=== PATIENT | male | born 1965 | race Caucasian/White ===

== ENCOUNTER 2017-11-15 13:04 | Inpatient (IN) | payer OTHER ==
[~2017-11-15] VITALS: Ht 172.7 cm; Wt 84.9 kg
--- NOTE | 2017-11-15 13:43 | ED GENERAL ADULT ---
History of Present Illness General Chief Complaint: General Adult Stated Complaint: BIBA ?SIEZURE, FALLING, HEAD STRIKE, ?AMS Source: patient Exam Limitations: no limitations Vital Signs & Intake/Output Vital Signs & Intake/Output Vital Signs Date Time Temp Pulse Resp B/P B/P Pulse O2 O2 Flow FiO2 Mean Ox Delivery Rate 11/15 1727 96.6 89 16 144/90 96 Room Air 11/15 1634 96.2 87 16 138/90 96 Room Air 11/15 1340 96.2 104 15 168/104 94 Room Air Room Air Allergies Coded Allergies: acetaminophen (From PERCOCET) (Severe, ITCH 02/05/16) hydrocodone (Severe, ITCH 02/05/16) oxycodone (Severe, ITCH 02/05/16) Reconcile Medications Atorvastatin Calcium 40 MG TABLET 1 TAB PO DAILY choolestrol (Reported) Escitalopram Oxalate 10 MG TABLET 1 TAB PO DAILY insomnia (Reported) Lisinopril/Hydrochlorothiazide (Lisinopril-Hctz 20-12.5 MG Tab) 20 MG-12.5 MG TABLET 1 TAB PO DAILY htn (Reported) Triage Note: PT BIBA FROM HOME WITH FOR MULTIPLE COMPLAINTS. PT HAS HAD FEVERS SINCE EARLY OCTOBER, AN EPISODE OF A COUPLE OF DAYS OF BLOOD BM'S (NOW RESOLVED), +DIARRHEA. ON THURSDAY, PT FELL AND HIT HIS HEAD ON BASEBOARD IN HOUSE, UNSURE OF MECHANISM OF FALL. SINCE THEN, PT HAS FALLEN 2 OTHER TIMES (PER , PT IS JUST STANDING AND THEN DROPS FORWARD). NOW, PT HAS BLURRY VISION, HEADACHE, TREMOR-LIKE ACTIVITY THAT OCCURS WHEN TRYING TO STAND UP, INCREASED CONFUSION, DECREASED URINATION (?NO URINE SINCE YESTERDAY), SLURRED SPEECH, NO FACIAL DROOP. SORE THROAT THAT STARTED YESTERDAY. Triage Nurses Notes Reviewed? yes Onset: Gradual Duration: worse persistent since (4 DAYS, HAS BEEN GOING ON 1 MO) Timing: no prior history Injury Environment: home Severity: severe Severity Numbers: 10 No Modifying Factors: none HPI: Patient is a 52-year-old male with history of hypertension, hyperlipidemia presenting to the emergency department with via EMS with chief complaint of intermittent altered mental status, multiple falls, tactile fevers and chills, sore throat that's been getting worse over the past 4 days. According to the he's had nonspecific flulike symptoms for the past one month, patient was really reluctant to see primary care physician regarding symptoms. She was symptoms were improving and then over the past 4 days she reports he has become intermittently confused, she feels like his legs are too weak to support himself. His legs have been giving out. Patient fell on which was unwitnessed. Unsure if he has had blacked out. She found him on the floor when she woke up. He fell 2 more times since then. He's had very unsteady gait according to the . Patient does admit to drinking 2 martinis daily for "a while". Patient also reports intermittent blurred vision. No chest pain or shortness of breath. Positive sore throat. The also reports that he said decreased urine output over the past several days. She does not believe he urinated yet today. No history of similar symptoms in the past. Denies Tylenol use. (Melissa Caban) Past History Travel History Traveled to [place] past 21 day No Medical History Any Pertinent Medical History? see below for history Neurological: NONE EENT: NONE Cardiovascular: hypertension, hyperlipidemia Respiratory: NONE Gastrointestinal: NONE Hepatic: NONE Renal: NONE Musculoskeletal: NONE Psychiatric: NONE Endocrine: NONE Blood Disorders: NONE Cancer(s): NONE INTERIOR HORTICULTURIST/Reproductive: NONE Surgical History Surgical History: non-contributory Psychosocial History Who do you live with Spouse What is your primary language Malian Tobacco Use: Cognitive Impairment Family History Hx Contributory? No (Melissa Caban) Review of Systems Review of Systems Constitutional: Reports: see HPI, chills, fever, malaise, weakness. Comments Review of systems: See HPI, All other systems negative. Constitutional, no weight loss HEENT: No visual changes no congestion Cardiovascular: No chest pain ,palpitation , orthopnea or ankle swelling Skin, no jaundice no rashes Respiratory: No dyspnea cough sputum or hemoptysis GI: No nausea no vomiting : No dysuria No hematuria Muscle skeletal: no back pain, no neck pain, Neurologic: No numbness Psych: No stress anxiety or depression,. Heme/endocrine: No bruising no bleeding no polyuria or polydipsia Immunology: No splenectomy or history of AIDS (Melissa Caban) Physical Exam Physical Exam General Appearance: no apparent distress, awake, comfortable Comments: Well-developed well-nourished person in no acute distress HEENT: extraocular motion intact, no nystagmus. Pupils equally round and reactive to light and accommodation. Sclera icterus present. Nose is atraumatic. External auditory canal and Tympanic membranes clear. Pharynx normal. No swelling or edema. Moist oromucosa. Neck: Supple, no lymphadenopathy, normal range of motion without pain or tenderness, no nuchal rigidity. Back: Nontender, no CVA tenderness. Cardiovascular: Regular rate and rhythms no murmurs rubs or gallopS Respiratory: Chest nontender. No respiratory distress.breath sounds clear to auscultation bilaterally Abdomen: Soft, diffusely tender to palpation with guarding throughout, nondistended, no appreciable organomegaly. Normal bowel sounds. No ascites Extremity: No edema, no calf tenderness to palpation, normal and equal pulses. Neuro: Alert oriented to person, confused about time and situation, motor sensory normal, cranial nerves II through XII grossly intact. NEGATIVE ASTERIXSIS. Skin: Skin appears slightly jaundiced throughout, otherwise No appreciable rash on exposed skin, skin is warm and dry. Psych: poor memory and judgment. Core Measures ACS in differential dx? No CVA/TIA Diagnosis: No Sepsis Present: No Sepsis Focused Exam Completed? No (Sterling GARCIA,Melissa) Progress Differential Diagnoses I considered the following diagnoses in my evaluation of the patient: Dehydration, electrolyte abnormality, rhabdomyolysis, acute kidney injury, hepatorenal syndrome, hepatitis, hepatic ENCEPHALITIS Plan of Care: Orders Procedure Date/time Status Nothing by Mouth 11/16 B Active CBC WITHOUT DIFFERENTIAL 11/16 0500 Active BASIC ELECTROLYTES PLUS BUN&CR 11/16 0500 Active Code Status 11/15 1743 Active RAPID VIRAL INFLUENZA A 11/15 1705 Active PT Evaluate & Treat 11/15 1703 Active Pathway - chart 11/15 1703 Active House Staff 11/15 1703 Active CULTURE,URINE 11/15 1703 Active LACTIC ACID 11/15 1642 Active Patient Data 11/15 1636 Active Admit to inpatient 11/15 1632 Active URINE LYTES, SPOT 11/15 1617 Active Add-on Test (ER Only) 11/15 1556 Active Add-on Test (ER Only) 11/15 1511 Active Add-on Test (ER Only) 11/15 1503 Active BLOOD CULTURE 11/15 1456 Active ACETOMINOPHEN 11/15 1350 Active SALICYLATE 11/15 1350 Active LIPASE 11/15 1350 Active HEPATITIS PANEL 11/15 1350 Active ETHANOL 11/15 1350 Active CREATINE PHOSPHOKINASE 11/15 1350 Active AMYLASE 11/15 1350 Active URINE DRUG SCREEN FOR ER ONLY 11/15 1343 Active URINALYSIS 11/15 1343 Active Telemetry/Dehydration Unit Operator 11/15 1342 Active TROPONIN LEVEL 11/15 1342 Active PARTIAL THROMBOPLASTIN TIME 11/15 1342 Complete PROTHROMBIN TIME 11/15 1342 Complete AMMONIA 11/15 1342 Active LACTIC ACID 11/15 1342 Active DIRECT BILIRUBIN 11/15 1342 Active COMPREHENSIVE METABOLIC PANEL 11/15 1342 Active CBC WITHOUT DIFFERENTIAL 11/15 1342 Complete EKG 11/15 1308 Active VTE Mechanical Prophylaxis 11/15 UNK Active Vital Signs 11/15 UNK Active Seizure Precautions 11/15 UNK Active Precautions 11/15 UNK Active Intake & Output 11/15 UNK Active Myers, Insertion/Removal/Asses 11/15 UNK Active Current Medications Sig/Wagner Start time Last Medication Dose Stop Time Status Admin Heparin Sodium 5,000 UNIT Q8 11/15 2200 UNVr (Porcine) Acetylcysteine 13,607.7 MG ONCE ONE 11/15 1645 AC 11/15 (Acetadote) 11/15 1805 1741 Dextrose/Water 200 ML (D5W) Laboratory Tests 11/15/17 1551: PT 14.0 H, INR 1.34 H, APTT 39 H 11/15/17 1350: Anion Gap 24 H, Estimated GFR 9 L, BUN/Creatinine Ratio 7.5, Glucose 92, Lactic Acid 2.3 H, Calcium 9.7, Total Bilirubin 12.1 H, Direct Bilirubin 11.4 H, AST 696 H, ALT 266 H, Alkaline Phosphatase 750 H, Ammonia 16, Creatine Kinase 707 H, Troponin I 0.04, Total Protein 6.1 L, Albumin 2.8 L, Globulin 3.3, Albumin/Globulin Ratio 0.8 L, Amylase 73, Lipase 67, CBC w Diff MAN DIFF ORDERED, RBC 4.28 L, MCV 91.4, MCH 31.8 H, MCHC 34.8, RDW 16.9 H, MPV 8.4, Segmented Neutrophils 71, Band Neutrophils 3, Lymphocytes 22, Monocytes 4, Platelet Estimate VERIFIED BY SMEAR, Anisocytosis 1+, Target Cells FEW, Hepatitis A IgM Ab Pending, Hep Bs Antigen Pending, Hep B Core IgM Ab Conf Pending, Hepatitis C Antibody Pending, Salicylates < 1.0, Acetaminophen < 10.0 L, Serum Alcohol < 10.0 11/15/17 1343: Salicylates Cancelled, Acetaminophen Cancelled, Serum Alcohol Cancelled Microbiology 11/15 1705 NASOPHARYN: Influenza Virus A & B Rapid Smear - ORD 11/15 1703 URINE ROUT: Urine Culture - ORD 11/15 1555 BLOOD: Blood Culture - RECD 11/15 1456 BLOOD: Blood Culture - ORD Spoke with Dr. Cerna, on-call gastroenterology, recommended we start patient on N-acetylcysteine for liver failure. 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 Also recommending we obtained urine sodium. IV hydration continuing. Patient will be admitted to the ICU for hepatic and renal failure. Ammonia is negative. CT of head and neck are negative. CT of the abdomen shows pancreatic cyst versus neoplasm.?hepatorenal syndrome. Diagnostic Imaging: Viewed by Me: Radiology Read, CT Scan. Discussed w/RAD: Radiology Read, CT Scan. Radiology Impression: PATIENT: JULIO CESAR ABDALLA PRESENT AGE: 52 PATIENT ACCOUNT NO: [id number] : 67 LOCATION: [facility] ORDERING PHYSICIAN: Melissa GARCIA SERVICE DATE: 11/15/17 EXAM TYPE: RAD - XRY-PORTABLE CHEST XRAY EXAMINATION: XR PORTABLE CHEST CLINICAL INFORMATION: 52- year-old man with confusion. COMPARISON: None TECHNIQUE: Portable frontal view of the chest was obtained. FINDINGS: Lung volumes are somewhat low. No focal consolidation or overt edema is appreciated. Heart size is within the range of normal. There are no pleural effusions. There is elevation of the right hemidiaphragm. IMPRESSION: No radiographic evidence of an acute cardiopulmonary process. DICTATED BY: Maria Elena Sunshine MD DATE/TIME DICTATED:11/15/171426 RUNNING INSTRUCTOR:ALAN DATE/TIME TRANSCRIBED:11/15/171426 CONFIDENTIAL, DO NOT COPY WITHOUT APPROPRIATE AUTHORIZATION. <Electronically signed in Other Vendor System> SIGNED BY: Maria Elena Sunshine MD 11/15/17 1432, PATIENT: JULIO CESAR ABDALLA PRESENT AGE: 52 PATIENT ACCOUNT NO: [id number] : 67 LOCATION: [facility] ORDERING PHYSICIAN: Melissa GARCIA SERVICE DATE: 11/15/17 EXAM TYPE: CAT - CT ABD & PELVIS W/O IV CONTRAS EXAMINATION: CT ABDOMEN AND PELVIS WITHOUT CONTRAST CLINICAL INFORMATION: Abdominal pain. Scleral icterus. COMPARISON: Previous CT June 2008. TECHNIQUE: Multidetector volumetric imaging was performed from the superior aspect of the liver through the pubic symphysis. Sagittal and coronal reformatted images were obtained on the technologist's workstation. DLP: 640 mGy-cm FINDINGS: LUNG BASES : There is subsegmental atelectasis at the lung bases. LIVER, GALLBLADDER, AND BILIARY TREE: The liver is low in attenuation suggestive of fatty infiltration. The liver appears slightly enlarged, right lobe measuring 20 cm in length. No focal liver lesion is seen. The gallbladder is high in attenuation related to the liver, possibly related to bile sludge. No gallstones are seen. No intra or extrahepatic biliary duct dilatation is seen. PANCREAS: There is a cystic lesion in the tail of the pancreas. This measures 4.8 x 3.8 cm axial image 32 series 2 and is new from 2008 exam. There may be an adjacent focal calcification in the pancreas. There is minimal adjacent fat stranding. Differential would include a benign pseudocyst related to previous pancreatitis and cystic pancreatic neoplasm. The pancreas is otherwise unremarkable. SPLEEN: Unremarkable. ADRENAL GLANDS: Unremarkable. KIDNEYS AND URETERS: The kidneys are normal in size, shape , and attenuation. No hydronephrosis, hydroureter, or calculi seen. No perinephric stranding. BLADDER: Not distended and not well evaluated. GASTROINTESTINAL TRACT: There is evidence of diverticulosis of the colon. There is minimal fat stranding seen adjacent to the sigmoid colon and it is difficult to exclude mild diverticulitis. No evidence of obstruction, perforation or abscess is seen. Small and large bowel is otherwise unremarkable. The appendix is unremarkable. ABDOMINAL WALL: There is a small umbilical hernia containing fat. LYMPH NODES: There are no enlarged lymph nodes. There is no ascites. VASCULAR: Unremarkable. PELVIC VISCERA: The prostate gland does not appear enlarged. OSSEOUS STRUCTURES: There is a small sclerotic lesion in the left iliac bone measuring 6 mm axial image 82 series 2. This is not seen on 2008 exam. Bony structures are otherwise unremarkable. IMPRESSION: Enlarged fatty liver. 3.8 x 4.8 cm cyst or cystic lesion in the tail of the pancreas is new from 2008 exam. There is an adjacent small focal calcification in the pancreas and some stranding of the surrounding peripancreatic fat. Differential would include pseudocyst related to previous pancreatitis and cystic pancreatic neoplasm. Diverticulosis. It is difficult to exclude mild diverticulitis of the sigmoid colon. DICTATED BY: Florinda Alvarez MD DATE/TIME DICTATED:11/15/171454 RUNNING INSTRUCTOR:ALAN DATE/TIME TRANSCRIBED:11/15/171454 CONFIDENTIAL, DO NOT COPY WITHOUT APPROPRIATE AUTHORIZATION. <Electronically signed in Other Vendor System> SIGNED BY: Florinda Alvarez MD 11/15/17 1550 , PATIENT: JULIO CESAR ABDALLA PRESENT AGE: 52 PATIENT ACCOUNT NO: [id number] : 69 LOCATION: [facility] ORDERING PHYSICIAN: Melissa GARCIA SERVICE DATE: 11/15/17 EXAM TYPE: CAT - CT CERV SPINE WO IV CONTRAST; CT HEAD WO IV CONTRAST EXAMINATION: CT HEAD WITHOUT CONTRAST CT CERVICAL SPINE WITHOUT CONTRAST CLINICAL INFORMATION: 52-year-old man with head injury and confusion. COMPARISON: None. TECHNIQUE: Imaging was performed from the skull base to vertex without intravenous administration of contrast. In addition, helical noncontrast CT imaging was acquired through the cervical spine and source images were reviewed along with axial reconstructions and sagittal and coronal MPRs. DLP: 968 mGy-cm FINDINGS: HEAD: No intracranial mass, hemorrhage, or midline shift is visualized. The ventricles and sulci are age- appropriate. No extra-axial collections are identified. The paranasal sinuses and mastoid air cells are well aerated. CERVICAL SPINE: There is no evidence of acute cervical spine fracture. Vertebral bodies remain normal in height. There is straightening of the normal cervical lordosis. Degenerative endplate remodeling with anterior marginal osteophyte formation and mild loss of normal disc space is noted at C5-C6 and C6-C7. No pre- or paravertebral soft tissue abnormality is identified. Limited assessment of the lung apices is unremarkable. IMPRESSION: 1. No acute intracranial pathology. 2. No CT evidence of acute cervical spine fracture or traumatic subluxation. DICTATED BY: Maria Elena Sunshine MD DATE/TIME DICTATED:11/15/171445 RUNNING INSTRUCTOR:ALAN DATE/TIME TRANSCRIBED:11/15/171445 CONFIDENTIAL, DO NOT COPY WITHOUT APPROPRIATE AUTHORIZATION. <Electronically signed in Other Vendor System> SIGNED BY: Jong OCONNOR,Maria Elena 11/15/17 1456 Initial ED EKG: SINUS TACHY 111, NON-SPECIFIC T ABNORMALITIES, INFERIOR LEADS (Melissa Caban) Departure Departure Time of Disposition: 163 Disposition: STILL A PATIENT Condition: Stable Clinical Impression Primary Impression: Renal failure Qualifiers: Renal failure chronicity: acute Acute renal failure type: unspecified Qualified Code: N17.9 - Acute kidney failure, unspecified Secondary Impressions: Hyponatremia Liver failure Qualifiers: Liver failure chronicity: acute Hepatic coma status: without hepatic coma Qualified Code: K72.00 - Acute and subacute hepatic failure without coma Referrals: Maureen Farr MD (PCP/Family) Departure Forms: Customer Survey General Discharge Information Admission Note Spoke With: Tomas Silva MD Documentation of Exam: Documentation of any treatments & extenuating circumstances including Concerns Regarding Discharge (functional status, medication knowledge or non-compliance, living conditions, etc.) that warrant an admission rather than observation: Patient requiring critical care admission for liver failure, intermittent altered mental status, GI consultation, N-acetylcysteine protocol, serial labs, IV hydration, nephrology consultation. Serial neuro checks. Discharge at this time is medically harmful. (Melissa Caban) PA/USPS LETTER CARRIER Co-Sign Statement Statement: ED Attending supervision documentation- x I saw and evaluated the patient. I have also reviewed all the pertinent lab results and diagnostic results. I agree with the findings and the plan of care as documented in the PA's/USPS LETTER CARRIER's documentation. Hx alcoholism with viral syndrome over the last month, GI bleeding, weakness, falls, tremors, scleral icterus and confusion. Hepatorenal syndrome. GI requests ICU and NAC protocol. [] I have reviewed the ED Record and agree with the PA's/USPS LETTER CARRIER's documentation. [] Additions or exceptions (if any) to the PAs/USPS LETTER CARRIER's note and plan are summarized below: [] (Sasha OCONNOR,Matti) Critical Care Note Critical Care Note Critical Care Time: 30-74 min (Melissa Caban)
[2017-11-15 14:21] LABS: HEMATOCRIT 39.1 % (42-52); MEAN CORPUSCULAR HGB 31.8 PG (27.0-31.0); MEAN CORPUSCULAR HGB CONC 34.8 G/DL (33.0-37.0); MEAN CORPUSCULAR VOLUME 91.4 FL (80.0-94.0); MEAN PLATELET VOLUME 8.4 FL (7.4-10.4); PLATELET COUNT 128 /CUMM (130-400); RBC DISTRIBUTION WIDTH 16.9 % (11.5-14.5); RED BLOOD CELL CT 4.28 /CUMM (4.70-6.10); WHITE BLOOD CELL COUNT 9.1 /CUMM (4.8-10.8)
--- NOTE | 2017-11-15 14:32 | RADIOLOGY REPORT ---
EXAMINATION: XR PORTABLE CHEST CLINICAL INFORMATION: 52-year-old man with confusion. COMPARISON: None TECHNIQUE: Portable frontal view of the chest was obtained. FINDINGS: Lung volumes are somewhat low. No focal consolidation or overt edema is appreciated. Heart size is within the range of normal. There are no pleural effusions. There is elevation of the right hemidiaphragm. IMPRESSION: No radiographic evidence of an acute cardiopulmonary process.
--- NOTE | 2017-11-15 14:54 | CT SCAN REPORT ---
EXAMINATION: CT HEAD WITHOUT CONTRAST CT CERVICAL SPINE WITHOUT CONTRAST CLINICAL INFORMATION: 52-year-old man with head injury and confusion. COMPARISON: None. TECHNIQUE: Imaging was performed from the skull base to vertex without intravenous administration of contrast. In addition, helical noncontrast CT imaging was acquired through the cervical spine and source images were reviewed along with axial reconstructions and sagittal and coronal MPRs. DLP: 968 mGy-cm FINDINGS: HEAD: No intracranial mass, hemorrhage, or midline shift is visualized. The ventricles and sulci are age-appropriate. No extra-axial collections are identified. The paranasal sinuses and mastoid air cells are well aerated. CERVICAL SPINE: There is no evidence of acute cervical spine fracture. Vertebral bodies remain normal in height. There is straightening of the normal cervical lordosis. Degenerative endplate remodeling with anterior marginal osteophyte formation and mild loss of normal disc space is noted at C5-C6 and C6-C7. No pre- or paravertebral soft tissue abnormality is identified. Limited assessment of the lung apices is unremarkable. IMPRESSION: 1. No acute intracranial pathology. 2. No CT evidence of acute cervical spine fracture or traumatic subluxation.
--- NOTE | 2017-11-15 15:50 | CT SCAN REPORT ---
EXAMINATION: CT ABDOMEN AND PELVIS WITHOUT CONTRAST CLINICAL INFORMATION: Abdominal pain. Scleral icterus. COMPARISON: Previous CT June 2008. TECHNIQUE: Multidetector volumetric imaging was performed from the superior aspect of the liver through the pubic symphysis. Sagittal and coronal reformatted images were obtained on the technologist's workstation. DLP: 640 mGy-cm FINDINGS: LUNG BASES: There is subsegmental atelectasis at the lung bases. LIVER, GALLBLADDER, AND BILIARY TREE: The liver is low in attenuation suggestive of fatty infiltration. The liver appears slightly enlarged, right lobe measuring 20 cm in length. No focal liver lesion is seen. The gallbladder is high in attenuation related to the liver, possibly related to bile sludge. No gallstones are seen. No intra or extrahepatic biliary duct dilatation is seen. PANCREAS: There is a cystic lesion in the tail of the pancreas. This measures 4.8 x 3.8 cm axial image 32 series 2 and is new from 2008 exam. There may be an adjacent focal calcification in the pancreas. There is minimal adjacent fat stranding. Differential would include a benign pseudocyst related to previous pancreatitis and cystic pancreatic neoplasm. The pancreas is otherwise unremarkable. SPLEEN: Unremarkable. ADRENAL GLANDS: Unremarkable. KIDNEYS AND URETERS: The kidneys are normal in size, shape, and attenuation. No hydronephrosis, hydroureter, or calculi seen. No perinephric stranding. BLADDER: Not distended and not well evaluated. GASTROINTESTINAL TRACT: There is evidence of diverticulosis of the colon. There is minimal fat stranding seen adjacent to the sigmoid colon and it is difficult to exclude mild diverticulitis. No evidence of obstruction, perforation or abscess is seen. Small and large bowel is otherwise unremarkable. The appendix is unremarkable. ABDOMINAL WALL: There is a small umbilical hernia containing fat. LYMPH NODES: There are no enlarged lymph nodes. There is no ascites. VASCULAR: Unremarkable. PELVIC VISCERA: The prostate gland does not appear enlarged. OSSEOUS STRUCTURES: There is a small sclerotic lesion in the left iliac bone measuring 6 mm axial image 82 series 2. This is not seen on 2008 exam. Bony structures are otherwise unremarkable. IMPRESSION: Enlarged fatty liver. 3.8 x 4.8 cm cyst or cystic lesion in the tail of the pancreas is new from 2008 exam. There is an adjacent small focal calcification in the pancreas and some stranding of the surrounding peripancreatic fat. Differential would include pseudocyst related to previous pancreatitis and cystic pancreatic neoplasm. Diverticulosis. It is difficult to exclude mild diverticulitis of the sigmoid colon.
[2017-11-15 16:10] LABS: PTT 39 SEC (25-37)
--- NOTE | 2017-11-15 16:58 | History & Physical ---
Rosa Isela Patrick 11/15/17 1648: General Information and HPI MD Statement: I have seen and personally examined JULIO CESAR ABDALLA and documented this H&P. The patient is a 52 year old M who presented with a patient stated chief complaint of [fevers, diarrhea, s/p fall, blurry vision, slurred speech]. Source of Information: patient, family Exam Limitations: no limitations History of Present Illness: The patient had been in his usual state of health up until October 09, 2017 when he first started 2 experience low-grade temperatures, flulike symptoms including malaise, generalized aches and low-grade temperatures with a T-max of 100.6. He said since then his symptoms progressively worsened. He states that for the last 7 days or so he has been having seizure-like symptoms where he is unsteady every time he stands up and is very tremulous. Of note he has had multiple falls the first 1 being unwitnessed however the patient 's states that he was found on the ground after he did hit his head against a radiator while ambulating to the bathroom. He also endorses nausea and vomiting. He states that he has been bringing up nonbloody emesis twice a day for the past 7 days or so. This past Thursday he could not urinate and states that even though he felt like he wanted to go be urine actually trickled down. He denies any recent travel history. Denies any tick bites. Apparently his p.o. intake has been very minimal. His last travel was to [place] back in May 2017 however the family was down there to seek property. He denies any history of sick contact. Of note he does drink martinis 2 on a daily basis and has been doing that for almost 30 years. He denies any history of blood transfusions or meniscal his behavior. As far as the seizure-like episodes, the describes them as spastic movements where every time the patient sits up or stands his legs straight and give away. Patient denies any episode of urine or fecal incontinence or tongue biting or losing consciousness or eye rolling during these events. He does endorse having blurry vision this morning and they may be questionable hallucinations for the past couple of days. The wanted to bring him to the primary care physician on Thursday but he said to wait until Thursday before seeing his primary care. When really prompted them to come to the ER today was the fact that while he was lying down in the couch today he went to sit up and had that jerky like movements again after which the decided to bring him to the ER. 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 He does endorse abdominal distention however denies any constipation. He does endorse loose stools about 5-6 on a daily basis. There may have been an episode where he had blood in stools, not sure if it was ,mixed or on toilet paper. Hasnt been consuming tylenol. Only Ibuprofen 2 tablets in the past 2 days for headache post fall Allergies/Medications Allergies: Coded Allergies: acetaminophen (From PERCOCET) (Severe, ITCH 02/05/16) hydrocodone (Severe, ITCH 02/05/16) oxycodone (Severe, ITCH 02/05/16) Home Med list Atorvastatin Calcium 40 MG TABLET 1 TAB PO DAILY choolestrol (Reported) Escitalopram Oxalate 10 MG TABLET 1 TAB PO DAILY insomnia (Reported) Lisinopril/Hydrochlorothiazide (Lisinopril-Hctz 20-12.5 MG Tab) 20 MG-12.5 MG TABLET 1 TAB PO DAILY htn (Reported) Compliance With Home Meds: GOOD Past History Travel History Traveled to [place] past 21 day No Medical History Neurological: NONE EENT: NONE Cardiovascular: hypertension, hyperlipidemia Respiratory: NONE Gastrointestinal: NONE Hepatic: NONE Renal: NONE Musculoskeletal: NONE Psychiatric: NONE Endocrine: NONE Blood Disorders: NONE Cancer(s): NONE DIRECTOR OF 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 Home Who Do You Live With? spouse Primary Language: Kenyan Smoking Status: Never Smoked ETOH Use: DRINKS ON A DAILY BASIS Illicit Drug Use: denies illicit drug use Functional Ability ADLs Independent: dressing, eating, toileting, bathing. 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 EENTM: Reports: blurred vision, icterus. Cardiovascular: Reports: palpitations, syncope. Denies: chest pain, orthopena, peripheral edema. Respiratory: Denies: cough, short of breath, sputum production, wheezing. GI: Reports: bloating, diarrhea, nausea, bloody stool, vomiting. Denies: abdominal pain. Musculoskeletal: Reports: no symptoms. Neurological/Psychological: Reports: ataxia, confusion, headache, tremors, weakness. Denies: depressed, numbness, tingling, tonic-clonic seizures. Exam & Diagnostic Data Last 24 Hrs of Vital Signs/I&O Vital Signs Date Time Temp Pulse Resp B/P B/P Pulse O2 O2 Flow FiO2 Mean Ox Delivery Rate 11/15 1634 96.2 87 16 138/90 96 Room Air 11/15 1340 96.2 104 15 168/104 94 Room Air Room Air Intake & Output 11/15 1600 11/15 0800 11/15 0000 Intake Total 0 Output Total Balance 0 Intake, Oral 0 Last 24 Hrs of Labs/Jean-Pierre: Laboratory Tests 11/15/17 1551: PT 14.0 H, INR 1.34 H, APTT 39 H 11/15/17 1350: Anion Gap 24 H, Estimated GFR 9 L, BUN/Creatinine Ratio 7.5, Glucose 92, Lactic Acid 2.3 H, Calcium 9.7, Total Bilirubin 12.1 H, Direct Bilirubin 11.4 H, AST 696 H, ALT 266 H, Alkaline Phosphatase 750 H, Ammonia 16, Creatine Kinase 707 H, Troponin I 0.04, Total Protein 6.1 L, Albumin 2.8 L, Globulin 3.3, Albumin/Globulin Ratio 0.8 L, Amylase 73, Lipase 67, CBC w Diff MAN DIFF ORDERED, RBC 4.28 L, MCV 91.4, MCH 31.8 H, MCHC 34.8, RDW 16.9 H, MPV 8.4, Segmented Neutrophils 71, Band Neutrophils 3, Lymphocytes 22, Monocytes 4, Platelet Estimate VERIFIED BY SMEAR, Anisocytosis 1+, Target Cells FEW, Hepatitis A IgM Ab Pending, Hep Bs Antigen Pending, Hep B Core IgM Ab Conf Pending, Hepatitis C Antibody Pending, Salicylates < 1.0, Acetaminophen < 10.0 L, Serum Alcohol < 10.0 11/15/17 1343: Salicylates Cancelled, Acetaminophen Cancelled, Serum Alcohol Cancelled Microbiology 11/15 1705 NASOPHARYN: Influenza Virus A & B Rapid Smear - ORD 01/28 1703 URINE ROUT: Urine Culture - ORD 11/15 1555 BLOOD: Blood Culture - RECD 11/15 1456 BLOOD: Blood Culture - ORD Assessment/Plan Assessment: 52-year-old male with a past medical history of hypertension, hyperlipidemia who presents to ER complains of fevers since early October, episodes of bloody bowel movements, diarrhea, status post fall associated with blurry vision, headache and tremor-like activity as well as increased confusion. Vitals at the time of admission blood pressure 130/90, respiratory rate of 16, pulse 87, afebrile saturating 96% on room air. Labs pertinent for normal white blood cell count of 9100, H&H of 13.6/39.1 and MCV of 9144 with platelet count of 1 20,000. Serum creatinine revealed a sodium of 122, potassium of 3.7, bicarbonate of 16, anion gap 24, BUN 50 with a creatinine of 6.7. Lactic acid was 2.3. LFTs pertinent for elevated total bili of 12.1, direct bilirubinemia of 11.4, transaminitis with an AST/ALT of 696/266, alkaline phosphatase of 750. Serum ammonia was 16. CK was 707 with the first set of troponin 0.04. Amylase was 73 with lipase of 67. INR was 1.34. UA was not received. Tox screen pertinent for serum alcohol was less than 10. And a Tylenol level of less than 10. CXR showed no focal consolidation or overt edema, or pleural effusion. There is elevation of right hemidiaphragm. CT head and cervical spine showed no acute intracranial pathology. No CT evidence of acute cervical spine fracture or traumatic subluxation. CT Abdomen/Pelvis w/o IV contrast showed enlarged fatty liver. 3.8 x 4.8 cm cyst or cystic lesion in the tail of the pancreas is new from 2007. There is an adjacent small focal calcification in the pancreas and some stranding of the surrounding peripancreatic fat. Diverticulosis. It is difficult to exclude mild diverticulitis of the sigmoid colon. In the ER he received NS 1000ml x2, and started on NAC for concern for tylenol toxicity in the setting of underlying alcoholic hepatitis . Assessment and Plan: Admit patient to ICU # Respiratory - Stable. - Currently on RA. # Myalgia, mailase with low grade fevers, sore throat - Would check rapid flu, strep throat (c/o sore throat), send for tick borne panel, and check babesiosis (of note it is mathis, and is unlikely that he has tick borne diseaes incluing lymes, anaplasmosis, babesiosis, but will check) - Will order a respiratory virus panel. - F/U strep throat - ? diverticulits on CT scan (though no leukocytosis, will fair off Abx) - The clincial syndrome could have been taht the patient had flu which resulted in cholestasis, decreased PO intake, and subsequently led to deydration and renal failure. #AMBAR - Most likely 2/2 dehydration and volume depletion form being on HCTZ/lisinopril , decreased PO intake vs obstructive uropathy and ATN form CK - Will order serum osmolarity, urine lytes. - Spoke with Dr. Alvarez, no need to alkaliize urine until CK is > 5000. - Nephro consult placed. F.U recs. - Hold HCTZ/ Lisinopril #Elevated anion gap acidosis with non-aniongap metabolic acidosis and compensatory respiratory alkalosis. - 2/2 lactic acidosis from hypoperfusion, vomiting and renal insuffiency contributing to the NAGMA. - F/U repeat BEP #Tranaminitis - 2/2 alcoholic hepatitis and rhabo vs ? pancreatic mass casuing obstructive jaundice - Will send for hepatitis serology and HIV panel - Will do an US Abdomen in AM - Ammonia level was WNL. - Hold statin and escitalopram - GI consult iw DR. Cerna was placed. No need for NACas patient was not taking tylenol. #Pancreatic cyst/ mass Will obatin an MRI pancreatic protocl with andw/o contrast for better visualzation #Anemia and thrombocytopenia - ? hepatic failure - F/U CBC and consider DC heparin if platelet count continue sto drop. - F/I iron studies #Hyponatremia - Most likely 2/2 dehydration and volume depletion. - f/u urine lytes. - Hydrate with NS @50mls/hr - F./U ICU bundle @ 7:00pm, and ensure soidium doesnt overcorrect - Start D5W if it corrects too fast. #Oliguria - No evidence of BPH or hydronephrosis on CT scan. - Will place a rust catheter,a nd hydraet with IVF and monitor strict I's and O 's #ALcohol dependence - Place on CIWAS protocol - High dose thiamine and the n supplements for folic acid, thiamin and MV - DVT prophylaxis - Heparion 5000IU TID - Diet - NPO for now, Abd US in AM - COde Status - Full code As Ranked By This Provider Problem List: 1. Renal failure Qualifiers Renal failure chronicity: acute Acute renal failure type: unspecified Qualified Code: N17.9 - Acute kidney failure, unspecified 2. Liver failure Qualifiers Liver failure chronicity: acute Hepatic coma status: without hepatic coma Qualified Code: K72.00 - Acute and subacute hepatic failure without coma 3. Hyponatremia Core Measures/Misc (07/05) Acute Coronary Syndrome ACS Diagnosis: No Congestive Heart Failure Congestive Heart Failure Diagnosis No Cerebrovascular Accident CVA/TIA Diagnosis: No VTE (View Protocol) VTE Risk Factors Age>40 No Mechanical VTE Prophylaxis d/t N/A MechProphylax Ordered No VTE Pharm Prophylaxis d/t NA PharmProphylax ordered Sepsis (View protocol) Sepsis Present: No Resident Review Statement Resident Statement: ADMITTED BY RESIDENT Barry OCONNOR, [facility] 11/15/171957: Attending MD Review Statement Attending Statement Attending MD Statement: examined this patient, discuss w/resident/PA/TUNNEL MUCKER, agreed w/resident/PA/TUNNEL MUCKER, discussed with family, reviewed images, amended to note Attending Assessment/Plan: 52 yo M with h/o HTN on lisinopril-HCTZ, HLD, alcohol dependence (drinks 2 martinis everyday for 30 yrs), is brought in for evaluation of tremulousness, fever (Tmax 100.6), increasing confusion, poor PO intake and reduced urine output. reports over the past 1 month, patient developed flu-like symptoms which have gradually progressed. Over past 1 week, he has had nausea, nonbloody emesis and nonbloody diarrhea (5-6 episodes) daily. He probably had one episode of blood in the stool or toilet paper ?unclear. No heartburn, hematemesis, or melena. C/o sore throat, difficulty swallowing and abdominal bloating. He has a h/o sigmoid diverticulitis with contained microperforation that was medically managed (2007). He has been intermittently tremulous and unsteady on his feet resulting in 3 falls, most recent was 3 days ago which was unwitnessed associated with head strike and LOC (unclear duration). Also we dont know how long he was on the floor for as found him on the floor Madhu morning. She reports he has some visual changes ?visual hallucinations. Over the past 4 days, patient has had difficulty urinating even though he had the urge to urinate, with only some mild dribbling. No recent weight loss. He has only taken 4 advits for his flu symptoms, but no excessive use of NSAIDs and not taken any tylenol. Patient has a PCP and last routine blood work was normal (3 weeks ago). Last bloodwork on [facility] (Nov 2016) CBC and BEP were normal. He has no h/o seizures, no DT's or previous alcohol detoxes. Nonsmoker, denies drug use. Vitals: afebrile, HR 80-100's, BP 144/90 --> 74/39 --> responding to IV fluids, sats 96% RA. Exam: awake, mild confusion, in mild distress, jaundice+, scleral icterus+, PERRL, mild pharyngeal erythema, Dry mucous membranes. Neck supple, Chest b/l clear, no rhonchi or wheeze, Heart S1S22 regular, no murmurs, Abdomen soft, distended, RUQ and RLQ tenderness, hepatomegaly+. Blanching erythematous area suggestive of ?spider nevi/ telangiectasia over chest/abdomen. LE: no pedal edema. Labs: WBC 9.1, H/H 13.6/39.1, K 2.8, Plt 128, INR 1.34, Na 122, bicarb 16, AG 24 , BUN 50, creat 6.7 (baseline normal), Lactic acid 2.3 --> 1.4, T. Bili 12.1, D. Bili 11.4, AST 696, ALT 266, Alk phos 750, ammonia 16, CK 707, trop neg, albumin 2.8. Amylase/lipase normal. Ferritin > 22870, TIBC 108, Iron 170. Mag 1.3, LDH 1358. Serum osmolality 282. AB.43/28/78/18. UA hazy, proteinuria, trace ketones, bilirubin+, WBC 5-10, large Hb. Urine tox negative. Tylenol <10, Salicylates <1.0. Alcohol <10. Imaging: CT head/cervical spine: no acute pathology. CXR: no acute process. CT abd/pelvis without contrast: enlarged fatty liver, 3.8 cm x 4.8 cm cystic lesion in tail of pancreas, adjacent small focal calcification in pancreas and some stranding of surrounding peripancreatic fat ?pseudocyst or neoplasm. Diverticulosis. EKG: sinus tachycardia, inferior TWI, poor R-wave progression, Qtc 489 (no old EKG to compare). Assessment and plan: 1. Hypotension 2/2 hypovolemia responding to IV fluids 2. Acute kidney injury- volume depleted from diarrhea, poor PO intake while being on ACEI-diuretic. Rule out obstruction. ?ATN 3. AG metabolic acidosis with respiratory alkalosis 4. Abnormal electrolytes hyponatremia (hypovolemic), hypomagnesemia, hypokalemia, 5. Abnormal liver enzymes - ?Acute liver failure vs acute alcoholic hepatitis 6. Coagulopathy 2/2 underlying liver disease 7. 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 Thrombocytopenia, hypoalbuminemia in the setting of alcoholic liver disease 9. Alcohol dependence 10. Mild rhabdomyolysis - Admit to ICU - Vitals Q 1 hour - Fall, aspiration precautions - NPO - NAC discontinued as this does not seem to be hepatorenal syndrome - Neurochecks Q1 - CIWA protocol, hold off on ativan for now - Rust placement, monitor I/O's - There was about 15 cc after rust placement - Patient received 2 L NS in the ER, will give 2 more L bolus followed by D5 1/ 2NS for maintenance - ICU bundle Q4 hourly to monitor electrolytes - Gradual increase in sodium levels to ~ 8-10 MeQ in 24 hours - Hold lisinopril and HCTZ - Panculture, concern for ?diverticulitis although CT is not suggestive vs. Gallbladder disease (sludge on CT with no evidence of biliary dilatation). - RUQ ultrasound in AM - Monitor off antibiotics for now. If febrile, would initiate IV ceftriaxone and flagyl - No nephrotoxic or hepatotoxic drugs - Check urine lytes and osmolality - Trend lactic acid, CK - Add albumin 25 gm TID - Check hepatitis panel, HIV. - Hold statin therapy - GI consult - Nephro consult - CRCU consult in AM - MRI to assess pancreatic mass - Elevated ferritin is acute phase reactant ?underlying malignancy or hepatitis - Also noted on CT is a small sclerotic lesion on left iliac bone ?unclear etiology ?mets - Repeat EKG and troponin in AM - GI ppx IV PPI. DVT ppx Hep SC. Full code TTS > 55 mins Update: 1.30AM: Repeat blood work shows gradual improvement in renal functions and liver enzymes. His BP has improved on IV fluids, and he has started making some amount of urine.
[2017-11-15] MEDS ORDERED: ATORVASTATIN CA40 M1 PO (17:19)
[2017-11-15] MEDS ORDERED: LISINOPRIL-HCT1 EACH PO (17:19)
[2017-11-15] MEDS ORDERED: ESCITALOPRAM OX10 MG PO (17:19)
[2017-11-15 17:27] VITALS: BP 144/90
--- NOTE | 2017-11-15 18:59 | Cons- Gastroenterology ---
General Information and HPI Consulting Request Date of Consult: 11/15/17 Requested By: Tomas Silva MD Reason for Consult: 1. Jaundice 2. Abnormal liver associated enzymes 3. Hepatic steatosis 4. Coagulopathy 5. Thrombocytopenia Source of Information: family Exam Limitations: unable to give history History of Present Illness: Patient is a 52-year-old male with past medical history of hyperlipidemia and hypertension who has a history of alcohol use. Per the patient's family he drinks 2 martinis daily which she is done for the past 30 years. The patient himself says he drinks a "four-finger martini." Patient was in his usual state of health until 1-2 weeks ago when he began to experience malaise, a low-grade temp of 100.6, and tremulousness. He had had 5-6 loose, non-bloody diarrheal stools daily as well as nausea and vomiting. Per patient's he began to deteriorate on when he was unable to urinate. He had a fell at home and hit his head on the radiator sometime night / early Thursday morning but his did not find him until sometime the next day because she was sleeping in another room, thinking that he had the flu. He did not take any Tylenol, but she did give him about 4 advil. He had not taken any Tylenol previously. She reports that he has never been told that he had underlying liver disease. He was seen by his PCP about 2-3 weeks ago and at that time had normal liver-associated enzymes. A CT scan of the head and neck were obtained in the ED which were negative. The results are as follows: FINDINGS: HEAD: No intracranial mass, hemorrhage, or midline shift is visualized. The ventricles and sulci are age-appropriate. No extra-axial collections are identified. The paranasal sinuses and mastoid air cells are well aerated. CERVICAL SPINE: There is no evidence of acute cervical spine fracture. Vertebral bodies remain normal in height. There is straightening of the normal cervical lordosis. Degenerative endplate remodeling with anterior marginal osteophyte formation and mild loss of normal disc space is noted at C5-C6 and C6-C7. No pre- or paravertebral soft tissue abnormality is identified. Limited assessment of the lung apices is unremarkable. IMPRESSION: 1. No acute intracranial pathology. 2. No CT evidence of acute cervical spine fracture or traumatic subluxation. On admission patient was found to have an H/H of 13.6/39.1 with 128,000 platelets and an MCV of 91.4. His denies any history of nausea, vomiting, melena, nor bright red blood per rectum. She does report that he has had increasing abdominal distension over the past several weeks. A CT Scan of the abdomen and pelvis was also obtained and the results are as follows: FINDINGS: LUNG BASES: There is subsegmental atelectasis at the lung bases. LIVER, GALLBLADDER, AND BILIARY TREE: The liver is low in attenuation suggestive of fatty infiltration. The liver appears slightly enlarged, right lobe measuring 20 cm in length. No focal liver lesion is seen. The gallbladder is high in attenuation related to the liver, possibly related to bile sludge. No gallstones are seen. No intra or extrahepatic biliary duct dilatation is seen. PANCREAS: There is a cystic lesion in the tail of the pancreas. This measures 4.8 x 3.8 cm axial image 32 series 2 and is new from 2008 exam. There may be an adjacent focal calcification in the pancreas. There is minimal adjacent fat stranding. Differential would include a benign pseudocyst related to previous pancreatitis and cystic pancreatic neoplasm. The pancreas is otherwise unremarkable. SPLEEN: Unremarkable. ADRENAL GLANDS: Unremarkable. KIDNEYS AND URETERS: The kidneys are normal in size, shape, and attenuation. No hydronephrosis, hydroureter, or calculi seen. No perinephric stranding. BLADDER: Not distended and not well evaluated. GASTROINTESTINAL TRACT: There is evidence of diverticulosis of the colon. There is minimal fat stranding seen adjacent to the sigmoid colon and it is difficult to exclude mild diverticulitis. No evidence of obstruction, perforation or abscess is seen. Small and large bowel is otherwise unremarkable. The appendix is unremarkable. ABDOMINAL WALL: There is a small umbilical hernia containing fat. LYMPH NODES: There are no enlarged lymph nodes. There is no ascites. VASCULAR: Unremarkable. PELVIC VISCERA: The prostate gland does not appear enlarged. OSSEOUS STRUCTURES: There is a small sclerotic lesion in the left iliac bone measuring 6 mm axial image 82 series 2. This is not seen on 2008 exam. Bony structures are otherwise unremarkable. IMPRESSION: Enlarged fatty liver. 3.8 x 4.8 cm cyst or cystic lesion in the tail of the pancreas is new from 2008 exam. There is an adjacent small focal calcification in the pancreas and some stranding of the surrounding peripancreatic fat. Differential would include pseudocyst related to previous pancreatitis and cystic pancreatic neoplasm. Diverticulosis. It is difficult to exclude mild diverticulitis of the sigmoid colon. His AST/ALT was 696/266 with an CK of 707, Akaline phosphatase was 750 and total bilirubin was 12.1 with direct bilirubin being 11.4. Serum sodium was 122 with a BUN/Creatinine of 50/6.7. Albumin was 2.8. Allergies/Medications Allergies: Coded Allergies: acetaminophen (From PERCOCET) (Severe, ITCH 02/05/16) hydrocodone (Severe, ITCH 02/05/16) oxycodone (Severe, ITCH 02/05/16) Home Med List: Atorvastatin Calcium 40 MG TABLET 1 TAB PO DAILY choolestrol (Reported) Escitalopram Oxalate 10 MG TABLET 1 TAB PO DAILY insomnia (Reported) Lisinopril/Hydrochlorothiazide (Lisinopril-Hctz 20-12.5 MG Tab) 20 MG-12.5 MG TABLET 1 TAB PO DAILY htn (Reported) Past History Travel History Traveled to [place] past 21 day No Medical History Neurological: NONE EENT: NONE Cardiovascular: hypertension, hyperlipidemia Respiratory: NONE Gastrointestinal: NONE Hepatic: NONE Renal: NONE Musculoskeletal: NONE Psychiatric: NONE Endocrine: NONE Blood Disorders: NONE Cancer(s): NONE 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 Home Who Do You Live With? spouse Primary Language: Malawian Smoking Status: Never Smoked ETOH Use: DRINKS ON A DAILY BASIS Illicit Drug Use: denies illicit drug use Functional Ability ADLs Independent: dressing, eating, toileting, bathing. 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 Review of Systems Constitutional: Reports: fever, weakness. EENTM: Denies: no symptoms. Cardiovascular: Denies: no symptoms. Respiratory: Denies: no symptoms. GI: Denies: no symptoms. Genitourinary: Reports: see HPI. Musculoskeletal: Reports: no symptoms. Skin: Reports: no symptoms. Neurological/Psychological: Reports: ataxia, tremors. Hematologic/Endocrine: Reports: no symptoms. Exam & Diagnostic Data Vital Signs and I&O Vital Signs Date Time Temp Pulse Resp B/P B/P Pulse O2 O2 Flow FiO2 Mean Ox Delivery Rate 11/15 1727 96.6 89 16 144/90 11/15 1727 96.6 89 16 144/90 96 Room Air 11/15 1634 96.2 87 16 138/90 96 Room Air 11/15 1340 96.2 104 15 168/104 94 Room Air Room Air Intake & Output 11/15 1600 11/15 0400 11/14 0400 11/13 0400 Intake Total 0 Output Total Balance 0 Intake, Oral 0 Physical Exam General Appearance: awake, mild distress Head: atraumatic, normal appearance Eyes: Bilateral: normal appearance. Ears, Nose, Throat: hearing grossly normal Neck: normal inspection, supple, full range of motion Respiratory: normal breath sounds, chest non-tender, lungs clear Cardiovascular: regular rate/rhythm, Normal S1 and S2 without rub murmur or gallop Gastrointestinal: normal bowel sounds, soft, non-tender, hepatomegaly, The liver is 4 FB below the costal margin. No spleen tip is appreciated. Back: normal inspection Neurologic/Psych: awake, Somewhat confused Cranial Nerves: Cranial Nerves II-XII grossly intact Skin: jaundice, telangiectasia on the face. ?palmar erythema Results Pertinent Lab Results: Laboratory Tests 11/15 11/15 11/15 1748 1551 1350 Chemistry Sodium (137 - 145 mmol/L) 122 L Potassium (3.5 - 5.1 mmol/L) 3.7 Chloride (98 - 107 mmol/L) 82 L Carbon Dioxide (22 - 30 mmol/L) 16 L Anion Gap (5 - 16) 24 H BUN (9 - 20 mg/dL) 50 H Creatinine (0.7 - 1.2 mg/dL) 6.7 *H Estimated GFR (>60 ml/min) 9 L BUN/Creatinine Ratio (7 - 25 %) 7.5 Glucose (65 - 99 mg/dL) 92 Lactic Acid (0.7 - 2.1 mmol/L) 2.3 H Calcium (8.4 - 10.2 mg/dL) 9.7 Total Bilirubin (0.2 - 1.3 mg/dL) Cancelled 12.1 H Direct Bilirubin (< 0.4 mg/dL) Cancelled 11.4 H AST (17 - 59 U/L) Cancelled 696 H ALT (21 - 72 U/L) Cancelled 266 H Alkaline Phosphatase (< 127 U/L) Cancelled 750 H Ammonia (9 - 30 umol/L) 16 Creatine Kinase (55 - 170 U/L) 707 H Troponin I (<0.11 ng/ml) 0.04 Total Protein (6.3 - 8.2 g/dL) Cancelled 6.1 L Albumin (3.5 - 5.0 g/dL) Cancelled 2.8 L Globulin (1.9 - 4.2 gm/dL) 3.3 Albumin/Globulin Ratio (1.1 - 2.2 %) 0.8 L Amylase (30 - 110 U/L) 73 Lipase (23 - 300 U/L) 67 Coagulation PT (9.4 - 12.5 SEC) 14.0 H INR (0.90 - 1.17) 1.34 H APTT (25 - 37 SEC) 39 H Hematology CBC w Diff MAN DIFF ORDERED WBC (4.8 - 10.8 /CUMM) 9.1 RBC (4.70 - 6.10 /CUMM) 4.28 L Hgb (14.0 - 18.0 G/DL) 13.6 L Hct (42 - 52 %) 39.1 L MCV (80.0 - 94.0 FL) 91.4 MCH (27.0 - 31.0 PG) 31.8 H MCHC (33.0 - 37.0 G/DL) 34.8 RDW (11.5 - 14.5 %) 16.9 H Plt Count (130 - 400 /CUMM) 128 L MPV (7.4 - 10.4 FL) 8.4 Segmented Neutrophils (42.2 - 75.2 %) 71 Band Neutrophils (0.0 - 5.0 %) 3 Lymphocytes (20.5 - 51.1 %) 22 Monocytes (1.7 - 9.3 %) 4 Platelet Estimate (ADEQUATE) VERIFIED BY SMEAR Anisocytosis 1+ Target Cells FEW Serology Hepatitis A IgM Ab (NONREACTIVE) Pending Hep Bs Antigen (NONREACTIVE) Pending Hep B Core IgM Ab Conf (NONREACTIVE) Pending Hepatitis C Antibody (NONREACTIVE) Pending Toxicology Salicylates (0 - 20.0 mg/dL) < 1.0 Acetaminophen (10.0 - 30.0 ug/mL) < 10.0 L Serum Alcohol (<10 MG/DL) < 10.0 11/15 1343 Toxicology Salicylates Cancelled Acetaminophen Cancelled Serum Alcohol Cancelled Assessment/Plan Assessment/Recommendations: ASSESSMENT: 1. Abnormal Liver-Associated Enzymes -- Patient may have acute alcoholic hepatitis, however, some of his enzyme elevation may be due to rhabdomyolysis. Nonetheless, there is some evidence to suggest underlying alcoholic liver disease with low palatelets, low albumin, and low serum sodium and increased PT/ INR as well as hepatic steatosis on CT Scan. Patient with normal CBC, CMP in November of 2016. 2. Acute Kidney Injury -- per nephrology unlikely rhabdomyolysis given CK of only 707. Consider dehydration. 3. Ongoing alcohol dependence 4. Cystic Lesion Tail of Pancreas -- ? malignant vs benign Discussed treatment plan with . Explained to that etiology of liver- associated enzyme abnormalities at this time unclear but that would become clearer as kidney issues were treated. RECOMMENDATIONS: 1. Stop NAC 2. DT Prophylaxis 3. Daily PT/INR, CBC, CMP 4. Nephrology Consult as you have done 5. CA 19-9 6. MRI Pancreatic Protocol when patient more stable (With and Without Contrast) 7. Thiamine and Folate 8. IV Albumin and Fluids, urinalysis, Stacia 9. Hepatitis Serologies Consult Acknowledgment - Thank you for your consult request.
[2017-11-15 20:00] VITALS: BP 74/39
--- NOTE | 2017-11-15 20:00 | Admission Certification ---
Admission Certification Certification Statement - As attending physician, I certify that at the time of - admission, based on clinical presentation, severity of - symptoms, need for further diagnostic testing and - therapeutic interventions, and risk of adverse outcomes - without in-hospital treatment, in my clinical assessment, - this patient requires an acute hospital stay for a minimum - of two nights or longer. I have also considered psychsocial - factors such as support system, advanced age, financial - issues, cognitive issues, and failed out-patient treatments, - past re-admission history, safety of patient, and lack of - compliance as applicable. Specific rationale supporting this admission is: Hypotension, AMBAR with elevated liver enzymes. Pancreatic mass concerning for malignancy needs further evaluation. Needs ICU level of care.
[2017-11-15 22:00] VITALS: BP 74/39
[2017-11-16] VITALS (11 sets, daily range): BP systolic 84–118; BP diastolic 39–60
[2017-11-16 06:25] LABS: MEAN CORPUSCULAR HGB 31.3 PG (27.0-31.0); MEAN CORPUSCULAR HGB CONC 34.6 G/DL (33.0-37.0); MEAN CORPUSCULAR VOLUME 90.4 FL (80.0-94.0); MEAN PLATELET VOLUME 8.3 FL (7.4-10.4); PLATELET COUNT 106 /CUMM (130-400); RBC DISTRIBUTION WIDTH 16.7 % (11.5-14.5); RED BLOOD CELL CT 3.66 /CUMM (4.70-6.10); WHITE BLOOD CELL COUNT 5.9 /CUMM (4.8-10.8)
[2017-11-16 06:34] LABS: PT 14.5 SEC (9.4-12.5)
[2017-11-16 06:44] LABS: HEMATOCRIT 33.1 % (42-52)
--- NOTE | 2017-11-16 07:01 | Cons- [facility] ---
General Information and HPI Consulting Request Date of Consult: 11/16/17 Requested By: Dr. Reddy Reason for Consult: [facility] management Source of Information: patient, old records Exam Limitations: no limitations History of Present Illness: The patient is a 52-year-old male with a history of hypertension and alcohol use who was brought in from home with tremulousness, increasing confusion, poor oral intake, reduced urine output, and fever. The patient also reported having ongoing flulike symptoms for over 1 month and associated with vomiting and diarrhea over the past 1 week. The patient also complained of a sore throat, noting his rapid strep was negative and his flu is negative. The patient had been taking hydrochlorothiazide and lisinopril despite decreased oral intake and urine output. The patient initially was hypotensive however his urine output and blood pressure improved with IV fluid resuscitation. Is currently awake and alert and reports feeling improved since admission. There were no overnight events reported otherwise. Allergies/Medications Allergies: Coded Allergies: acetaminophen (From PERCOCET) (Severe, ITCH 02/05/16) hydrocodone (Severe, ITCH 02/05/16) oxycodone (Severe, ITCH 02/05/16) Home Med List: Atorvastatin Calcium 40 MG TABLET 1 TAB PO DAILY choolestrol (Reported) Escitalopram Oxalate 10 MG TABLET 1 TAB PO DAILY insomnia (Reported) Lisinopril/Hydrochlorothiazide (Lisinopril-Hctz 20-12.5 MG Tab) 20 MG-12.5 MG TABLET 1 TAB PO DAILY htn (Reported) Current Medications: Current Medications Sig/Wagner Start time Last Medication Dose Route Stop Time Status Admin Acetylcysteine 9,071.8 MG ONCE ONE 11/15 2342 CAN Dextrose/Water 1,000 ML IV 11/16 1625 Acetylcysteine 4,535.9 MG ONCE ONE 11/15 1843 CAN Dextrose/Water 500 ML IV 11/15 2253 Acetylcysteine 13,607.7 MG ONCE ONE 11/15 1645 DC 11/15 Dextrose/Water 200 ML IV 11/15 1805 1741 Albumin Human 12.5 GM Q8H 11/15 2100 AC 11/16 IV 0403 Ceftriaxone Sodium 0 .STK-MED ONE 11/15 193 DC .ROUTE Ceftriaxone Sodium 1,000 MG DAILY@1930 11/15 1930 DC 11/15 IV 1941 Folic Acid 1 MG DAILY 11/15 1851 AC PO Heparin Sodium 5,000 UNIT Q8 11/15 2200 AC 11/16 (Porcine) SC 0638 Lorazepam 0 Q1P PRN 11/15 1745 DC IV Magnesium Oxide 400 MG ONE ONE 11/15 2000 CAN PO 11/15 2000 Magnesium Sulfate 1 GM Q2H 11/15 2014 DC 11/15 Dextrose/Water 100 ML IV 11/16 0014 2206 Metronidazole 500 MG IQ8 11/16 0000 CAN N/A 1 UNIT IV Multivitamins 1 TAB DAILY 11/15 1851 AC PO Ondansetron HCl 4 MG Q6P PRN 11/15 1800 AC IV Phenol 2 SPRAY Q2P PRN 11/15 2030 AC 11/15 EXT 2103 Potassium Chloride 40 MEQ ONCE ONE 11/16 0615 CAN PO 11/16 0616 Potassium Chloride 10 MEQ Q1H 11/16 0615 AC IV 11/16 0716 Potassium Chloride 10 MEQ Q1H 11/16 0145 DC 11/16 IV 11/16 0346 0405 Potassium Chloride 40 MEQ ONCE ONE 11/15 1999 DC 11/15 PO 11/15 2000 205 Sodium Chloride 500 ML BOLUS ONE 11/16 0315 DC 11/16 IV 11/16 0414 0314 Sodium Chloride 1,000 ML BOLUS ONE 11/15 2330 DC 11/15 IV 11/16 0129 2125 Sodium Chloride 1,000 ML BOLUS ONE 11/15 1999 DC 11/15 IV 11/15 2159 2014 Sodium Chloride 1,000 ML Q13H 11/15 1800 AC 11/16 IV 11/17 0559 0403 Sodium Chloride 1,000 ML BOLUS ONE 11/15 1515 DC 11/15 IV 11/15 1614 1519 Sodium Chloride 1,000 ML BOLUS ONE 11/15 1345 DC 11/15 IV 11/15 1444 1413 Thiamine HCl 100 MG ONCE ONE 11/15 2014 DC 11/15 Sodium Chloride 50 ML IV 11/15 2114 2126 Thiamine HCl 100 MG DAILY 11/15 1850 AC PO Review of Systems Review of Systems All Other Systems: Reviewed and Negative Past History Travel History Traveled to [place] past 21 day No Medical History Blood Transfusion Hx: No Neurological: NONE EENT: NONE Cardiovascular: hypertension, hyperlipidemia Respiratory: NONE Gastrointestinal: NONE Hepatic: NONE Renal: NONE Musculoskeletal: NONE Psychiatric: NONE Endocrine: NONE Blood Disorders: NONE Cancer(s): NONE 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 Home Who Do You Live With? spouse Primary Language: Setswana Smoking Status: Never Smoked ETOH Use: DRINKS ON A DAILY BASIS Illicit Drug Use: denies illicit drug use Functional Ability ADLs Independent: dressing, eating, toileting, bathing. 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[employer] Exam & Diagnostic Data Last 24 Hrs of Vital Signs/I&O Vital Signs Date Time Temp Pulse Resp B/P B/P Pulse O2 O2 Flow FiO2 Mean Ox Delivery Rate 11/16 0600 97.8 90 26 99/46 11/16 0400 97.8 90 26 104/52 11/16 0200 98.1 94 24 84/39 11/16 0000 98.1 94 27 106/58 11/16 0000 98.1 94 27 106/58 96 Room Air 11/15 2200 97.6 92 23 7411/15 2000 97.6 94 24 7411/15 1918 97.0 98 18 132/87 96 Room Air 11/15 1727 96.6 89 16 144/90 11/15 1727 96.6 89 16 144/90 96 Room Air 11/15 1634 96.2 87 16 138/90 96 Room Air 11/15 1340 96.2 104 15 168/104 94 Room Air Room Air Intake & Output 11/16 0800 11/16 0000 11/15 1600 Intake Total 2211 2540 0 Output Total 3200 150 Balance -989 2390 0 Intake, IV 2211 2300 Intake, Oral 240 0 Output, Urine 3200 150 Patient 203 lb 202 lb Weight Weight Bed scale Bed scale Measurement Method Last 48 Hrs of Labs/Jean-Pierre: Laboratory Tests 11/26/17 0600: Anion Gap 12, Estimated GFR > 60, BUN/Creatinine Ratio 10.0, Total Bilirubin 1.7 H, Direct Bilirubin 1.2 H, AST 51, ALT 58, Alkaline Phosphatase 249 H, Total Protein 6.2 L, Albumin 3.8, CBC w Diff NO MAN DIFF REQ, RBC 2.47 L, MCV 93.1, MCH 30.8, MCHC 33.1, RDW 18.7 H, MPV 8.5, Gran % 66.0, Lymphocytes % 23.9, Monocytes % 8.9, Eosinophils % 0.3, Basophils % 0.9, Absolute Granulocytes 5.8, Absolute Lymphocytes 2.1, Absolute Monocytes 0.8 H, Absolute Eosinophils 0, Absolute Basophils 0.1 11/25/17 0520: Anion Gap 12, Estimated GFR > 60, Glucose 91, Calcium 9.2, Phosphorus 4.0, Magnesium 1.7, Total Bilirubin 1.9 H, GGT 1000 H, AST 65 H, ALT 67, Albumin 3.6, PT 11.6, INR 1.11, CBC w Diff NO MAN DIFF REQ, RBC 2.68 L, MCV 92.9, MCH 31.2 H, MCHC 33.6, RDW 18.2 H, MPV 8.4, Gran % 67.1, Lymphocytes % 24.5, Monocytes % 7.5, Eosinophils % 0.6, Basophils % 0.3, Absolute Granulocytes 6.9 H, Absolute Lymphocytes 2.5, Absolute Monocytes 0.8 H, Absolute Eosinophils 0.1 , Absolute Basophils 0 11/24/17 1830: Anion Gap 14, Estimated GFR > 60, Glucose 108 H, Calcium 9.2, Phosphorus 4.1, Magnesium 1.9, Total Bilirubin 2.1 H, AST 81 H, ALT 72, Albumin 3.7 11/24/17 1400: Sodium Cancelled, Potassium Cancelled, Chloride Cancelled, Carbon Dioxide Cancelled, Anion Gap Cancelled, BUN Cancelled, Creatinine Cancelled, Glucose Cancelled, Calcium Cancelled, Phosphorus Cancelled, Magnesium Cancelled, Total Bilirubin Cancelled, AST Cancelled, ALT Cancelled, Albumin Cancelled Assessment/Plan Impression/Plan: 1. Myalgia, mailase with low grade fevers, sore throat. Rapid flu and strep are negative. 2. AMBAR - Most likely 2/2 dehydration and volume depletion in the setting of HCTZ/lisinopril, and decreased PO intake. Urine output and blood pressure improving with IV fluid hydration. #Elevated anion gap acidosis with non-aniongap metabolic acidosis and compensatory respiratory alkalosis. - 2/2 lactic acidosis from hypoperfusion, vomiting and renal insuffiency contributing to the NAGMA. - F/U repeat BEP #Tranaminitis - 2/2 alcoholic hepatitis and rhabo vs ? pancreatic mass casuing obstructive jaundice - Will send for hepatitis serology and HIV panel - Will do an US Abdomen in AM - Ammonia level was WNL. - Hold statin and escitalopram - GI consult iw DR. Cerna was placed. No need for NACas patient was not taking tylenol. #Pancreatic cyst/ mass Will obatin an MRI pancreatic protocl with andw/o contrast for better visualzation #Anemia and thrombocytopenia - ? hepatic failure - F/U CBC and consider DC heparin if platelet count continue sto drop. - F/I iron studies #Hyponatremia - Most likely 2/2 dehydration and volume depletion. - f/u urine lytes. - Hydrate with NS @50mls/hr - F./U ICU bundle @ 7:00pm, and ensure soidium doesnt overcorrect - Start D5W if it corrects too fast. #Oliguria - No evidence of BPH or hydronephrosis on CT scan. - Will place a rust catheter,a nd hydraet with IVF and monitor strict I's and O 's #ALcohol dependence - Place on CIWAS protocol - High dose thiamine and the n supplements for folic acid, thiamin and MV - DVT prophylaxis - Heparion 5000IU TID - Diet - NPO for now, Abd US in AM - COde Status - Full code Recommendations: * Follow-up abdominal ultrasound results. * Follow-up cultures. * Monitor off antibiotics. Consult Acknowledgment - Thank you for your consult request.
--- NOTE | 2017-11-16 07:30 | PN- Resident CRCU ---
Subjective HPI/CRCU Issues: AMBAR Hyponatremia Hyperbilirubinemia Transaminitis Hypotension Pancreatic cyst/ mass 24 Hour Events: Patient seen and exmained at bedside. He states he feels much better today adn denies N/V/ diarrhea. Last night his BP dropped to 64 systolic when he was moved to the CIU, and he received aggresive fluids after which his blood pressure improved. Vitals overnight, A/F, SR: 90-98, RR: 24-28, 64-104/00-52, saturating 98% on RA. I's: 2540, O's: 2150. Objective Vital Signs & I&O Last 8 Hrs of Vitals and I&O: Vital Signs Date Time Temp Pulse Resp B/P B/P Pulse O2 O2 Flow FiO2 Mean Ox Delivery Rate 11/16 0600 97.8 90 26 99/46 11/16 0400 97.8 90 26 104/52 11/16 0200 98.1 94 24 84/39 11/16 0000 98.1 94 27 106/58 11/16 0000 98.1 94 27 106/58 96 Room Air 11/15 2200 97.6 92 23 74/39 11/15 2000 97.6 94 24 74/39 11/15 1918 97.0 98 18 132/87 96 Room Air 11/15 1727 96.6 89 16 144/90 11/15 1727 96.6 89 16 144/90 96 Room Air 11/15 1634 96.2 87 16 138/90 96 Room Air 11/15 1340 96.2 104 15 168/104 94 Room Air Room Air Intake & Output 11/16 1600 11/16 0800 11/16 0000 Intake Total 2211 2540 Output Total 3200 150 Balance -989 2390 Intake, IV 2211 2300 Intake, Oral 240 Output, Urine 3200 150 Patient 203 lb 202 lb Weight Weight Bed scale Bed scale Measurement Method Exam General Appearance: well developed/nourished, no apparent distress, alert, awake , comfortable Head: atraumatic, normal appearance Neck: normal inspection, supple Respiratory: normal breath sounds, chest non-tender, no respiratory distress, quiet respiration, lungs clear Cardiovascular: regular rate/rhythm Gastrointestinal: normal bowel sounds, soft, mild tenderness in RUQ, decreased than yesterday Extremities: no edema Cranial Nerves: normal speech, PERRL Nutrition Nutrition: NPO Current Medications: Current Medications Sig/Wagner Start time Last Medication Dose Route Stop Time Status Admin Acetylcysteine 9,071.8 MG ONCE ONE 11/15 2342 CAN Dextrose/Water 1,000 ML IV 11/16 1625 Acetylcysteine 4,535.9 MG ONCE ONE 11/15 1843 CAN Dextrose/Water 500 ML IV 11/15 2253 Acetylcysteine 13,607.7 MG ONCE ONE 11/15 1645 DC 11/15 Dextrose/Water 200 ML IV 11/15 1805 1741 Albumin Human 12.5 GM Q8H 11/15 2100 AC 11/16 IV 0403 Ceftriaxone Sodium 0 .STK-MED ONE 11/15 1931 DC .ROUTE Ceftriaxone Sodium 1,000 MG DAILY@1930 11/15 1930 DC 11/15 IV 1941 Folic Acid 1 MG DAILY 11/15 1851 AC PO Heparin Sodium 5,000 UNIT Q8 11/15 2200 AC 11/16 (Porcine) SC 0638 Lorazepam 0 Q1P PRN 11/15 1745 DC IV Magnesium Oxide 400 MG ONE ONE 11/15 2000 CAN PO 11/15 2000 Magnesium Sulfate 1 GM Q2H 11/15 2014 DC 11/15 Dextrose/Water 100 ML IV 11/16 0014 2206 Metronidazole 500 MG IQ8 11/16 0000 CAN N/A 1 UNIT IV Multivitamins 1 TAB DAILY 11/15 1851 AC PO Ondansetron HCl 4 MG Q6P PRN 11/15 1800 AC IV Phenol 2 SPRAY Q2P PRN 11/15 2030 AC 11/16 EXT 0822 Phosphate 250 MG ONCE ONE 11/16 0730 DC PO 11/16 0731 Potassium Chloride 40 MEQ ONCE ONE 11/16 0615 CAN PO 11/16 0616 Potassium Chloride 10 MEQ Q1H 11/16 0615 DC 11/16 IV 11/16 0716 0816 Potassium Chloride 10 MEQ Q1H 11/16 0145 DC 11/16 IV 11/16 0346 0405 Potassium Chloride 40 MEQ ONCE ONE 11/15 1999 DC 11/15 PO 11/15 2000 205 Sodium Chloride 500 ML BOLUS ONE 11/16 0315 DC 11/16 IV 11/16 0414 0314 Sodium Chloride 1,000 ML BOLUS ONE 11/15 2330 DC 11/15 IV 11/16 0129 2125 Sodium Chloride 1,000 ML BOLUS ONE 11/15 1999 DC 11/15 IV 11/15 Sodium Chloride 1,000 ML Q13H 11/15 1800 AC 11/16 IV 11/17 0559 0403 Sodium Chloride 1,000 ML BOLUS ONE 11/15 1515 DC 11/15 IV 11/15 1614 1519 Sodium Chloride 1,000 ML BOLUS ONE 11/15 1345 DC 11/15 IV 11/15 1444 1413 Thiamine HCl 100 MG ONCE ONE 11/15 2014 DC 11/15 Sodium Chloride 50 ML IV 11/15 2114 2126 Thiamine HCl 100 MG DAILY 11/15 1850 AC PO Antibiotics Antibiotics? none Impression/Plan Impression/Problem List Impression: 52-year-old male with a past medical history of hypertension, hyperlipidemia who presents to ER complains of fevers since early October, episodes of bloody bowel movements, diarrhea, status post fall associated with blurry vision, headache and tremor-like activity as well as increased confusion. Vitals at the time of admission blood pressure 130/90, respiratory rate of 16, pulse 87, afebrile saturating 96% on room air. Labs pertinent for normal white blood cell count of 9100, H&H of 13.6/39.1 and MCV of 9144 with platelet count of 1 20,000. Serum creatinine revealed a sodium of 122, potassium of 3.7, bicarbonate of 16, anion gap 24, BUN 50 with a creatinine of 6.7. Lactic acid was 2.3. LFTs pertinent for elevated total bili of 12.1, direct bilirubinemia of 11.4, transaminitis with an AST/ALT of 696/266, alkaline phosphatase of 750. Serum ammonia was 16. CK was 707 with the first set of troponin 0.04. Amylase was 73 with lipase of 67. INR was 1.34. UA was not received. Tox screen pertinent for serum alcohol was less than 10. And a Tylenol level of less than 10. CXR showed no focal consolidation or overt edema, or pleural effusion. There is elevation of right hemidiaphragm. CT head and cervical spine showed no acute intracranial pathology. No CT evidence of acute cervical spine fracture or traumatic subluxation. CT Abdomen/Pelvis w/o IV contrast showed enlarged fatty liver. 3.8 x 4.8 cm cyst or cystic lesion in the tail of the pancreas is new from 2007. There is an adjacent small focal calcification in the pancreas and some stranding of the surrounding peripancreatic fat. Diverticulosis. It is difficult to exclude mild diverticulitis of the sigmoid colon. In the ER he received NS 1000ml x2, and started on NAC for concern for tylenol toxicity in the setting of underlying alcoholic hepatitis . Assessment and Plan: Admit patient to ICU # Respiratory - Stable. - Currently on RA. # Myalgia, mailase with low grade fevers, sore throat - Rapid flu, strep throat (c/o sore throat) - negtaive - F/U tick borne panel, and check babesiosis (of note it is mathis, and is unlikely that he has tick borne diseaes incluing lymes, anaplasmosis, babesiosis , but will check) - Will order a respiratory virus panel. - ? diverticulits on CT scan (though no leukocytosis, will fair off Abx) - The clincial syndrome could have been taht the patient had flu which resulted in cholestasis, decreased PO intake, and subsequently led to deydration and renal failure. #AMBAR - Most likely 2/2 dehydration and volume depletion form being on HCTZ/lisinopril , decreased PO intake vs obstructive uropathy and ATN form CK - Will order serum osmolarity, urine lytes. - Spoke with Dr. Alvarez, no need to alkaliize urine until CK is > 5000. - Nephro consult placed. F.U recs. - Hold HCTZ/ Lisinopril #Elevated anion gap acidosis with non-aniongap metabolic acidosis and compensatory respiratory alkalosis. - Resolving - 2/2 lactic acidosis from hypoperfusion, vomiting and renal insuffiency contributing to the NAGMA. - F/U repeat BEP #Transaminitis - 2/2 alcoholic hepatitis and rhabo vs ? pancreatic mass casuing obstructive jaundice - Hepatitis serology pending and HIV panel was neagtive - Will do an US Abdomen in AM - Ammonia level was WNL. - Continue to hold statin and escitalopram - Appreciate GI consult. No need for NACas patient was not taking tylenol. #Pancreatic cyst/ mass - Will obatin an MRI pancreatic protocl with andw/o contrast for better visualzation once more stable #Anemia and thrombocytopenia - ? hepatic failure - F/U CBC and consider DC heparin if platelet count continue sto drop. - F/U iron studies #Hyponatremia - Resolving - Most likely 2/2 dehydration and volume depletion. - f/u urine lytes. - Hydrate with NS @50mls/hr - F./U ICU bundle @ 10:00am, and ensure soidium doesn't overcorrect - Start D5W if it corrects too fast. #Oliguria - No evidence of BPH or hydronephrosis on CT scan. - Patient put out almost 2.0liters since placement of Myers catheter and fluid adminstration - Contnue to monitor strict I's and O's #ALcohol dependence - Continue CIWA protocol - CIWA - 0-1 - High dose thiamine and supplements for folic acid, thiamin and MV - DVT prophylaxis - Heparion 5000IU TID - Diet - NPO for now, for an Abd US - COde Status - Full code Problem List: 1. Liver failure 2. Renal failure 3. Hyponatremia Pain Ratin Tomorrow's Labs & Rationales: cbc- h&h icu - cr, lfts Plan DVT/Prophylaxis: mechanical, pharmacological
--- NOTE | 2017-11-16 09:06 | PN- Gastroenterology ---
Assessment/Plan Assessment/Recommendations: ASSESSMENT: 1. Abnormal Liver-Associated Enzymes -- Patient may have acute alcoholic hepatitis, however, some of his enzyme elevation may be due to rhabdomyolysis. Nonetheless, there is some evidence to suggest underlying alcoholic liver disease with low palatelets, low albumin, and low serum sodium and increased PT/ INR as well as hepatic steatosis on CT Scan. Patient with normal CBC, CMP in November of 2016. 2. Acute Kidney Injury -- patient now making urine in response to albumine and IV fluids 3. Ongoing alcohol dependence 4. Cystic Lesion Tail of Pancreas -- ? malignant vs benign Discussed treatment plan with . Explained to that etiology of liver- associated enzyme abnormalities at this time unclear but that would become clearer as kidney issues were treated. RECOMMENDATIONS: 1. Daily PT/INR, CBC, CMP, please order GGT as well given marked increase in alk phos 2. CA 19-9 3. MRI Pancreatic Protocol when patient more stable (With and Without Contrast) Subjective Subjective: Patient is eating lunch. Feels much better. Only a small amount of diarrhea now. No nausea or vomiting. Per ICU flow sheet, now over 2 liters urine output. Hepatitis Serologies are negative. Objective Vital Signs and I&Os Vital Signs Date Time Temp Pulse Resp B/P B/P Pulse O2 O2 Flow FiO2 Mean Ox Delivery Rate 11/16 0800 98.7 88 21 90/40 11/16 0600 97.8 90 26 99/46 11/16 0400 97.8 90 26 104/52 11/16 0200 98.1 94 24 84/39 11/16 0000 98.1 94 27 106/58 11/16 0000 98.1 94 27 106/58 96 Room Air 11/15 2200 97.6 92 23 74/39 11/15 2000 97.6 94 24 74/39 11/15 1918 97.0 98 18 132/87 96 Room Air 11/15 1727 96.6 89 16 144/90 11/15 1727 96.6 89 16 144/90 96 Room Air 11/15 1634 96.2 87 16 138/90 96 Room Air 11/15 1340 96.2 104 15 168/104 94 Room Air Room Air Intake & Output 11/16 1600 11/16 0400 11/15 1600 11/15 0400 11/14 1600 11/14 040 Intake Total 2211 2540 0 Output Total 3200 150 Balance -989 2390 0 Intake, IV 2211 2300 Intake, Oral 240 0 Output, Urine 3200 150 Patient 203 lb 202 lb Weight Weight Bed scale Bed scale Measurement Method Physical Exam General Appearance: well developed/nourished, no apparent distress, alert, awake , comfortable Head: atraumatic, normal appearance Respiratory: lungs clear Cardiovascular: regular rate/rhythm, Normal S1 and S2 Abdomen: normal bowel sounds, soft, non-tender Extremities: normal inspection Neurologic/Psychiatric: oriented x 3, normal mood/affect Skin: intact, jaundice Current Medications: Current Medications Sig/Wagner Start time Last Medication Dose Route Stop Time Status Admin Acetylcysteine 9,071.8 MG ONCE ONE 11/15 2342 CAN Dextrose/Water 1,000 ML IV 11/16 1625 Acetylcysteine 4,535.9 MG ONCE ONE 11/15 1843 CAN Dextrose/Water 500 ML IV 11/15 2253 Acetylcysteine 13,607.7 MG ONCE ONE 11/15 1645 DC 11/15 Dextrose/Water 200 ML IV 11/15 1805 1741 Albumin Human 12.5 GM Q8H 11/15 2100 AC 11/16 IV 0403 Ceftriaxone Sodium 0 .STK-MED ONE 11/15 1931 DC .ROUTE Ceftriaxone Sodium 1,000 MG DAILY@1930 11/15 1930 DC 11/15 IV 1941 Folic Acid 1 MG DAILY 11/15 1851 AC PO Heparin Sodium 5,000 UNIT Q8 11/15 2200 AC 11/16 (Porcine) SC 0638 Lorazepam 0 Q1P PRN 11/15 1745 DC IV Magnesium Oxide 400 MG ONE ONE 11/15 2000 CAN PO 11/15 2000 Magnesium Sulfate 1 GM Q2H 11/15 2015 DC 11/15 Dextrose/Water 100 ML IV 11/16 0014 2206 Metronidazole 500 MG IQ8 11/16 0000 CAN N/A 1 UNIT IV Multivitamins 1 TAB DAILY 11/15 1851 AC PO Ondansetron HCl 4 MG Q6P PRN 11/15 1800 AC IV Phenol 2 SPRAY Q2P PRN 11/15 2030 AC 11/16 EXT 0822 Phosphate 250 MG ONCE ONE 11/16 0730 DC PO 11/16 0731 Potassium Chloride 40 MEQ ONCE ONE 11/16 0615 CAN PO 11/16 0616 Potassium Chloride 10 MEQ Q1H 11/16 0615 DC 11/16 IV 11/16 0716 0816 Potassium Chloride 10 MEQ Q1H 11/16 0145 DC 11/16 IV 11/16 0346 0405 Potassium Chloride 40 MEQ ONCE ONE 11/15 1999 DC 11/15 PO 11/15 Sodium Chloride 500 ML BOLUS ONE 11/16 0315 DC 11/16 IV 11/16 0414 0314 Sodium Chloride 1,000 ML BOLUS ONE 11/15 2330 DC 11/15 IV 11/16 012 212 Sodium Chloride 1,000 ML BOLUS ONE 11/15 1999 DC 11/15 IV 11/15 Sodium Chloride 1,000 ML Q13H 11/15 1800 AC 11/16 IV 11/17 0059 0403 Sodium Chloride 1,000 ML BOLUS ONE 11/15 1515 DC 11/15 IV 11/15 1614 1519 Sodium Chloride 1,000 ML BOLUS ONE 11/15 1345 DC 11/15 IV 11/15 1444 1413 Thiamine HCl 100 MG ONCE ONE 11/15 2014 DC 11/15 Sodium Chloride 50 ML IV 11/15 211 212 Thiamine HCl 100 MG DAILY 11/15 1850 AC PO Results Pertinent Lab Results: Laboratory Tests 11/16 11/16 11/15 0515 0010 2030 Blood Gas pH (7.35 - 7.45 PH) 7.43 pCO2 (35 - 45 TORR) 28 L pO2 (80 - 100 TORR) 78 L HCO3 (21 - 28 MEQ/L) 18 L ABG O2 Sat (Measured) (>96.0 %) 94.0 L P-50 (Temp Corrected) N Carboxyhemoglobin (1.5 - 5.0 %) 0.2 L O2 Concentration % RA Temperature (97.0 - 100.0 FARH) 97.8 O2 Delivery Method RA Chemistry Sodium (137 - 145 mmol/L) 132 L 129 L Potassium (3.5 - 5.1 mmol/L) 3.1 L 2.6 *L Chloride (98 - 107 mmol/L) 97 L 94 L Carbon Dioxide (22 - 30 mmol/L) 14 L 15 L Anion Gap (5 - 16) 21 H 20 H BUN (9 - 20 mg/dL) 44 H 45 H Creatinine (0.7 - 1.2 mg/dL) 5.9 *H 6.0 *H Estimated GFR (>60 ml/min) 10 L 10 L Glucose (65 - 99 mg/dL) 85 98 Calcium (8.4 - 10.2 mg/dL) 8.0 L 7.6 L Phosphorus (2.5 - 4.5 mg/dL) 2.2 L 2.2 L Magnesium (1.6 - 2.3 mg/dL) 1.8 1.8 Total Bilirubin (0.2 - 1.3 mg/dL) 11.3 H 10.3 H Direct Bilirubin (< 0.4 mg/dL) 10.6 H AST (17 - 59 U/L) 450 H 440 H ALT (21 - 72 U/L) 199 H 194 H Alkaline Phosphatase (< 127 U/L) 870 H Creatine Kinase (55 - 170 U/L) 764 H 690 H Troponin I (<0.11 ng/ml) 0.04 Total Protein (6.3 - 8.2 g/dL) 5.0 L Albumin (3.5 - 5.0 g/dL) 2.5 L 2.2 L Coagulation PT (9.4 - 12.5 SEC) 14.5 H INR (0.90 - 1.17) 1.39 H Hematology CBC w Diff MAN DIFF ORDERED WBC (4.8 - 10.8 /CUMM) 5.9 RBC (4.70 - 6.10 /CUMM) 3.66 L Hgb (14.0 - 18.0 G/DL) 11.4 L Hct (42 - 52 %) 33.1 L MCV (80.0 - 94.0 FL) 90.4 MCH (27.0 - 31.0 PG) 31.3 H MCHC (33.0 - 37.0 G/DL) 34.6 RDW (11.5 - 14.5 %) 16.7 H Plt Count (130 - 400 /CUMM) 106 L MPV (7.4 - 10.4 FL) 8.3 Segmented Neutrophils (42.2 - 75.2 %) 74 Lymphocytes (20.5 - 51.1 %) 19 L Monocytes (1.7 - 9.3 %) 7 Platelet Estimate (ADEQUATE) ADEQUATE Polychromasia 1+ Poikilocytosis 1+ Ovalocytes 1+ Miscellaneous Phlebotomy Draw Site LEFT RADIAL Other Body Source Fld Total RBCs Counted (%) 100 Serology Hepatitis A IgM Ab (NONREACTIVE) Pending Hep Bs Antigen (NONREACTIVE) Pending Hep B Core IgM Ab Conf (NONREACTIVE) Pending Hepatitis C Antibody (NONREACTIVE) Pending 11/15 Urines Urinalysis MOD H Urine Color (YEL,AMB,STR) YEL Urine Clarity (CLEAR) HAZY H Urine pH (5.0 - 8.0) 5.5 Ur Specific [place] (1.001 - 1.035) 1.025 Urine Protein (NEG,<30 MG/DL) 100 H Urine Ketones (NEG) TRACE H Urine Nitrite (NEG) NEG Urine Bilirubin (NEG) POS@ICTO H Urine Urobilinogen (0.1 - 1.0 EU/dl) 0.2 Ur Leukocyte Esterase (NEG) NEG Ur Microscopic SEDIMENT EXAMINED Urine RBC (0 - 5 /HPF) 3-5 Urine WBC (0 - 2 /HPF) 5-10 H Ur Epithelial Cells (NONE,FEW) FEW Urine Bacteria (NEG/NONE) FEW H Urine Hemoglobin (NEG) LARGE H Urine Osmolality Cancelled Urine Glucose (N MG/DL) NEG 11/15 191 190 Chemistry Creatine Kinase Cancelled Toxicology Urine Opiates Screen (>2000 NG/ML) < 100.00 Methadone Screen (>300 NG/ML) 84 Barbiturate Screen (>200 NG/ML) < 60 Ur Phencyclidine Scrn (>25 NG/ML) 7.30 Amphetamines Screen (>1000 NG/ML) < 100 U Benzodiazepines Scrn (>200 NG/ML) < 85 Urine Cocaine Screen (>300 NG/ML) < 50 Urine Cannabis Screen (>50 NG/ML) < 5.00 Urines Urine Osmolality (300 - 1000 MOSM/KG) 280 L Ur Random Creatinine (mg/dL) Cancelled 223.2 Cancelled Ur Random Sodium (30 - 90 mmol/L) Cancelled 29 L Cancelled Ur Random Potassium (mmol/L) Cancelled 74.1 Cancelled Fraction Sodium Excret (<1% %) Cancelled 0.6 Cancelled 11/15 1902 1902 1748 Chemistry Sodium (137 - 145 mmol/L) 127 L Potassium (3.5 - 5.1 mmol/L) 2.9 *L Chloride (98 - 107 mmol/L) 86 L Carbon Dioxide (22 - 30 mmol/L) 17 L Anion Gap (5 - 16) 24 H BUN (9 - 20 mg/dL) 49 H Creatinine (0.7 - 1.2 mg/dL) 6.3 *H Estimated GFR (>60 ml/min) 9 L BUN/Creatinine Ratio (7 - 25 %) 7.8 Serum Osmolality (285 - 295 MOSM/KG) 282 L Lactic Acid (0.7 - 2.1 mmol/L) 1.4 Phosphorus (2.5 - 4.5 mg/dL) 3.2 Magnesium (1.6 - 2.3 mg/dL) 1.3 L Iron (49 - 181 ug/dL) 170 TIBC (261 - 462 ug/dL) 108 L Ferritin (17.9 - 464 ng/mL) > 27185.0 H Total Bilirubin (0.2 - 1.3 mg/dL) 12.9 H Cancelled Direct Bilirubin (< 0.4 mg/dL) 12.2 H Cancelled AST (17 - 59 U/L) 609 H Cancelled ALT (21 - 72 U/L) 257 H Cancelled Alkaline Phosphatase (< 127 U/L) 155 H Cancelled Lactate Dehydrogenase (313 - 618 U/L) 1358 H Creatine Kinase (55 - 170 U/L) 829 H Total Protein (6.3 - 8.2 g/dL) 5.7 L Cancelled Albumin (3.5 - 5.0 g/dL) 2.7 L Cancelled CA 19-9 Antigen Pending Hematology Haptoglobin Pending Serology HIV 1&2 Ab Western Blot (NONREACTIVE) NONREACTIVE 11/15 11/15 11/15 1551 1350 1343 Chemistry Sodium (137 - 145 mmol/L) 122 L Potassium (3.5 - 5.1 mmol/L) 3.7 Chloride (98 - 107 mmol/L) 82 L Carbon Dioxide (22 - 30 mmol/L) 16 L Anion Gap (5 - 16) 24 H BUN (9 - 20 mg/dL) 50 H Creatinine (0.7 - 1.2 mg/dL) 6.7 *H Estimated GFR (>60 ml/min) 9 L BUN/Creatinine Ratio (7 - 25 %) 7.5 Glucose (65 - 99 mg/dL) 92 Lactic Acid (0.7 - 2.1 mmol/L) 2.3 H Calcium (8.4 - 10.2 mg/dL) 9.7 Total Bilirubin (0.2 - 1.3 mg/dL) 12.1 H Direct Bilirubin (< 0.4 mg/dL) 11.4 H AST (17 - 59 U/L) 696 H ALT (21 - 72 U/L) 266 H Alkaline Phosphatase (< 127 U/L) 750 H Ammonia (9 - 30 umol/L) 16 Creatine Kinase (55 - 170 U/L) 707 H Troponin I (<0.11 ng/ml) 0.04 Total Protein (6.3 - 8.2 g/dL) 6.1 L Albumin (3.5 - 5.0 g/dL) 2.8 L Globulin (1.9 - 4.2 gm/dL) 3.3 Albumin/Globulin Ratio (1.1 - 2.2 %) 0.8 L Amylase (30 - 110 U/L) 73 Lipase (23 - 300 U/L) 67 Coagulation PT (9.4 - 12.5 SEC) 14.0 H INR (0.90 - 1.17) 1.34 H APTT (25 - 37 SEC) 39 H Hematology CBC w Diff MAN DIFF ORDERED WBC (4.8 - 10.8 /CUMM) 9.1 RBC (4.70 - 6.10 /CUMM) 4.28 L Hgb (14.0 - 18.0 G/DL) 13.6 L Hct (42 - 52 %) 39.1 L MCV (80.0 - 94.0 FL) 91.4 MCH (27.0 - 31.0 PG) 31.8 H MCHC (33.0 - 37.0 G/DL) 34.8 RDW (11.5 - 14.5 %) 16.9 H Plt Count (130 - 400 /CUMM) 128 L MPV (7.4 - 10.4 FL) 8.4 Segmented Neutrophils (42.2 - 75.2 %) 71 Band Neutrophils (0.0 - 5.0 %) 3 Lymphocytes (20.5 - 51.1 %) 22 Monocytes (1.7 - 9.3 %) 4 Platelet Estimate (ADEQUATE) VERIFIED BY SMEAR Anisocytosis 1+ Target Cells FEW Toxicology Salicylates (0 - 20.0 mg/dL) < 1.0 Cancelled Acetaminophen (10.0 - 30.0 ug/mL) < 10.0 L Cancelled Serum Alcohol (<10 MG/DL) < 10.0 Cancelled
--- NOTE | 2017-11-16 11:43 | Cons- Nephrology ---
General Information and HPI Consulting Request Date of Consult: 11/16/17 Requested By: Barry OCONNOR,Viki History of Present Illness: History obtained from excellent historian. Mr. Fuentes is a 52 yo gentleman with HTN, hyperlipidemia, anxiety disorder who was in his usual state of good health until this past holiday when he developed aches and flu-like symptoms. He drinks an average of 2 drinks (Martini's) / day and had continued to do so until close to the time of admission. His aches and fevers improved but he developed increasing diarrhea over the past week with very poor po intake. he developed increasing dizziness and fell on . His tried to have him go to the ER but he refused. Urine outpt was minimal after that and he has been nearly anuric since then. He continued to take his medications including lisinopril and took Aleve on , Thursday and Thursday. He was unable to walk so his finally called an ambulance and he was brought to the hospital yesterday. on arrival he was hypotensive (SBP 80's) in AMBAR (Cr 6.7 - was 0.9 1 year ago). Myers was placed with small amount of urine (information from medical housestaff ) but with IVF he has had excellent U.O. Allergies/Medications Allergies: Coded Allergies: acetaminophen (From PERCOCET) (Severe, ITCH 02/05/16) hydrocodone (Severe, ITCH 02/05/16) oxycodone (Severe, ITCH 02/05/16) Home Med List: Atorvastatin Calcium 40 MG TABLET 1 TAB PO DAILY choolestrol (Reported) Escitalopram Oxalate 10 MG TABLET 1 TAB PO DAILY insomnia (Reported) Lisinopril/Hydrochlorothiazide (Lisinopril-Hctz 20-12.5 MG Tab) 20 MG-12.5 MG TABLET 1 TAB PO DAILY htn (Reported) Review of Systems Review of Systems: As in HPI feels better now. 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 Home Who Do You Live With? spouse Primary Language: Egyptian Smoking Status: Never Smoked ETOH Use: DRINKS ON A DAILY BASIS Illicit Drug Use: denies illicit drug use Functional Ability ADLs Independent: dressing, eating, toileting, bathing. 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[employer] [facility] Exam & Diagnostic Data Vital Signs and I&O Pleasant M Iin ICU 90/50 88 98.7 Skin neg rash Eyes anicteric ENT membranes moist Neck neg JVD Lungs clear to A Cor RRR Abd soft n/T Ext neg edema Results Pertinent Lab Results: Laboratory Tests 11/16 11/16 11/16 0958 0515 0010 Chemistry Sodium (137 - 145 mmol/L) 133 L 132 L 129 L Potassium (3.5 - 5.1 mmol/L) 3.1 L 3.1 L 2.6 *L Chloride (98 - 107 mmol/L) 100 97 L 94 L Carbon Dioxide (22 - 30 mmol/L) 14 L 14 L 15 L Anion Gap (5 - 16) 19 H 21 H 20 H BUN (9 - 20 mg/dL) 42 H 44 H 45 H Creatinine (0.7 - 1.2 mg/dL) 5.3 *H 5.9 *H 6.0 *H Estimated GFR (>60 ml/min) 12 L 10 L 10 L Glucose (65 - 99 mg/dL) 92 85 98 Calcium (8.4 - 10.2 mg/dL) 8.0 L 8.0 L 7.6 L Phosphorus (2.5 - 4.5 mg/dL) 1.7 L 2.2 L 2.2 L Magnesium (1.6 - 2.3 mg/dL) 1.7 1.8 1.8 Total Bilirubin (0.2 - 1.3 mg/dL) 11.7 H 11.3 H 10.3 H Direct Bilirubin (< 0.4 mg/dL) 10.6 H AST (17 - 59 U/L) 439 H 450 H 440 H ALT (21 - 72 U/L) 191 H 199 H 194 H Alkaline Phosphatase (< 127 U/L) 870 H Creatine Kinase (55 - 170 U/L) 764 H 690 H Troponin I (<0.11 ng/ml) 0.04 Total Protein (6.3 - 8.2 g/dL) 5.0 L Albumin (3.5 - 5.0 g/dL) 2.5 L 2.5 L 2.2 L Coagulation PT (9.4 - 12.5 SEC) 14.5 H INR (0.90 - 1.17) 1.39 H Hematology CBC w Diff MAN DIFF ORDERED WBC (4.8 - 10.8 /CUMM) 5.9 RBC (4.70 - 6.10 /CUMM) 3.66 L Hgb (14.0 - 18.0 G/DL) 11.4 L Hct (42 - 52 %) 33.1 L MCV (80.0 - 94.0 FL) 90.4 MCH (27.0 - 31.0 PG) 31.3 H MCHC (33.0 - 37.0 G/DL) 34.6 RDW (11.5 - 14.5 %) 16.7 H Plt Count (130 - 400 /CUMM) 106 L MPV (7.4 - 10.4 FL) 8.3 Segmented Neutrophils (42.2 - 75.2 %) 74 Lymphocytes (20.5 - 51.1 %) 19 L Monocytes (1.7 - 9.3 %) 7 Platelet Estimate (ADEQUATE) ADEQUATE Polychromasia 1+ Poikilocytosis 1+ Ovalocytes 1+ Other Body Source Fld Total RBCs Counted (%) 100 Serology Hepatitis A IgM Ab (NONREACTIVE) NONREACTIVE Hep Bs Antigen (NONREACTIVE) NONREACTIVE Hep B Core IgM Ab Conf (NONREACTIVE) NONREACTIVE Hepatitis C Antibody (NONREACTIVE) NONREACTIVE 11/15 Blood Gas pH (7.35 - 7.45 PH) 7.43 pCO2 (35 - 45 TORR) 28 L pO2 (80 - 100 TORR) 78 L HCO3 (21 - 28 MEQ/L) 18 L ABG O2 Sat (Measured) (>96.0 %) 94.0 L P-50 (Temp Corrected) N Carboxyhemoglobin (1.5 - 5.0 %) 0.2 L O2 Concentration % RA Temperature (97.0 - 100.0 FARH) 97.8 O2 Delivery Method RA Miscellaneous Phlebotomy Draw Site LEFT RADIAL Urines Urine Osmolality Cancelled 11/15 Toxicology Urine Opiates Screen (>2000 NG/ML) < 100.00 Methadone Screen (>300 NG/ML) 84 Barbiturate Screen (>200 NG/ML) < 60 Ur Phencyclidine Scrn (>25 NG/ML) 7.30 Amphetamines Screen (>1000 NG/ML) < 100 U Benzodiazepines Scrn (>200 NG/ML) < 85 Urine Cocaine Screen (>300 NG/ML) < 50 Urine Cannabis Screen (>50 NG/ML) < 5.00 Urines Urinalysis MOD H Urine Color (YEL,AMB,STR) YEL Urine Clarity (CLEAR) HAZY H Urine pH (5.0 - 8.0) 5.5 Ur Specific [place] (1.001 - 1.035) 1.025 Urine Protein (NEG,<30 MG/DL) 100 H Urine Ketones (NEG) TRACE H Urine Nitrite (NEG) NEG Urine Bilirubin (NEG) POS@ICTO H Urine Urobilinogen (0.1 - 1.0 EU/dl) 0.2 Ur Leukocyte Esterase (NEG) NEG Ur Microscopic SEDIMENT EXAMINED Urine RBC (0 - 5 /HPF) 3-5 Urine WBC (0 - 2 /HPF) 5-10 H Ur Epithelial Cells (NONE,FEW) FEW Urine Bacteria (NEG/NONE) FEW H Urine Hemoglobin (NEG) LARGE H Urine Osmolality (300 - 1000 MOSM/KG) 280 L Ur Random Creatinine (mg/dL) Cancelled 223.2 Ur Random Sodium (30 - 90 mmol/L) Cancelled 29 L Ur Random Potassium (mmol/L) Cancelled 74.1 Fraction Sodium Excret (<1% %) Cancelled 0.6 Urine Glucose (N MG/DL) NEG 11/15 11/15 11/15 11/15 1911 1909 1902 1902 Chemistry Lactic Acid (0.7 - 2.1 mmol/L) 1.4 Creatine Kinase Cancelled CA 19-9 Antigen Pending Urines Ur Random Creatinine Cancelled Ur Random Sodium Cancelled Ur Random Potassium Cancelled Fraction Sodium Excret Cancelled 11/15 11/15 11/15 190 1748 1551 Chemistry Sodium (137 - 145 mmol/L) 127 L Potassium (3.5 - 5.1 mmol/L) 2.9 *L Chloride (98 - 107 mmol/L) 86 L Carbon Dioxide (22 - 30 mmol/L) 17 L Anion Gap (5 - 16) 24 H BUN (9 - 20 mg/dL) 49 H Creatinine (0.7 - 1.2 mg/dL) 6.3 *H Estimated GFR (>60 ml/min) 9 L BUN/Creatinine Ratio (7 - 25 %) 7.8 Serum Osmolality (285 - 295 MOSM/KG) 282 L Phosphorus (2.5 - 4.5 mg/dL) 3.2 Magnesium (1.6 - 2.3 mg/dL) 1.3 L Iron (49 - 181 ug/dL) 170 TIBC (261 - 462 ug/dL) 108 L Ferritin (17.9 - 464 ng/mL) > 62310.0 H Total Bilirubin (0.2 - 1.3 mg/dL) 12.9 H Cancelled Direct Bilirubin (< 0.4 mg/dL) 12.2 H Cancelled AST (17 - 59 U/L) 609 H Cancelled ALT (21 - 72 U/L) 257 H Cancelled Alkaline Phosphatase (< 127 U/L) 155 H Cancelled Lactate Dehydrogenase (313 - 618 U/L) 1358 H Creatine Kinase (55 - 170 U/L) 829 H Total Protein (6.3 - 8.2 g/dL) 5.7 L Cancelled Albumin (3.5 - 5.0 g/dL) 2.7 L Cancelled Coagulation PT (9.4 - 12.5 SEC) 14.0 H INR (0.90 - 1.17) 1.34 H APTT (25 - 37 SEC) 39 H Hematology Haptoglobin Pending Serology HIV 1&2 Ab Western Blot (NONREACTIVE) NONREACTIVE 11/15 11/15 1350 1343 Chemistry Sodium (137 - 145 mmol/L) 122 L Potassium (3.5 - 5.1 mmol/L) 3.7 Chloride (98 - 107 mmol/L) 82 L Carbon Dioxide (22 - 30 mmol/L) 16 L Anion Gap (5 - 16) 24 H BUN (9 - 20 mg/dL) 50 H Creatinine (0.7 - 1.2 mg/dL) 6.7 *H Estimated GFR (>60 ml/min) 9 L BUN/Creatinine Ratio (7 - 25 %) 7.5 Glucose (65 - 99 mg/dL) 92 Lactic Acid (0.7 - 2.1 mmol/L) 2.3 H Calcium (8.4 - 10.2 mg/dL) 9.7 Total Bilirubin (0.2 - 1.3 mg/dL) 12.1 H Direct Bilirubin (< 0.4 mg/dL) 11.4 H AST (17 - 59 U/L) 696 H ALT (21 - 72 U/L) 266 H Alkaline Phosphatase (< 127 U/L) 750 H Ammonia (9 - 30 umol/L) 16 Creatine Kinase (55 - 170 U/L) 707 H Troponin I (<0.11 ng/ml) 0.04 Total Protein (6.3 - 8.2 g/dL) 6.1 L Albumin (3.5 - 5.0 g/dL) 2.8 L Globulin (1.9 - 4.2 gm/dL) 3.3 Albumin/Globulin Ratio (1.1 - 2.2 %) 0.8 L Amylase (30 - 110 U/L) 73 Lipase (23 - 300 U/L) 67 Hematology CBC w Diff MAN DIFF ORDERED WBC (4.8 - 10.8 /CUMM) 9.1 RBC (4.70 - 6.10 /CUMM) 4.28 L Hgb (14.0 - 18.0 G/DL) 13.6 L Hct (42 - 52 %) 39.1 L MCV (80.0 - 94.0 FL) 91.4 MCH (27.0 - 31.0 PG) 31.8 H MCHC (33.0 - 37.0 G/DL) 34.8 RDW (11.5 - 14.5 %) 16.9 H Plt Count (130 - 400 /CUMM) 128 L MPV (7.4 - 10.4 FL) 8.4 Segmented Neutrophils (42.2 - 75.2 %) 71 Band Neutrophils (0.0 - 5.0 %) 3 Lymphocytes (20.5 - 51.1 %) 22 Monocytes (1.7 - 9.3 %) 4 Platelet Estimate (ADEQUATE) VERIFIED BY SMEAR Anisocytosis 1+ Target Cells FEW Toxicology Salicylates (0 - 20.0 mg/dL) < 1.0 Cancelled Acetaminophen (10.0 - 30.0 ug/mL) < 10.0 L Cancelled Serum Alcohol (<10 MG/DL) < 10.0 Cancelled Assessment/Plan Assessment/Recommendations Assessment: AMBAR most likely due to a combination of events. The main issue is profound volume depletion likely related to poor po intake and diarrhea. Superimposed on this he continued to take his antihypertensives (hence lower BP) and took Aleve. The combination of NSAIDs and ACEI block both normal autoregulatory mechanisms to maintain GFR (NSAIDs block the afferent and ACEI the efferent control) making acute renal failure and ATN more common. He has been appropriately resusitated by the ICU team and Cr is already down to 5.3. I would continue isotonic fluid at the current rate for now to maintain intravascular volume status Continue to hold ACEI and avoid NSAIDs and contrast Thanks will follow. Dejon Lanza MD Recommendations: .
--- NOTE | 2017-11-16 13:33 | ULTRASOUND REPORT ---
EXAMINATION: US ABDOMEN LIMITED CLINICAL INFORMATION: Tenderness in the right upper quadrant. COMPARISON: Abdominal CT 11/15/2017. TECHNIQUE: Real-time imaging of the right upper quadrant abdominal viscera. FINDINGS: PANCREAS: As described on yesterday's abdominal CT there is a 2.8 x 2.1 x 2.5 cm cyst within the pancreatic tail with differential considerations discussed previously. Differences in measurements between the 2 examinations are likely technical. LIVER: Hepatomegaly. Increased liver echogenicity compatible with hepatic steatosis seen on the prior CT. GALLBLADDER: Normal. The gallbladder is physiologically distended without evidence of stones, sludge, polyps, wall thickening or pericholecystic fluid. There are multiple gallbladder folds. COMMON BILE DUCT: Normal in caliber measuring 0.38 cm in diameter. RIGHT KIDNEY: Normal. No hydronephrosis. No renal calculi. The kidney measures 11.7 cm in maximum dimension. There is a 1.2 x 1.3 x 1.3 cm cyst within the midpole of the right kidney. There is a small amount of nonspecific perinephric fluid on the right side. FREE FLUID: None. IMPRESSION: - As described on yesterday's abdominal CT there is a 2.8 x 2.1 x 2.5 cm cyst within the pancreatic tail with differential considerations discussed previously. Differences in measurements between the 2 examinations are likely technical. - Hepatomegaly and hepatic steatosis. - No cholelithiasis nor sonographic evidence of acute cholecystitis. - Right renal cyst and a small amount of nonspecific right perinephric fluid.
[2017-11-17] VITALS (10 sets, daily range): BP systolic 87–142; BP diastolic 50–74
[2017-11-17 04:41] LABS: HEMATOCRIT 32.2 % (42-52); MEAN CORPUSCULAR HGB 31.4 PG (27.0-31.0); MEAN CORPUSCULAR HGB CONC 34.5 G/DL (33.0-37.0); MEAN CORPUSCULAR VOLUME 91.1 FL (80.0-94.0); MEAN PLATELET VOLUME 7.7 FL (7.4-10.4); PLATELET COUNT 126 /CUMM (130-400); RED BLOOD CELL CT 3.54 /CUMM (4.70-6.10); WHITE BLOOD CELL COUNT 7.5 /CUMM (4.8-10.8)
[2017-11-17 04:44] LABS: PT 14.2 SEC (9.4-12.5)
--- NOTE | 2017-11-17 07:48 | PN- Resident CRCU ---
Impression/Plan Plan DVT/Prophylaxis: mechanical, pharmacological
--- NOTE | 2017-11-17 08:05 | PN- CRCU ---
Subjective HPI/Critical Care Issues: The patient was seen and examined. Twenty four hour events reviewed. Objective Current Medications: Current Medications Sig/Wagner Start time Last Medication Dose Route Stop Time Status Admin Albumin Human 12.5 GM Q8H 11/15 2100 AC 11/17 IV 0630 Benzocaine/Menthol 1 SUKHI Q2P PRN 11/16 1200 AC 11/16 PO 1951 Folic Acid 1 MG DAILY 11/15 1851 AC 11/16 PO 0946 Heparin Sodium 5,000 UNIT Q8 11/15 2200 AC 11/17 (Porcine) SC 0628 Magnesium Oxide 400 MG ONE ONE 11/17 0700 DC 11/17 PO 11/17 0701 0711 Magnesium Sulfate 1 GM ONCE ONE 11/16 1730 DC 11/16 Dextrose/Water 100 ML IV 11/16 2128 2033 Multivitamins 1 TAB DAILY 11/15 185 AC 11/16 PO 0946 Ondansetron HCl 4 MG Q6P PRN 11/15 1800 AC IV Phenol 2 SPRAY Q2P PRN 11/15 2030 AC 11/16 EXT 0822 Phosphate 250 MG PC AND AT BEDTIME 11/17 0900 AC PO Phosphate 250 MG ONCE ONE 11/17 0745 DC PO 11/17 0746 Phosphate 250 MG ONCE ONE 11/16 1930 DC 11/16 PO 11/16 1931 2149 Phosphate 250 MG ONCE ONE 11/16 1200 DC 11/16 PO 11/16 1201 1200 Potassium Chloride 40 MEQ ONCE ONE 11/17 0715 DC PO 11/17 0716 Potassium Chloride 40 MEQ ONCE ONE 11/17 0700 DC PO 11/17 0701 Potassium Chloride 40 MEQ BID 11/16 1730 DC 11/16 PO 11/16 2201 2043 Sodium Chloride 1,000 ML Q10H 11/17 0145 AC 11/17 IV 0144 Sodium Chloride 1,000 ML Q6H 11/16 2300 DC 11/16 IV 11/17 0959 1951 Sodium Chloride 1,000 ML Q13H 11/15 1800 DC 11/16 IV 11/17 0059 0953 Thiamine HCl 100 MG DAILY 11/15 1850 AC 11/16 PO 0946 Vital Signs & I&O Last 24 Hrs of Vitals and I&O: Vital Signs Date Time Temp Pulse Resp B/P B/P Pulse O2 O2 Flow FiO2 Mean Ox Delivery Rate 11/17 0600 96 26 113/50 11/17 0400 98.0 102 24 118/60 11/17 0400 95 Room Air 11/17 0000 98.0 97 26 120/60 11/17 0000 97 Room Air 11/17 0000 98.0 97 26 120/60 97 Room Air Room Air 11/16 2200 99.2 104 36 106/52 11/16 2000 99.2 96 29 118/60 11/16 1600 97.9 100 32 89/54 11/16 1600 97.9 100 32 104/46 93 Room Air 11/16 1600 95 Room Air 11/16 1400 98.4 100 30 101/57 11/16 1200 98.4 90 24 91/50 11/16 1000 98.7 90 30 102/44 11/16 0800 98.7 88 21 90/40 11/16 0800 98.7 88 21 92 Room Air 11/16 0800 92 Room Air Intake & Output 11/17 0800 11/17 0000 11/16 1600 Intake Total 1300 2370 2230 Output Total 1700 2100 2650 Balance -400 270 -420 Intake, IV 900 1650 1900 Intake, Oral 400 720 330 Number 2 1 Bowel Movements Output, Urine 1700 2100 2650 Patient 201 lb Weight Exam General Appearance: well developed/nourished, no apparent distress, alert, awake , comfortable Head: atraumatic, normal appearance Neck: normal inspection, supple Respiratory: normal breath sounds, chest non-tender, no respiratory distress, quiet respiration, lungs clear Cardiovascular: regular rate/rhythm Gastrointestinal: normal bowel sounds, soft, mild tenderness in RUQ, decreased than yesterday Extremities: no edema Cranial Nerves: normal speech, PERRL Results Last 24 Hrs of Lab Results: Laboratory Tests 11/17/17 0410: Anion Gap 17 H, Estimated GFR 22 L, Glucose 113 H, Calcium 8.1 L, Phosphorus 1.5 L, Magnesium 1.6, Total Bilirubin 12.2 H, GGT 2579 H, AST 393 H, ALT 172 H, Albumin 3.0 L, PT 14.2 H, INR 1.36 H, CBC w Diff MAN DIFF ORDERED, RBC 3.54 L, MCV 91.1, MCH 31.4 H, MCHC 34.5, RDW 17.0 H, MPV 7.7, Segmented Neutrophils 62, Lymphocytes 26, Monocytes 12 H, Nucleated RBCs 2 H, Platelet Estimate ADEQUATE, Polychromasia 1+, Poikilocytosis 1+, Target Cells FEW, Ovalocytes 1+, Stomatocytes FEW, Fld Total RBCs Counted 100 11/16/17 1845: Anion Gap 19 H, Estimated GFR 14 L, Glucose 133 H, Calcium 8.2 L, Phosphorus 1.9 L, Magnesium 1.6, Total Bilirubin 12.5 H, AST 438 H, ALT 193 H, Albumin 3.0 L 11/16/17 1429: Anion Gap 19 H, Estimated GFR 13 L, Glucose 119 H, Calcium 8.2 L, Phosphorus 1.9 L, Magnesium 1.7, Total Bilirubin 12.2 H, AST 460 H, ALT 190 H, Albumin 2.9 L 11/16/17 0958: Anion Gap 19 H, Estimated GFR 12 L, Glucose 92, Calcium 8.0 L, Phosphorus 1.7 L, Magnesium 1.7, Total Bilirubin 11.7 H, GGT 2511 H, AST 439 H, ALT 191 H, Albumin 2.5 L Last 24 Hrs of Micro Results: Cultures negative so far. Diagnostic Data US Findings: - As described on yesterday's abdominal CT there is a 2.8 x 2.1 x 2.5 cm cyst within the pancreatic tail with differential considerations discussed previously. Differences in measurements between the 2 examinations are likely technical. - Hepatomegaly and hepatic steatosis. - No cholelithiasis nor sonographic evidence of acute cholecystitis. - Right renal cyst and a small amount of nonspecific right perinephric fluid. Impression/Plan Impression/Plan Impression/Plan: 1. Myalgia, mailase with low grade fevers, sore throat - Rapid flu negative strep throat (c/o sore throat). 2. AMBAR - Most likely 2/2 dehydration and volume depletion form being on HCTZ/ lisinopril, decreased PO intake. Nephrology consulted. Will continue to hold HCTZ/ Lisinopril. 3. Elevated anion gap acidosis with non-aniongap metabolic acidosis and compensatory respiratory alkalosis, secondary to lactic acidosis from hypoperfusion, vomiting and renal insuffiency. 4. Tranaminitis - secondary to alcoholic hepatitis and rhabo vs ? pancreatic mass. GI following. 5. Pancreatic cyst/ mass. 6. Anemia and thrombocytopenia 7. Hyponatremia - most likely 2/2 dehydration and volume depletion, improved. 8. ALcohol dependence - on CIWAS protocol, high dose thiamine, MV and folate. 9. DVT prophylaxis - on Heparion 5000IU TID - Full code Recommendations: * Follow-up abdominal ultrasound results. * Follow-up cultures. * Monitor off antibiotics.
--- NOTE | 2017-11-17 08:28 | PN- Resident CRCU ---
Subjective HPI/CRCU Issues: AMBAR Hyponatremia Hyperbilirubinemia Transaminitis Hypotension Pancreatic cyst/ mass 24 Hour Events: Patient seen and examained at bedside. He denies any chest pain, endorses mild abdominal pain,where he gets hepain shots, otehrwise hsi ROS is unremarkable. He remans afebrile, BP is much better now. Objective Vital Signs & I&O Last 8 Hrs of Vitals and I&O: Intake & Output 11/17 1600 Intake Total Output Total Balance Patient 200 lb Weight Exam General Appearance: well developed/nourished, no apparent distress, alert, awake , comfortable Head: atraumatic Ears, Nose, Throat: normal pharynx Neck: normal inspection, supple Respiratory: normal breath sounds, chest non-tender, no respiratory distress, quiet respiration, lungs clear Cardiovascular: regular rate/rhythm Gastrointestinal: normal bowel sounds, soft, tender in RUQ Nutrition Nutrition: P.O. diet Current Medications: Current Medications Sig/Wagner Start time Last Medication Dose Route Stop Time Status Admin Albumin Human 12.5 GM Q8H 11/15 2100 AC 11/17 IV 1220 Benzocaine/Menthol 1 SUKHI Q2P PRN 11/16 1200 AC 11/16 PO 1951 Bisacodyl 5 MG DAILY 11/17 1000 AC PO Folic Acid 1 MG DAILY 11/15 185 AC 11/17 PO 0955 Heparin Sodium 5,000 UNIT Q8 11/150 AC 11/17 (Porcine) SC 1409 Magnesium Oxide 400 MG ONE ONE 11/17 0700 DC 11/17 PO 11/17 0701 0711 Magnesium Sulfate 1 GM ONCE ONE 11/16 1730 DC 11/16 Dextrose/Water 100 ML IV 11/16 2128 2033 Multivitamins 1 TAB DAILY 11/15 1851 AC 11/17 PO 0955 Ondansetron HCl 4 MG Q6P PRN 11/15 1800 AC IV Phenol 2 SPRAY Q2P PRN 11/15 2030 AC 11/16 EXT 0822 Phosphate 250 MG PC AND AT BEDTIME 11/17 0900 AC 11/17 PO 1408 Phosphate 250 MG ONCE ONE 11/17 0745 DC 11/17 PO 11/17 0746 0955 Phosphate 250 MG ONCE ONE 11/16 1930 DC 11/16 PO 11/16 1931 2149 Potassium Chloride 40 MEQ TID 11/17 1600 AC 11/17 PO 01/30 2201 1543 Potassium Chloride 40 MEQ ONCE ONE 11/17 0715 DC 11/17 PO 11/17 0716 0955 Potassium Chloride 40 MEQ ONCE ONE 11/17 0700 DC PO 11/17 0701 Potassium Chloride 40 MEQ BID 11/16 1730 DC 11/16 PO 11/16 2200 2043 Senna 187 MG AT BEDTIME 11/17 2199 AC PO Senna 187 MG AT BEDTIME 11/17 2200 CAN PO Sodium Chloride 1,000 ML Q10H 11/17 0145 AC 11/17 IV 1042 Sodium Chloride 1,000 ML Q6H 11/16 2300 DC 11/16 IV 11/17 0959 1951 Sodium Chloride 1,000 ML Q13H 11/15 1800 DC 11/16 IV 11/17 0059 0953 Thiamine HCl 100 MG DAILY 11/15 1850 AC 11/17 PO 0954 Impression/Plan Impression/Problem List Impression: 52-year-old male with a past medical history of hypertension, hyperlipidemia who presents to ER complains of fevers since early October, episodes of bloody bowel movements, diarrhea, status post fall associated with blurry vision, headache and tremor-like activity as well as increased confusion. Vitals at the time of admission blood pressure 130/90, respiratory rate of 16, pulse 87, afebrile saturating 96% on room air. Labs pertinent for normal white blood cell count of 9100, H&H of 13.6/39.1 and MCV of 9144 with platelet count of 1 20,000. Serum creatinine revealed a sodium of 122, potassium of 3.7, bicarbonate of 16, anion gap 24, BUN 50 with a creatinine of 6.7. Lactic acid was 2.3. LFTs pertinent for elevated total bili of 12.1, direct bilirubinemia of 11.4, transaminitis with an AST/ALT of 696/266, alkaline phosphatase of 750. Serum ammonia was 16. CK was 707 with the first set of troponin 0.04. Amylase was 73 with lipase of 67. INR was 1.34. UA was not received. Tox screen pertinent for serum alcohol was less than 10. And a Tylenol level of less than 10. CXR showed no focal consolidation or overt edema, or pleural effusion. There is elevation of right hemidiaphragm. CT head and cervical spine showed no acute intracranial pathology. No CT evidence of acute cervical spine fracture or traumatic subluxation. CT Abdomen/Pelvis w/o IV contrast showed enlarged fatty liver. 3.8 x 4.8 cm cyst or cystic lesion in the tail of the pancreas is new from 2008. There is an adjacent small focal calcification in the pancreas and some stranding of the surrounding peripancreatic fat. Diverticulosis. It is difficult to exclude mild diverticulitis of the sigmoid colon. In the ER he received NS 1000ml x2, and started on NAC for concern for tylenol toxicity in the setting of underlying alcoholic hepatitis . Assessment and Plan: Admit patient to ICU # Respiratory - Stable. - Currently on RA. # Myalgia, mailase with low grade fevers, sore throat - Rapid flu, strep throat (c/o sore throat) - negtaive - F/U tick borne panel, and babesiosis is negative - ? diverticulits on CT scan (though no leukocytosis, will fair off Abx) - The clincial syndrome could have been that the patient had flu which resulted in cholestasis, decreased PO intake, and subsequently led to deydration and renal failure. #AMBAR - resolving with hydration - Most likely 2/2 dehydration and volume depletion form being on HCTZ/lisinopril , decreased PO intake vs obstructive uropathy and ATN form CK - Will order serum osmolarity, urine lytes. - Appreciate Nephro consult placed. - Hold HCTZ/ Lisinopril #Elevated anion gap acidosis with non-aniongap metabolic acidosis and compensatory respiratory alkalosis. - Resolving - 2/2 lactic acidosis from hypoperfusion, vomiting and renal insuffiency contributing to the NAGMA. - F/U repeat BEP #Transaminitis - 2/2 alcoholic hepatitis and rhabo vs ? pancreatic mass casuing obstructive jaundice - Hepatitis serology negative and HIV panel was neagtive - US Abdomen showed heaptomegaly, hepatic steatosis, a 2.8 x 2.1 x 2.5 cm cyst within the pancreatic tail, no cholilithiasis, or cholecystitis - Ammonia level was WNL. - Continue to hold statin and escitalopram - Appreciate GI consult. #Pancreatic cyst/ mass - Will obatin an MRI pancreatic protocl with andw/o contrast for better visualzation . - NPO after MN for MRCP in AM - F/U CA-19 #Anemia and thrombocytopenia - ? hepatic failure - F/U CBC and consider DC heparin if platelet count continue sto drop. - F/U iron studies #Hyponatremia - resolved - Most likely 2/2 dehydration and volume depletion. - Hydrate with NS @100mls/hr #Oliguria - No evidence of BPH or hydronephrosis on CT scan. - 2/2 dehydartion - Resolved - Contnue to monitor strict I's and O's # Alcohol dependence - Continue CIWA protocol - CIWA - 0-1 - High dose thiamine and supplements for folic acid, thiamin and MV - DVT prophylaxis - Heparion 5000IU TID - Diet - NPO after MN for MRCP in AM - COde Status - Full code Problem List: 1. Liver failure 2. Renal failure Pain Ratin Tomorrow's Labs & Rationales: cbc- thrombocytopenia ICU - K, Cr Plan DVT/Prophylaxis: mechanical, pharmacological
--- NOTE | 2017-11-17 11:00 | PN- Nephrology ---
Assessment/Plan Assessment: AMBAR likely due to profound dehydration/ ATN due to prolonged hypotension. Getting better with excellent urine output. K low. Replace. Might add K to IVF e.g. 20mEq/L or so. Dejon Lanza MD Suggestion: . Subjective Subjective: Pt getting better. Cr down to 3.0. Eating. feels much better. Started walking with OT. Objective Vital Signs and I&Os M NAD 113/50 96 98 Lungs clear Cor RRR Abd soft Ext neg edema Results Pertinent Lab Results: 139 / 104 / 29 / 3.0 / 19 /3.0\
--- NOTE | 2017-11-17 15:25 | PN- Gastroenterology ---
Assessment/Plan Assessment/Recommendations: ASSESSMENT: 1. Abnormal Liver-Associated Enzymes -- acute alcoholic hepatitis 2. Acute Kidney Injury -- patient now making urine in response to albumine and IV fluids BUN/Creatinine now decreased 3. Ongoing alcohol dependence 4. Cystic Lesion Tail of Pancreas -- ? malignant vs benign. CA 19-9 pending 5. Anemia without overt signs of GI blood loss, macrocytosis RECOMMENDATIONS: 1. Daily PT/INR, CBC, CMP, please order GGT as well given marked increase in alk phos 2. CA 19-9 3. MRI Pancreatic Protocol tomorrow(With and Without Contrast) 4. Iron studies (Iron, TIBC, ferritin, transferrin, iron saturation, B12, folate) 5. GI will see intermittently. Do not hesitate to contact us if there are any issues that arise before Mr. Fuentes is next seen. Subjective Subjective: Patient OOB to chair. Feeling much better. Tolerating diet. No nausea, vomiting or abdominal pain. Urinating without difficulty. One episode small volume loose stools. Objective Vital Signs and I&Os Vital Signs Date Time Temp Pulse Resp B/P B/P Pulse O2 O2 Flow FiO2 Mean Ox Delivery Rate 11/17 0600 96 26 113/50 11/17 0400 98.0 102 24 118/60 11/17 0400 95 Room Air 11/17 0000 98.0 97 26 120/60 11/17 0000 97 Room Air 11/17 0000 98.0 97 26 120/60 97 Room Air Room Air 11/16 2200 99.2 104 36 106/52 11/16 2000 99.2 96 29 118/60 11/16 1600 97.9 100 32 89/54 11/16 1600 97.9 100 32 104/46 93 Room Air 11/16 1600 95 Room Air Intake & Output 11/17 1600 11/17 0400 11/16 1600 11/16 0400 11/15 0400 Intake Total 1300 2370 4441 2540 0 Output Total 1700 2100 5850 150 Balance -400 270 -1409 2390 0 Intake, IV 900 1650 4111 2300 Intake, Oral 400 720 330 240 0 Number 2 1 Bowel Movements Output, Urine 1700 2100 5850 150 Patient 200 lb 203 lb 202 lb Weight Weight Bed scale Bed scale Measurement Method Physical Exam General Appearance: no apparent distress, comfortable Respiratory: normal breath sounds, lungs clear Cardiovascular: regular rate/rhythm Abdomen: normal bowel sounds, soft, non-tender, no organomegaly Neurologic/Psychiatric: awake, alert, oriented x 3 Current Medications: Current Medications Sig/Wagner Start time Last Medication Dose Route Stop Time Status Admin Albumin Human 12.5 GM Q8H 11/15 2100 AC 11/17 IV 1220 Benzocaine/Menthol 1 SUKHI Q2P PRN 11/16 1200 AC 11/16 PO 1951 Bisacodyl 5 MG DAILY 11/17 1000 AC PO Folic Acid 1 MG DAILY 11/15 1851 AC 11/17 PO 0955 Heparin Sodium 5,000 UNIT Q8 11/15 2200 AC 11/17 (Porcine) SC 1409 Magnesium Oxide 400 MG ONE ONE 11/17 0700 DC 11/17 PO 11/17 0701 0711 Magnesium Sulfate 1 GM ONCE ONE 11/16 1730 DC 11/16 Dextrose/Water 100 ML IV 11/16 2128 2033 Multivitamins 1 TAB DAILY 11/15 185 AC 11/17 PO 0955 Ondansetron HCl 4 MG Q6P PRN 11/15 1800 AC IV Phenol 2 SPRAY Q2P PRN 11/15 2030 AC 11/16 EXT 0822 Phosphate 250 MG PC AND AT BEDTIME 11/17 0900 AC 11/17 PO 1408 Phosphate 250 MG ONCE ONE 11/17 0745 DC 11/17 PO 11/17 0746 0955 Phosphate 250 MG ONCE ONE 11/16 1930 DC 11/16 PO 11/16 1931 2149 Potassium Chloride 40 MEQ TID 11/17 1600 AC PO 11/17 2201 Potassium Chloride 40 MEQ ONCE ONE 11/17 0715 DC 11/17 PO 11/17 0716 0955 Potassium Chloride 40 MEQ ONCE ONE 11/17 0700 DC PO 11/17 0701 Potassium Chloride 40 MEQ BID 11/16 1730 DC 11/16 PO 11/16 2201 2043 Senna 187 MG AT BEDTIME 11/17 2200 AC PO Senna 187 MG AT BEDTIME 11/17 2200 CAN PO Sodium Chloride 1,000 ML Q10H 11/17 0145 AC 11/17 IV 1042 Sodium Chloride 1,000 ML Q6H 11/16 2300 DC 11/16 IV 11/17 0959 1951 Sodium Chloride 1,000 ML Q13H 11/15 1800 DC 11/16 IV 11/17 0059 0953 Thiamine HCl 100 MG DAILY 11/15 1850 AC 11/17 PO 0954 Results Pertinent Lab Results: Laboratory Tests 11/17 11/16 11/16 0410 1845 1429 Chemistry Sodium (137 - 145 mmol/L) 139 136 L 135 L Potassium (3.5 - 5.1 mmol/L) 3.0 L 3.0 L 3.2 L Chloride (98 - 107 mmol/L) 104 100 101 Carbon Dioxide (22 - 30 mmol/L) 19 L 18 L 15 L Anion Gap (5 - 16) 17 H 19 H 19 H BUN (9 - 20 mg/dL) 29 H 37 H 39 H Creatinine (0.7 - 1.2 mg/dL) 3.0 H 4.4 H 4.9 H Estimated GFR (>60 ml/min) 22 L 14 L 13 L Glucose (65 - 99 mg/dL) 113 H 133 H 119 H Calcium (8.4 - 10.2 mg/dL) 8.1 L 8.2 L 8.2 L Phosphorus (2.5 - 4.5 mg/dL) 1.5 L 1.9 L 1.9 L Magnesium (1.6 - 2.3 mg/dL) 1.6 1.6 1.7 Total Bilirubin (0.2 - 1.3 mg/dL) 12.2 H 12.5 H 12.2 H GGT (15 - 73 U/L) 2579 H AST (17 - 59 U/L) 393 H 438 H 460 H ALT (21 - 72 U/L) 172 H 193 H 190 H Albumin (3.5 - 5.0 g/dL) 3.0 L 3.0 L 2.9 L Coagulation PT (9.4 - 12.5 SEC) 14.2 H INR (0.90 - 1.17) 1.36 H Hematology CBC w Diff MAN DIFF ORDERED WBC (4.8 - 10.8 /CUMM) 7.5 RBC (4.70 - 6.10 /CUMM) 3.54 L Hgb (14.0 - 18.0 G/DL) 11.1 L Hct (42 - 52 %) 32.2 L MCV (80.0 - 94.0 FL) 91.1 MCH (27.0 - 31.0 PG) 31.4 H MCHC (33.0 - 37.0 G/DL) 34.5 RDW (11.5 - 14.5 %) 17.0 H Plt Count (130 - 400 /CUMM) 126 L MPV (7.4 - 10.4 FL) 7.7 Segmented Neutrophils (42.2 - 75.2 %) 62 Lymphocytes (20.5 - 51.1 %) 26 Monocytes (1.7 - 9.3 %) 12 H Nucleated RBCs (0.0 - 0.0 /100WBC) 2 H Platelet Estimate (ADEQUATE) ADEQUATE Polychromasia 1+ Poikilocytosis 1+ Target Cells FEW Ovalocytes 1+ Stomatocytes FEW Other Body Source Fld Total RBCs Counted (%) 100 11/16 11/16 11/16 0958 0515 0010 Chemistry Sodium (137 - 145 mmol/L) 133 L 132 L 129 L Potassium (3.5 - 5.1 mmol/L) 3.1 L 3.1 L 2.6 *L Chloride (98 - 107 mmol/L) 100 97 L 94 L Carbon Dioxide (22 - 30 mmol/L) 14 L 14 L 15 L Anion Gap (5 - 16) 19 H 21 H 20 H BUN (9 - 20 mg/dL) 42 H 44 H 45 H Creatinine (0.7 - 1.2 mg/dL) 5.3 *H 5.9 *H 6.0 *H Estimated GFR (>60 ml/min) 12 L 10 L 10 L Glucose (65 - 99 mg/dL) 92 85 98 Calcium (8.4 - 10.2 mg/dL) 8.0 L 8.0 L 7.6 L Phosphorus (2.5 - 4.5 mg/dL) 1.7 L 2.2 L 2.2 L Magnesium (1.6 - 2.3 mg/dL) 1.7 1.8 1.8 Total Bilirubin (0.2 - 1.3 mg/dL) 11.7 H 11.3 H 10.3 H Direct Bilirubin (< 0.4 mg/dL) 10.6 H GGT (15 - 73 U/L) 2511 H AST (17 - 59 U/L) 439 H 450 H 440 H ALT (21 - 72 U/L) 191 H 199 H 194 H Alkaline Phosphatase (< 127 U/L) 870 H Creatine Kinase (55 - 170 U/L) 764 H 690 H Troponin I (<0.11 ng/ml) 0.04 Total Protein (6.3 - 8.2 g/dL) 5.0 L Albumin (3.5 - 5.0 g/dL) 2.5 L 2.5 L 2.2 L Coagulation PT (9.4 - 12.5 SEC) 14.5 H INR (0.90 - 1.17) 1.39 H Hematology CBC w Diff MAN DIFF ORDERED WBC (4.8 - 10.8 /CUMM) 5.9 RBC (4.70 - 6.10 /CUMM) 3.66 L Hgb (14.0 - 18.0 G/DL) 11.4 L Hct (42 - 52 %) 33.1 L MCV (80.0 - 94.0 FL) 90.4 MCH (27.0 - 31.0 PG) 31.3 H MCHC (33.0 - 37.0 G/DL) 34.6 RDW (11.5 - 14.5 %) 16.7 H Plt Count (130 - 400 /CUMM) 106 L MPV (7.4 - 10.4 FL) 8.3 Segmented Neutrophils (42.2 - 75.2 %) 74 Lymphocytes (20.5 - 51.1 %) 19 L Monocytes (1.7 - 9.3 %) 7 Platelet Estimate (ADEQUATE) ADEQUATE Polychromasia 1+ Poikilocytosis 1+ Ovalocytes 1+ Other Body Source Fld Total RBCs Counted (%) 100 Serology Hepatitis A IgM Ab (NONREACTIVE) NONREACTIVE Hep Bs Antigen (NONREACTIVE) NONREACTIVE Hep B Core IgM Ab Conf (NONREACTIVE) NONREACTIVE Hepatitis C Antibody (NONREACTIVE) NONREACTIVE 11/15 Blood Gas pH (7.35 - 7.45 PH) 7.43 pCO2 (35 - 45 TORR) 28 L pO2 (80 - 100 TORR) 78 L HCO3 (21 - 28 MEQ/L) 18 L ABG O2 Sat (Measured) (>96.0 %) 94.0 L P-50 (Temp Corrected) N Carboxyhemoglobin (1.5 - 5.0 %) 0.2 L O2 Concentration % RA Temperature (97.0 - 100.0 FARH) 97.8 O2 Delivery Method RA Miscellaneous Phlebotomy Draw Site LEFT RADIAL Urines Urine Osmolality Cancelled 11/15 Toxicology Urine Opiates Screen (>2000 NG/ML) < 100.00 Methadone Screen (>300 NG/ML) 84 Barbiturate Screen (>200 NG/ML) < 60 Ur Phencyclidine Scrn (>25 NG/ML) 7.30 Amphetamines Screen (>1000 NG/ML) < 100 U Benzodiazepines Scrn (>200 NG/ML) < 85 Urine Cocaine Screen (>300 NG/ML) < 50 Urine Cannabis Screen (>50 NG/ML) < 5.00 Urines Urinalysis MOD H Urine Color (YEL,AMB,STR) YEL Urine Clarity (CLEAR) HAZY H Urine pH (5.0 - 8.0) 5.5 Ur Specific [place] (1.001 - 1.035) 1.025 Urine Protein (NEG,<30 MG/DL) 100 H Urine Ketones (NEG) TRACE H Urine Nitrite (NEG) NEG Urine Bilirubin (NEG) POS@ICTO H Urine Urobilinogen (0.1 - 1.0 EU/dl) 0.2 Ur Leukocyte Esterase (NEG) NEG Ur Microscopic SEDIMENT EXAMINED Urine RBC (0 - 5 /HPF) 3-5 Urine WBC (0 - 2 /HPF) 5-10 H Ur Epithelial Cells (NONE,FEW) FEW Urine Bacteria (NEG/NONE) FEW H Urine Hemoglobin (NEG) LARGE H Urine Osmolality (300 - 1000 MOSM/KG) 280 L Ur Random Creatinine (mg/dL) Cancelled 223.2 Ur Random Sodium (30 - 90 mmol/L) Cancelled 29 L Ur Random Potassium (mmol/L) Cancelled 74.1 Fraction Sodium Excret (<1% %) Cancelled 0.6 Urine Glucose (N MG/DL) NEG 11/15 11/15 11/15 11/15 1911 1909 1902 1902 Chemistry Lactic Acid (0.7 - 2.1 mmol/L) 1.4 Creatine Kinase Cancelled CA 19-9 Antigen Pending Urines Ur Random Creatinine Cancelled Ur Random Sodium Cancelled Ur Random Potassium Cancelled Fraction Sodium Excret Cancelled 11/15 11/15 11/15 1902 1748 1551 Chemistry Sodium (137 - 145 mmol/L) 127 L Potassium (3.5 - 5.1 mmol/L) 2.9 *L Chloride (98 - 107 mmol/L) 86 L Carbon Dioxide (22 - 30 mmol/L) 17 L Anion Gap (5 - 16) 24 H BUN (9 - 20 mg/dL) 49 H Creatinine (0.7 - 1.2 mg/dL) 6.3 *H Estimated GFR (>60 ml/min) 9 L BUN/Creatinine Ratio (7 - 25 %) 7.8 Serum Osmolality (285 - 295 MOSM/KG) 282 L Phosphorus (2.5 - 4.5 mg/dL) 3.2 Magnesium (1.6 - 2.3 mg/dL) 1.3 L Iron (49 - 181 ug/dL) 170 TIBC (261 - 462 ug/dL) 108 L Ferritin (17.9 - 464 ng/mL) > 05684.0 H Total Bilirubin (0.2 - 1.3 mg/dL) 12.9 H Cancelled Direct Bilirubin (< 0.4 mg/dL) 12.2 H Cancelled AST (17 - 59 U/L) 609 H Cancelled ALT (21 - 72 U/L) 257 H Cancelled Alkaline Phosphatase (< 127 U/L) 155 H Cancelled Lactate Dehydrogenase (313 - 618 U/L) 1358 H Creatine Kinase (55 - 170 U/L) 829 H Total Protein (6.3 - 8.2 g/dL) 5.7 L Cancelled Albumin (3.5 - 5.0 g/dL) 2.7 L Cancelled Coagulation PT (9.4 - 12.5 SEC) 14.0 H INR (0.90 - 1.17) 1.34 H APTT (25 - 37 SEC) 39 H Hematology Haptoglobin Pending Serology HIV 1&2 Ab Western Blot (NONREACTIVE) NONREACTIVE 11/15 11/15 1350 1343 Chemistry Sodium (137 - 145 mmol/L) 122 L Potassium (3.5 - 5.1 mmol/L) 3.7 Chloride (98 - 107 mmol/L) 82 L Carbon Dioxide (22 - 30 mmol/L) 16 L Anion Gap (5 - 16) 24 H BUN (9 - 20 mg/dL) 50 H Creatinine (0.7 - 1.2 mg/dL) 6.7 *H Estimated GFR (>60 ml/min) 9 L BUN/Creatinine Ratio (7 - 25 %) 7.5 Glucose (65 - 99 mg/dL) 92 Lactic Acid (0.7 - 2.1 mmol/L) 2.3 H Calcium (8.4 - 10.2 mg/dL) 9.7 Total Bilirubin (0.2 - 1.3 mg/dL) 12.1 H Direct Bilirubin (< 0.4 mg/dL) 11.4 H AST (17 - 59 U/L) 696 H ALT (21 - 72 U/L) 266 H Alkaline Phosphatase (< 127 U/L) 750 H Ammonia (9 - 30 umol/L) 16 Creatine Kinase (55 - 170 U/L) 707 H Troponin I (<0.11 ng/ml) 0.04 Total Protein (6.3 - 8.2 g/dL) 6.1 L Albumin (3.5 - 5.0 g/dL) 2.8 L Globulin (1.9 - 4.2 gm/dL) 3.3 Albumin/Globulin Ratio (1.1 - 2.2 %) 0.8 L Amylase (30 - 110 U/L) 73 Lipase (23 - 300 U/L) 67 Hematology CBC w Diff MAN DIFF ORDERED WBC (4.8 - 10.8 /CUMM) 9.1 RBC (4.70 - 6.10 /CUMM) 4.28 L Hgb (14.0 - 18.0 G/DL) 13.6 L Hct (42 - 52 %) 39.1 L MCV (80.0 - 94.0 FL) 91.4 MCH (27.0 - 31.0 PG) 31.8 H MCHC (33.0 - 37.0 G/DL) 34.8 RDW (11.5 - 14.5 %) 16.9 H Plt Count (130 - 400 /CUMM) 128 L MPV (7.4 - 10.4 FL) 8.4 Segmented Neutrophils (42.2 - 75.2 %) 71 Band Neutrophils (0.0 - 5.0 %) 3 Lymphocytes (20.5 - 51.1 %) 22 Monocytes (1.7 - 9.3 %) 4 Platelet Estimate (ADEQUATE) VERIFIED BY SMEAR Anisocytosis 1+ Target Cells FEW Toxicology Salicylates (0 - 20.0 mg/dL) < 1.0 Cancelled Acetaminophen (10.0 - 30.0 ug/mL) < 10.0 L Cancelled Serum Alcohol (<10 MG/DL) < 10.0 Cancelled
--- NOTE | 2017-11-17 17:21 | Transfer of Care Summary ---
Hospital Course Course Hospital Course: 52-year-old male with a past medical history of hypertension, hyperlipidemia who presents to ER complains of fevers since early October, episodes of bloody bowel movements, diarrhea, status post fall associated with blurry vision, headache and tremor-like activity as well as increased confusion. Vitals at the time of admission blood pressure 130/90, respiratory rate of 16, pulse 87, afebrile saturating 96% on room air. Labs pertinent for normal white blood cell count of 9100, H&H of 13.6/39.1 and MCV of 9144 with platelet count of 1 20,000. Serum creatinine revealed a sodium of 122, potassium of 3.7, bicarbonate of 16, anion gap 24, BUN 50 with a creatinine of 6.7. Lactic acid was 2.3. LFTs pertinent for elevated total bili of 12.1, direct bilirubinemia of 11.4, transaminitis with an AST/ALT of 696/266, alkaline phosphatase of 750. Serum ammonia was 16. CK was 707 with the first set of troponin 0.04. Amylase was 73 with lipase of 67. INR was 1.34. UA was not received. Tox screen pertinent for serum alcohol was less than 10. And a Tylenol level of less than 10. CXR showed no focal consolidation or overt edema, or pleural effusion. There is elevation of right hemidiaphragm. CT head and cervical spine showed no acute intracranial pathology. No CT evidence of acute cervical spine fracture or traumatic subluxation. CT Abdomen/Pelvis w/o IV contrast showed enlarged fatty liver. 3.8 x 4.8 cm cyst or cystic lesion in the tail of the pancreas is new from 2007. There is an adjacent small focal calcification in the pancreas and some stranding of the surrounding peripancreatic fat. Diverticulosis. It is difficult to exclude mild diverticulitis of the sigmoid colon. In the ER he received NS 1000ml x2, and started on NAC for concern for tylenol toxicity in the setting of underlying alcoholic hepatitis. He was admitted to ICU for closer monitoring with the clincial syndrome that the patient had flu which resulted in cholestasis, decreased PO intake, in the setting of being on diuretics and ACEI which subsequently led to deydration and renal failure.The following problems were adressed: # Respiratory - Stable. - He continued to be on RA. #Hyotension - Patient's blood pressure dropped to 64 systolic as soon as he was moved to [facility] ICU. He was aggressively fludi resuscitate and provided with albumin 12.5mg q8 asper nephro recs given hypoalbuminemia, and to provide oncotic pressure. # Myalgia, mailase with low grade fevers, sore throat - Rapid flu, strep throat (c/o sore throat) was done which were both negtaive - Checked for tick borne panel (not sent) and babesiosis which was egative - There was evidence of ? diverticulits on CT scan (though no leukocytosis), and patient was warded off Abx #AMBAR - Most likely 2/2 dehydration and volume depletion from being on HCTZ/lisinopril , decreased PO intake and ATN form CK - Nephro was consulted who aslo were of the opinion hat this is all 2/2 dehydration. We held HCTZ/ Lisinopril. - We also avoided NSAIDs and nephrotoxic agents. - His AMBAR continues tp resolve - Cr down to 3.1 today. #Elevated anion gap acidosis with non-aniongap metabolic acidosis and compensatory respiratory alkalosis. - Resolving - 2/2 lactic acidosis from hypoperfusion, vomiting and renal insuffiency contributing to the NAGMA. - F/U BEP #Transaminitis - 2/2 alcoholic hepatitis and rhabo vs ? pancreatic mass casuing obstructive jaundice - US Abdomen showed heaptomegaly, hepatic steatosis, a 2.8 x 2.1 x 2.5 cm cyst within the pancreatic tail, no cholilithiasis, or cholecystitis - Of note, hepatitis serology was negative and HIV panel was neagtive - Ammonia level was WNL. - Continue to hold statin and escitalopram for now - Franco board.. F/U recs #Pancreatic cyst/ mass - Initial imaging was not done as patient was hemodynamically unstable. - Will obatin an MRI pancreatic protocl with andw/o contrast for better visualzation . - Patient will be NPO after MN for MRCP in AM - F/U CA-19. If he gets D/C prior to serum CA-19 resuts being available, he needs to F/U wendy Cerna, for his results and further evaluation. #Anemia and thrombocytopenia - ? hepatic failure and alcoholism - F/U CBC on a daily basis and consider DC heparin if platelet count continues to drop. - F/U iron studies #Hyponatremia This was thought to be 2/2 dehydration and volume depletion. Urine and serum osmolality were c/w dehydration. He was hydrate with NS and his hyponatremia subsequently resolved. #Oliguria - No evidence of BPH or hydronephrosis on CT scan. This was thought to be2/2 dehydration. He started putting out adequate urineupon fluid resuscitation. - Would continue Myers catheter for now, and consider D/C it tmrw pending results of his renal functionin AM. - Continue to monitor strict I's and O's # Alcohol dependence - He was maintained on CIWA protocol, never started on ETOH detox protocol. - CIWA - 0-1 - Continue folic acid, thiamine and MV - DVT prophylaxis - He is on Heparin 5000IU TID - Diet - NPO after MN for MRCP in AM - COde Status - Full code Complications: None Assessment/Plan: Please see above
--- NOTE | 2017-11-17 19:21 | Event Note ---
See Addendum Event Note Event Note: Called to patient was having uncontrollable shaking chills at 7 PM this evening. He denied headaches, numbness in any part of his body, shortness of breath, nausea or vomiting. At the bedside his temperature was 99.6 F. pulse was 80/m, respiratory rate 20 per minute and blood pressure was 142/70 mmHg. He was satting 96% on room air. Physical exam showed a middle-aged man who was jaundiced and had shaking chills. Cardio exam showed a normal S1 and S2. Chest was clear to auscultation and abdomen had tenderness in the right iliac region with hepatomegaly. Assessment 1. Chills and right gauze in this patient with jaundice with concerns for cholecystitis or cholangitis Plan 1. Blood culture start 2. Start IV Unasyn 1.5 g every 6 hours with renal adjustment 3. Monitor vital signs and blood pressure closely
[2017-11-18] VITALS (12 sets, daily range): BP systolic 100–154; BP diastolic 50–86
--- NOTE | 2017-11-18 00:53 | Event Note ---
Event Note Event Note: Canceled the MRI w/ and w/o JAZLYN that was recommeded by GI since the pt has acute kidney injury Sr Cr 3.0. Since the renal function is inadequate, would defer the decision to the GI, if they are okay to get it w/o JAZLYN, but the yield would be low since we are suspecting a mass at the tail of the pancreas. Discontinued the order, but the status in [facility] still shows up as an active order, and cant physically change the order now. Informed the nursing staff that the order has been cancelled, and he should not be taken down until further notice. Relayed the information to the night team, and informed them to discuss the need for an urgent MRI w/ jazlyn with the am.
[2017-11-18 04:32] LABS: HEMATOCRIT 32.3 % (42-52); MEAN CORPUSCULAR HGB 31.6 PG (27.0-31.0); MEAN CORPUSCULAR HGB CONC 34.4 G/DL (33.0-37.0); MEAN CORPUSCULAR VOLUME 91.7 FL (80.0-94.0); MEAN PLATELET VOLUME 7.6 FL (7.4-10.4); PLATELET COUNT 137 /CUMM (130-400); RBC DISTRIBUTION WIDTH 16.9 % (11.5-14.5); RED BLOOD CELL CT 3.52 /CUMM (4.70-6.10); WHITE BLOOD CELL COUNT 10.2 /CUMM (4.8-10.8)
[2017-11-18 04:39] LABS: PT 14.1 SEC (9.4-12.5)
--- NOTE | 2017-11-18 07:48 | PN- Resident CRCU ---
Subjective HPI/CRCU Issues: 1. Alcohol withdrawal 2. Acute kidney injury 3. Hyponatremia 4. Hyperbilirubinemia/Transaminitis 5. Hypotension 6. Pancreatic cyst/mass 7. Chills and rigors with concerns for cholangitis 24 Hour Events: Patient is confused and drowsy at this morning. Yesterday evening he developed sudden onset of chills and rigors with shaking and hallucinations requiring administration of an IV Ativan drip. He is having blood in the Myers catheter probably from his agitation and pulling on the catheter. On account of concerns for a biliary infection blood cultures were drawn and he was started on IV Unasyn. His vital signs last 24 hours: Temperature 98.299.6F, pulse 29052 bpm, sinus tachycardia, respiratory rate 20, blood pressure 901 mmHg. O2 saturation 88% on 2 L of oxygen by nasal cannula. Total fluid input output last 24 hours = 3087/2130 mls. Urine output in the last 8 hours is 730 mL. Objective Vital Signs & I&O Last 8 Hrs of Vitals and I&O: Vital Signs Date Time Temp Pulse Resp B/P B/P Pulse O2 O2 Flow FiO2 Mean Ox Delivery Rate 11/18 0600 93 154/86 11/18 0400 100 139/63 11/18 0400 93 Room Air 11/18 0310 115 133/67 11/18 0230 113 11/18 0200 116 120/58 11/18 0000 99.6 111 32 103/54 11/18 0000 93 Room Air 11/18 0000 99.6 110 32 102/50 93 Room Air 11/17 2300 114 25 87/52 11/17 1999 98.0 135 110/56 11/17 1999 93 Room Air 11/17 1900 99.6 80 20 142/70 Room Air 11/17 1552 97.6 96 18 99/60 11/17 1538 Room Air 11/17 1537 97.6 98 18 99/53 96 Room Air Intake & Output 11/18 1600 11/18 0800 11/18 0000 Intake Total 833 1410 Output Total 730 450 Balance 103 960 Intake, IV 833 1050 Intake, Oral 0 360 Number 0 0 Bowel Movements Output, Urine 730 450 Patient 198 lb Weight Weight Bed scale Measurement Method Exam General Appearance: well developed/nourished, no apparent distress, sedated, Jaundiced, Somnolent Head: atraumatic, normal appearance Ears, Nose, Throat: normal pharynx, normal ENT inspection Neck: normal inspection, supple Respiratory: chest non-tender, Transmitted breath sounds bilaterally Cardiovascular: regular rate/rhythm, tachycardia, No pedal edema Gastrointestinal: normal bowel sounds, soft, non-tender, hepatomegaly Extremities: normal inspection, no edema Cranial Nerves: PERRL, No facial assymetry Skin: intact Current Medications: Current Medications Sig/Wagner Start time Last Medication Dose Route Stop Time Status Admin Albumin Human 12.5 GM Q8H 11/15 2100 AC 11/18 IV 1219 Ampicillin Sodium/ 1,500 MG Q12 11/17 2200 AC 11/18 Sulbactam Sodium IV 1028 Sodium Chloride 50 ML Ampicillin Sodium/ 1,500 MG Q12 11/17 192 DC Sulbactam Sodium IV Sodium Chloride 100 ML Ampicillin Sodium/ 1,500 MG Q6 11/17 191 DC Sulbactam Sodium IV Sodium Chloride 100 ML Benzocaine/Menthol 1 SUKHI Q2P PRN 11/16 1200 AC 11/16 PO 1951 Bisacodyl 5 MG DAILY 11/17 1000 AC PO Cyanocobalamin/ 1 BAG DAILY 11/18 1000 AC 11/18 Thiamine/Pyridoxine IV 1028 Dextrose/Water 1,000 ML Folic Acid 1 MG DAILY 11/15 1851 DC 11/17 PO 0955 Heparin Sodium 5,000 UNIT Q8 11/15 2199 AC 11/18 (Porcine) SC 0523 Lorazepam 2 MG Q6 11/18 0727 DC PO Lorazepam 50 MG Q24H 11/18 0345 AC 11/18 Dextrose/Water 500 ML IV 0438 Lorazepam 0 Q1P PRN 11/17 2000 DC 11/18 IV 0310 Lorazepam 2 MG Q6 11/17 2000 DC 11/17 PO 2009 Multivitamins 1 TAB DAILY 11/15 1851 DC 11/17 PO 0955 Ondansetron HCl 4 MG Q6P PRN 11/15 1800 AC IV Phenol 2 SPRAY Q2P PRN 11/15 2030 AC 11/16 EXT 0822 Phosphate 250 MG PC AND AT BEDTIME 11/17 0900 AC 11/17 PO 2018 Potassium Chloride 20 MEQ Q10H 11/17 1700 AC 11/18 Sodium Chloride 1,000 ML IV 0416 Potassium Chloride 40 MEQ TID 11/17 1600 DC 11/17 PO 11/17 Senna 187 MG AT BEDTIME 11/17 220 AC PO Sodium Chloride 1,000 ML Q10H 11/17 0145 DC 11/17 IV 1042 Thiamine HCl 250 MG DAILY 11/19 1000 AC Sodium Chloride 100 ML IV 11/22 1101 Thiamine HCl 500 MG ONCE ONE 11/18 0830 DC 11/18 Sodium Chloride 250 ML IV 11/18 0929 1028 Thiamine HCl 500 MG ONCE ONE 11/18 0815 CAN Sodium Chloride 100 ML IV 11/18 1018 Thiamine HCl 100 MG DAILY 11/15 1850 DC 11/17 PO 0954 Impression/Plan Impression/Problem List Impression: 52-year-old man with a past medical history of hypertension, hyperlipidemia and alcohol use (reported to Martini intake per day ) who presented to the ER with with complaints of fevers since early October, episodes of bloody bowel movements, diarrhea, status post fall associated with blurry vision, headache and tremor-like activity as well as increased confusion. He was found to have severe dehydration with acute kidney injury as well as elevated total bilirubin and transaminases. In addition he had a CT Abdomen/ Pelvis w/o IV contrast that showed enlarged fatty liver and a 3.8 x 4.8 cm cyst or cystic lesion in the tail of the pancreas which was new from 2007. It was difficult to exclude mild diverticulitis of the sigmoid colon. He was being rehydrated with IV normal saline infusions and has been evaluated by sap solution manager consultant. However yesterday he developed chills, rigors and hallucinations likely from alcohol withdrawal. However a biliary infection or colitis is also a possibility and patient has been started on IV Unasyn. Plan: 1. Alcohol withdrawal * Continue IV Ativan drip as per CIWA protocol * Aspiration precautions and nothing by mouth for now * Continue IV thiamine, IV banana bag 2. Acute kidney [id number] on due to dehydration * Creatinine continues to improve and is 2.3 this morning * Continue rehydration with normal saline at 100 mL per hour * Nephrology input appreciated 3. Chills and rigors with concerns for cholangitis * He has been started on IV Unasyn on account of chills and rigors he experienced yesterday and concern for potential biliary infective process * His white count increased slightly to 10.2 this morning * Of note, he had recent history of myalgia, mailase with low grade fevers, sore throat and his Rapid flu and strep throat were all negtaive * Tick borne panel, and babesiosis is also negative * Of note his CT scan of his abdomen suggested diverticulitis although he did not have leukocytosis at the time of admission * His clincial syndrome could have been as a result of influenza which resulted in cholestasis, decreased PO intake, and subsequently led to deydration and renal failure 3. Hyperbilirubinemia/Transaminitis * His hyperbilirubinemia is likely 2/2 alcoholic hepatitis vs ? pancreatic mass casuing obstructive jaundice * Hepatitis serology negative and HIV panel was neagtive * US Abdomen showed heaptomegaly, hepatic steatosis, a 2.8 x 2.1 x 2.5 cm cyst within the pancreatic tail, no cholilithiasis, or cholecystitis. Ammonia level was WNL * A pancreatic mass casuing obstructive jaundice could also be contributory * His Bilirubin is creeping upwards 12.8 today * Transaminases is declining with AST 317 and ALT 159 this morning * We will Follow-up with gastroenterology recommendations 4. Pancreatic cyst/mass * His renal function is not yet normalized so we will hold off on MRI with pancreatic protocol for now * Follow-up CA-19 for concerns of pancreatic malignancy * Follow-up with gastroenterology for further recommendations 5. Elevated anion gap acidosis with non-aniongap metabolic acidosis and compensatory respiratory alkalosis * Resolving * Likely secondary to lactic acidosis from hypoperfusion, vomiting and renal insuffiency contributing to the NAGMA * Monitor BEP 6. Anemia and thrombocytopenia * Likely secondary to hepatic failure * Hemoglobin is 11.1 and Platelet this morning is 137 * F/U CBC and consider DC heparin if platelet count continue sto drop * iron studies indicates anemia of chronic disease and liver disease 7. Hematuria * Patient had hematuria this morning probably from tugging at his Myers catheter while he was agitated during his delirium tremens yesterday * Will obtain urology consultation * Recheck CBC this afternoon DVT prophylaxis-subcutaneous heparin 5000 IU TID Diet- NPO for now on account of aspiration risk CODE STATUS- Full code Problem List: 1. Renal failure 2. Liver failure 3. Alcohol withdrawal 4. Pancreatic mass 5. Hyponatremia Pain Ratin Tomorrow's Labs & Rationales: CBC and ICU lab bundle for critical ill patient Plan DVT/Prophylaxis: mechanical, pharmacological
--- NOTE | 2017-11-18 08:03 | PN- CRCU ---
Subjective HPI/Critical Care Issues: The patient became agitated overnight requiring an increased amount of Ativan. He eventually required Ativan drip for control of CIWA scores. He is confused this morning and not able to offer complaints. He is hemodynamically stable at the present time. Objective Current Medications: Current Medications Sig/Wagner Start time Last Medication Dose Route Stop Time Status Admin Albumin Human 12.5 GM Q8H 11/15 2100 AC 11/18 IV 0416 Ampicillin Sodium/ 1,500 MG Q12 11/17 2200 AC 11/17 Sulbactam Sodium IV 2232 Sodium Chloride 50 ML Ampicillin Sodium/ 1,500 MG Q12 11/17 192 DC Sulbactam Sodium IV Sodium Chloride 100 ML Ampicillin Sodium/ 1,500 MG Q6 11/17 191 DC Sulbactam Sodium IV Sodium Chloride 100 ML Benzocaine/Menthol 1 SUKHI Q2P PRN 11/16 1200 AC 11/16 PO 1951 Bisacodyl 5 MG DAILY 11/17 1000 AC PO Folic Acid 1 MG DAILY 11/15 185 AC 11/17 PO 0955 Heparin Sodium 5,000 UNIT Q8 11/15 220 AC 11/18 (Porcine) SC 0523 Lorazepam 2 MG Q6 11/18 0727 AC PO Lorazepam 50 MG Q24H 11/18 0345 AC 11/18 Dextrose/Water 500 ML IV 0438 Lorazepam 0 Q1P PRN 11/17 2000 AC 11/18 IV 0310 Lorazepam 2 MG Q6 11/17 2000 DC 11/17 PO 2009 Multivitamins 1 TAB DAILY 11/15 1851 AC 11/17 PO 0955 Ondansetron HCl 4 MG Q6P PRN 11/15 1800 AC IV Phenol 2 SPRAY Q2P PRN 11/15 2030 AC 11/16 EXT 0822 Phosphate 250 MG PC AND AT BEDTIME 11/17 0900 AC 11/17 PO 2018 Potassium Chloride 20 MEQ Q10H 11/17 1700 AC 11/18 Sodium Chloride 1,000 ML IV 0416 Potassium Chloride 40 MEQ TID 11/17 1600 DC 11/17 PO 11/17 2200 2022 Senna 187 MG AT BEDTIME 11/17 2200 AC PO Senna 187 MG AT BEDTIME 11/17 2200 CAN PO Sodium Chloride 1,000 ML Q10H 11/17 0145 DC 11/17 IV 1042 Thiamine HCl 100 MG DAILY 11/15 1850 AC 11/17 PO 0954 Vital Signs & I&O Last 24 Hrs of Vitals and I&O: Vital Signs Date Time Temp Pulse Resp B/P B/P Pulse O2 O2 Flow FiO2 Mean Ox Delivery Rate 11/18 06 93 154/86 11/18 0400 100 139/63 11/18 0400 93 Room Air 11/18 0310 115 133/67 11/18 0230 113 11/18 0200 116 120/58 11/18 0000 99.6 111 32 103/54 11/18 0000 93 Room Air 11/18 0000 99.6 110 32 102/50 93 Room Air 11/17 2300 114 25 87/52 11/17 1999 98.0 135 110/56 11/17 1999 93 Room Air 11/17 1900 99.6 80 20 142/70 Room Air 11/17 1552 97.6 96 18 99/60 11/17 1538 Room Air 11/17 1537 97.6 98 18 99/53 96 Room Air 11/17 1200 98.6 96 20 104/58 93 Room Air 11/17 0800 98.2 102 20 120/70 11/17 0800 98.2 106 20 120/74 94 Room Air Intake & Output 11/18 0800 11/18 0000 11/17 1600 Intake Total 833 1410 1764 Output Total 084 485 4503 Balance 103 960 664 Intake, IV 833 1050 804 Intake, Oral 0 360 960 Number 0 0 1 Bowel Movements Output, Urine 060 641 3563 Patient 198 lb 200 lb Weight Weight Bed scale Measurement Method Exam General Appearance: well developed/nourished, no apparent distress, alert, awake , comfortable Head: atraumatic, normal appearance Neck: normal inspection, supple Respiratory: normal breath sounds, chest non-tender, no respiratory distress, quiet respiration, lungs clear Cardiovascular: regular rate/rhythm Gastrointestinal: normal bowel sounds, soft, mild tenderness in RUQ, decreased than yesterday Extremities: no edema Cranial Nerves: normal speech, PERRL Results Last 24 Hrs of Lab Results: Laboratory Tests 11/18/17 0414: Anion Gap 18 H, Estimated GFR 30 L, BUN/Creatinine Ratio 8.7, Total Bilirubin 12.8 H, Direct Bilirubin 11.9 H, GGT 2625 H, AST 317 H, ALT 159 H, Alkaline Phosphatase 1410 H, Total Protein 5.8 L, Albumin 3.2 L, PT 14.1 H, INR 1.35 H, CBC w Diff MAN DIFF ORDERED, RBC 3.52 L, MCV 91.7, MCH 31.6 H, MCHC 34.4, RDW 16.9 H, MPV 7.6, Segmented Neutrophils 53, Band Neutrophils 5, Lymphocytes 27, Monocytes 13 H, Eosinophils 1, Metamyelocytes 1, Nucleated RBCs 3 H, Platelet Estimate ADEQUATE, Polychromasia 1+, Poikilocytosis 2+, Target Cells FEW, Ovalocytes 1+, Stomatocytes 1+, Fld Total RBCs Counted 100 Impression/Plan Impression/Plan Impression/Plan: 1. Myalgia, mailase with low grade fevers, sore throat - Rapid flu negative strep throat 2. AMBAR - Most likely 2/2 dehydration and volume depletion form being on HCTZ/ lisinopril, decreased PO intake. Nephrology consulted. Will continue to hold HCTZ/ Lisinopril. 3. Elevated anion gap acidosis with non-aniongap metabolic acidosis and compensatory respiratory alkalosis. 4. Tranaminitis - secondary to alcoholic hepatitis and rhabo vs ? pancreatic mass. GI following. 5. Pancreatic cyst/ mass. 6. Anemia and thrombocytopenia 7. Hyponatremia - most likely 2/2 dehydration and volume depletion, improved. 8. ALcohol withdrawl - on CIWAS protocol, high dose thiamine, MV and folate. 9. DVT prophylaxis - on Heparion 5000IU TID - Full code Recommendations: * ETOH witdrawal - continue ativan drip for controll of CIWA scores. * Attempt to avoid oversedation. * Multivitamin, thiamine and folate. * Add IV fluids and poor oral intake. * Maintain the patient on aspiration precautions. * Continue to follow up GI recommendations regarding possible hepatorenal syndrome. * Follow up culture results. * Continue empiric IV Unasyn. * DVT prophylaxis at all times. * Continue to monitor in the critical care unit.
--- NOTE | 2017-11-18 13:41 | PN- Nephrology ---
Assessment/Plan Assessment: AMBAR likely due to profound dehydration/ ATN due to prolonged hypotension. Getting better with excellent urine output. Now aggitated with delerium trem. Excellent management by ICU team. Dejon Lanza MD Suggestion: . Subjective Subjective: Cr much better. Pt now aggitated restrained. Objective Vital Signs and I&Os M in ICU 130/65 112 97.9 Lungs clear Cor RRR Abd soft Ext neg edema Results Pertinent Lab Results: 145 / 109 / 20 / 4.0 / 18 / 2.3\
[2017-11-18 15:52] LABS: HEMATOCRIT 32.8 % (42-52); MEAN CORPUSCULAR HGB 29.2 PG (27.0-31.0); MEAN CORPUSCULAR HGB CONC 31.6 G/DL (33.0-37.0); MEAN CORPUSCULAR VOLUME 92.4 FL (80.0-94.0); MEAN PLATELET VOLUME 7.8 FL (7.4-10.4); PLATELET COUNT 152 /CUMM (130-400); RBC DISTRIBUTION WIDTH 17.3 % (11.5-14.5); RED BLOOD CELL CT 3.54 /CUMM (4.70-6.10); WHITE BLOOD CELL COUNT 7.4 /CUMM (4.8-10.8)
--- NOTE | 2017-11-18 17:10 | Cons- Urology ---
General Information and HPI Consulting Request Date of Consult: 11/18/17 Requested By: Cecilio Valverde MD Reason for Consult: gross hematuria Source of Information: old records Exam Limitations: unable to give history History of Present Illness: 52yo AA male with ETOH withdrawal with indwelling catheter in place. Patient pulled on the rust and caused traumatic gross hematuria. Pt is now restrained. His CT scan was without any abnormalities and no prostate/bladder issues. He is not on AC. Allergies/Medications Allergies: Coded Allergies: acetaminophen (From PERCOCET) (Severe, ITCH 02/05/16) hydrocodone (Severe, ITCH 02/05/16) oxycodone (Severe, ITCH 02/05/16) Home Med List: Atorvastatin Calcium 40 MG TABLET 1 TAB PO DAILY choolestrol (Reported) Escitalopram Oxalate 10 MG TABLET 1 TAB PO DAILY insomnia (Reported) Lisinopril/Hydrochlorothiazide (Lisinopril-Hctz 20-12.5 MG Tab) 20 MG-12.5 MG TABLET 1 TAB PO DAILY htn (Reported) Past History Medical History Blood Transfusion Hx: No Neurological: NONE EENT: NONE Cardiovascular: hypertension, hyperlipidemia Respiratory: NONE Gastrointestinal: NONE Hepatic: NONE Renal: NONE Musculoskeletal: NONE Psychiatric: NONE Endocrine: NONE Blood Disorders: NONE Cancer(s): NONE 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 Home Who Do You Live With? spouse Primary Language: Nepalese Smoking Status: Never Smoked ETOH Use: DRINKS ON A DAILY BASIS Illicit Drug Use: denies illicit drug use Functional Ability ADLs Independent: dressing, eating, toileting, bathing. 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 Exam & Diagnostic Data Vital Signs and I&O Vital Signs Date Time Temp Pulse Resp B/P B/P Pulse O2 O2 Flow FiO2 Mean Ox Delivery Rate 11/18 1400 108 26 138/74 11/18 1200 112 26 130/65 11/18 1200 94 Nasal 2.0L Cannula 11/18 1000 97 26 119/79 11/18 0800 97.9 108 24 130/76 11/18 0800 96 Nasal 2.0L Cannula 11/18 0800 97.9 108 24 130/76 96 Nasal 2.0L Cannula 11/18 06 93 154/86 11/18 0400 100 139/63 11/18 0400 93 Room Air 11/18 0310 115 133/67 11/18 0230 113 11/18 0200 116 120/58 11/18 0000 99.6 111 32 103/54 11/18 0000 93 Room Air 11/18 0000 99.6 110 32 102/50 93 Room Air 11/17 2300 114 25 87/52 11/17 1999 98.0 135 110/56 11/17 2000 93 Room Air 11/17 1900 99.6 80 20 142/70 Room Air Intake & Output 11/18 1600 11/18 0800 11/18 0000 11/17 1600 11/17 0800 11/17 0000 Intake Total 0848 629 7324 1764 1300 2370 Output Total 1000 045 676 7260 1700 2100 Balance 345 103 960 664 -400 270 Intake, IV 9238 043 2345 224 149 4486 Intake, Oral 0 360 960 400 720 Number 0 0 0 1 2 Bowel Movements Output, Urine 1000 522 732 3970 1700 2100 Patient 89.811 kg 90.804 kg 91.172 kg Weight Weight Bed scale Measurement Method Assessment/Plan Assessment/Plan 52yo male with traumatic gross hematuria with self inflicted rust trauma. Cont care as planned with patient restrained until he is not a danger to himself with inadvertant pulling of tubes. If persistent GH with drop in HCT, then would perform cystoscopy. Otherwise no need for intervention at this time. Consult Acknowledgment - Thank you for your consult request.
--- NOTE | 2017-11-18 17:37 | RADIOLOGY REPORT ---
EXAMINATION: XR PORTABLE CHEST CLINICAL INFORMATION: Assess for aspiration. COMPARISON: Chest x-ray 11/07/2017 TECHNIQUE: Portable frontal view of the chest was obtained. 5:16 PM FINDINGS: Lung volume low with bibasilar airspace opacity of infiltrate or atelectasis. The airspace disease is new since the chest x-ray of 11/15/2017. Airspace opacities are worse on the left compared to the right. Airspace opacities are new since prior chest x-ray. No large pleural effusion. IMPRESSION: Low lung volume with bibasilar opacities left worse than right. Infiltrate/atelectasis.
[2017-11-19] VITALS (9 sets, daily range): BP systolic 96–130; BP diastolic 44–75
[2017-11-19 05:15] LABS: HEMATOCRIT 34.4 % (42-52); MEAN CORPUSCULAR HGB 31.2 PG (27.0-31.0); MEAN CORPUSCULAR HGB CONC 33.5 G/DL (33.0-37.0); MEAN CORPUSCULAR VOLUME 92.9 FL (80.0-94.0); MEAN PLATELET VOLUME 8.1 FL (7.4-10.4); PLATELET COUNT 166 /CUMM (130-400); PT 13.8 SEC (9.4-12.5); RBC DISTRIBUTION WIDTH 17.4 % (11.5-14.5); RED BLOOD CELL CT 3.71 /CUMM (4.70-6.10); WHITE BLOOD CELL COUNT 9.8 /CUMM (4.8-10.8)
--- NOTE | 2017-11-19 07:56 | PN- Resident CRCU ---
Subjective HPI/CRCU Issues: 1. Alcohol withdrawal 2. Acute kidney injury 3. Hyperbilirubinemia/Transaminitis 4. Hypotension 5. Pancreatic cyst/mass 6. Chills and rigors with concerns for biliary infection 24 Hour Events: Patient remains confused and drowsy at this morning but responds to his name and yes or no questions. He is requiring administration of an IV Ativan drip at 2 mg /min for alcohol withdrawal.CIWA scores overnight range from 9 to 12. He is still having blood in the Rust catheter from his agitation and pulling on the catheter. He remains on unasyn for concerns for a biliary infection. Blood cultures are negative so far-day 1. His vital signs last 24 hours: Temperature 97.8-99.1 F, pulse 46055 bpm, sinus tachycardia, respiratory rate 40, blood pressure 37993/4881 mmHg. O2 saturation 93% on 2 L of oxygen by nasal cannula. Total fluid input output last 24 hours = 3401/2770 mls. Urine output in the last 8 hours is 860 mL. Objective Vital Signs & I&O Last 8 Hrs of Vitals and I&O: Vital Signs Date Time Temp Pulse Resp B/P B/P Pulse O2 O2 Flow FiO2 Mean Ox Delivery Rate 11/19 1356 96 11/19 1200 97.1 98 28 100/44 11/19 1200 95 BIPAP 30% 11/19 1054 96 11/19 1000 108 26 113/62 11/19 0946 120 96 11/19 0800 99.0 120 45 130/70 11/19 0800 94 Nasal 2.0L Cannula 11/19 0800 99.0 120 45 130/70 94 Nasal 2.0L Cannula 11/19 0400 96 Room Air 11/19 0200 121 124/75 02 0000 99.1 122 122/74 02 0000 95 Room Air 11/19 0000 99.1 122 28 122/74 97 Nasal 2.0L Cannula 11/18 2200 121 26 116/62 11/18 1999 98.3 116 100/60 11/18 1999 98 Nasal 2.0L Cannula 11/18 1610 98 Nasal 2.0L Cannula 11/18 1600 97.8 103 30 114/60 11/18 1600 98 Nasal 2.0L Cannula 11/18 1600 97.8 103 30 114/60 98 Nasal 2.0L Cannula Intake & Output 11/19 1600 11/19 0800 11/19 0000 Intake Total 1056 1000 Output Total 860 910 Balance 196 90 Intake, IV 1056 1000 Intake, Oral 0 0 Number 0 0 Bowel Movements Output, Urine 860 910 Exam General Appearance: well developed/nourished, no apparent distress, sedated Head: atraumatic, normal appearance Ears, Nose, Throat: normal pharynx, normal ENT inspection Neck: normal inspection, supple Respiratory: normal breath sounds, chest non-tender, transmitted sounds bilaterally Cardiovascular: regular rate/rhythm, No edema Gastrointestinal: normal bowel sounds, soft, hepatomegaly Extremities: normal inspection, no edema Cranial Nerves: normal hearing, PERRL Skin: intact Current Medications: Current Medications Sig/Wagner Start time Last Medication Dose Route Stop Time Status Admin Albumin Human 12.5 GM Q8H 11/15 2100 AC 11/19 IV 1303 Ampicillin Sodium/ 1,500 MG Q12 11/17 2200 AC 11/19 Sulbactam Sodium IV 1045 Sodium Chloride 50 ML Benzocaine/Menthol 1 SUKHI Q2P PRN 11/16 1200 AC 11/16 PO 1951 Bisacodyl 5 MG DAILY 11/17 1000 AC PO Cyanocobalamin/ 1 BAG DAILY 11/18 1000 AC 11/19 Thiamine/Pyridoxine IV 1000 Dextrose/Water 1,000 ML Heparin Sodium 5,000 UNIT Q8 11/15 2200 AC 11/19 (Porcine) SC 0505 Lorazepam 50 MG Q24H 11/18 0345 AC 11/19 Dextrose/Water 500 ML IV 0922 Magnesium Sulfate 1 GM Q2H 11/19 0600 DC 11/19 Dextrose/Water 100 ML IV 11/19 0959 0740 Ondansetron HCl 4 MG Q6P PRN 11/15 1800 AC IV Phenol 2 SPRAY Q2P PRN 11/15 2030 AC 11/16 EXT 0822 Phosphate 250 MG PC AND AT BEDTIME 11/17 0900 AC 11/17 PO 2018 Potassium Chloride 20 MEQ Q10H 11/17 1700 AC 11/19 Sodium Chloride 1,000 ML IV 1000 Potassium Phosphate 15 mMol ONE ONE 11/19 0745 DC 11/19 Dextrose/Water 250 ML IV 11/19 1149 0959 Senna 187 MG AT BEDTIME 11/17 2200 AC PO Thiamine HCl 250 MG DAILY 11/19 1000 AC 11/19 Sodium Chloride 100 ML IV 11/22 1101 1045 Impression/Plan Impression/Problem List Impression: 52-year-old man with a past medical history of hypertension, hyperlipidemia and alcohol use (reported to Martini intake per day ) who presented to the ER with with complaints of fevers since early October, episodes of bloody bowel movements, diarrhea, status post fall associated with blurry vision, headache and tremor-like activity as well as increased confusion. He was found to have severe dehydration with acute kidney injury as well as elevated total bilirubin and transaminases. In addition he had a CT Abdomen/ Pelvis w/o IV contrast that showed enlarged fatty liver and a 3.8 x 4.8 cm cyst or cystic lesion in the tail of the pancreas which was new from 2007. It was difficult to exclude mild diverticulitis of the sigmoid colon. He was being rehydrated with IV normal saline infusions and has been evaluated by information security architect. However yesterday he developed chills, rigors and hallucinations likely from alcohol withdrawal. However a biliary infection or colitis is also a possibility and patient has been started on IV Unasyn. He continues to be on an ativan drip. He also probably has undiagnosed obstructive sleep apnea as he has been having tachypnea with episodes of apnea and snoring with associated desaturation. Plan: 1. Alcohol withdrawal * Continue IV Ativan drip as per CIWA protocol * Aspiration precautions and nothing by mouth for now * Continue IV thiamine, IV banana bag 2. Acute kidney newvfo-Czun-Svdlv on due to dehydration * Creatinine continues to improve and is 2.3 this morning * Continue rehydration with normal saline at 100 mL per hour * Nephrology input appreciated 3. Chills and rigors with concerns for cholangitis * Continue IV Unasyn for possible biliary infection (He experienced chills and rigors on admission) * His white count remained normal and is 9.8 this morning but he still has bandemia of 7 * Of note, he had a recent history of myalgia, mailase with low grade fevers, sore throat and his Rapid flu and strep throat were all negtaive * Tick borne panel, and babesiosis is also negative * Of note his CT scan of his abdomen suggested diverticulitis although he did not have leukocytosis at the time of admission * His clincial syndrome could have been as a result of influenza which resulted in cholestasis, decreased PO intake, and subsequently led to deydration and renal failure 3. Hyperbilirubinemia/Transaminitis * His hyperbilirubinemia is likely 2/2 alcoholic hepatitis vs ? pancreatic mass casuing obstructive jaundice * Hepatitis serology negative and HIV panel was neagtive * US Abdomen showed heaptomegaly, hepatic steatosis, a 2.8 x 2.1 x 2.5 cm cyst within the pancreatic tail, no cholilithiasis, or cholecystitis. Ammonia level was WNL * A pancreatic mass casuing obstructive jaundice could also be contributory * His total Bilirubin remains elevated at 12.3 today * Transaminases continue to decline with AST 218 and ALT 140 this morning * We will follow-up with gastroenterology recommendations 4. Pancreatic cyst/mass * His renal function is not yet normalized so we will hold off on MRI with pancreatic protocol for now * Follow-up CA-19 for concerns of pancreatic malignancy * Follow-up with gastroenterology for further recommendations 5. Elevated anion gap acidosis with non-aniongap metabolic acidosis and compensatory respiratory alkalosis * Likely secondary to lactic acidosis from hypoperfusion, vomiting and renal insuffiency contributing to the NAGMA * Monitor BEP 6. Anemia and thrombocytopenia * Likely secondary to hepatic failure * Hemoglobin is 11.6 and Platelet this morning is 166 * F/U CBC and consider DC heparin if platelet count continue to drop * iron studies indicates anemia of chronic disease and liver disease 7. Hematuria * Patient had hematuria probably from tugging at his Rust catheter while he was agitated during his delirium tremens * Urology consultation appreciated * Continue to monitor CBC and keep rust in place 8. Tachypnea with suspected undiagnosed Obstructive sleep apnea * Will start patient on BIPAP DVT prophylaxis-subcutaneous heparin 5000 IU TID Diet- NPO for now on account of aspiration risk CODE STATUS- Full code Problem List: 1. Liver failure 2. Alcohol withdrawal 3. Renal failure 4. Pancreatic mass Pain Ratin Tomorrow's Labs & Rationales: ICU lab bundle and CBC for critically ill patient Plan DVT/Prophylaxis: mechanical, pharmacological
--- NOTE | 2017-11-19 08:58 | PN- CRCU ---
Subjective HPI/Critical Care Issues: The patient is confused and agitated. His respiratory rate is much higher today and he is now in distress. The patient has a nasal trumpet in for airway protection. He remains on an ativan drip for elevated CIWA scores. Her Tmax over the past 24 hours was 99.1. He remains on empiric IV Unasyn. Objective Current Medications: Current Medications Sig/Wagner Start time Last Medication Dose Route Stop Time Status Admin Albumin Human 12.5 GM Q8H 11/15 2100 AC 11/19 IV 0505 Ampicillin Sodium/ 1,500 MG Q12 11/17 2200 AC 11/18 Sulbactam Sodium IV 2119 Sodium Chloride 50 ML Benzocaine/Menthol 1 SUKHI Q2P PRN 11/16 1200 AC 11/16 PO 195 Bisacodyl 5 MG DAILY 11/17 1000 AC PO Cyanocobalamin/ 1 BAG DAILY 11/18 1000 AC 11/18 Thiamine/Pyridoxine IV 1028 Dextrose/Water 1,000 ML Heparin Sodium 5,000 UNIT Q8 11/15 220 AC 11/19 (Porcine) SC 0505 Lorazepam 2 MG Q6 11/18 0727 DC PO Lorazepam 50 MG Q24H 11/18 0345 AC 11/18 Dextrose/Water 500 ML IV 0438 Lorazepam 0 Q1P PRN 11/17 2000 DC 11/18 IV 0310 Magnesium Sulfate 1 GM Q2H 11/19 0600 AC 11/19 Dextrose/Water 100 ML IV 11/19 0959 0740 Ondansetron HCl 4 MG Q6P PRN 11/15 1800 AC IV Phenol 2 SPRAY Q2P PRN 11/15 2030 AC 11/16 EXT 0822 Phosphate 250 MG PC AND AT BEDTIME 11/17 0900 AC 11/17 PO 2018 Potassium Chloride 20 MEQ Q10H 11/17 1700 AC 11/18 Sodium Chloride 1,000 ML IV 2120 Potassium Phosphate 15 mMol ONE ONE 11/19 0745 AC Dextrose/Water 250 ML IV 11/19 1149 Senna 187 MG AT BEDTIME 11/17 2200 AC PO Thiamine HCl 250 MG DAILY 11/19 1000 AC Sodium Chloride 100 ML IV 11/22 1101 Thiamine HCl 500 MG ONCE ONE 11/18 0830 DC 11/18 Sodium Chloride 250 ML IV 11/18 0929 1028 Vital Signs & I&O Last 24 Hrs of Vitals and I&O: Vital Signs Date Time Temp Pulse Resp B/P B/P Pulse O2 O2 Flow FiO2 Mean Ox Delivery Rate 11/19 0400 96 Room Air 11/19 0200 121 124/75 11/19 0000 99.1 122 122/74 11/19 0000 95 Room Air 11/19 0000 99.1 122 28 122/74 97 Nasal 2.0L Cannula 11/18 2200 121 26 116/62 11/18 2000 98.3 116 100/60 11/18 2000 98 Nasal 2.0L Cannula 11/18 1610 98 Nasal 2.0L Cannula 11/18 1600 97.8 103 30 114/60 11/18 1600 98 Nasal 2.0L Cannula 11/18 1600 97.8 103 30 114/60 98 Nasal 2.0L Cannula 11/18 1400 108 26 138/74 11/18 1200 112 26 130/65 11/18 1200 94 Nasal 2.0L Cannula 11/18 1000 97 26 119/79 Intake & Output 11/19 1600 11/19 0800 11/19 0000 Intake Total 1056 1000 Output Total 860 910 Balance 196 90 Intake, IV 1056 1000 Intake, Oral 0 0 Number 0 0 Bowel Movements Output, Urine 860 910 Exam General Appearance: well developed/nourished, no apparent distress, alert, awake , comfortable Head: atraumatic, normal appearance Neck: normal inspection, supple Respiratory: normal breath sounds, chest non-tender, no respiratory distress, quiet respiration, lungs clear Cardiovascular: regular rate/rhythm Gastrointestinal: normal bowel sounds, soft, mild tenderness in RUQ, decreased than yesterday Extremities: no edema Cranial Nerves: normal speech, PERRL Results Last 24 Hrs of Lab Results: Laboratory Tests 11/19/17 0500: IgG Total Pending, IgG1 Pending, IgG2 Pending, IgG3 Pending, IgG4 Pending 11/19/17 0400: Anion Gap 19 H, Estimated GFR 40 L, Glucose 87, Calcium 7.7 L, Phosphorus 1.7 L, Magnesium 1.0 L, Total Bilirubin 12.3 H, GGT 2500 H, AST 218 H, ALT 140 H, Albumin 3.3 L, PT 13.8 H, INR 1.32 H, CBC w Diff MAN DIFF ORDERED, RBC 3.71 L, MCV 92.9, MCH 31.2 H, MCHC 33.5, RDW 17.4 H, MPV 8.1, Segmented Neutrophils 46, Band Neutrophils 7 H, Lymphocytes 30, Monocytes 13 H, Eosinophils 1, Basophils 1, Metamyelocytes 1, Myelocytes 1 H, Nucleated RBCs 2 H, Platelet Estimate ADEQUATE, Polychromasia 1+, Poikilocytosis 1+, Anisocytosis 1+, Target Cells FEW, Stomatocytes 1+, Fld Total RBCs Counted 100 11/18/17 1517: CBC w Diff MAN DIFF ORDERED, RBC 3.54 L, MCV 92.4, MCH 29.2, MCHC 31.6 L, RDW 17.3 H, MPV 7.8, Segmented Neutrophils 51, Band Neutrophils 7 H, Lymphocytes 26, Monocytes 12 H, Eosinophils 1, Metamyelocytes 2 H, Myelocytes 1 H, Nucleated RBCs 1 H, Platelet Estimate ADEQUATE, Polychromasia 1+, Poikilocytosis 1+, Anisocytosis 1+, Stomatocytes FEW 11/18/17 1405: pH 7.39, pCO2 34 L, pO2 98, HCO3 20 L, ABG O2 Sat (Measured) 97.0, P-50 (Temp Corrected) N, Carboxyhemoglobin 0.3 L, O2 Concentration % 2L, Temperature 97.9, O2 Delivery Method N/C, Phlebotomy Draw Site R BRACHIAL Diagnostic Data CXR Findings: Low lung volume with bibasilar opacities left worse than right. Infiltrate/ atelectasis. Impression/Plan Impression/Plan Impression/Plan: 1. Myalgia, mailase with low grade fevers, sore throat - Rapid flu negative strep throat 2. AMBAR - Most likely 2/2 dehydration and volume depletion form being on HCTZ/ lisinopril, decreased PO intake. Nephrology consulted. Will continue to hold HCTZ/ Lisinopril. 3. Elevated anion gap acidosis with non-aniongap metabolic acidosis and compensatory respiratory alkalosis. 4. Tranaminitis - secondary to alcoholic hepatitis and rhabo vs ? pancreatic mass. GI following. 5. Pancreatic cyst/ mass. 6. Anemia and thrombocytopenia 7. Hyponatremia - most likely 2/2 dehydration and volume depletion, improved. 8. ALcohol withdrawl - on CIWAS protocol, high dose thiamine, MV and folate. 9. DVT prophylaxis - on Heparion 5000IU TID - Full code Recommendations: * Attempt BIPAP for respiratory distress. * Will have a low threshold for intubation. * ETOH witdrawal - continue ativan drip for controll of CIWA scores. * Attempt to avoid oversedation. * Multivitamin, thiamine and folate to continue. * IV fluids for poor oral intake. * Maintain the patient on aspiration precautions. * Continue to follow up GI recommendations regarding possible hepatorenal syndrome. * Follow up culture results. * Continue empiric IV Unasyn. * DVT prophylaxis at all times. * Continue to monitor in the critical care unit. * Discussed plan of care with housestaff and patient's at bedside.
--- NOTE | 2017-11-19 11:58 | ED PSYCHIATRIST/APRN CONSULT ---
Psychiatrist/[employer] ED Consult Assessment and Plan: Impression: Patient is a 52 y/o male w/ hx of HT/HLD and alcohol use disorder who presented to the [facility] ED 5 days prior to assessment for multiple complaints including fever, blurry vision, confusion, slurred speech and multiple falls. He is currently being managed in the ICU for alcohol withdrawal, AMBAR, hepatic failure, and a pancreatic mass new as of 2007. Imaging results showed a 2.8x2.1x2.5cm pancreatic tail cyst as well as hepatomegaly and hepatic steatosis. The patient's hospital course has been complicated by episodes of agitation and visual hallucinations on 11/18 where he was reported to have been seeing animals in his room. Question of aspiration was also assessed by chest x- ray on 11/18 and the patient was found to have decreased lung volume w/ bibasilar opacity w/ left greater than right. Patient interview was unable to be performed as the patient was unarousable at time of visit. As per nursing he had received medication for sleep just prior. ROS: Not performed PE: Not performed Vital Signs Result Date Time Pulse Ox 96 11/19 1054 Pulse 120 11/19 0946 O2 Delivery Room Air 11/19 0400 B/P 124/75 11/19 0200 Temp 99.1 11/19 0000 O2 Flow Rate 2.0L 11/19 0000 Resp 28 11/19 0000 Laboratory Tests: Laboratory Tests 11/19 11/19 0500 0400 Chemistry Sodium (137 - 145 mmol/L) 144 Potassium (3.5 - 5.1 mmol/L) 4.3 Chloride (98 - 107 mmol/L) 108 H Carbon Dioxide (22 - 30 mmol/L) 17 L Anion Gap (5 - 16) 19 H BUN (9 - 20 mg/dL) 13 Creatinine (0.7 - 1.2 mg/dL) 1.8 H Estimated GFR (>60 ml/min) 40 L Glucose (65 - 99 mg/dL) 87 Calcium (8.4 - 10.2 mg/dL) 7.7 L Phosphorus (2.5 - 4.5 mg/dL) 1.7 L Magnesium (1.6 - 2.3 mg/dL) 1.0 L Total Bilirubin (0.2 - 1.3 mg/dL) 12.3 H GGT (15 - 73 U/L) 2500 H AST (17 - 59 U/L) 218 H ALT (21 - 72 U/L) 140 H Albumin (3.5 - 5.0 g/dL) 3.3 L Coagulation PT (9.4 - 12.5 SEC) 13.8 H INR (0.90 - 1.17) 1.32 H Hematology CBC w Diff MAN DIFF ORDERED WBC (4.8 - 10.8 /CUMM) 9.8 RBC (4.70 - 6.10 /CUMM) 3.71 L Hgb (14.0 - 18.0 G/DL) 11.6 L Hct (42 - 52 %) 34.4 L MCV (80.0 - 94.0 FL) 92.9 MCH (27.0 - 31.0 PG) 31.2 H MCHC (33.0 - 37.0 G/DL) 33.5 RDW (11.5 - 14.5 %) 17.4 H Plt Count (130 - 400 /CUMM) 166 MPV (7.4 - 10.4 FL) 8.1 Segmented Neutrophils (42.2 - 75.2 %) 46 Band Neutrophils (0.0 - 5.0 %) 7 H Lymphocytes (20.5 - 51.1 %) 30 Monocytes (1.7 - 9.3 %) 13 H Eosinophils (0 - 5.0 %) 1 Basophils (0.0 - 2.0 %) 1 Metamyelocytes (0.0 - 1.0 %) 1 Myelocytes (0 - 0 %) 1 H Nucleated RBCs (0.0 - 0.0 /100WBC) 2 H Platelet Estimate (ADEQUATE) ADEQUATE Polychromasia 1+ Poikilocytosis 1+ Anisocytosis 1+ Target Cells FEW Stomatocytes 1+ Immunology IgG Total Pending IgG1 Pending IgG2 Pending IgG3 Pending IgG4 Pending Other Body Source Fld Total RBCs Counted (%) 100 11/18 11/18 1517 1405 Blood Gas pH (7.35 - 7.45 PH) 7.39 pCO2 (35 - 45 TORR) 34 L pO2 (80 - 100 TORR) 98 HCO3 (21 - 28 MEQ/L) 20 L ABG O2 Sat (Measured) (>96.0 %) 97.0 P-50 (Temp Corrected) N Carboxyhemoglobin (1.5 - 5.0 %) 0.3 L O2 Concentration % 2L Temperature (97.0 - 100.0 FARH) 97.9 O2 Delivery Method N/C Hematology CBC w Diff MAN DIFF ORDERED WBC (4.8 - 10.8 /CUMM) 7.4 RBC (4.70 - 6.10 /CUMM) 3.54 L Hgb (14.0 - 18.0 G/DL) 10.4 L Hct (42 - 52 %) 32.8 L MCV (80.0 - 94.0 FL) 92.4 MCH (27.0 - 31.0 PG) 29.2 MCHC (33.0 - 37.0 G/DL) 31.6 L RDW (11.5 - 14.5 %) 17.3 H Plt Count (130 - 400 /CUMM) 152 MPV (7.4 - 10.4 FL) 7.8 Segmented Neutrophils (42.2 - 75.2 %) 51 Band Neutrophils (0.0 - 5.0 %) 7 H Lymphocytes (20.5 - 51.1 %) 26 Monocytes (1.7 - 9.3 %) 12 H Eosinophils (0 - 5.0 %) 1 Metamyelocytes (0.0 - 1.0 %) 2 H Myelocytes (0 - 0 %) 1 H Nucleated RBCs (0.0 - 0.0 /100WBC) 1 H Platelet Estimate (ADEQUATE) ADEQUATE Polychromasia 1+ Poikilocytosis 1+ Anisocytosis 1+ Stomatocytes FEW Miscellaneous Phlebotomy Draw Site R BRACHIAL Current Medications Sig/Wagner Start time Last Medication Dose Route Stop Time Status Admin Albumin Human 12.5 GM Q8H 11/15 2100 AC 11/19 IV 1303 Ampicillin Sodium/ 1,500 MG Q12 11/17 220 AC 11/19 Sulbactam Sodium IV 1045 Sodium Chloride 50 ML Benzocaine/Menthol 1 SUKHI Q2P PRN 11/16 1200 AC 11/16 PO 195 Bisacodyl 5 MG DAILY 11/17 1000 AC PO Cyanocobalamin/ 1 BAG DAILY 11/18 1000 AC 11/19 Thiamine/Pyridoxine IV 1000 Dextrose/Water 1,000 ML Heparin Sodium 5,000 UNIT Q8 11/15 2200 AC 11/19 (Porcine) SC 0505 Lorazepam 50 MG Q24H 11/18 0345 AC 11/19 Dextrose/Water 500 ML IV 0922 Magnesium Sulfate 1 GM Q2H 11/19 0600 DC 11/19 Dextrose/Water 100 ML IV 11/19 0959 0740 Ondansetron HCl 4 MG Q6P PRN 11/15 1800 AC IV Phenol 2 SPRAY Q2P PRN 11/15 2030 AC 11/16 EXT 0822 Phosphate 250 MG PC AND AT BEDTIME 11/17 0900 AC 11/17 PO 2018 Potassium Chloride 20 MEQ Q10H 11/17 1700 AC 11/19 Sodium Chloride 1,000 ML IV 1000 Potassium Phosphate 15 mMol ONE ONE 11/19 0745 DC 11/19 Dextrose/Water 250 ML IV 11/19 1149 0959 Senna 187 MG AT BEDTIME 11/17 2200 AC PO Thiamine HCl 250 MG DAILY 11/19 1000 AC 11/19 Sodium Chloride 100 ML IV 11/22 1101 1045 Problem List: 1. Alcohol Withdrawal * Recommend continued treatment for alcohol withdrawal as per [facility] protocol. Patient is receiving Lorazepam 50 mg q24h IV. * Patient completed high dose Cyanocobalamin-Thiamine treatment on 11/18. Continue to monitor postassium, magnesium and calcium levels and replete as necessary. * Avoid oversedation 2. AMBAR * Continue IV fluid resuscitation * Continue NPO 3. Agitation * Recommend continue safety precautions at this time. * QTc of 510 4. Aspiration/ Atelectasis * Encourage incentive spirometry * Continue Bipap use and monitor airway safety 5. Thank you for this consult. -DVT Prophylaxis -Pain management -Diet: NPO -Code: Full code (Luis STUDENT,Melissa)
--- NOTE | 2017-11-19 14:52 | PN- Nephrology ---
Assessment/Plan Assessment: AMBAR likely due to profound dehydration/ ATN due to prolonged hypotension. Getting better with excellent urine output. Now aggitated with thaddeus connelly. Excellent management by ICU team. Continue same. Dejon Lanza MD Suggestion: . Subjective Subjective: Pt sleeping. on Meds for withdrawal. with patient. AMBAR improving nicely. Objective Vital Signs and I&Os B 100/44 P 97.1 P 98 Lungs clear Cor RRR Abd soft Ext neg edema Results Pertinent Lab Results: Laboratory Tests 11/19 11/19 0500 0400 Chemistry Sodium (137 - 145 mmol/L) 144 Potassium (3.5 - 5.1 mmol/L) 4.3 Chloride (98 - 107 mmol/L) 108 H Carbon Dioxide (22 - 30 mmol/L) 17 L Anion Gap (5 - 16) 19 H BUN (9 - 20 mg/dL) 13 Creatinine (0.7 - 1.2 mg/dL) 1.8 H Estimated GFR (>60 ml/min) 40 L Glucose (65 - 99 mg/dL) 87 Calcium (8.4 - 10.2 mg/dL) 7.7 L Phosphorus (2.5 - 4.5 mg/dL) 1.7 L Magnesium (1.6 - 2.3 mg/dL) 1.0 L Total Bilirubin (0.2 - 1.3 mg/dL) 12.3 H GGT (15 - 73 U/L) 2500 H AST (17 - 59 U/L) 218 H ALT (21 - 72 U/L) 140 H Albumin (3.5 - 5.0 g/dL) 3.3 L Coagulation PT (9.4 - 12.5 SEC) 13.8 H INR (0.90 - 1.17) 1.32 H Hematology CBC w Diff MAN DIFF ORDERED WBC (4.8 - 10.8 /CUMM) 9.8 RBC (4.70 - 6.10 /CUMM) 3.71 L Hgb (14.0 - 18.0 G/DL) 11.6 L Hct (42 - 52 %) 34.4 L MCV (80.0 - 94.0 FL) 92.9 MCH (27.0 - 31.0 PG) 31.2 H MCHC (33.0 - 37.0 G/DL) 33.5 RDW (11.5 - 14.5 %) 17.4 H Plt Count (130 - 400 /CUMM) 166 MPV (7.4 - 10.4 FL) 8.1 Segmented Neutrophils (42.2 - 75.2 %) 46 Band Neutrophils (0.0 - 5.0 %) 7 H Lymphocytes (20.5 - 51.1 %) 30 Monocytes (1.7 - 9.3 %) 13 H Eosinophils (0 - 5.0 %) 1 Basophils (0.0 - 2.0 %) 1 Metamyelocytes (0.0 - 1.0 %) 1 Myelocytes (0 - 0 %) 1 H Nucleated RBCs (0.0 - 0.0 /100WBC) 2 H Platelet Estimate (ADEQUATE) ADEQUATE Polychromasia 1+ Poikilocytosis 1+ Anisocytosis 1+ Target Cells FEW Stomatocytes 1+ Immunology IgG Total Pending IgG1 Pending IgG2 Pending IgG3 Pending IgG4 Pending Other Body Source Fld Total RBCs Counted (%) 100 11/18 11/18 1517 1405 Blood Gas pH (7.35 - 7.45 PH) 7.39 pCO2 (35 - 45 TORR) 34 L pO2 (80 - 100 TORR) 98 HCO3 (21 - 28 MEQ/L) 20 L ABG O2 Sat (Measured) (>96.0 %) 97.0 P-50 (Temp Corrected) N Carboxyhemoglobin (1.5 - 5.0 %) 0.3 L O2 Concentration % 2L Temperature (97.0 - 100.0 FARH) 97.9 O2 Delivery Method N/C Hematology CBC w Diff MAN DIFF ORDERED WBC (4.8 - 10.8 /CUMM) 7.4 RBC (4.70 - 6.10 /CUMM) 3.54 L Hgb (14.0 - 18.0 G/DL) 10.4 L Hct (42 - 52 %) 32.8 L MCV (80.0 - 94.0 FL) 92.4 MCH (27.0 - 31.0 PG) 29.2 MCHC (33.0 - 37.0 G/DL) 31.6 L RDW (11.5 - 14.5 %) 17.3 H Plt Count (130 - 400 /CUMM) 152 MPV (7.4 - 10.4 FL) 7.8 Segmented Neutrophils (42.2 - 75.2 %) 51 Band Neutrophils (0.0 - 5.0 %) 7 H Lymphocytes (20.5 - 51.1 %) 26 Monocytes (1.7 - 9.3 %) 12 H Eosinophils (0 - 5.0 %) 1 Metamyelocytes (0.0 - 1.0 %) 2 H Myelocytes (0 - 0 %) 1 H Nucleated RBCs (0.0 - 0.0 /100WBC) 1 H Platelet Estimate (ADEQUATE) ADEQUATE Polychromasia 1+ Poikilocytosis 1+ Anisocytosis 1+ Stomatocytes FEW Miscellaneous Phlebotomy Draw Site R BRACHIAL 11/18 11/17 5701 9891 Chemistry Sodium (137 - 145 mmol/L) 145 139 Potassium (3.5 - 5.1 mmol/L) 4.0 3.0 L Chloride (98 - 107 mmol/L) 109 H 104 Carbon Dioxide (22 - 30 mmol/L) 18 L 19 L Anion Gap (5 - 16) 18 H 17 H BUN (9 - 20 mg/dL) 20 29 H Creatinine (0.7 - 1.2 mg/dL) 2.3 H 3.0 H Estimated GFR (>60 ml/min) 30 L 22 L BUN/Creatinine Ratio (7 - 25 %) 8.7 Glucose (65 - 99 mg/dL) 113 H Calcium (8.4 - 10.2 mg/dL) 8.1 L 8.1 L Phosphorus (2.5 - 4.5 mg/dL) 2.8 1.5 L Magnesium (1.6 - 2.3 mg/dL) 2.2 1.6 Iron (49 - 181 ug/dL) 64 TIBC (261 - 462 ug/dL) 119 L Ferritin (17.9 - 464 ng/mL) 5960.0 H Total Bilirubin (0.2 - 1.3 mg/dL) 12.8 H 12.2 H Direct Bilirubin (< 0.4 mg/dL) 11.9 H GGT (15 - 73 U/L) 2625 H 2579 H AST (17 - 59 U/L) 317 H 393 H ALT (21 - 72 U/L) 159 H 172 H Alkaline Phosphatase (< 127 U/L) 1410 H Total Protein (6.3 - 8.2 g/dL) 5.8 L Albumin (3.5 - 5.0 g/dL) 3.2 L 3.0 L Coagulation PT (9.4 - 12.5 SEC) 14.1 H 14.2 H INR (0.90 - 1.17) 1.35 H 1.36 H Hematology CBC w Diff MAN DIFF ORDERED MAN DIFF ORDERED WBC (4.8 - 10.8 /CUMM) 10.2 7.5 RBC (4.70 - 6.10 /CUMM) 3.52 L 3.54 L Hgb (14.0 - 18.0 G/DL) 11.1 L 11.1 L Hct (42 - 52 %) 32.3 L 32.2 L MCV (80.0 - 94.0 FL) 91.7 91.1 MCH (27.0 - 31.0 PG) 31.6 H 31.4 H MCHC (33.0 - 37.0 G/DL) 34.4 34.5 RDW (11.5 - 14.5 %) 16.9 H 17.0 H Plt Count (130 - 400 /CUMM) 137 126 L MPV (7.4 - 10.4 FL) 7.6 7.7 Segmented Neutrophils (42.2 - 75.2 %) 53 62 Band Neutrophils (0.0 - 5.0 %) 5 Lymphocytes (20.5 - 51.1 %) 27 26 Monocytes (1.7 - 9.3 %) 13 H 12 H Eosinophils (0 - 5.0 %) 1 Metamyelocytes (0.0 - 1.0 %) 1 Nucleated RBCs (0.0 - 0.0 /100WBC) 3 H 2 H Platelet Estimate (ADEQUATE) ADEQUATE ADEQUATE Polychromasia 1+ 1+ Poikilocytosis 2+ 1+ Target Cells FEW FEW Ovalocytes 1+ 1+ Stomatocytes 1+ FEW Other Body Source Fld Total RBCs Counted (%) 100 100 11/16 1845 Chemistry Sodium (137 - 145 mmol/L) 136 L Potassium (3.5 - 5.1 mmol/L) 3.0 L Chloride (98 - 107 mmol/L) 100 Carbon Dioxide (22 - 30 mmol/L) 18 L Anion Gap (5 - 16) 19 H BUN (9 - 20 mg/dL) 37 H Creatinine (0.7 - 1.2 mg/dL) 4.4 H Estimated GFR (>60 ml/min) 14 L Glucose (65 - 99 mg/dL) 133 H Calcium (8.4 - 10.2 mg/dL) 8.2 L Phosphorus (2.5 - 4.5 mg/dL) 1.9 L Magnesium (1.6 - 2.3 mg/dL) 1.6 Total Bilirubin (0.2 - 1.3 mg/dL) 12.5 H AST (17 - 59 U/L) 438 H ALT (21 - 72 U/L) 193 H Albumin (3.5 - 5.0 g/dL) 3.0 L
[2017-11-20] VITALS (10 sets, daily range): BP systolic 102–148; BP diastolic 60–82
[2017-11-20 05:10] LABS: HEMATOCRIT 31.3 % (42-52); MEAN CORPUSCULAR HGB CONC 33.6 G/DL (33.0-37.0); MEAN CORPUSCULAR VOLUME 92.4 FL (80.0-94.0); MEAN PLATELET VOLUME 8.7 FL (7.4-10.4); PLATELET COUNT 186 /CUMM (130-400); RED BLOOD CELL CT 3.39 /CUMM (4.70-6.10); WHITE BLOOD CELL COUNT 10.1 /CUMM (4.8-10.8)
[2017-11-20 05:11] LABS: PT 12.3 SEC (9.4-12.5)
--- NOTE | 2017-11-20 07:34 | PN- Resident CRCU ---
Subjective HPI/CRCU Issues: 1. Alcohol withdrawal 2. Acute kidney injury 3. Alcoholic Hepatitis/Hyperbilirubinemia/Transaminitis 4. Hypotension 5. Pancreatic cyst/mass 6. Chills and rigors with concerns for biliary infection 24 Hour Events: Patient is more alert today. He is oriented X 3. He is requiring administration of an IV Ativan drip at 1 mg/min for alcohol withdrawal. CIWA scores overnight range from 6 to 10. He is still having blood in the Rust catheter from his agitation and pulling on the catheter. He remains on unasyn for concerns for a biliary infection. Blood cultures are negative so far-day 1. His vital signs last 24 hours: Temperature 97.2 - 99.1 F, pulse 42120 bpm, sinus rhythm, respiratory rate 35/min, blood pressure 84137/4975 mmHg. O2 saturation 98% on 25% fio2 on bipap. Total fluid input output last 24 hours = 3400/1955 mls. Urine output in the last 8 hours is 580 mL. Objective Vital Signs & I&O Last 8 Hrs of Vitals and I&O: Vital Signs Date Time Temp Pulse Resp B/P B/P Pulse O2 O2 Flow FiO2 Mean Ox Delivery Rate 11/20 2200 99.0 114 36 129/67 11/20 1999 99.0 90 36 148/82 11/20 2000 97 Nasal 2.0L Cannula 11/20 1800 99.0 102 40 114/72 02/02 1600 98.9 90 28 102/78 / 1600 98.9 90 28 102/78 97 Nasal 2.0L Cannula 11/20 1600 98 Nasal 2.0L Cannula 11/20 1400 97 30 110/60 02/02 1200 98.2 100 30 120/60 02/02 1200 98 Nasal 2.0L Cannula 11/20 1000 104 35 122/72 02/02 0910 98 02/02 0800 98.4 98 40 120/68 02/02 0800 98.4 98 40 120/68 99 BIPAP 25% 02/02 0800 98 BIPAP 25% 02/02 0609 96 100 02/02 0400 105 135/77 02/02 0400 100 BIPAP 25% / 0313 89 99 02/02 0119 101 100 Intake & Output / 0800 02/03 0000 11/20 1600 Intake Total 1440.5 1327 Output Total 1450 1200 Balance -9.5 127 Intake, IV 1220.5 1207 Intake, Oral 220 120 Number 2 1 Bowel Movements Output, Urine 1450 1200 Exam General Appearance: well developed/nourished, no apparent distress, alert, awake , sedated, drowsy Head: atraumatic, normal appearance Ears, Nose, Throat: normal pharynx, normal ENT inspection Neck: normal inspection, supple Respiratory: normal breath sounds, chest non-tender, lungs clear Cardiovascular: regular rate/rhythm, no edema Gastrointestinal: normal bowel sounds, soft, hepatomegaly Extremities: normal inspection, no edema Cranial Nerves: normal hearing, PERRL Skin: intact, jaundice Current Medications: Current Medications Sig/Wagner Start time Last Medication Dose Route Stop Time Status Admin Albumin Human 12.5 GM Q8H 11/15 2100 AC 11/20 IV 2103 Ampicillin Sodium/ 1,500 MG Q12 11/17 220 AC 11/20 Sulbactam Sodium IV 2114 Sodium Chloride 50 ML Benzocaine/Menthol 1 SUKHI Q2P PRN 11/16 1200 AC 11/16 PO 1951 Bisacodyl 5 MG DAILY 11/17 1000 AC PO Calcium Carbonate 500 MG BID 11/20 2200 AC 11/20 PO 2115 Calcium Carbonate 1,250 MG BID 11/20 1015 DC PO Cholecalciferol 2,000 IU DAILY 11/20 1004 AC 11/20 PO 1436 Cyanocobalamin/ 1 BAG DAILY 11/18 1000 AC 11/20 Thiamine/Pyridoxine IV 0933 Dextrose/Water 1,000 ML Heparin Sodium 5,000 UNIT Q8 11/15 2200 AC 11/20 (Porcine) SC 2114 Lorazepam 2 MG Q2P PRN 11/20 1845 IV Lorazepam 1 MG Q2P PRN 11/20 1845 IV Lorazepam 50 MG Q24H 11/18 0345 AC 11/20 Dextrose/Water 500 ML IV 1000 Magnesium Sulfate 1 GM ONCE ONE 11/20 0700 DC 11/20 Dextrose/Water 100 ML IV 11/20 1059 0656 Ondansetron HCl 4 MG Q6P PRN 11/15 1800 AC IV Phenol 2 SPRAY Q2P PRN 11/15 2030 AC 11/16 EXT 0822 Phosphate 250 MG PC AND AT BEDTIME 11/17 0900 AC 11/20 PO 2103 Potassium Chloride 20 MEQ Q10H 11/17 1700 AC 11/20 Sodium Chloride 1,000 ML IV 2203 Senna 187 MG AT BEDTIME 11/17 2200 AC 11/20 PO 2115 Thiamine HCl 250 MG DAILY 11/19 1000 AC 11/20 Sodium Chloride 100 ML IV 11/22 1101 3166 Impression/Plan Impression/Problem List Impression: 52-year-old man with a past medical history of hypertension, hyperlipidemia and alcohol use (reported to Martini intake per day ) who presented to the ER with with complaints of fevers since early October, episodes of bloody bowel movements, diarrhea, status post fall associated with blurry vision, headache and tremor-like activity as well as increased confusion. He was found to have severe dehydration with acute kidney injury as well as elevated total bilirubin and transaminases. In addition he had a CT Abdomen/ Pelvis w/o IV contrast that showed enlarged fatty liver and a 3.8 x 4.8 cm cyst or cystic lesion in the tail of the pancreas which was new from 2007. It was difficult to exclude mild diverticulitis of the sigmoid colon. He developed chills, rigors and hallucinations likely from alcohol withdrawal while on admission and he was started on IV unasyn for possibility of cholangitis, but his blood cultures are negative so far. He continues to be on an ativan drip. He also probably has undiagnosed obstructive sleep apnea as he was having tachypnea with episodes of apnea and snoring with associated desaturation. Plan: 1. Alcohol withdrawal * Continue IV Ativan drip today * start IV ativan PRN as per CIWA protocol * As patient is more alert can start puree and nectar thick feeds * If Oral feeds improve, can reduce IV fluids * Continue IV thiamine, IV banana bag 2. Acute kidney raencu-[id number]-[id number] on due to dehydration * Creatinine continues to improve and is 1.5 this morning * Continue rehydration with normal saline at 100 mL per hour * Nephrology input appreciated 3. Chills and rigors with concerns for cholangitis * Continue IV Unasyn for possible biliary infection (He experienced chills and rigors on admission)-Today is day 4 * His white count remained normal and is 10.1 this morning but he still has bandemia of 6 * We will complete 5 days of antibiotics tomorrow and reassess his need for antibiotics * Of note, he had a recent history of myalgia, mailase with low grade fevers, sore throat and his Rapid flu and strep throat were all negtaive * Tick borne panel, and babesiosis is also negative * Of note his CT scan of his abdomen suggested diverticulitis although he did not have leukocytosis at the time of admission 3. Hyperbilirubinemia/Transaminitis * His hyperbilirubinemia is likely 2/2 alcoholic hepatitis vs ? pancreatic mass casuing obstructive jaundice * Hepatitis serology negative and HIV panel was neagtive * US Abdomen showed heaptomegaly, hepatic steatosis, a 2.8 x 2.1 x 2.5 cm cyst within the pancreatic tail, no cholilithiasis, or cholecystitis. Ammonia level was WNL * A pancreatic mass casuing obstructive jaundice could also be contributory * His total Bilirubin remains elevated at 9.6 today on a downward trend * Transaminases trended down to decline with AST 116 and ALT 119 this morning. His GGT is 2341 * His INR is normal today at 1.17 * We will follow-up with gastroenterology recommendations 4. Pancreatic cyst/mass * His renal function is not yet normalized so we will hold off on MRI with pancreatic protocol for now * Will inquire from nephrology regarding MRI with contrast given his current renal function * Follow-up CA-19 for concerns of pancreatic malignancy * Follow up IGG4 panel for possible autoimmune pancreatitis * Follow-up with gastroenterology for further recommendations 5. Elevated anion gap acidosis with non-aniongap metabolic acidosis and compensatory respiratory alkalosis * Likely secondary to lactic acidosis from hypoperfusion, vomiting and renal insuffiency contributing to the NAGMA * Monitor BEP 6. Hypophosphatemia and hypocalcemia * Replete phosphorus with neutraphos and start Tums for hypocalcemia with vitamin D 7. Anemia and thrombocytopenia * Likely secondary to hepatic failure * Hemoglobin is 10.1 and Platelet this morning is 186 which is stable * Continue to monitor CBC and consider DC heparin if platelet count drops * iron studies indicates anemia of chronic disease and liver disease 8. Hematuria * Patient had hematuria probably from tugging at his Rust catheter while he was agitated during his delirium tremens * Urology consultation appreciated * Continue to monitor CBC and keep rust in place 9. Tachypnea with suspected undiagnosed Obstructive sleep apnea * Continue patient on nocturnal BIPAP DVT prophylaxis-subcutaneous heparin 5000 IU TID Diet- Puree and honey thick liquids CODE STATUS- Full code Problem List: 1. Alcohol withdrawal 2. Liver failure 3. Renal failure 4. Pancreatic mass Pain Ratin Tomorrow's Labs & Rationales: ICU lab bundle and CBC for critically ill patient Plan DVT/Prophylaxis: mechanical, pharmacological
--- NOTE | 2017-11-20 07:50 | PN- CRCU ---
Subjective HPI/Critical Care Issues: The patient remains agitated and restless. He remains on BIPAP with good oxygen saturations. He continues on an ativan drip for control of his CIWA scores. He is not able to offer complaints. Objective Current Medications: Current Medications Sig/Wagner Start time Last Medication Dose Route Stop Time Status Admin Albumin Human 12.5 GM Q8H 11/15 2100 AC 11/20 IV 0524 Ampicillin Sodium/ 1,500 MG Q12 11/17 2200 AC 11/19 Sulbactam Sodium IV 2149 Sodium Chloride 50 ML Benzocaine/Menthol 1 SUKHI Q2P PRN 11/16 1200 AC 11/16 PO 1951 Bisacodyl 5 MG DAILY 11/17 1000 AC PO Cyanocobalamin/ 1 BAG DAILY 11/18 1000 AC 11/19 Thiamine/Pyridoxine IV 1000 Dextrose/Water 1,000 ML Heparin Sodium 5,000 UNIT Q8 11/15 2200 AC 11/20 (Porcine) SC 0524 Lorazepam 50 MG Q24H 11/18 0345 AC 11/19 Dextrose/Water 500 ML IV 0922 Magnesium Sulfate 1 GM ONCE ONE 11/20 0700 AC 11/20 Dextrose/Water 100 ML IV 11/20 1059 0656 Magnesium Sulfate 1 GM ONCE ONE 11/19 1845 DC 11/19 Dextrose/Water 100 ML IV 11/19 2244 1849 Magnesium Sulfate 1 GM Q2H 11/19 0600 DC 11/19 Dextrose/Water 100 ML IV 11/19 0959 0740 Ondansetron HCl 4 MG Q6P PRN 11/15 1800 AC IV Phenol 2 SPRAY Q2P PRN 11/15 2030 AC 11/16 EXT 0822 Phosphate 250 MG PC AND AT BEDTIME 11/17 0900 AC 11/17 PO 2018 Potassium Chloride 20 MEQ Q10H 11/17 1700 AC 11/20 Sodium Chloride 1,000 ML IV 0116 Potassium Phosphate 15 mMol ONE ONE 11/19 1845 DC 11/19 Sodium Chloride 250 ML IV 11/19 2249 2014 Potassium Phosphate 15 mMol ONE ONE 11/19 0745 DC 11/19 Dextrose/Water 250 ML IV 11/19 1149 0959 Senna 187 MG AT BEDTIME 11/17 2200 AC PO Thiamine HCl 250 MG DAILY 11/19 1000 AC 11/19 Sodium Chloride 100 ML IV 11/22 1101 1045 Vital Signs & I&O Last 24 Hrs of Vitals and I&O: Vital Signs Date Time Temp Pulse Resp B/P B/P Pulse O2 O2 Flow FiO2 Mean Ox Delivery Rate 11/20 0609 96 100 11/20 0400 105 135/77 11/20 0400 100 BIPAP 25% 11/20 0313 89 99 11/20 0119 101 100 02 0000 97.5 89 118/60 02/ 0000 99 BIPAP 30% 11/20 0000 97.5 89 35 118/60 99 BIPAP 30% 11/19 2233 82 98 11/19 2200 74 117/68 11/19 2000 97 BIPAP 30% 11/19 1940 89 99 02/ 1800 85 31 98/51 02 1703 94 98 02/ 1600 97.7 90 40 114/70 02/ 1600 99 BIPAP 30% 11/19 1600 97.7 90 40 114/70 99 BIPAP 30% 11/19 1400 92 32 96/64 02/ 1356 96 02/ 1200 97.1 98 28 100/44 02/ 1200 95 BIPAP 30% 11/19 1054 96 02 1000 108 26 113/62 02/ 0946 120 96 02 0800 99.0 120 45 130/70 02/ 0800 94 Nasal 2.0L Cannula 11/19 0800 99.0 120 45 130/70 94 Nasal 2.0L Cannula Intake & Output 11/20 0800 11/20 0000 02 1600 Intake Total 836 1246 1318 Output Total 580 700 675 Balance 256 546 643 Intake, IV 836 1246 1318 Intake, Oral 0 0 0 Number 0 0 Bowel Movements Output, Urine 580 700 675 Exam General Appearance: well developed/nourished, no apparent distress, alert, awake , comfortable Head: atraumatic, normal appearance Neck: normal inspection, supple Respiratory: normal breath sounds, chest non-tender, no respiratory distress, quiet respiration, lungs clear Cardiovascular: regular rate/rhythm Gastrointestinal: normal bowel sounds, soft, mild tenderness in RUQ, decreased than yesterday Extremities: no edema Cranial Nerves: normal speech, PERRL Results Last 24 Hrs of Lab Results: Laboratory Tests 11/20/17 0314: Anion Gap 17 H, Estimated GFR 50 L, Glucose 82, Calcium 7.8 L, Phosphorus 2.0 L, Magnesium 1.7, Total Bilirubin 9.6 H, GGT 2341 H, AST 166 H, ALT 119 H, Albumin 3.4 L, PT 12.3, INR 1.17, CBC w Diff MAN DIFF ORDERED, RBC 3.39 L, MCV 92.4, MCH 31.0, MCHC 33.6, RDW 18.0 H, MPV 8.7, Segmented Neutrophils 49, Band Neutrophils 6 H, Lymphocytes 26, Monocytes 15 H, Eosinophils 1, Basophils 1, Metamyelocytes 2 H, Platelet Estimate ADEQUATE, Polychromasia 1+, Poikilocytosis 2+, Target Cells FEW, Ovalocytes 1+, Stomatocytes 1+, Fld Total RBCs Counted 100 11/19/17 1530: Anion Gap 15, Estimated GFR 50 L, Glucose 110 H, Calcium 7.5 L, Phosphorus 2.3 L, Magnesium 1.5 L, Total Bilirubin 10.0 H, AST 165 H, ALT 116 H, Albumin 3.1 L Impression/Plan Impression/Plan Impression/Plan: 1. Acute respiratory failure secondary to aspiration pneumonia/pneumonitis. 2. AMBAR - Most likely 2/2 dehydration and volume depletion in the setting of HCTZ/lisinopril, and decreased PO intake. Urine output and blood pressure improving with IV fluid hydration. 3. Tranaminitis - 2/2 alcoholic hepatitis. 4. Pancreatic cyst/ mass - will need follow up. 5. Will need to obtain an MRI pancreatic protocl with andw/o contrast for better visualzation when stable from a pulmonary perspective. 6. Anemia and thrombocytopenia, no evidence of active bleeding. 7. Hyponatremia - resolved. 8. AMBAR, hematuria. 9. ALcohol dependence and now withdrawl. Recommendations: * Check a follow up CXR this morning. * BIPAP for respiratory distress to continue as needed. Give breaks off therapy if able. * Will have a low threshold for intubation. * ETOH witdrawal - continue ativan drip for controll of CIWA scores. * Avoid oversedation. * Multivitamin, thiamine and folate to continue. * IV fluids for poor oral intake. * Maintain the patient on aspiration precautions. * Continue to follow up GI recommendations regarding possible hepatorenal syndrome - appreciate input. * Continue empiric IV Unasyn - complete 5 days and reassess. * DVT prophylaxis at all times. * Continue to monitor in the critical care unit. * Discussed plan of care with housestaff and patient's at bedside.
--- NOTE | 2017-11-20 13:12 | PN- Nephrology ---
Assessment/Plan Assessment: AMBAR likely due to profound dehydration/ ATN due to prolonged hypotension. Getting better with excellent urine output. Now aggitated with thaddeus connelly. Excellent management by ICU team. Continue same. I will follow prn. call with questions. Dejon Lanza MD Suggestion: . Subjective Subjective: Cr better. Pt confused (withdrawal) Objective Vital Signs and I&Os M NAD Lungs clear Cor RRR Abd soft Ext neg edema neuro confused Results Pertinent Lab Results: Laboratory Tests 11/20 11/19 11/19 0314 1530 0500 Chemistry Sodium (137 - 145 mmol/L) 143 139 Potassium (3.5 - 5.1 mmol/L) 4.0 4.1 Chloride (98 - 107 mmol/L) 107 106 Carbon Dioxide (22 - 30 mmol/L) 18 L 18 L Anion Gap (5 - 16) 17 H 15 BUN (9 - 20 mg/dL) 9 11 Creatinine (0.7 - 1.2 mg/dL) 1.5 H 1.5 H Estimated GFR (>60 ml/min) 50 L 50 L Glucose (65 - 99 mg/dL) 82 110 H Calcium (8.4 - 10.2 mg/dL) 7.8 L 7.5 L Phosphorus (2.5 - 4.5 mg/dL) 2.0 L 2.3 L Magnesium (1.6 - 2.3 mg/dL) 1.7 1.5 L Total Bilirubin (0.2 - 1.3 mg/dL) 9.6 H 10.0 H GGT (15 - 73 U/L) 2341 H AST (17 - 59 U/L) 166 H 165 H ALT (21 - 72 U/L) 119 H 116 H Albumin (3.5 - 5.0 g/dL) 3.4 L 3.1 L Coagulation PT (9.4 - 12.5 SEC) 12.3 INR (0.90 - 1.17) 1.17 Hematology CBC w Diff MAN DIFF ORDERED WBC (4.8 - 10.8 /CUMM) 10.1 RBC (4.70 - 6.10 /CUMM) 3.39 L Hgb (14.0 - 18.0 G/DL) 10.5 L Hct (42 - 52 %) 31.3 L MCV (80.0 - 94.0 FL) 92.4 MCH (27.0 - 31.0 PG) 31.0 MCHC (33.0 - 37.0 G/DL) 33.6 RDW (11.5 - 14.5 %) 18.0 H Plt Count (130 - 400 /CUMM) 186 MPV (7.4 - 10.4 FL) 8.7 Segmented Neutrophils (42.2 - 75.2 %) 49 Band Neutrophils (0.0 - 5.0 %) 6 H Lymphocytes (20.5 - 51.1 %) 26 Monocytes (1.7 - 9.3 %) 15 H Eosinophils (0 - 5.0 %) 1 Basophils (0.0 - 2.0 %) 1 Metamyelocytes (0.0 - 1.0 %) 2 H Platelet Estimate (ADEQUATE) ADEQUATE Polychromasia 1+ Poikilocytosis 2+ Target Cells FEW Ovalocytes 1+ Stomatocytes 1+ Immunology IgG Total Pending IgG1 Pending IgG2 Pending IgG3 Pending IgG4 Pending Other Body Source Fld Total RBCs Counted (%) 100 11/19 11/18 0400 1517 Chemistry Sodium (137 - 145 mmol/L) 144 Potassium (3.5 - 5.1 mmol/L) 4.3 Chloride (98 - 107 mmol/L) 108 H Carbon Dioxide (22 - 30 mmol/L) 17 L Anion Gap (5 - 16) 19 H BUN (9 - 20 mg/dL) 13 Creatinine (0.7 - 1.2 mg/dL) 1.8 H Estimated GFR (>60 ml/min) 40 L Glucose (65 - 99 mg/dL) 87 Calcium (8.4 - 10.2 mg/dL) 7.7 L Phosphorus (2.5 - 4.5 mg/dL) 1.7 L Magnesium (1.6 - 2.3 mg/dL) 1.0 L Total Bilirubin (0.2 - 1.3 mg/dL) 12.3 H GGT (15 - 73 U/L) 2500 H AST (17 - 59 U/L) 218 H ALT (21 - 72 U/L) 140 H Albumin (3.5 - 5.0 g/dL) 3.3 L Coagulation PT (9.4 - 12.5 SEC) 13.8 H INR (0.90 - 1.17) 1.32 H Hematology CBC w Diff MAN DIFF ORDERED MAN DIFF ORDERED WBC (4.8 - 10.8 /CUMM) 9.8 7.4 RBC (4.70 - 6.10 /CUMM) 3.71 L 3.54 L Hgb (14.0 - 18.0 G/DL) 11.6 L 10.4 L Hct (42 - 52 %) 34.4 L 32.8 L MCV (80.0 - 94.0 FL) 92.9 92.4 MCH (27.0 - 31.0 PG) 31.2 H 29.2 MCHC (33.0 - 37.0 G/DL) 33.5 31.6 L RDW (11.5 - 14.5 %) 17.4 H 17.3 H Plt Count (130 - 400 /CUMM) 166 152 MPV (7.4 - 10.4 FL) 8.1 7.8 Segmented Neutrophils (42.2 - 75.2 %) 46 51 Band Neutrophils (0.0 - 5.0 %) 7 H 7 H Lymphocytes (20.5 - 51.1 %) 30 26 Monocytes (1.7 - 9.3 %) 13 H 12 H Eosinophils (0 - 5.0 %) 1 1 Basophils (0.0 - 2.0 %) 1 Metamyelocytes (0.0 - 1.0 %) 1 2 H Myelocytes (0 - 0 %) 1 H 1 H Nucleated RBCs (0.0 - 0.0 /100WBC) 2 H 1 H Platelet Estimate (ADEQUATE) ADEQUATE ADEQUATE Polychromasia 1+ 1+ Poikilocytosis 1+ 1+ Anisocytosis 1+ 1+ Target Cells FEW Stomatocytes 1+ FEW Other Body Source Fld Total RBCs Counted (%) 100 11/18 11/18 1405 0414 Blood Gas pH (7.35 - 7.45 PH) 7.39 pCO2 (35 - 45 TORR) 34 L pO2 (80 - 100 TORR) 98 HCO3 (21 - 28 MEQ/L) 20 L ABG O2 Sat (Measured) (>96.0 %) 97.0 P-50 (Temp Corrected) N Carboxyhemoglobin (1.5 - 5.0 %) 0.3 L O2 Concentration % 2L Temperature (97.0 - 100.0 FARH) 97.9 O2 Delivery Method N/C Chemistry Sodium (137 - 145 mmol/L) 145 Potassium (3.5 - 5.1 mmol/L) 4.0 Chloride (98 - 107 mmol/L) 109 H Carbon Dioxide (22 - 30 mmol/L) 18 L Anion Gap (5 - 16) 18 H BUN (9 - 20 mg/dL) 20 Creatinine (0.7 - 1.2 mg/dL) 2.3 H Estimated GFR (>60 ml/min) 30 L BUN/Creatinine Ratio (7 - 25 %) 8.7 Calcium (8.4 - 10.2 mg/dL) 8.1 L Phosphorus (2.5 - 4.5 mg/dL) 2.8 Magnesium (1.6 - 2.3 mg/dL) 2.2 Total Bilirubin (0.2 - 1.3 mg/dL) 12.8 H Direct Bilirubin (< 0.4 mg/dL) 11.9 H GGT (15 - 73 U/L) 2625 H AST (17 - 59 U/L) 317 H ALT (21 - 72 U/L) 159 H Alkaline Phosphatase (< 127 U/L) 1410 H Total Protein (6.3 - 8.2 g/dL) 5.8 L Albumin (3.5 - 5.0 g/dL) 3.2 L Coagulation PT (9.4 - 12.5 SEC) 14.1 H INR (0.90 - 1.17) 1.35 H Hematology CBC w Diff MAN DIFF ORDERED WBC (4.8 - 10.8 /CUMM) 10.2 RBC (4.70 - 6.10 /CUMM) 3.52 L Hgb (14.0 - 18.0 G/DL) 11.1 L Hct (42 - 52 %) 32.3 L MCV (80.0 - 94.0 FL) 91.7 MCH (27.0 - 31.0 PG) 31.6 H MCHC (33.0 - 37.0 G/DL) 34.4 RDW (11.5 - 14.5 %) 16.9 H Plt Count (130 - 400 /CUMM) 137 MPV (7.4 - 10.4 FL) 7.6 Segmented Neutrophils (42.2 - 75.2 %) 53 Band Neutrophils (0.0 - 5.0 %) 5 Lymphocytes (20.5 - 51.1 %) 27 Monocytes (1.7 - 9.3 %) 13 H Eosinophils (0 - 5.0 %) 1 Metamyelocytes (0.0 - 1.0 %) 1 Nucleated RBCs (0.0 - 0.0 /100WBC) 3 H Platelet Estimate (ADEQUATE) ADEQUATE Polychromasia 1+ Poikilocytosis 2+ Target Cells FEW Ovalocytes 1+ Stomatocytes 1+ Miscellaneous Phlebotomy Draw Site R BRACHIAL Other Body Source Fld Total RBCs Counted (%) 100
--- NOTE | 2017-11-20 15:07 | PN- Gastroenterology ---
Assessment/Plan Assessment/Recommendations: ASSESSMENT: 1. Abnormal Liver-Associated Enzymes -- acute alcoholic hepatitis. Patient remains jaundiced 2. Acute Kidney Injury -- creatinine now down to 1.5 3. Acute alcohol withdrawal 4. Cystic Lesion Tail of Pancreas -- ? malignant vs benign. CA 19-9 pending. 5. Anemia without overt signs of GI blood loss, macrocytosis RECOMMENDATIONS: 1. Please check B12 and Folate if not already done 2. CA 19-9 3. MRI Pancreatic Protocol when patient is able. 4. Continue treatment for acute alcohol withdrawal. 5. GI will see intermittently. Do not hesitate to contact us if there are any issues that arise before Mr. Fuentes is next seen. Subjective Subjective: Patient agitated. Is now withdrawing from alcohol. Has been unable to get MRI due to agitation. Is confused. Knows that I am a "patent law specialist" but thinks he is in [place]. A sitter is present. Review of Systems: Unable to obtain due to confusion and agitation. Objective Vital Signs and I&Os Vital Signs Date Time Temp Pulse Resp B/P B/P Pulse O2 O2 Flow FiO2 Mean Ox Delivery Rate 11/20 0910 98 11/20 0609 96 100 11/20 0400 105 135/77 11/20 0400 100 BIPAP 25% 11/20 0313 89 99 / 0119 101 100 02/ 0000 97.5 89 118/60 02/ 0000 99 BIPAP 30% / 0000 97.5 89 35 118/60 99 BIPAP 30% / 2233 82 98 02/ 2200 74 117/68 /1999 97 BIPAP 30% 11/19 1940 89 99 02/01 1800 85 31 98/51 02/ 1703 94 98 02/ 1600 97.7 90 40 114/70 02/ 1600 99 BIPAP 30% / 1600 97.7 90 40 114/70 99 BIPAP 30% Intake & Output 11/20 1600 11/20 0400 11/19 1600 11/19 0400 11/18 1600 11/18 0400 Intake Total 836 1246 2374 1000 2178 1410 Output Total 880 142 9608 910 1730 450 Balance 256 546 839 90 448 960 Intake, IV 836 1246 2374 1000 2178 1050 Intake, Oral 0 0 0 0 0 360 Number 0 0 0 0 0 Bowel Movements Output, Urine 393 638 2453 910 1730 450 Patient 198 lb Weight Weight Bed scale Measurement Method Physical Exam General Appearance: awake, agitated Head: atraumatic, normal appearance Respiratory: normal breath sounds, lungs clear Cardiovascular: regular rate/rhythm, Normal S1 and S2 Abdomen: normal bowel sounds, soft, non-tender, no organomegaly Neurologic/Psychiatric: active alcohol withdrawal, confused, in t[place], trying to climb out of bed Current Medications: Current Medications Sig/Wagner Start time Last Medication Dose Route Stop Time Status Admin Albumin Human 12.5 GM Q8H 11/15 2100 AC 11/20 IV 1437 Ampicillin Sodium/ 1,500 MG Q12 11/17 220 AC 11/20 Sulbactam Sodium IV 1120 Sodium Chloride 50 ML Benzocaine/Menthol 1 SUKHI Q2P PRN 11/16 1200 AC 11/16 PO 1951 Bisacodyl 5 MG DAILY 11/17 1000 AC PO Calcium Carbonate 500 MG BID 11/20 2200 AC PO Calcium Carbonate 1,250 MG BID 11/20 1015 DC PO Cholecalciferol 2,000 IU DAILY 11/20 1004 AC 11/20 PO 1436 Cyanocobalamin/ 1 BAG DAILY 11/18 1000 AC 11/20 Thiamine/Pyridoxine IV 0933 Dextrose/Water 1,000 ML Heparin Sodium 5,000 UNIT Q8 11/15 220 AC 11/20 (Porcine) SC 1435 Lorazepam 50 MG Q24H 11/18 0345 AC 11/19 Dextrose/Water 500 ML IV 0922 Magnesium Sulfate 1 GM ONCE ONE 11/20 0700 DC 11/20 Dextrose/Water 100 ML IV 11/20 1059 0656 Magnesium Sulfate 1 GM ONCE ONE 11/19 184 [place] 11/19 Dextrose/Water 100 ML IV 11/19 224 184 Ondansetron HCl 4 MG Q6P PRN 11/15 1800 AC IV Phenol 2 SPRAY Q2P PRN 11/15 2030 AC 11/16 EXT 0822 Phosphate 250 MG PC AND AT BEDTIME 11/17 0900 AC 11/20 PO 1436 Potassium Chloride 20 MEQ Q10H 11/17 1700 AC 11/20 Sodium Chloride 1,000 ML IV 1437 Potassium Phosphate 15 mMol ONE ONE 11/19 1845 DC 11/19 Sodium Chloride 250 ML IV 11/19 224 2014 Senna 187 MG AT BEDTIME 01/30 2200 AC PO Thiamine HCl 250 MG DAILY 11/19 1000 AC 11/20 Sodium Chloride 100 ML IV 11/22 1101 0963 Results Pertinent Lab Results: Laboratory Tests 11/20 11/19 11/19 0314 1530 0500 Chemistry Sodium (137 - 145 mmol/L) 143 139 Potassium (3.5 - 5.1 mmol/L) 4.0 4.1 Chloride (98 - 107 mmol/L) 107 106 Carbon Dioxide (22 - 30 mmol/L) 18 L 18 L Anion Gap (5 - 16) 17 H 15 BUN (9 - 20 mg/dL) 9 11 Creatinine (0.7 - 1.2 mg/dL) 1.5 H 1.5 H Estimated GFR (>60 ml/min) 50 L 50 L Glucose (65 - 99 mg/dL) 82 110 H Calcium (8.4 - 10.2 mg/dL) 7.8 L 7.5 L Phosphorus (2.5 - 4.5 mg/dL) 2.0 L 2.3 L Magnesium (1.6 - 2.3 mg/dL) 1.7 1.5 L Total Bilirubin (0.2 - 1.3 mg/dL) 9.6 H 10.0 H GGT (15 - 73 U/L) 2341 H AST (17 - 59 U/L) 166 H 165 H ALT (21 - 72 U/L) 119 H 116 H Albumin (3.5 - 5.0 g/dL) 3.4 L 3.1 L Coagulation PT (9.4 - 12.5 SEC) 12.3 INR (0.90 - 1.17) 1.17 Hematology CBC w Diff MAN DIFF ORDERED WBC (4.8 - 10.8 /CUMM) 10.1 RBC (4.70 - 6.10 /CUMM) 3.39 L Hgb (14.0 - 18.0 G/DL) 10.5 L Hct (42 - 52 %) 31.3 L MCV (80.0 - 94.0 FL) 92.4 MCH (27.0 - 31.0 PG) 31.0 MCHC (33.0 - 37.0 G/DL) 33.6 RDW (11.5 - 14.5 %) 18.0 H Plt Count (130 - 400 /CUMM) 186 MPV (7.4 - 10.4 FL) 8.7 Segmented Neutrophils (42.2 - 75.2 %) 49 Band Neutrophils (0.0 - 5.0 %) 6 H Lymphocytes (20.5 - 51.1 %) 26 Monocytes (1.7 - 9.3 %) 15 H Eosinophils (0 - 5.0 %) 1 Basophils (0.0 - 2.0 %) 1 Metamyelocytes (0.0 - 1.0 %) 2 H Platelet Estimate (ADEQUATE) ADEQUATE Polychromasia 1+ Poikilocytosis 2+ Target Cells FEW Ovalocytes 1+ Stomatocytes 1+ Immunology IgG Total Pending IgG1 Pending IgG2 Pending IgG3 Pending IgG4 Pending Other Body Source Fld Total RBCs Counted (%) 100 11/19 11/18 0400 1517 Chemistry Sodium (137 - 145 mmol/L) 144 Potassium (3.5 - 5.1 mmol/L) 4.3 Chloride (98 - 107 mmol/L) 108 H Carbon Dioxide (22 - 30 mmol/L) 17 L Anion Gap (5 - 16) 19 H BUN (9 - 20 mg/dL) 13 Creatinine (0.7 - 1.2 mg/dL) 1.8 H Estimated GFR (>60 ml/min) 40 L Glucose (65 - 99 mg/dL) 87 Calcium (8.4 - 10.2 mg/dL) 7.7 L Phosphorus (2.5 - 4.5 mg/dL) 1.7 L Magnesium (1.6 - 2.3 mg/dL) 1.0 L Total Bilirubin (0.2 - 1.3 mg/dL) 12.3 H GGT (15 - 73 U/L) 2500 H AST (17 - 59 U/L) 218 H ALT (21 - 72 U/L) 140 H Albumin (3.5 - 5.0 g/dL) 3.3 L Coagulation PT (9.4 - 12.5 SEC) 13.8 H INR (0.90 - 1.17) 1.32 H Hematology CBC w Diff MAN DIFF ORDERED MAN DIFF ORDERED WBC (4.8 - 10.8 /CUMM) 9.8 7.4 RBC (4.70 - 6.10 /CUMM) 3.71 L 3.54 L Hgb (14.0 - 18.0 G/DL) 11.6 L 10.4 L Hct (42 - 52 %) 34.4 L 32.8 L MCV (80.0 - 94.0 FL) 92.9 92.4 MCH (27.0 - 31.0 PG) 31.2 H 29.2 MCHC (33.0 - 37.0 G/DL) 33.5 31.6 L RDW (11.5 - 14.5 %) 17.4 H 17.3 H Plt Count (130 - 400 /CUMM) 166 152 MPV (7.4 - 10.4 FL) 8.1 7.8 Segmented Neutrophils (42.2 - 75.2 %) 46 51 Band Neutrophils (0.0 - 5.0 %) 7 H 7 H Lymphocytes (20.5 - 51.1 %) 30 26 Monocytes (1.7 - 9.3 %) 13 H 12 H Eosinophils (0 - 5.0 %) 1 1 Basophils (0.0 - 2.0 %) 1 Metamyelocytes (0.0 - 1.0 %) 1 2 H Myelocytes (0 - 0 %) 1 H 1 H Nucleated RBCs (0.0 - 0.0 /100WBC) 2 H 1 H Platelet Estimate (ADEQUATE) ADEQUATE ADEQUATE Polychromasia 1+ 1+ Poikilocytosis 1+ 1+ Anisocytosis 1+ 1+ Target Cells FEW Stomatocytes 1+ FEW Other Body Source Fld Total RBCs Counted (%) 100 11/18 11/18 1405 0414 Blood Gas pH (7.35 - 7.45 PH) 7.39 pCO2 (35 - 45 TORR) 34 L pO2 (80 - 100 TORR) 98 HCO3 (21 - 28 MEQ/L) 20 L ABG O2 Sat (Measured) (>96.0 %) 97.0 P-50 (Temp Corrected) N Carboxyhemoglobin (1.5 - 5.0 %) 0.3 L O2 Concentration % 2L Temperature (97.0 - 100.0 FARH) 97.9 O2 Delivery Method N/C Chemistry Sodium (137 - 145 mmol/L) 145 Potassium (3.5 - 5.1 mmol/L) 4.0 Chloride (98 - 107 mmol/L) 109 H Carbon Dioxide (22 - 30 mmol/L) 18 L Anion Gap (5 - 16) 18 H BUN (9 - 20 mg/dL) 20 Creatinine (0.7 - 1.2 mg/dL) 2.3 H Estimated GFR (>60 ml/min) 30 L BUN/Creatinine Ratio (7 - 25 %) 8.7 Calcium (8.4 - 10.2 mg/dL) 8.1 L Phosphorus (2.5 - 4.5 mg/dL) 2.8 Magnesium (1.6 - 2.3 mg/dL) 2.2 Total Bilirubin (0.2 - 1.3 mg/dL) 12.8 H Direct Bilirubin (< 0.4 mg/dL) 11.9 H GGT (15 - 73 U/L) 2625 H AST (17 - 59 U/L) 317 H ALT (21 - 72 U/L) 159 H Alkaline Phosphatase (< 127 U/L) 1410 H Total Protein (6.3 - 8.2 g/dL) 5.8 L Albumin (3.5 - 5.0 g/dL) 3.2 L Coagulation PT (9.4 - 12.5 SEC) 14.1 H INR (0.90 - 1.17) 1.35 H Hematology CBC w Diff MAN DIFF ORDERED WBC (4.8 - 10.8 /CUMM) 10.2 RBC (4.70 - 6.10 /CUMM) 3.52 L Hgb (14.0 - 18.0 G/DL) 11.1 L Hct (42 - 52 %) 32.3 L MCV (80.0 - 94.0 FL) 91.7 MCH (27.0 - 31.0 PG) 31.6 H MCHC (33.0 - 37.0 G/DL) 34.4 RDW (11.5 - 14.5 %) 16.9 H Plt Count (130 - 400 /CUMM) 137 MPV (7.4 - 10.4 FL) 7.6 Segmented Neutrophils (42.2 - 75.2 %) 53 Band Neutrophils (0.0 - 5.0 %) 5 Lymphocytes (20.5 - 51.1 %) 27 Monocytes (1.7 - 9.3 %) 13 H Eosinophils (0 - 5.0 %) 1 Metamyelocytes (0.0 - 1.0 %) 1 Nucleated RBCs (0.0 - 0.0 /100WBC) 3 H Platelet Estimate (ADEQUATE) ADEQUATE Polychromasia 1+ Poikilocytosis 2+ Target Cells FEW Ovalocytes 1+ Stomatocytes 1+ Miscellaneous Phlebotomy Draw Site R BRACHIAL Other Body Source Fld Total RBCs Counted (%) 100
--- NOTE | 2017-11-20 15:55 | RADIOLOGY REPORT ---
EXAMINATION: XR PORTABLE CHEST CLINICAL INFORMATION: Tachypnea. Desaturation. COMPARISON: Chest x-ray 11/18/2017 TECHNIQUE: Portable frontal view of the chest was obtained. 3:13 PM FINDINGS: Asymmetric elevation of right diaphragm compared to left. No acute abnormality. No infiltrate or pleural effusion. No pulmonary vascular congestion. The basilar atelectasis seen on prior chest x-ray has improved in aeration and the overall volume of inspiration is slightly improved. IMPRESSION: No acute abnormality of chest.
--- NOTE | 2017-11-20 18:30 | PN- Psychiatry ---
Assessment/Plan Impression: The patient has recently had his lorazepam drip increased again from 2 mg/hour to 3 mg/hour. He has had a bolus dose for tachycardia. The lorazepam PRN orders from the 'ETOH Detox' order set, which include defined parameters for heart rate , as well as CIWA, have been added. The lorazepam drip rate is adjusted per SAS. As the patient tapers off the lorazepam drip, the last 24 hours delivered should be calculated. The initial PO dosing of lorazepam off the drip should be that total less 20%. Whatever that 20% figure is will be used for further daily dose reductions. For example, if the patient is on lorazepam drip at 1 mg/hour for 24 hours, the total delivered will be 24 mg in the previous 24 hours. The first oral dosing will be 24 mg less 4.8 mg (20%) or approx. 18 mg in 24 hours, divided (3 mg PO q4 hours). If CIWA is declining and PRN lorazepam is declining, reduce the subsequent 24 hour daily doses by the same amount (5 to 6 mg). Example only. Use the calculated 24 hours total. The patient is currently denying visual or tactile hallucinations and is not presenting hannah delusions, but we do not know if his course is waxing and waning yet. Suggestion: 1. Continue lorzepam drip, per protocol. Transition to oral lorazepam as described above, avoiding daily dose decreases greater than 20%, if possible. 2. Maintain "as needed" lorazepam dosing per 'ETOH Detox' order set CIWA protocol, indicated for CIWA score or tachycardia. 3. Sitter while confused or delirious or agitated. The patient should not be allowed to leave AMA or otherwise, until we are sure the delirium has completely resolved. 4. Social work consult to help with aftercare planning. 5. Continue daily thiamine, folic acid and multivitamins. We will continue to follow along with you. Please call quality control supervisor psychiatry if you have any questions about this over the weekend, [phone] or [phone] Subjective Subjective: Drowsy, but arousable, the patient is not in restraints and is sleeping intermittently. He is oriented to name, place, year, but not month or day. He denies visual or tactile hallucinations, and is not presenting hannah delusions. He denies suicidal or homicidal ideation. Limited interview. Review of Systems: Not performed Objective Last 24 Hrs of Vital Signs/I&O Vital Signs Date Time Temp Pulse Resp B/P B/P Pulse O2 O2 Flow FiO2 Mean Ox Delivery Rate 11/20 0910 98 11/20 0609 96 100 11/20 0400 105 135/77 11/20 0400 100 BIPAP 25% 11/20 0313 89 99 11/20 0119 101 100 11/20 0000 97.5 89 118/60 11/20 0000 99 BIPAP 30% 11/20 0000 97.5 89 35 118/60 99 BIPAP 30% 11/19 2233 82 98 11/19 220 74 117/68 11/19 1999 97 BIPAP 30% 11/19 1940 89 99 Intake & Output 11/20 1600 11/20 0800 11/20 0000 Intake Total 836 1246 Output Total 580 700 Balance 256 546 Intake, IV 836 1246 Intake, Oral 0 0 Number 0 Bowel Movements Output, Urine 580 700 Physical Exam: Not performed Physical Exam General Appearance: no apparent distress, lethargic Current Medications: Current Medications Sig/Wagner Start time Last Medication Dose Route Stop Time Status Admin Albumin Human 12.5 GM Q8H 11/15 2100 AC 11/20 IV 1437 Ampicillin Sodium/ 1,500 MG Q12 11/17 2200 AC 11/20 Sulbactam Sodium IV 1120 Sodium Chloride 50 ML Benzocaine/Menthol 1 SUKHI Q2P PRN 11/16 1200 AC 11/16 PO 1951 Bisacodyl 5 MG DAILY 11/17 1000 AC PO Calcium Carbonate 500 MG BID 11/20 2200 AC PO Calcium Carbonate 1,250 MG BID 11/20 1015 DC PO Cholecalciferol 2,000 IU DAILY 11/20 1004 AC 11/20 PO 1436 Cyanocobalamin/ 1 BAG DAILY 11/18 1000 AC 11/20 Thiamine/Pyridoxine IV 0933 Dextrose/Water 1,000 ML Heparin Sodium 5,000 UNIT Q8 11/15 2200 AC 11/20 (Porcine) SC 1435 Lorazepam 2 MG Q2P PRN 11/20 1845 AC IV Lorazepam 1 MG Q2P PRN 11/20 1845 AC IV Lorazepam 50 MG Q24H 11/18 0345 AC 11/20 Dextrose/Water 500 ML IV 1000 Magnesium Sulfate 1 GM ONCE ONE 11/20 0700 DC 11/20 Dextrose/Water 100 ML IV 11/20 1059 0656 Magnesium Sulfate 1 GM ONCE ONE 11/19 1844 DC 11/19 Dextrose/Water 100 ML IV 11/19 2243 184 Ondansetron HCl 4 MG Q6P PRN 11/15 1800 AC IV Phenol 2 SPRAY Q2P PRN 11/15 2030 AC 11/16 EXT 0822 Phosphate 250 MG PC AND AT BEDTIME 11/17 0900 AC 11/20 PO 1828 Potassium Chloride 20 MEQ Q10H 11/17 1700 AC 11/20 Sodium Chloride 1,000 ML IV 1437 Potassium Phosphate 15 mMol ONE ONE 11/19 1844 DC 11/19 Sodium Chloride 250 ML IV 11/19 Senna 187 MG AT BEDTIME 11/17 220 AC PO Thiamine HCl 250 MG DAILY 11/19 1000 AC 11/20 Sodium Chloride 100 ML IV 11/22 1101 0933 Results Last 24 Hrs of Labs/Mics: Laboratory Tests 11/20 0314 Chemistry Sodium (137 - 145 mmol/L) 143 Potassium (3.5 - 5.1 mmol/L) 4.0 Chloride (98 - 107 mmol/L) 107 Carbon Dioxide (22 - 30 mmol/L) 18 L Anion Gap (5 - 16) 17 H BUN (9 - 20 mg/dL) 9 Creatinine (0.7 - 1.2 mg/dL) 1.5 H Estimated GFR (>60 ml/min) 50 L Glucose (65 - 99 mg/dL) 82 Calcium (8.4 - 10.2 mg/dL) 7.8 L Phosphorus (2.5 - 4.5 mg/dL) 2.0 L Magnesium (1.6 - 2.3 mg/dL) 1.7 Total Bilirubin (0.2 - 1.3 mg/dL) 9.6 H GGT (15 - 73 U/L) 2341 H AST (17 - 59 U/L) 166 H ALT (21 - 72 U/L) 119 H Albumin (3.5 - 5.0 g/dL) 3.4 L Vitamin B12 (239 - 931 pg/mL) > 1000 H Folate (2.76 - 20.0 ng/mL) 17.4 Coagulation PT (9.4 - 12.5 SEC) 12.3 INR (0.90 - 1.17) 1.17 Hematology CBC w Diff MAN DIFF ORDERED WBC (4.8 - 10.8 /CUMM) 10.1 RBC (4.70 - 6.10 /CUMM) 3.39 L Hgb (14.0 - 18.0 G/DL) 10.5 L Hct (42 - 52 %) 31.3 L MCV (80.0 - 94.0 FL) 92.4 MCH (27.0 - 31.0 PG) 31.0 MCHC (33.0 - 37.0 G/DL) 33.6 RDW (11.5 - 14.5 %) 18.0 H Plt Count (130 - 400 /CUMM) 186 MPV (7.4 - 10.4 FL) 8.7 Segmented Neutrophils (42.2 - 75.2 %) 49 Band Neutrophils (0.0 - 5.0 %) 6 H Lymphocytes (20.5 - 51.1 %) 26 Monocytes (1.7 - 9.3 %) 15 H Eosinophils (0 - 5.0 %) 1 Basophils (0.0 - 2.0 %) 1 Metamyelocytes (0.0 - 1.0 %) 2 H Platelet Estimate (ADEQUATE) ADEQUATE Polychromasia 1+ Poikilocytosis 2+ Target Cells FEW Ovalocytes 1+ Stomatocytes 1+ Other Body Source Fld Total RBCs Counted (%) 100
[2017-11-21] VITALS (11 sets, daily range): BP systolic 90–122; BP diastolic 45–71
[2017-11-21 05:25] LABS: PT 11.6 SEC (9.4-12.5)
[2017-11-21 05:28] LABS: HEMATOCRIT 31.4 % (42-52); MEAN CORPUSCULAR HGB 30.9 PG (27.0-31.0); MEAN CORPUSCULAR HGB CONC 33.5 G/DL (33.0-37.0); MEAN CORPUSCULAR VOLUME 92.4 FL (80.0-94.0); MEAN PLATELET VOLUME 9.1 FL (7.4-10.4); PLATELET COUNT 231 /CUMM (130-400); RBC DISTRIBUTION WIDTH 17.9 % (11.5-14.5); WHITE BLOOD CELL COUNT 11.8 /CUMM (4.8-10.8)
--- NOTE | 2017-11-21 08:30 | PN- Resident CRCU ---
Rosa Isela Patrick 11/21/17 0830: Subjective HPI/CRCU Issues: 1. Alcohol withdrawal 2. Acute kidney injury 3. Alcoholic Hepatitis/Hyperbilirubinemia/Transaminitis 4. Hypotension 5. Pancreatic cyst/mass 6. Leukocytosis with fever concern for biliary infection? 7. Gram positive rods - bacteremia 24 Hour Events: Patient seen and examined at bedside. He is alert and oriented to person and place. Denies any chest pain, however, does have intermittent episodes of being confused. Vitals within the past 24 hrs, Tmax: 101 @ MN, HR: 88-114, RR: 28-47, 92-119/46-67, down to RA from 2.0 liters of O2. I's: 3860mls; O: 3700mls He has a rash on his right arm, however, according to the , its clearting up a bit? - contact dermatitis rash. Objective Vital Signs & I&O Last 8 Hrs of Vitals and I&O: Laboratory Tests 11/21 0350 Chemistry Sodium (137 - 145 mmol/L) 145 Potassium (3.5 - 5.1 mmol/L) 4.2 Chloride (98 - 107 mmol/L) 111 H Carbon Dioxide (22 - 30 mmol/L) 16 L Anion Gap (5 - 16) 18 H BUN (9 - 20 mg/dL) 7 L Creatinine (0.7 - 1.2 mg/dL) 1.3 H Estimated GFR (>60 ml/min) 58 L Glucose (65 - 99 mg/dL) 96 Calcium (8.4 - 10.2 mg/dL) 8.7 Phosphorus (2.5 - 4.5 mg/dL) 2.1 L Magnesium (1.6 - 2.3 mg/dL) 1.6 Total Bilirubin (0.2 - 1.3 mg/dL) 7.4 H GGT (15 - 73 U/L) 2263 H AST (17 - 59 U/L) 142 H ALT (21 - 72 U/L) 105 H Albumin (3.5 - 5.0 g/dL) 3.6 Coagulation PT (9.4 - 12.5 SEC) 11.6 INR (0.90 - 1.17) 1.11 Hematology CBC w Diff MAN DIFF ORDERED WBC (4.8 - 10.8 /CUMM) 11.8 H RBC (4.70 - 6.10 /CUMM) 3.40 L Hgb (14.0 - 18.0 G/DL) 10.5 L Hct (42 - 52 %) 31.4 L MCV (80.0 - 94.0 FL) 92.4 MCH (27.0 - 31.0 PG) 30.9 MCHC (33.0 - 37.0 G/DL) 33.5 RDW (11.5 - 14.5 %) 17.9 H Plt Count (130 - 400 /CUMM) 231 MPV (7.4 - 10.4 FL) 9.1 Segmented Neutrophils (42.2 - 75.2 %) 52 Band Neutrophils (0.0 - 5.0 %) 7 H Lymphocytes (20.5 - 51.1 %) 32 Monocytes (1.7 - 9.3 %) 3 Eosinophils (0 - 5.0 %) 1 Metamyelocytes (0.0 - 1.0 %) 3 H Myelocytes (0 - 0 %) 2 H Platelet Estimate (ADEQUATE) ADEQUATE Polychromasia 1+ Hypochromic-Microcytic 1+ Poikilocytosis 3+ Anisocytosis 1+ Microcytic Cells 1+ Macrocytic Cells 1+ Target Cells FEW Stomatocytes 3+ Exam General Appearance: awake, comfortable Head: atraumatic Neck: supple Respiratory: normal breath sounds, chest non-tender, no respiratory distress, quiet respiration, lungs clear Cardiovascular: regular rate/rhythm Gastrointestinal: normal bowel sounds, soft, tender to palpation in right upper quadrant Extremities: no edema, has a non-blanchable rash on his right forearm. Clearing Cranial Nerves: PERRL Skin: intact, jaundice Nutrition Nutrition: P.O. diet Current Medications: Current Medications Sig/Wagner Start time Last Medication Dose Route Stop Time Status Admin Albumin Human 12.5 GM Q8H 11/15 2100 AC 11/21 IV 1209 Ampicillin Sodium/ 3,000 MG Q6H 11/21 1600 AC Sulbactam Sodium IV Sodium Chloride 100 ML Ampicillin Sodium/ 1,500 MG Q12 11/17 220 DC 11/21 Sulbactam Sodium IV 1026 Sodium Chloride 50 ML Benzocaine/Menthol 1 SUKHI Q2P PRN 11/16 1200 AC 11/16 PO 195 Bisacodyl 5 MG DAILY 11/17 1000 AC PO Calcium Carbonate 500 MG BID 11/20 2199 AC 11/21 PO 0852 Cholecalciferol 2,000 IU DAILY 11/20 1004 AC 11/21 PO 0852 Cyanocobalamin/ 1 BAG DAILY 11/18 1000 AC 11/21 Thiamine/Pyridoxine IV 1025 Dextrose/Water 1,000 ML Heparin Sodium 5,000 UNIT Q8 11/15 2200 AC 11/21 (Porcine) SC 1429 Lorazepam 50 MG Q16H 11/21 1900 AC Dextrose/Water 500 ML IV Lorazepam 2 MG Q2P PRN 11/20 1845 AC IV Lorazepam 1 MG Q2P PRN 11/20 1845 AC IV Lorazepam 50 MG Q24H 11/18 0345 AC 11/21 Dextrose/Water 500 ML IV 11/21 1859 0422 Ondansetron HCl 4 MG Q6P PRN 11/15 1800 AC IV Phenol 2 SPRAY Q2P PRN 11/15 2030 AC 11/16 EXT 0822 Phosphate 250 MG PC AND AT BEDTIME 11/21 1215 CAN PO 11/21 2101 Phosphate 250 MG PC AND AT BEDTIME 11/17 0900 AC 11/21 PO 0852 Potassium Chloride 20 MEQ Q10H 11/17 1700 AC 11/21 Sodium Chloride 1,000 ML IV 1026 Senna 187 MG AT BEDTIME 11/17 2200 AC 11/20 PO 2115 Thiamine HCl 250 MG DAILY 11/19 1000 AC 11/21 Sodium Chloride 100 ML IV 11/22 1101 1026 Antibiotics Antibiotic: Unasyn Day #: 5 IV/PO? IV If IV, Change to PO? No Results Cultures: Culture: Blood x2 Date: 11/17/17 Isolate: Gram positive rods CXR Findings: SERVICE DATE: 11/20/17-1509 EXAM TYPE: RAD - XRY-PORTABLE CHEST XRAY FINDINGS: Asymmetric elevation of right diaphragm compared to left. No acute abnormality. No infiltrate or pleural effusion. No pulmonary vascular congestion. The basilar atelectasis seen on prior chest x-ray has improved in aeration and the overall volume of inspiration is slightly improved. IMPRESSION: No acute abnormality of chest. Impression/Plan Impression/Problem List Impression: 52-year-old man with a past medical history of hypertension, hyperlipidemia and alcohol use (reported to Martini intake per day ) who presented to the ER with with complaints of fevers since early October, episodes of bloody bowel movements, diarrhea, status post fall associated with blurry vision, headache and tremor-like activity as well as increased confusion. He was found to have severe dehydration with acute kidney injury as well as elevated total bilirubin and transaminases. In addition he had a CT Abdomen/ Pelvis w/o IV contrast that showed enlarged fatty liver and a 3.8 x 4.8 cm cyst or cystic lesion in the tail of the pancreas which was new from 2007. It was difficult to exclude mild diverticulitis of the sigmoid colon. He developed chills, rigors and hallucinations likely from alcohol withdrawal while on admission and he was started on IV unasyn for possibility of cholangitis, but his blood cultures are negative so far. He continues to be on an ativan drip. He also probably has undiagnosed obstructive sleep apnea as he was having tachypnea with episodes of apnea and snoring with associated desaturation. Plan: 1. Alcohol withdrawal * Continue IV Ativan drip today @ 2mg/hr * Switch to PO Ativan and Ativan IV PRN as per [facility] protocol. * Psych on board. F/U recs * Continue IV thiamine, IV banana bag. Switch to PO thiamin, folic acid, and MV tomorrow 2. Acute kidney injury 2/2 dehydration * Creatinine continues to improve and is 1.3 this morning * Continue rehydration with normal saline at 100 mL per hour * Nephrology input appreciated * Avoid nephrotoxic agents. 3. Chills and rigors with concerns for cholangitis * BC x2 from 11/17/17 showing growth of gram positive rods - ? actinomyces, vs Listeria vs cornybacterium - ? possibly contamination. Called micro who said they were unable to differentiate species at this point. They do not think it is bacillus as of this point. The organism is slow growing. F/U repeat BC x2 (11/21). * Continue IV Unasyn for now - day 5 today- will broaden coverage pending results of the CT scan, as his is white count is elevated with leukocytosis and 7 bands today despite being on Unsayn. * Will repeat CT Abdomen/Pelvis and chest w/o contrast for any underlying inefction * He had a recent history of myalgia, mailase with low grade fevers, sore throat and his Rapid flu and strep throat were all negtaive. Tick borne panel, and babesiosis also negative * His CT scan of his abdomen had suggested diverticulitis although he did not have leukocytosis at the time of admission. Consider switching to Ceftriaxone and Flagyl for ?diverticulitis - await results of repeat CT scan. 3. Hyperbilirubinemia/Transaminitis * His hyperbilirubinemia is likely 2/2 alcoholic hepatitis vs ? pancreatic mass casuing obstructive jaundice. Other etiology could be hemophagocytic lymphohistiocytosis ?- transminitis, gait instabilty (which the patient c/o on admission), though he is not * Hepatitis serology negative and HIV panel was neagtive * US Abdomen showed heaptomegaly, hepatic steatosis, a 2.8 x 2.1 x 2.5 cm cyst within the pancreatic tail, no cholilithiasis, or cholecystitis. Ammonia level was WNL * A pancreatic mass casuing obstructive jaundice could also be contributory * His total Bilirubin remains elevated at 7.4 today but on a downward trend * Transaminases trended down to decline with AST 142 and ALT 105 this morning. His GGT is 2263. * His INR is normal today at 1.11 * We will follow-up with gastroenterology recommendations 4. Pancreatic cyst/mass * His renal function is not yet normalized so we will hold off on MRI with pancreatic protocol for now * Follow-up CA-19 for concerns of pancreatic malignancy * Follow up IGG4 panel for possible autoimmune pancreatitis * MRI Pancreatic Protocol when patient's renal function has normalized * Follow-up with gastroenterology for further recommendations 5. Elevated anion gap acidosis with non-aniongap metabolic acidosis and compensatory respiratory alkalosis * Likely secondary to lactic acidosis from hypoperfusion, vomiting and renal insuffiency contributing to the NAGMA * Monitor BEP 6. Hypophosphatemia and hypocalcemia * Replete phosphorus with neutraphos and continue Tums for hypocalcemia with vitamin D 7. Anemia and thrombocytopenia * Likely secondary to hepatic failure * Hemoglobin is 10.1 and Platelet this morning is 231 which is stable * Continue to monitor CBC and consider DC heparin if platelet count drops * iron studies indicates anemia of chronic disease and liver disease - ?? HLH. 8. Hematuria * Resolved * Patient had hematuria probably from tugging at his Rust catheter while he was agitated during his delirium tremens * Urology consultation appreciated. If persistent gross hematuria with a drop in HCT, then would perform cystoscopy. * Continue to monitor CBC and keep rust in place DVT prophylaxis-subcutaneous heparin 5000 IU TID Diet- Puree and honey thick liquids CODE STATUS- Full code Problem List: 1. Pancreatic mass 2. Alcohol withdrawal 3. Liver failure 4. Renal failure Pain Ratin Tomorrow's Labs & Rationales: CBC- platelet count, H&H, and leukocytosis ICU bundle - phsophorus, K, Cr Plan DVT/Prophylaxis: mechanical, pharmacological Moody Little MD 11/21/17 1050: Attending MD Review Statement Attending Sign Off Attending Cosign Statement: I have: examined this patient, reviewed avalbl EMR data, personally reviewd images, discussd w/resident/PA/CLIENT SERVICES COORDINATOR, discussed mgmt plan w/eduardo, discussed mgmt plan w/CM, discussed mgmt plan w/pt, agreed w/resident/PA/CLIENT SERVICES COORDINATOR, amended to note. Other Findings: IMoody M.D. have examined this patient, reviewed available EMR data, personally reviewed images, discussed with resident/PA/CLIENT SERVICES COORDINATOR, discussed management plan with housestaff and nursing staff, discussed managment plan all of healthcare providers, discussed management plan with patient and/or family, agreed with resident/PA/CLIENT SERVICES COORDINATOR. The past history and parts of the chart have been autopopulated. Impression 52 year old man * admitted to the ICU for hypoxemic respiratory failure secondary to possible pneumonia vs pneumonitis * AMBAR - possible hypotension, reduced po intake * transaminitis * pancreatic lesion - mass vs cyst * anemia * etoh dependence and withdrawal Plan Respiratory/ID -improved -cxr clear -Gm positive rods -on unasyn for a possible aspiration pna, however cxr normal now CVS -monitor hemodynamics Heme -monitor coags and cbc Metabolic -monitor electrolytes, creatinine -nephrology following -mvi, folate, thiamine (s/p high dose thiamine) -f/u GI recs regarding lfts and pancreatic lesion Alimentary -advance diet Neuro -off ativan gtt since this am -ciwa monitoring -if remains off ativan can downgrade to GM TTS 35 min
--- NOTE | 2017-11-21 18:30 | CT SCAN REPORT ---
EXAMINATION: CT CHEST, ABDOMEN AND PELVIS WITHOUT CONTRAST CLINICAL INFORMATION: Leukocytosis. Febrile. Rule out diverticulitis, pancreatitis, pneumonia COMPARISON: CT scan of the abdomen and pelvis dated 11/15/2017 and 06/26/2008. TECHNIQUE: Multidetector volumetric imaging was performed from the superior aspect of the liver through the pubic symphysis. Sagittal and coronal reformatted images were obtained on the technologist workstation. DLP: 668.92 mGy-cm. FINDINGS: CT SCAN OF THE CHEST: LUNGS: In the right upper lobe, a 7 mm solid noncalcified pulmonary nodule is seen with linear bandlike densities extending to the posterior pleural surface with associated mild focal thickening of the pleura (series 4, image 134). Small calcified granuloma seen in the right upper lobe (series 4, image 189). In the left lower lobe, there is a lobulated 8 mm calcification with coarse calcification and with associated retractile change of the left major fissure (series 4, image 221), also consistent with a granuloma. No suspicious pulmonary nodule or mass is seen. There is volume loss and atelectasis/consolidation seen in the right lower lobe and lateral segment of the right middle lobe with elevation of the right hemidiaphragm associated air bronchograms are seen. No central obstructing mass or filling defect within the airways is seen. There is also some linear segmental atelectatic change in the left lower lobe. No effusion or pneumothorax. Central airways patent. LYMPHOVASCULAR STRUCTURES: Aortic and heart size normal. No pericardial effusion. Small calcified right lower paratracheal lymph node is seen. No mediastinal, hilar or axillary adenopathy or free fluid collection. THYROID GLAND: Unremarkable to the extent included. BONES: Unremarkable. CT SCAN OF THE ABDOMEN AND PELVIS: LIVER, GALLBLADDER, AND BILIARY TREE: The liver is enlarged, measuring 20.4 cm longitudinally. Diffuse hepatic steatosis is noted. No focal hepatic lesion on noncontrast imaging. No biliary ductal dilatation is present. Gallbladder is dilated and demonstrates several faintly calcified gallstones. Subtle thickening of the gallbladder wall and pericholecystic edema is seen. No intra or extrahepatic biliary ductal dilatation is seen. PANCREAS: Again seen is mild stranding around the pancreatic tail. There is also a 4.4 x 3.1 cm thin-walled cystic mass in the pancreatic tail, slightly smaller compared to 4.8 x 3.7 cm on 11/15/2017. Findings are most likely due to chronic pancreatitis and a slightly involuting pancreatic pseudocyst. Adjacent punctate calcification is unchanged. Remainder of pancreas is unremarkable on noncontrast study. No pancreatic ductal dilatation is seen. SPLEEN, ADRENAL GLANDS: Unremarkable on noncontrast imaging. KIDNEYS AND URETERS: There is a 1.4 x 1.1 cm mid right renal cortical cyst, unchanged. The kidneys are otherwise unremarkable. No nephrolithiasis or hydroureteronephrosis seen. No ureteral calculi noted. BLADDER: And air-fluid level is seen within a decompressed bladder, likely related to Myers catheter placement. PELVIC VISCERA: Unremarkable. GASTROINTESTINAL TRACT: Chronic sigmoid colonic diverticulosis is seen with diffuse circumferential wall thickening and mild surrounding hyperemia. Other scattered colonic diverticula are also seen without evidence of acute diverticulitis. Small and large bowel loops are otherwise unremarkable. The appendix is unremarkable. ABDOMINAL WALL: There is a tiny fat-containing umbilical hernia. LYMPH NODES, VASCULAR: No abdominal or pelvic adenopathy is seen. No free fluid. Abdominal aorta normal in caliber. Incidental note is made of a retroaortic left renal vein. OSSEOUS STRUCTURES: Small sclerotic bone island in the left iliac bone again noted, unchanged. No significant focal abnormality seen. IMPRESSION: 1. Dilated gallbladder with subtle wall thickening and mild surrounding edema seen. Findings raise the suspicion of cholelithiasis and acute cholecystitis. Close clinical correlation is requested. No biliary obstruction noted. 2. Chronic pancreatitis around the pancreatic tail again seen with redemonstration of presumed pancreatic pseudocyst in the pancreatic tail. Compared to the prior exam, there may be a slight decrease in size of this pseudocyst. 3. Volume loss with atelectasis and consolidation in the right lower lobe and segmental atelectasis in the lateral segment of the right middle lobe. No central obstructing lesion seen. 4. 7 mm solid noncalcified pulmonary nodule in the right upper lobe. Findings are nonspecific but will require follow-up to exclude malignancy. In a low-risk and in a high risk population, per the Fleischner criteria, initial follow-up CT scan in 6-12 months is recommended. 5. Hepatomegaly with diffuse hepatic steatosis. 6. Chronic colonic diverticulosis. 7. Small right renal cyst. 8. Evidence of old granulomatous lung disease.
[2017-11-22] VITALS (9 sets, daily range): BP systolic 16–120; BP diastolic 47–64
[2017-11-22 06:35] LABS: HEMATOCRIT 28.6 % (42-52); MEAN CORPUSCULAR HGB 30.2 PG (27.0-31.0); MEAN CORPUSCULAR HGB CONC 32.3 G/DL (33.0-37.0); MEAN CORPUSCULAR VOLUME 93.4 FL (80.0-94.0); PLATELET COUNT 243 /CUMM (130-400); RBC DISTRIBUTION WIDTH 18.5 % (11.5-14.5); RED BLOOD CELL CT 3.07 /CUMM (4.70-6.10); WHITE BLOOD CELL COUNT 12.4 /CUMM (4.8-10.8)
--- NOTE | 2017-11-22 08:59 | PN- Resident CRCU ---
Jasmin Lira 11/22/17 0859: Subjective HPI/CRCU Issues: 1. Alcohol withdrawal 2. Acute kidney injury likely due to hypotension from reduced alcohol intake. 3. Alcoholic Hepatitis/Hyperbilirubinemia/Transaminitis(with the findings of acute cholecystitis and gallbladder dilatation) 4. Leukocytosis with fever and from positive meenakshi septicemia- concern for biliary infection? 5. Hypoxic respiratory failure secondary to pneumonia versus pneumonitis 7. New findings of pulmonary nodule on CAT scan(7mm ) 24 Hour Events: Patient is seen and examined this morning, seems alert but confused oriented 1, had a low-grade temperature this morning 99.4, otherwise vitals are stable heart rate 91, respiratory rate 20, blood pressure 117/68 on room air. Denies any chest discomfort or trouble breathing. Denies any abdominal discomfort/nausea vomiting. He has a rash on his right arm, however, according to the , its clearing - contact dermatitis rash. Objective Vital Signs & I&O Last 8 Hrs of Vitals and I&O: Vital Signs Date Time Temp Pulse Resp B/P B/P Pulse O2 O2 Flow FiO2 Mean Ox Delivery Rate 02/04 0800 99.4 81 24 118/64 02/04 0800 96 Room Air 02/04 0800 99.4 81 24 118/64 96 Room Air 02/04 0600 98.7 76 27 112/60 02/04 0400 98.7 78 33 113/53 02/04 0400 97 Room Air 02/04 0000 97.0 86 39 118/50 02/04 0000 97 Room Air 02/04 0000 99.9 86 39 118/50 97 Room Air 02/03 2200 99.0 100 36 106/69 02/03 1999 99.0 90 40 112/68 02/03 2000 97 Room Air 02/03 1800 88 26 109/71 02/03 1600 Room Air 02/03 1600 97.0 86 24 113/61 02/03 1600 97.0 86 24 113/61 97 Room Air 02/03 1200 100.0 90 30 90/60 02/03 1200 97 Nasal 2.0L Cannula Intake & Output 02/04 1600 02/04 0800 02/04 0000 Intake Total 883 1620 Output Total 1050 1300 Balance -167 320 Intake, IV 883 1020 Intake, Oral 0 600 Number 1 Bowel Movements Output, Stool 150 Output, Urine 900 1300 Exam General Appearance: well developed/nourished, no apparent distress, alert Head: atraumatic, normal appearance Ears, Nose, Throat: normal pharynx, normal ENT inspection Neck: normal inspection, supple Respiratory: normal breath sounds, chest non-tender Cardiovascular: regular rate/rhythm, edema Gastrointestinal: normal bowel sounds, soft Current Medications: Current Medications Sig/Wagner Start time Last Medication Dose Route Stop Time Status Admin Albumin Human 12.5 GM Q8H 11/15 2100 AC 11/22 IV 1233 Ampicillin Sodium/ 3,000 MG Q6H 11/21 1600 AC 11/22 Sulbactam Sodium IV 1656 Sodium Chloride 100 ML Benzocaine/Menthol 1 SUKHI Q2P PRN 11/16 1200 AC 11/16 PO 1951 Bisacodyl 5 MG DAILY 11/17 1000 AC PO Calcium Carbonate 500 MG BID 11/20 2200 AC 11/22 PO 0808 Cholecalciferol 2,000 IU DAILY 11/20 1004 AC 11/22 PO 0807 Folic Acid 1 MG DAILY 11/22 1000 AC 11/22 PO 0807 Heparin Sodium 5,000 UNIT Q8 11/15 2200 AC 11/22 (Porcine) SC 1418 Lorazepam 2 MG Q6 11/22 1200 AC 11/22 PO 1702 Lorazepam 50 MG Q16H 11/21 1900 AC 11/21 Dextrose/Water 500 ML IV 2138 Lorazepam 2 MG Q2P PRN 11/20 1845 AC IV Lorazepam 1 MG Q2P PRN 11/20 1845 AC IV Lorazepam 50 MG Q24H 11/18 0345 DC 11/21 Dextrose/Water 500 ML IV 11/21 1859 0422 Magnesium Sulfate 1 GM Q2H 11/22 1000 DC 11/22 Dextrose/Water 100 ML IV 11/22 1359 1417 Multivitamins 1 TAB DAILY 11/22 1000 AC 11/22 PO 0807 Ondansetron HCl 4 MG Q6P PRN 11/15 1800 AC IV Phenol 2 SPRAY Q2P PRN 11/15 2030 AC 11/16 EXT 0822 Phosphate 250 MG PC AND AT BEDTIME 11/17 0900 AC 11/22 PO 1702 Potassium Chloride 20 MEQ Q10H 11/17 1700 AC 11/22 Sodium Chloride 1,000 ML IV 0621 Senna 187 MG AT BEDTIME 11/17 2200 AC 11/20 PO 2115 Thiamine HCl 100 MG DAILY 11/22 1000 AC 11/22 PO 0807 Thiamine HCl 250 MG DAILY 11/19 1000 DC 11/22 Sodium Chloride 100 ML IV 11/22 1101 1118 Impression/Plan Impression/Problem List Impression: 52-year-old man with a past medical history of hypertension, hyperlipidemia and alcohol use (reported to Martini intake per day ) who presented to the ER with with complaints of fevers since early October, episodes of bloody bowel movements, diarrhea, status post fall associated with blurry vision, headache and tremor-like activity as well as increased confusion. He was found to have severe dehydration with acute kidney injury as well as elevated total bilirubin and transaminases. In addition he had a CT Abdomen/ Pelvis w/o IV contrast that showed enlarged fatty liver and a 3.8 x 4.8 cm cyst or cystic lesion in the tail of the pancreas which was new from 2007. It was difficult to exclude mild diverticulitis of the sigmoid colon. He developed chills, rigors and hallucinations likely from alcohol withdrawal while on admission and he was started on IV unasyn for possibility of cholangitis, but his blood cultures are negative so far. He continues to be on an ativan drip. He also probably has undiagnosed obstructive sleep apnea as he was having tachypnea with episodes of apnea and snoring with associated desaturation. Plan: 1. Alcohol withdrawal * We'll discontinue IV Ativan drip and start the patient on by mouth scheduled Ativan 2 mg every 6 hours. * Continue with Ativan IV PRN as per [facility] protocol. * Psych on board. F/U recs * Continue IV thiamine, IV banana bag for now we'll switch him to switch him Switch to PO thiamin, folic acid, and MV later during the day 2. Acute kidney injury likely due to hypotension from reduced alcohol intake. * Creatinine continues to improve and is 1.1 this morning * Continue rehydration with normal saline at 100 mL per hour * Nephrology input appreciated * Avoid nephrotoxic agents. 3. Leukocytosis with fever and from positive meenakshi septicemia( findings of acute cholecystitis and gallbladder dilatation) * BC x2 from 11/17/17 showing growth of gram positive rods - ? actinomyces, vs Listeria vs cornybacterium - ? possibly contamination. Called micro who said they were unable to differentiate species at this point. They do not think it is bacillus as of this point. The organism is slow growing. F/U repeat BC x2 (11/21). * Continue IV Unasyn for now - day 6 today. * CT abdomen and pelvis done yesterday showed Dilated gallbladder with subtle wall thickening and mild surrounding edema. Surgical consult was obtained with Dr Vasquez has been obtained , as per recommendations no plans for any surgical interventions for now, we'll continue to monitor and treat the patient empirically. * Will consider HIDA scan versus MRCP tomorrow for further investigation. * He had a recent history of myalgia, mailase with low grade fevers, sore throat and his Rapid flu and strep throat were all negtaive. Tick borne panel, and babesiosis also negative 3. Hyperbilirubinemia/Transaminitis likely due to alcoholic hepatitis * His hyperbilirubinemia is likely 2/2 alcoholic hepatitis vs ? pancreatic mass casuing obstructive jaundice. Other etiology could be hemophagocytic lymphohistiocytosis ?- transminitis, gait instabilty (which the patient c/o on admission), though he is not * Hepatitis serology negative and HIV panel was neagtive * US Abdomen showed heaptomegaly, hepatic steatosis, a 2.8 x 2.1 x 2.5 cm cyst within the pancreatic tail, no cholilithiasis, or cholecystitis. Ammonia level was WNL * A pancreatic mass/ presumed pancreatic pseudocyst casuing obstructive jaundice could also be contributory * His total Bilirubin trending down today 4.3. * Transaminases trended down to decline with AST 129 and ALT : 94 this morning. His GGT is 2263. * His INR is normal today at 1. On 4 * We will follow-up with gastroenterology recommendations 4. Pancreatic cyst/mass * consider MRI with pancreatic protocol * Follow-up CA-19 for concerns of pancreatic malignancy * Follow up IGG4 panel for possible autoimmune pancreatitis * Follow-up with gastroenterology for further recommendations 5. Elevated anion gap acidosis with non-aniongap metabolic acidosis and compensatory respiratory alkalosis * Likely secondary to lactic acidosis from hypoperfusion, vomiting and renal insuffiency contributing to the NAGMA * Monitor BEP 6. Hypophosphatemia and hypocalcemia * Replete phosphorus with neutraphos and continue Tums for hypocalcemia with vitamin D 7. Anemia and thrombocytopenia * Likely secondary to hepatic failure * Hemoglobin is 9.3 and Platelet this morning is 243which is stable * Continue to monitor CBC and consider DC heparin if platelet count drops * iron studies indicates anemia of chronic disease and liver disease - ?? HLH. 8. Hematuria * Resolved * Patient had hematuria probably from tugging at his Rust catheter while he was agitated during his delirium tremens * Urology consultation appreciated. If persistent gross hematuria with a drop in HCT, then would perform cystoscopy. * Continue to monitor CBC and keep rust in place DVT prophylaxis-subcutaneous heparin 5000 IU TID Diet- Puree and honey thick liquids CODE STATUS- Full code Problem List: 1. Pancreatic mass 2. Alcohol withdrawal 3. Liver failure Pain Ratin Pain Goal: Remain pain free Tomorrow's Labs & Rationales: CBC and ICU BUNDLE Plan DVT/Prophylaxis: mechanical, pharmacological Moody Little MD 11/22/17 0945: Attending MD Review Statement Attending Sign Off Attending Cosign Statement: I have: examined this patient, reviewed avalbl EMR data, personally reviewd images, discussd w/resident/PA/PROFESSOR OF ECONOMICS, discussed mgmt plan w/eduardo, discussed mgmt plan w/CM, discussed mgmt plan w/pt, agreed w/resident/PA/PROFESSOR OF ECONOMICS, amended to note. Other Findings: IMoody M.D. have examined this patient, reviewed available EMR data, personally reviewed images, discussed with resident/PA/PROFESSOR OF ECONOMICS, discussed management plan with housestaff and nursing staff, discussed managment plan all of healthcare providers, discussed management plan with patient and/or family, agreed with resident/PA/PROFESSOR OF ECONOMICS. The past history and parts of the chart have been autopopulated. Impression 52 year old man * admitted to the ICU for hypoxemic respiratory failure secondary to possible pneumonia vs pneumonitis * AMBAR - possible hypotension, reduced po intake * transaminitis * pancreatic lesion - mass vs cyst * anemia * etoh dependence and withdrawal * chronic pancreatitis * dilated GB indicating acute cholecysititis given edema * 7mm pulmonary nodule RUL Plan Respiratory/ID -improved -cxr clear -Gm positive rods -on unasyn -ID consultation -nodule follow up CVS -monitor hemodynamics Heme -monitor coags and cbc Metabolic -monitor electrolytes, creatinine -nephrology following -mvi, folate, thiamine (s/p high dose thiamine) -f/u GI recs regarding lfts and pancreatic lesion Alimentary -switch dietary status to NPO -surgical evaluation Neuro -1cc/hr ativan -ciwa monitoring TTS 35 min
--- NOTE | 2017-11-22 11:06 | Cons- Infect Disease ---
General Information and HPI Consulting Request Date of Consult: 11/22/17 Requested By: Cecilio Valverde MD Reason for Consult: Positive blood cultures Source of Information: patient Exam Limitations: clinical condition History of Present Illness: This is a 52-year-old man with a history of hypertension, hyperlipidemia and alcohol abuse admitted on November 15 after he was found on the floor at home by his , with a one month history of fevers and body aches, one week history of nausea, nonbloody emesis and diarrhea, with 1 bloody stool, and decreased urination and increasing unsteadiness and weakness, resulting in several falls. On admission he was afebrile. His initial blood pressure was 168/104, but he dropped to 74/39, for which he received 4 L of fluid. Laboratory data revealed a white blood cell count of 9000, platelets 128,000, BUN/creatinine 50 and 6.7, sodium 122, lactic acid 2.3, amylase/lipase normal, bilirubin 12.1 (direct 11.4) alkaline phosphatase 750, AST/ALT 696 and 266, ammonia level 16, CPK 707, alcohol level less than 10, INR 1.34, ABG 7.43/28/78 on room air. Urinalysis 3- 5 RBCs/5-10 WBCs. Chest x-ray was negative. CT of the head and cervical spine were negative for any acute process. CT of the abdomen and pelvis revealed an enlarged fatty liver, a cystic lesion in the tail of the pancreas with an adjacent small focal calcification in the pancreas and some stranding of the surrounding peripancreatic fat and diverticulosis, with possible sigmoid diverticulitis. He was given a dose of Ceftriaxone in the emergency room and then followed off antibiotics. He was placed on a CIWA protocol and admitted to the ICU. On November 17 he was noted to have shaking chills and he was begun on Unasyn. He has had intermittent respiratory distress, but this has improved. He remained afebrile until November 20 when he spiked to 101.1, but he has defervesced since. His white blood cell count was normal until November 21, when it increased to 12,000, where it has remained, with increasing bands and with Dohle bodies on the peripheral smear. On November 20 one blood culture was reported positive for gram-positive rods, with a second set positive on November 21. His renal failure has resolved with fluids. His liver enzymes have also improved, though his last alkaline phosphatase 4 days ago was increased. He does not report any complaints at this time. Allergies/Medications Allergies: Coded Allergies: acetaminophen (From PERCOCET) (Severe, ITCH 02/05/16) hydrocodone (Severe, ITCH 02/05/16) oxycodone (Severe, ITCH 02/05/16) Home Med List: Atorvastatin Calcium 40 MG TABLET 1 TAB PO DAILY choolestrol (Reported) Escitalopram Oxalate 10 MG TABLET 1 TAB PO DAILY insomnia (Reported) Lisinopril/Hydrochlorothiazide (Lisinopril-Hctz 20-12.5 MG Tab) 20 MG-12.5 MG TABLET 1 TAB PO DAILY htn (Reported) Past History Travel History Traveled to [place] past 21 day No Medical History Blood Transfusion Hx: No Neurological: NONE EENT: NONE Cardiovascular: hypertension, hyperlipidemia Respiratory: NONE Gastrointestinal: diverticulitis Hepatic: NONE Renal: NONE Musculoskeletal: NONE Psychiatric: NONE Endocrine: NONE Blood Disorders: NONE Cancer(s): NONE 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 Home Who Do You Live With? spouse Primary Language: Ghanaian Smoking Status: Never Smoked ETOH Use: DRINKS ON A DAILY BASIS Illicit Drug Use: denies illicit drug use Functional Ability ADLs Independent: dressing, eating, toileting, bathing. 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[employer] Review of Systems Review of Systems All Other Systems: Reviewed and Negative Exam & Diagnostic Data Last 24 Hrs of Vital Signs/I&O Vital Signs Date Time Temp Pulse Resp B/P B/P Pulse O2 O2 Flow FiO2 Mean Ox Delivery Rate 11/22 0800 99.4 81 24 118/64 11/22 0800 96 Room Air 11/22 0800 99.4 81 24 118/64 96 Room Air 11/22 0600 98.7 76 27 112/60 / 0400 98.7 78 33 113/53 / 0400 97 Room Air 11/22 0000 97.0 86 39 118/50 02/04 0000 97 Room Air 11/22 0000 99.9 86 39 118/50 97 Room Air 11/21 2200 99.0 100 36 106/69 11/21 1999 99.0 90 40 112/68 11/21 1999 97 Room Air 11/21 1800 88 26 109/71 / 1600 Room Air 11/21 1600 97.0 86 24 113/61 02/ 1600 97.0 86 24 113/61 97 Room Air 11/21 1200 100.0 90 30 90/60 / 1200 97 Nasal 2.0L Cannula Intake & Output 11/22 1600 11/22 0800 11/22 0000 Intake Total 883 1620 Output Total 1050 1300 Balance -167 320 Intake, IV 883 1020 Intake, Oral 0 600 Number 1 Bowel Movements Output, Stool 150 Output, Urine 900 1300 Physical Exam Other Physical Findings: Afebrile. He is lethargic, with a weak voice, but easily arousable and responsive, in no acute distress. Skin reveals no rash. HEENT scleral icterus. Neck is supple with no adenopathy. Lungs decreased breath sounds at the right base. Heart regular rhythm with no murmur. Abdomen is soft, nontender with positive bowel sounds. Back no CVA tenderness. Extremities no cyanosis, clubbing or edema. Neuro is without focality. Myers catheter is in place. Last 24 Hours of Lab Results: Laboratory Tests 11/22 517 Chemistry Sodium (137 - 145 mmol/L) 147 H Potassium (3.5 - 5.1 mmol/L) 4.0 Chloride (98 - 107 mmol/L) 114 H Carbon Dioxide (22 - 30 mmol/L) 15 L Anion Gap (5 - 16) 17 H BUN (9 - 20 mg/dL) 6 L Creatinine (0.7 - 1.2 mg/dL) 1.1 Estimated GFR (>60 ml/min) > 60 Glucose (65 - 99 mg/dL) 94 Calcium (8.4 - 10.2 mg/dL) 8.6 Phosphorus (2.5 - 4.5 mg/dL) 2.7 Magnesium (1.6 - 2.3 mg/dL) 1.3 L Total Bilirubin (0.2 - 1.3 mg/dL) 4.3 H GGT (15 - 73 U/L) 1920 H AST (17 - 59 U/L) 129 H ALT (21 - 72 U/L) 94 H Albumin (3.5 - 5.0 g/dL) 3.4 L Triglycerides (<150 mg/dL) 387 H Cholesterol (< 200 MG/DL) 346 H LDL Cholesterol, Calc (65 - 129 mg/dL) 196 H HDL Cholesterol (40 - 60 mg/dL) 52 Cholesterol/HDL Ratio (0.00 - 4.88 %) 6.7 H Coagulation PT (9.4 - 12.5 SEC) 12.0 INR (0.90 - 1.17) 1.14 Hematology CBC w Diff MAN DIFF ORDERED WBC (4.8 - 10.8 /CUMM) 12.4 H RBC (4.70 - 6.10 /CUMM) 3.07 L Hgb (14.0 - 18.0 G/DL) 9.3 L Hct (42 - 52 %) 28.6 L MCV (80.0 - 94.0 FL) 93.4 MCH (27.0 - 31.0 PG) 30.2 MCHC (33.0 - 37.0 G/DL) 32.3 L RDW (11.5 - 14.5 %) 18.5 H Plt Count (130 - 400 /CUMM) 243 MPV (7.4 - 10.4 FL) 9.0 Segmented Neutrophils (42.2 - 75.2 %) 58 Band Neutrophils (0.0 - 5.0 %) 14 H Lymphocytes (20.5 - 51.1 %) 24 Monocytes (1.7 - 9.3 %) 1 L Basophils (0.0 - 2.0 %) 2 Metamyelocytes (0.0 - 1.0 %) 1 Platelet Estimate (ADEQUATE) ADEQUATE Polychromasia 1+ Hypochromic-Microcytic 2+ Poikilocytosis 3+ Anisocytosis 1+ Microcytic Cells 1+ Macrocytic Cells 1+ Stomatocytes 3+ Last 24 Hours of Jean-Pierre Results: Blood cultures November 17 positive for probable anaerobic gram-positive rods and gram-negative rods Blood cultures November 21 negative Diagnostic Data Recent Imaging Findings: Chest x-ray November [address] of the head and cervical spine November 15 negative for any acute process. CT of the abdomen and pelvis November 15 revealed an enlarged fatty liver, a cystic lesion in the tail of the pancreas with an adjacent small focal calcification in the pancreas and some stranding of the surrounding peripancreatic fat and diverticulosis, with possible sigmoid diverticulitis. Right upper quadrant ultrasound November 16 reveals hepatomegaly and hepatic steatosis, with no cholelithiasis or sonographic evidence of cholecystitis; cyst within the pancreatic tail Chest x-ray November [address] of the chest, abdomen and pelvis without contrast November 21 reveals a dilated gallbladder with subtle wall thickening and mild surrounding edema, with several faintly calcified gallstones, with no dilated ducts; chronic pancreatitis with a presumed pancreatic pseudocyst cyst in the pancreatic tail; volume loss with atelectasis and consolidation in the right lower lobe and lateral segment of the right middle lobe; hepatomegaly with diffuse hepatic steatosis; no evidence of diverticulitis Assessment/Plan Assessment/Plan Impression: This is a 52-year-old man with a history of hypertension, hyperlipidemia and alcohol abuse admitted on November 15 after he was found on the floor at home with a one month history of fevers and body aches, one week history of nausea, nonbloody emesis and diarrhea, with 1 bloody stool, and decreased urination and increasing unsteadiness and weakness, resulting in several falls, found initially to be afebrile with acute renal failure, which resolved with fluids, and markedly elevated liver enzymes, which are decreasing, with the CT of the abdomen and pelvis negative for any definite acute process, with blood cultures His clinical presentation is suggestive of sepsis, with positive blood cultures, recent fevers and chills, and with increased bands and Dohle bodies noted on the peripheral smear. The source is most likely intra-abdominal, with mixed anaerobes isolated, with possible foci including the gallbladder, with the elevated liver enzymes and abnormal findings on the CT scan, though he has no right upper quadrant tenderness presently, diverticulitis, with a history of a perforated diverticulitis and suggestion of possible diverticulitis on his initial CT scan, or the pancreas, with the CT scan suggesting a pseudocyst or cystic pancreatic neoplasm. He remains on Unasyn, which should cover the organisms isolated from the blood cultures, and it can be continued pending further evaluation. Suggestion: 1. Repeat alkaline phosphatase 2. Would pursue HIDA scan 3. MRI of the abdomen with contrast if/when okay with Renal 4. Remove Myers catheter 5. Continue Unasyn Consult Acknowledgment - Thank you for your consult request.
--- NOTE | 2017-11-22 11:31 | Cons- General Surgery ---
General Information and HPI Consulting Request Date of Consult: 11/22/17 Requested By: Cecilio Valverde MD Reason for Consult: gallbladder History of Present Illness: Patient cannot give a history. He is responsive to voice but does not formulate words spontaneously or cannot answer questions. From information gleaned from chart, admitted with hepatic and renal failure, both of which appear to be resolving slowly. Presumed Ethoh induced. Allergies/Medications Allergies: Coded Allergies: acetaminophen (From PERCOCET) (Severe, ITCH 02/05/16) hydrocodone (Severe, ITCH 02/05/16) oxycodone (Severe, ITCH 02/05/16) Home Med List: Atorvastatin Calcium 40 MG TABLET 1 TAB PO DAILY choolestrol (Reported) Escitalopram Oxalate 10 MG TABLET 1 TAB PO DAILY insomnia (Reported) Lisinopril/Hydrochlorothiazide (Lisinopril-Hctz 20-12.5 MG Tab) 20 MG-12.5 MG TABLET 1 TAB PO DAILY htn (Reported) Past History Medical History Blood Transfusion Hx: No Neurological: NONE EENT: NONE Cardiovascular: hypertension, hyperlipidemia Respiratory: NONE Gastrointestinal: NONE Hepatic: alcoholic hepatitis Renal: NONE Musculoskeletal: NONE Psychiatric: alcohol dependence Endocrine: NONE Blood Disorders: NONE Cancer(s): NONE 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 Home Who Do You Live With? spouse Primary Language: Turkmen Smoking Status: Never Smoked ETOH Use: DRINKS ON A DAILY BASIS Illicit Drug Use: denies illicit drug use Functional Ability ADLs Independent: dressing, eating, toileting, bathing. 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[employer] Review of Systems Review of Systems: unobtainable Exam & Diagnostic Data Vital Signs and I&O Vital Signs Date Time Temp Pulse Resp B/P B/P Pulse O2 O2 Flow FiO2 Mean Ox Delivery Rate 11/22 0800 99.4 81 24 118/64 11/22 0800 96 Room Air 11/22 0800 99.4 81 24 118/64 96 Room Air 11/22 0600 98.7 76 27 112/60 11/22 0400 98.7 78 33 113/53 11/22 0400 97 Room Air 11/22 0000 97.0 86 39 118/50 11/22 0000 97 Room Air 11/22 0000 99.9 86 39 118/50 97 Room Air / 2200 99.0 100 36 106/69 11/21 1999 99.0 90 40 112/68 11/21 1999 97 Room Air 11/21 1800 88 26 109/71 11/21 1600 Room Air 11/21 1600 97.0 86 24 113/61 11/21 1600 97.0 86 24 113/61 97 Room Air 11/21 1200 100.0 90 30 90/60 11/21 1200 97 Nasal 2.0L Cannula Intake & Output 11/22 1600 11/22 0800 11/22 0000 11/21 1600 11/21 0800 11/21 0000 Intake Total 883 1620 1318 1092.4 1440.5 Output Total 1050 5314 771 9010 1450 Balance -167 320 568 42.4 -9.5 Intake, IV 883 1020 1078 1092.4 1220.5 Intake, Oral 0 600 240 0 220 Number 1 2 0 2 Bowel Movements Output, Stool 150 Output, Urine 900 7849 736 7457 1450 Patient 187 lb Weight Weight Bed scale Measurement Method Physical Exam: gen:jaundice, nad. awake. no oriented. heent; icteric, mmm, no nodes abd; soft, nt, nd. no mass Last 24 Hours of Labs: Laboratory Tests 11/22 517 Chemistry Sodium (137 - 145 mmol/L) 147 H Potassium (3.5 - 5.1 mmol/L) 4.0 Chloride (98 - 107 mmol/L) 114 H Carbon Dioxide (22 - 30 mmol/L) 15 L Anion Gap (5 - 16) 17 H BUN (9 - 20 mg/dL) 6 L Creatinine (0.7 - 1.2 mg/dL) 1.1 Estimated GFR (>60 ml/min) > 60 Glucose (65 - 99 mg/dL) 94 Calcium (8.4 - 10.2 mg/dL) 8.6 Phosphorus (2.5 - 4.5 mg/dL) 2.7 Magnesium (1.6 - 2.3 mg/dL) 1.3 L Total Bilirubin (0.2 - 1.3 mg/dL) 4.3 H GGT (15 - 73 U/L) 1920 H AST (17 - 59 U/L) 129 H ALT (21 - 72 U/L) 94 H Albumin (3.5 - 5.0 g/dL) 3.4 L Triglycerides (<150 mg/dL) 387 H Cholesterol (< 200 MG/DL) 346 H LDL Cholesterol, Calc (65 - 129 mg/dL) 196 H HDL Cholesterol (40 - 60 mg/dL) 52 Cholesterol/HDL Ratio (0.00 - 4.88 %) 6.7 H Coagulation PT (9.4 - 12.5 SEC) 12.0 INR (0.90 - 1.17) 1.14 Hematology CBC w Diff MAN DIFF ORDERED WBC (4.8 - 10.8 /CUMM) 12.4 H RBC (4.70 - 6.10 /CUMM) 3.07 L Hgb (14.0 - 18.0 G/DL) 9.3 L Hct (42 - 52 %) 28.6 L MCV (80.0 - 94.0 FL) 93.4 MCH (27.0 - 31.0 PG) 30.2 MCHC (33.0 - 37.0 G/DL) 32.3 L RDW (11.5 - 14.5 %) 18.5 H Plt Count (130 - 400 /CUMM) 243 MPV (7.4 - 10.4 FL) 9.0 Segmented Neutrophils (42.2 - 75.2 %) 58 Band Neutrophils (0.0 - 5.0 %) 14 H Lymphocytes (20.5 - 51.1 %) 24 Monocytes (1.7 - 9.3 %) 1 L Basophils (0.0 - 2.0 %) 2 Metamyelocytes (0.0 - 1.0 %) 1 Platelet Estimate (ADEQUATE) ADEQUATE Polychromasia 1+ Hypochromic-Microcytic 2+ Poikilocytosis 3+ Anisocytosis 1+ Microcytic Cells 1+ Macrocytic Cells 1+ Stomatocytes 3+ Imaging Results: Ultrasound 11/16 shows no gallstones or inflammation of gallbladder CT abd/pelvis 11/21/17 shows mild gallbladder wall edema. Assessment/Plan Assessment/Plan No clinical evidence for acute cholecystitis. Gallbladder wall edema seen on CT is likely related to acute hepatitis and not intrisic gallbladder disease. Recommend observation. Consult Acknowledgment - Thank you for your consult request.
[2017-11-23] VITALS (10 sets, daily range): BP systolic 118–130; BP diastolic 60–80
[2017-11-23 06:34] LABS: HEMATOCRIT 29.4 % (42-52); MEAN CORPUSCULAR HGB 31.2 PG (27.0-31.0); MEAN CORPUSCULAR HGB CONC 33.3 G/DL (33.0-37.0); MEAN CORPUSCULAR VOLUME 93.5 FL (80.0-94.0); MEAN PLATELET VOLUME 9.1 FL (7.4-10.4); PLATELET COUNT 346 /CUMM (130-400); RBC DISTRIBUTION WIDTH 18.4 % (11.5-14.5); RED BLOOD CELL CT 3.14 /CUMM (4.70-6.10); WHITE BLOOD CELL COUNT 13.1 /CUMM (4.8-10.8)
[2017-11-23 06:53] LABS: PT 10.5 SEC (9.4-12.5)
--- NOTE | 2017-11-23 07:31 | PN- Resident CRCU ---
Rosa Isela Patrick 11/23/17 0731: Subjective HPI/CRCU Issues: - Alcohol withdrawal - Acute kidney injury - Alcoholic Hepatitis/Hyperbilirubinemia/Transaminitis - Hypotension - now resolved - Pancreatic cyst/mass - Leukocytosis with fever concern for cholecystitis - Gram positive rods - bacteremia - New findings of pulmonary nodule on CAT scan(7mm ) 24 Hour Events: Patient seen and examined at bedside. He is alert and oriented to place, person and time. Offers no complaints. Vitals within the past 24 hrs Tmax: 99.7F @ 16:00 yesterday; HR: 71-106 BP: 104- 122/46-68 He is NPO for a possible HIDA scan today. However hsi renal function is back to baseline and he can get an MRCP today. Objective Vital Signs & I&O Last 8 Hrs of Vitals and I&O: Intake & Output 11/23 0800 Intake Total 1030 Output Total 350 Balance 680 Intake, IV 1030 Intake, Oral 0 Number 2 Bowel Movements Output, Urine 350 Exam General Appearance: no apparent distress, alert, awake, comfortable Head: atraumatic Ears, Nose, Throat: normal pharynx Neck: normal inspection Respiratory: normal breath sounds, chest non-tender, no respiratory distress, quiet respiration, lungs clear Cardiovascular: regular rate/rhythm Gastrointestinal: normal bowel sounds, soft, non-tender Extremities: no edema Cranial Nerves: normal hearing, PERRL Skin: jaundice Nutrition Nutrition: P.O. diet Current Medications: Current Medications Sig/Wagner Start time Last Medication Dose Route Stop Time Status Admin Albumin Human 12.5 GM Q8H 11/15 2100 AC 11/23 IV 0546 Ampicillin Sodium/ 3,000 MG Q6H 11/21 1600 AC 11/23 Sulbactam Sodium IV 0401 Sodium Chloride 100 ML Benzocaine/Menthol 1 SUKHI Q2P PRN 11/16 1200 AC 11/16 PO 195 Bisacodyl 5 MG DAILY 11/17 1000 AC PO Calcium Carbonate 500 MG BID 11/20 2200 AC 11/22 PO 220 Cholecalciferol 2,000 IU DAILY 11/20 1004 AC 11/22 PO 0807 Folic Acid 1 MG DAILY 11/22 1000 AC 11/22 PO 0807 Heparin Sodium 5,000 UNIT Q8 11/15 2199 AC 11/23 (Porcine) SC 0545 Lorazepam 2 MG Q6 11/22 1200 AC 11/22 PO 2327 Lorazepam 50 MG Q16H 11/21 1900 AC 11/21 Dextrose/Water 500 ML IV 2138 Lorazepam 2 MG Q2P PRN 11/20 1845 AC IV Lorazepam 1 MG Q2P PRN 11/20 1845 AC IV Magnesium Sulfate 1 GM Q2H 11/22 1000 DC 11/22 Dextrose/Water 100 ML IV 11/22 1359 1417 Multivitamins 1 TAB DAILY 11/22 1000 AC 11/22 PO 0807 Ondansetron HCl 4 MG Q6P PRN 11/15 1800 AC IV Phenol 2 SPRAY Q2P PRN 11/15 2030 AC 11/16 EXT 0822 Phosphate 250 MG PC AND AT BEDTIME 11/17 0900 AC 11/22 PO 2207 Potassium Chloride 20 MEQ Q10H 11/17 1700 AC 11/22 Sodium Chloride 1,000 ML IV 2209 Senna 187 MG AT BEDTIME 11/17 2200 AC 11/20 PO 2115 Thiamine HCl 100 MG DAILY 11/22 1000 AC 11/22 PO 0807 Thiamine HCl 250 MG DAILY 11/19 1000 DC 11/22 Sodium Chloride 100 ML IV 11/22 1101 1118 Antibiotics Antibiotic: Unasyn Day #: 6 IV/PO? IV CT Scan Findings: SERVICE DATE: 11/21/17- EXAM TYPE: CAT - CT ABD & PELVIS W/O IV CONTRAS; CT CHEST WO IV CONTRAST FINDINGS: CT SCAN OF THE CHEST: LUNGS: In the right upper lobe, a 7 mm solid noncalcified pulmonary nodule is seen with linear bandlike densities extending to the posterior pleural surface with associated mild focal thickening of the pleura (series 4, image 134). Small calcified granuloma seen in the right upper lobe (series 4, image 189). In the left lower lobe, there is a lobulated 8 mm calcification with coarse calcification and with associated retractile change of the left major fissure (series 4, image 221), also consistent with a granuloma. No suspicious pulmonary nodule or mass is seen. There is volume loss and atelectasis/consolidation seen in the right lower lobe and lateral segment of the right middle lobe with elevation of the right hemidiaphragm associated air bronchograms are seen. No central obstructing mass or filling defect within the airways is seen. There is also some linear segmental atelectatic change in the left lower lobe. No effusion or pneumothorax. Central airways patent. LYMPHOVASCULAR STRUCTURES: Aortic and heart size normal. No pericardial effusion. Small calcified right lower paratracheal lymph node is seen. No mediastinal, hilar or axillary adenopathy or free fluid collection. THYROID GLAND: Unremarkable to the extent included. BONES: Unremarkable. CT SCAN OF THE ABDOMEN AND PELVIS: LIVER, GALLBLADDER, AND BILIARY TREE: The liver is enlarged, measuring 20.4 cm longitudinally. Diffuse hepatic steatosis is noted. No focal hepatic lesion on noncontrast imaging. No biliary ductal dilatation is present. Gallbladder is dilated and demonstrates several faintly calcified gallstones. Subtle thickening of the gallbladder wall and pericholecystic edema is seen. No intra or extrahepatic biliary ductal dilatation is seen. PANCREAS: Again seen is mild stranding around the pancreatic tail. There is also a 4.4 x 3.1 cm thin-walled cystic mass in the pancreatic tail, slightly smaller compared to 4.8 x 3.7 cm on 11/15/2017. Findings are most likely due to chronic pancreatitis and a slightly involuting pancreatic pseudocyst. Adjacent punctate calcification is unchanged. Remainder of pancreas is unremarkable on noncontrast study. No pancreatic ductal dilatation is seen. SPLEEN, ADRENAL GLANDS: Unremarkable on noncontrast imaging. KIDNEYS AND URETERS: There is a 1.4 x 1.1 cm mid right renal cortical cyst, unchanged. The kidneys are otherwise unremarkable. No nephrolithiasis or hydroureteronephrosis seen. No ureteral calculi noted. BLADDER: And air-fluid level is seen within a decompressed bladder, likely related to Rust catheter placement. PELVIC VISCERA: Unremarkable. GASTROINTESTINAL TRACT: Chronic sigmoid colonic diverticulosis is seen with diffuse circumferential wall thickening and mild surrounding hyperemia. Other scattered colonic diverticula are also seen without evidence of acute diverticulitis. Small and large bowel loops are otherwise unremarkable. The appendix is unremarkable. ABDOMINAL WALL: There is a tiny fat-containing umbilical hernia. LYMPH NODES, VASCULAR: No abdominal or pelvic adenopathy is seen. No free fluid. Abdominal aorta normal in caliber. Incidental note is made of a retroaortic left renal vein. OSSEOUS STRUCTURES: Small sclerotic bone island in the left iliac bone again noted, unchanged. No significant focal abnormality seen. IMPRESSION: 1. Dilated gallbladder with subtle wall thickening and mild surrounding edema seen. Findings raise the suspicion of cholelithiasis and acute cholecystitis. Close clinical correlation is requested. No biliary obstruction noted. 2. Chronic pancreatitis around the pancreatic tail again seen with redemonstration of presumed pancreatic pseudocyst in the pancreatic tail. Compared to the prior exam, there may be a slight decrease in size of this pseudocyst. 3. Volume loss with atelectasis and consolidation in the right lower lobe and segmental atelectasis in the lateral segment of the right middle lobe. No central obstructing lesion seen. 4. 7 mm solid noncalcified pulmonary nodule in the right upper lobe. Findings are nonspecific but will require follow-up to exclude malignancy. In a low-risk and in a high risk population, per the Fleischner criteria, initial follow-up CT scan in 6-12 months is recommended. 5. Hepatomegaly with diffuse hepatic steatosis. 6. Chronic colonic diverticulosis. 7. Small right renal cyst. 8. Evidence of old granulomatous lung disease. Impression/Plan Impression/Problem List Impression: 52-year-old man with a past medical history of hypertension, hyperlipidemia and alcohol use (reported to Martini intake per day ) who presented to the ER with with complaints of fevers since early October, episodes of bloody bowel movements, diarrhea, status post fall associated with blurry vision, headache and tremor-like activity as well as increased confusion. He was found to have severe dehydration with acute kidney injury as well as elevated total bilirubin and transaminases. In addition he had a CT Abdomen/ Pelvis w/o IV contrast that showed enlarged fatty liver and a 3.8 x 4.8 cm cyst or cystic lesion in the tail of the pancreas which was new from 2007. It was difficult to exclude mild diverticulitis of the sigmoid colon. He developed chills, rigors and hallucinations likely from alcohol withdrawal while on admission and he was started on IV unasyn for possibility of cholangitis, with blood cultures dated 11/18/17 showing growth of anaerobic mixed daxa. He continues to be on an ativan drip now down to 1mg/hr. He also probably has undiagnosed obstructive sleep apnea as he was having tachypnea with episodes of apnea and snoring with associated desaturation. Plan: 1. Alcohol withdrawal * Taper IV Ativan drip today to off. * Switch to PO Ativan 1.5mg Q6 PO and Ativan IV PRN as per [facility] protocol. * Psych on board. Appreciate recs. F/U. * Continue PO thiamine, folic acid, and MV. 2. Acute kidney injury 2/2 dehydration * Creatinine continues to improve and is 1.2 this morning * Continue hydration with D5 1/2 normal saline at 150 mls per hour for now, as he has MRI with contrast today to prevent MARY BETH * Nephrology input appreciated * Avoid nephrotoxic agents. 3. Chills and rigors with concerns for cholangitis * BC x2 from 11/17/17 showing growth of anaerobic mixed daxa - ? possibly contamination. F/U repeat BC x2 (11/21/17). * Continue IV Unasyn for now - day 6 today. ID on board. Appreciate recs. * CT scan dated 11/21/17 shows cholecystitis, no biliary obstruction * He had a recent history of myalgia, mailase with low grade fevers, sore throat and his Rapid flu and strep throat were all negtaive. Tick borne panel, and babesiosis also negative * His CT scan of his abdomen on admission had suggested diverticulitis although he did not have leukocytosis at the time of admission. 3. Hyperbilirubinemia/Transaminitis * His hyperbilirubinemia is likely 2/2 alcoholic hepatitis vs ? pancreatic mass casuing obstructive jaundice. Other etiology could be hemophagocytic lymphohistiocytosis ?- transminitis, gait instabilty (which the patient c/o on admission), eleavted ferritin . * Hepatitis serology negative and HIV panel was neagtive * US Abdomen showed heaptomegaly, hepatic steatosis, a 2.8 x 2.1 x 2.5 cm cyst within the pancreatic tail, no cholilithiasis, or cholecystitis. Ammonia level was WNL * A pancreatic mass casuing obstructive jaundice could also be contributory * His total Bilirubin remains elevated at 3.7 today but on a downward trend * Transaminases trended down to decline with AST 123 and ALT 90 this morning. His GGT is 1754. * His INR is normal today at 1.00 * Patient scheduled for an MRI of ABd with and w/o contrast after dw Nephro as tehre was concern for MARY BETH previously. Recs to hydrate aggresively with IVF and obtain MRI 4. Pancreatic cyst/mass * His renal function is not yet normalized so we will hold off on MRI with pancreatic protocol for now * Follow-up CA-19 for concerns of pancreatic malignancy * Follow up IGG4 panel for possible autoimmune pancreatitis * MRI Pancreatic Protocol today. F/U results * Follow-up with gastroenterology for further recommendations 5. Hypernatremia * Likely secondary to decreased PO intake of fluids. Will switch to D5-1/2 NS @ 150mls/hr * Repat ICU bundle @ 2:00pm - adjust rate fo IVF accordingly. 6. Hypophosphatemia and hypocalcemia * Replete phosphorus with neutraphos and continue Tums for hypocalcemia with vitamin D 7. Anemia and thrombocytopenia * Likely secondary to hepatic failure * Hemoglobin is 9.8 and Platelet this morning is 346 which is stable * Continue to monitor CBC * iron studies indicates anemia of chronic disease and liver disease - ?? HLH. 8. Hematuria * Resolved * Patient had hematuria probably from tugging at his Rust catheter while he was agitated during his delirium tremens * Urology consultation appreciated. If persistent gross hematuria with a drop in HCT, then would perform cystoscopy. * Continue to monitor CBC and D/C rust in place DVT prophylaxis-subcutaneous heparin 5000 IU TID Diet- Chopped and regular CODE STATUS- Full code Problem List: 1. Pancreatic mass 2. Alcohol withdrawal 3. Liver failure Pain Ratin Tomorrow's Labs & Rationales: CBC- ANEMIA, WBC ICU- NA Plan DVT/Prophylaxis: mechanical, pharmacological Moody Little MD 11/23/17 0911: Attending MD Review Statement Attending Sign Off Attending Cosign Statement: I have: examined this patient, reviewed avalbl EMR data, personally reviewd images, discussd w/resident/PA/[employer]RI[employer]EEF, discussed mgmt plan w/eduardo, discussed mgmt plan w/CM, discussed mgmt plan w/pt, agreed w/resident/PA/[employer]F, amended to note. Other Findings: IMoody M.D. have examined this patient, reviewed available EMR data, personally reviewed images, discussed with resident/PA/[employer]RI[employer] BEEF, discussed management plan with housestaff and nursing staff, discussed managment plan all of healthcare providers, discussed management plan with patient and/or family, agreed with resident/PA/[employer]ER DRIED BEEF. The past history and parts of the chart have been autopopulated. Impression 52 year old man * admitted to the ICU for hypoxemic respiratory failure secondary to possible pneumonia vs pneumonitis * AMBAR - possible hypotension, reduced po intake * transaminitis * pancreatic lesion - mass vs cyst * anemia * etoh dependence and withdrawal * chronic pancreatitis * dilated GB indicating acute cholecysititis given edema * 7mm pulmonary nodule RUL Plan Respiratory/ID -improved -Gm positive rods -on unasyn -ID consultation appreciated -nodule follow up CVS -monitor hemodynamics Heme -monitor coags and cbc Metabolic -monitor electrolytes, creatinine -nephrology following -mvi, folate, thiamine (s/p high dose thiamine) -f/u GI recs regarding lfts and pancreatic lesion -consideration for GB imaging Alimentary -diet -surgical evaluation appreciated Neuro -1cc/hr ativan -ciwa monitoring TTS 35 min
--- NOTE | 2017-11-23 11:12 | PN- Psychiatry ---
Assessment/Plan Impression: The patient's lorazepam drip has been discontinued, and he has received lorazepam 2 mg q 6 hours PO X 4 doses, with a 5th dose held for NPO status. EKG 11/16/17: 92 bpm, SR, QTc 510 mS. VS 11/23/17 @ 0800: 124/71, 68HR, 22RR, 98.9, 96% RA. CIWA as of 11/23/17 @ 0800: 0-7-4-2-3-3-4-4-4-4-2 The patient is showing improved cognitive status, and we hope to have a more in- depth interview in the next 1-2 days. The patient's spouse is asking about his escitalopram 10 mg daily, currently held, which she reports was started by PCP to help with sleep. Problems with sleep, she reports, are the reason for the patient's drinking. The patient would like to not restart this medication, but admits that he has had anxiety. I informed them that the medication is a first-line treatment for anxiety, but that can be explored as an outpatient. Suggestion: 1. Please change the lorazepam scheduled dosing to 1.5 mg PO q 6 hours for 5 doses. We will review the alcohol detox benzodiazepine taper again tomorrow. 2. Maintain "as needed" lorazepam dosing per 'ETOH Detox' order set CIWA protocol, indicated for CIWA score or tachycardia. 3. Sitter while confused or delirious or agitated. The patient should not be allowed to leave AMA or otherwise, until we are sure the delirium has completely resolved. 4. Social work consult to help with aftercare planning. 5. Continue daily thiamine, folic acid and multivitamins. 6. Due to QTc prolongation, do not restart escitalopram or other SSRI/SNRI, until the QTc is steady state below 475 mS. We will continue to follow along with you. Subjective Subjective: Awake, lethargic, but arousable. Speech soft and slightly slurred. He is oriented to person, place, month, year, but not day or date. He denies AH, VH, TH and presents no hannah delusions. He feels safe in the hospital. He denies suicidal or homicidal ideation. He feels that he is doing better than yesterday. His supportive , Melony, is present. Review of Systems Respiratory: Denies: no symptoms. Objective Last 24 Hrs of Vital Signs/I&O Vital Signs Date Time Temp Pulse Resp B/P B/P Pulse O2 O2 Flow FiO2 Mean Ox Delivery Rate 11/23 0800 98.8 68 22 124/71 02/05 0800 96 Room Air 02/ 0800 98.6 68 22 120/60 96 Room Air 02/05 0600 88 36 118/67 02/05 0400 98.6 75 16 130/68 02/05 0400 96 Room Air 02/05 0200 97.8 71 18 127/60 02/05 0000 97.8 102 34 120/64 02/05 0000 95 Room Air 02/05 0000 97.8 102 34 120/64 95 Room Air /04 2200 99 47 105/47 02/ 2000 97.2 87 26 120/60 02/ 2000 95 Room Air 02/04 1600 Room Air 02/04 1600 99.7 78 24 112/54 02/04 1600 99.7 78 24 112/54 96 Room Air 02/04 1400 106 28 110/55 02/04 1200 Room Air 02/04 1200 98.5 96 22 16/64 02/04 1200 98.5 96 22 116/64 96 Room Air Intake & Output / 1600 02/05 0800 / 0000 Intake Total 1030 680 Output Total 350 Balance 680 680 Intake, IV 1030 440 Intake, Oral 0 240 Number 2 Bowel Movements Output, Urine 350 Physical Exam: Not performed Physical Exam General Appearance: awake, comfortable, lethargic Current Medications: Current Medications Sig/Wagner Start time Last Medication Dose Route Stop Time Status Admin Albumin Human 12.5 GM Q8H 11/15 2100 AC 11/23 IV 0546 Ampicillin Sodium/ 3,000 MG Q6H 11/21 1600 AC 11/23 Sulbactam Sodium IV 0401 Sodium Chloride 100 ML Benzocaine/Menthol 1 SUKHI Q2P PRN 11/16 1200 AC 11/16 PO 1951 Bisacodyl 5 MG DAILY 11/17 1000 AC PO Calcium Carbonate 500 MG BID 11/20 2200 AC 11/22 PO 2208 Cholecalciferol 2,000 IU DAILY 11/20 1004 AC 11/22 PO 0807 Dextrose/Sodium 1,000 ML Q6H 11/23 1015 AC 11/23 Chloride IV 1032 Folic Acid 1 MG DAILY 02/04 1000 AC 11/22 PO 0807 Heparin Sodium 5,000 UNIT Q8 11/15 2200 AC 11/23 (Porcine) SC 0545 Lorazepam 2 MG Q6 11/22 1200 AC 11/23 PO 0826 Lorazepam 50 MG Q16H 11/21 1900 DC 11/21 Dextrose/Water 500 ML IV 2138 Lorazepam 2 MG Q2P PRN 11/20 1845 AC IV Lorazepam 1 MG Q2P PRN 11/20 1845 AC IV Magnesium Oxide 400 MG ONE ONE 11/23 1045 DC PO 11/23 1046 Magnesium Sulfate 1 GM Q2H 11/22 1000 DC 11/22 Dextrose/Water 100 ML IV 11/22 1359 1417 Multivitamins 1 TAB DAILY 11/22 1000 AC 11/22 PO 0807 Ondansetron HCl 4 MG Q6P PRN 11/15 1800 AC IV Phenol 2 SPRAY Q2P PRN 11/15 2030 AC 11/16 EXT 0822 Phosphate 250 MG PC AND AT BEDTIME 11/17 0900 AC 11/22 PO 2207 Potassium Chloride 20 MEQ Q10H 11/17 1700 DC 11/22 Sodium Chloride 1,000 ML IV 2209 Senna 187 MG AT BEDTIME 11/17 2200 AC 11/20 PO 2115 Thiamine HCl 100 MG DAILY 11/22 1000 AC 11/22 PO 0807 Results Last 24 Hrs of Labs/Mics: Laboratory Tests 11/23 11/23 0600 0535 Chemistry Sodium (137 - 145 mmol/L) 150 H Potassium (3.5 - 5.1 mmol/L) 4.4 Chloride (98 - 107 mmol/L) 114 H Carbon Dioxide (22 - 30 mmol/L) 16 L Anion Gap (5 - 16) 19 H BUN (9 - 20 mg/dL) 7 L Creatinine (0.7 - 1.2 mg/dL) 1.2 Estimated GFR (>60 ml/min) > 60 Glucose (65 - 99 mg/dL) 95 Calcium (8.4 - 10.2 mg/dL) 9.3 Phosphorus (2.5 - 4.5 mg/dL) 3.2 Magnesium (1.6 - 2.3 mg/dL) 1.7 Total Bilirubin (0.2 - 1.3 mg/dL) 3.7 H GGT (15 - 73 U/L) 1754 H AST (17 - 59 U/L) 123 H ALT (21 - 72 U/L) 90 H Albumin (3.5 - 5.0 g/dL) 3.9 CA 19-9 Antigen Pending Coagulation PT (9.4 - 12.5 SEC) 10.5 INR (0.90 - 1.17) 1.00 Hematology CBC w Diff MAN DIFF ORDERED WBC (4.8 - 10.8 /CUMM) 13.1 H RBC (4.70 - 6.10 /CUMM) 3.14 L Hgb (14.0 - 18.0 G/DL) 9.8 L Hct (42 - 52 %) 29.4 L MCV (80.0 - 94.0 FL) 93.5 MCH (27.0 - 31.0 PG) 31.2 H MCHC (33.0 - 37.0 G/DL) 33.3 RDW (11.5 - 14.5 %) 18.4 H Plt Count (130 - 400 /CUMM) 346 MPV (7.4 - 10.4 FL) 9.1 Segmented Neutrophils (42.2 - 75.2 %) 51 Band Neutrophils (0.0 - 5.0 %) 4 Lymphocytes (20.5 - 51.1 %) 35 Monocytes (1.7 - 9.3 %) 8 Metamyelocytes (0.0 - 1.0 %) 2 H Platelet Estimate (ADEQUATE) ADEQUATE Polychromasia 1+ Anisocytosis 1+ Stomatocytes 2+ Haptoglobin Pending
--- NOTE | 2017-11-23 11:23 | PN- Infect Dx ---
Subjective Subjective: Afebrile. He offers no complaints. Objective Last 24 Hrs of Vital Signs/I&O Vital Signs Date Time Temp Pulse Resp B/P B/P Pulse O2 O2 Flow FiO2 Mean Ox Delivery Rate 11/23 0800 98.8 68 22 124/71 02/ 0800 96 Room Air / 0800 98.6 68 22 120/60 96 Room Air 02/05 0600 88 36 118/67 02/05 0400 98.6 75 16 130/68 02/05 0400 96 Room Air 02/05 0200 97.8 71 18 127/60 02/05 0000 97.8 102 34 120/64 02/05 0000 95 Room Air 02/05 0000 97.8 102 34 120/64 95 Room Air /04 2200 99 47 105/47 02/ 2000 97.2 87 26 120/60 02/04 2000 95 Room Air 02/04 1600 Room Air 02/04 1600 99.7 78 24 112/54 02/04 1600 99.7 78 24 112/54 96 Room Air 02/04 1400 106 28 110/55 02/04 1200 Room Air 02/04 1200 98.5 96 22 16/64 02/04 1200 98.5 96 22 116/64 96 Room Air Intake & Output / 1600 02/05 0800 02/05 0000 Intake Total 1030 680 Output Total 350 Balance 680 680 Intake, IV 1030 440 Intake, Oral 0 240 Number 2 Bowel Movements Output, Urine 350 Physical Exam Other Physical Findings: He appears more awake and alert in no acute distress Lungs are clear Heart regular rhythm with no murmur Abdomen is soft, nontender with positive bowel sounds Extremities no cyanosis, clubbing or edema Results Last 24 Hours of Lab Results: Laboratory Tests 11/23 11/23 0600 0535 Chemistry Sodium (137 - 145 mmol/L) 150 H Potassium (3.5 - 5.1 mmol/L) 4.4 Chloride (98 - 107 mmol/L) 114 H Carbon Dioxide (22 - 30 mmol/L) 16 L Anion Gap (5 - 16) 19 H BUN (9 - 20 mg/dL) 7 L Creatinine (0.7 - 1.2 mg/dL) 1.2 Estimated GFR (>60 ml/min) > 60 Glucose (65 - 99 mg/dL) 95 Calcium (8.4 - 10.2 mg/dL) 9.3 Phosphorus (2.5 - 4.5 mg/dL) 3.2 Magnesium (1.6 - 2.3 mg/dL) 1.7 Total Bilirubin (0.2 - 1.3 mg/dL) 3.7 H GGT (15 - 73 U/L) 1754 H AST (17 - 59 U/L) 123 H ALT (21 - 72 U/L) 90 H Albumin (3.5 - 5.0 g/dL) 3.9 CA 19-9 Antigen Pending Coagulation PT (9.4 - 12.5 SEC) 10.5 INR (0.90 - 1.17) 1.00 Hematology CBC w Diff MAN DIFF ORDERED WBC (4.8 - 10.8 /CUMM) 13.1 H RBC (4.70 - 6.10 /CUMM) 3.14 L Hgb (14.0 - 18.0 G/DL) 9.8 L Hct (42 - 52 %) 29.4 L MCV (80.0 - 94.0 FL) 93.5 MCH (27.0 - 31.0 PG) 31.2 H MCHC (33.0 - 37.0 G/DL) 33.3 RDW (11.5 - 14.5 %) 18.4 H Plt Count (130 - 400 /CUMM) 346 MPV (7.4 - 10.4 FL) 9.1 Segmented Neutrophils (42.2 - 75.2 %) 51 Band Neutrophils (0.0 - 5.0 %) 4 Lymphocytes (20.5 - 51.1 %) 35 Monocytes (1.7 - 9.3 %) 8 Metamyelocytes (0.0 - 1.0 %) 2 H Platelet Estimate (ADEQUATE) ADEQUATE Polychromasia 1+ Anisocytosis 1+ Stomatocytes 2+ Haptoglobin Pending Last 24 Hours of Jean-Pierre Results: Blood cultures November 17 positive for mixed anaerobic gram-positive and anaerobic gram-negative rods Blood cultures November 21 negative Assessment/Plan Impression: Stable, with temperatures remaining normal but with his white blood cell count increasing slightly, on Unasyn now Day 6 of treatment for mixed anaerobic sepsis , possibly secondary to aspiration pneumonia versus an intra-abdominal process, for example sigmoid diverticulitis, suggested on the initial CT scan, or cholecystitis, given the gallbladder abnormalities seen on his recent imaging, though his liver enzymes continue to decrease and he has no GI symptoms or abdominal tenderness. Suggestion: 1. Await MRI of the abdomen 2. Consider HIDA scan based on the results of the MRI 3. Follow-up final blood cultures 4. Continue Unasyn
--- NOTE | 2017-11-23 14:41 | MRI REPORT ---
EXAMINATION: MR ABDOMEN WITHOUT AND WITH CONTRAST CLINICAL INFORMATION: Hyperbilirubinemia. CT scan showed pancreatic lesion. Question pancreatic cyst. Question neoplasm. Rule out choledocholithiasis. COMPARISON: CT scan of the chest, abdomen and pelvis dated 11/21/2017. CT scan of the abdomen and pelvis dated 11/15/2017 and 06/26/2008. TECHNIQUE: An MRI scan of the abdomen was performed using multiple imaging sequences and imaging planes. As per the MRCP protocol, heavily T2-weighted 3-D high-resolution MRCP sequences were obtained in the coronal plane along with thin and thick slab coronal images and coronal MIP reconstructions on the technologist workstation under concurrent physician supervision. Gadavist 10 mL intravenous was given and postcontrast enhanced dynamic evaluation was performed. FINDINGS: Evaluation is limited due to difficulties with patient motion and respiratory suspension. LIVER, GALLBLADDER, BILIARY TREE: Liver is enlarged, measuring 20.8 cm longitudinally. Again seen is elevation of the right hemidiaphragm, unchanged. There is diffuse loss in signal on opposed phase sequences, consistent with hepatic steatosis. No focal cystic or solid mass or intrahepatic or extrahepatic ductal dilatation. Hepatic and portal veins patent. The gallbladder is well distended and internal layering debris, consistent with thickened bile/sludge and layering small gallstones. No definite gallbladder wall thickening or pericholecystic edema is seen. PANCREAS: Corresponding to the CT scan findings, in the pancreatic tail, there is a well-defined 3.3 x 4.2 x 3.6 cm T2 bright thin-walled mass, which demonstrates mild peripheral rim enhancement but no definite central enhancement, though evaluation is limited by motion artifact. The remainder of the pancreas is unremarkable with no additional mass seen. The pancreatic duct is normal, measuring 0.2 cm in diameter. SPLEEN: Normal size and appearance. Splenic vein patent. ADRENAL GLANDS AND KIDNEYS: Adrenal glands normal. Kidneys bilaterally symmetric in size and function. There are a few scattered bilateral T2 bright masses in the kidneys, measuring up to 2.2 x 1.3 cm in the mid right kidney and 1.0 cm in the upper to mid left kidney, demonstrating no enhancement postcontrast, consistent with benign cysts. No suspicious focal mass, hydronephrosis, or perinephric stranding. BOWEL LOOPS: Scattered colonic diverticulosis is seen with no evidence of acute diverticulitis. No significant free fluid. LYMPHOVASCULAR STRUCTURES: Abdominal aorta normal in caliber. No periaortic collections. No abdominal adenopathy or free fluid collection. BONES: Grossly unremarkable. IMPRESSION: 1. Again seen is a mass in the pancreatic tail, which appears cystic without suspicious solid nodular component. Finding is most consistent with a benign finding such as a pancreatic pseudocyst or pancreatic cyst. Less likely etiology could include a intraductal papillary mucinous neoplasm. Depending on clinical circumstances, further assessment with endoscopic ultrasound could be attempted. Otherwise, continued serial follow-up imaging is recommended in 6 months. 2. Mild hepatomegaly with diffuse hepatic steatosis.
[2017-11-24] VITALS (7 sets, daily range): BP systolic 13–142; BP diastolic 58–82
[2017-11-24 05:38] LABS: ABSOLUTE BASOPHIL COUNT 0.1 /CUMM (0.0-0.2); ABSOLUTE EOSINOPHIL COUNT 0.1 /CUMM (0.0-0.7); ABSOLUTE GRANULOCYTE CT 10.9 /CUMM (1.4-6.5); ABSOLUTE LYMPH COUNT 3.3 /CUMM (1.2-3.4); ABSOLUTE MONOCYTE COUNT 0.4 /CUMM (0.10-0.60); BASOPHIL % 0.5 % (0.0-2.0); EOSINOPHIL % 0.7 % (0-5); GRANULOCYTE % 73.6 % (42.2-75.2); HEMATOCRIT 26.3 % (42-52); MEAN CORPUSCULAR HGB 31.4 PG (27.0-31.0); MEAN CORPUSCULAR HGB CONC 33.7 G/DL (33.0-37.0); MEAN CORPUSCULAR VOLUME 93.4 FL (80.0-94.0); MEAN PLATELET VOLUME 8.6 FL (7.4-10.4); PLATELET COUNT 401 /CUMM (130-400); RBC DISTRIBUTION WIDTH 17.9 % (11.5-14.5); RED BLOOD CELL CT 2.82 /CUMM (4.70-6.10); WHITE BLOOD CELL COUNT 14.8 /CUMM (4.8-10.8)
--- NOTE | 2017-11-24 07:19 | PN- CRCU ---
Subjective HPI/Critical Care Issues: The patient is arousable but lethargic. He continues to sleep on and off throughout the day. He is off the Ativan drip. He is not offering any complaints. He is awaiting transfer to [facility]. Objective Current Medications: Current Medications Sig/Wagner Start time Last Medication Dose Route Stop Time Status Admin Albumin Human 12.5 GM Q8H 11/15 2100 AC 11/24 IV 0436 Ampicillin Sodium/ 3,000 MG Q6H 11/23 1900 AC 11/24 Sulbactam Sodium IV 0607 Sodium Chloride 100 ML Ampicillin Sodium/ 3,000 MG Q6H 11/21 1600 DC 11/23 Sulbactam Sodium IV 1306 Sodium Chloride 100 ML Benzocaine/Menthol 1 SUKHI Q2P PRN 11/16 1200 AC 11/16 PO 195 Bisacodyl 5 MG DAILY 11/17 1000 DC PO Calcium Carbonate 500 MG BID 11/20 2200 AC 11/23 PO 1947 Cholecalciferol 2,000 IU DAILY 11/20 1004 AC 11/23 PO 1305 Dextrose/Sodium 1,000 ML Q6H 11/23 1015 AC 11/24 Chloride IV 0324 Folic Acid 1 MG DAILY 11/22 1000 AC 11/23 PO 1305 Heparin Sodium 5,000 UNIT Q8 11/15 2200 AC 11/24 (Porcine) SC 0606 Lorazepam 1.5 MG Q6 11/23 1200 AC 11/24 PO 0607 Lorazepam 2 MG Q6 11/22 1200 DC 11/23 PO 0826 Lorazepam 50 MG Q16H 11/21 1900 DC 11/21 Dextrose/Water 500 ML IV 2138 Lorazepam 2 MG Q2P PRN 11/20 1845 AC IV Lorazepam 1 MG Q2P PRN 11/20 1845 AC IV Magnesium Oxide 400 MG ONE ONE 11/23 1045 DC 11/23 PO 11/23 1046 1307 Multivitamins 1 TAB DAILY 11/22 1000 AC 11/23 PO 1305 Ondansetron HCl 4 MG Q6P PRN 11/15 1800 AC IV Phenol 2 SPRAY Q2P PRN 11/15 2030 AC 11/16 EXT 0822 Phosphate 250 MG PC AND AT BEDTIME 11/17 0900 AC 11/23 PO 1947 Potassium Chloride 20 MEQ Q10H 11/17 1700 DC 11/22 Sodium Chloride 1,000 ML IV 220 Senna 187 MG AT BEDTIME 11/17 2199 AC 11/20 PO 2115 Thiamine HCl 100 MG DAILY 11/22 1000 AC 11/23 PO 1305 Vital Signs & I&O Last 24 Hrs of Vitals and I&O: Vital Signs Date Time Temp Pulse Resp B/P B/P Pulse O2 O2 Flow FiO2 Mean Ox Delivery Rate 11/24 599 97.8 82 20 139/76 / 0400 98.4 68 20 118/58 / 0400 97 Room Air / 0200 98.7 69 20 107/59 / 0200 98.4 63 20 141/82 / 0000 98.4 70 24 122/70 02/ 0000 96 Room Air / 0000 98.4 70 24 122/70 96 Room Air / 2200 84 22 125/80 02/ 2000 Room Air 02/05 2000 98.1 68 22 124/68 02/05 2000 98.1 68 22 124/68 96 Room Air 02/05 1600 Room Air 02/05 1600 99.4 69 24 122/68 02/05 1600 99.4 69 24 122/68 97 Room Air 02/05 1400 78 24 125/74 02/05 1200 Room Air 02/05 1000 79 22 127/77 02/05 0800 98.8 68 22 124/71 02/05 0800 96 Room Air 02/05 0800 98.6 68 22 120/60 96 Room Air Intake & Output / 0800 /06 0000 02/05 1600 Intake Total 1310 1785 832 Output Total 400 600 300 Balance 910 1185 532 Intake, IV 1300 1065 532 Intake, Oral 10 720 300 Number 1 1 1 Bowel Movements Output, Urine 400 600 300 Exam General Appearance: well developed/nourished, no apparent distress, alert, awake , comfortable Head: atraumatic, normal appearance Neck: normal inspection, supple Respiratory: normal breath sounds, chest non-tender, no respiratory distress, quiet respiration, lungs clear Cardiovascular: regular rate/rhythm Gastrointestinal: normal bowel sounds, soft, mild tenderness in RUQ, decreased than yesterday Extremities: no edema Cranial Nerves: normal speech, PERRL Results Last 24 Hrs of Lab Results: Laboratory Tests 11/24/17 0648: PT Pending, INR Pending 11/24/17 0440: Anion Gap 18 H, Estimated GFR > 60, Glucose 99, Calcium 8.8, Phosphorus 3.8, Magnesium 1.4 L, Total Bilirubin 2.4 H, AST 90 H, ALT 77 H, Albumin 3.6, CBC w Diff NO MAN DIFF REQ, RBC 2.82 L, MCV 93.4, MCH 31.4 H, MCHC 33.7, RDW 17.9 H, MPV 8.6, Gran % 73.6, Lymphocytes % 22.4, Monocytes % 2.8, Eosinophils % 0.7, Basophils % 0.5, Absolute Granulocytes 10.9 H, Absolute Lymphocytes 3.3, Absolute Monocytes 0.4, Absolute Eosinophils 0.1, Absolute Basophils 0.1 11/23/17 1600: Anion Gap 16, Estimated GFR > 60, Glucose 115 H, Calcium 9.1, Phosphorus 3.5, Magnesium 1.6, Total Bilirubin 3.1 H, AST 102 H, ALT 84 H, Albumin 3.7 Last 24 Hrs of Micro Results: Anaerobic mixed daxa/GPRs on gram stain, BCs negative so for. Impression/Plan Impression/Plan Impression/Plan: 1. Acute respiratory failure secondary to aspiration pneumonia/pneumonitis. 2. AMBAR - Most likely 2/2 dehydration and volume depletion in the setting of HCTZ/lisinopril, and decreased PO intake. Urine output and blood pressure improving with IV fluid hydration. 3. Tranaminitis - 2/2 alcoholic hepatitis. 4. Pancreatic cyst/ mass - will need follow up. 5. 6. Anemia and thrombocytopenia, no evidence of active bleeding. 7. Hyponatremia - resolved. 8. AMBAR, hematuria. 9. ALcohol dependence and now withdrawl. Recommendations: * BIPAP for respiratory distress to continue as needed. Give breaks off therapy if able. * Will have a low threshold for intubation. * ETOH witdrawal - continue ativan drip for controll of CIWA scores. * Avoid oversedation. * Multivitamin, thiamine and folate to continue. * IV fluids for poor oral intake. * Maintain the patient on aspiration precautions. * Continue to follow up GI recommendations regarding possible hepatorenal syndrome - appreciate input. * Continue empiric IV Unasyn - complete 5 days and reassess. * DVT prophylaxis at all times. * Continue to monitor in the critical care unit. * Discussed plan of care with housestaff and patient's at bedside.
--- NOTE | 2017-11-24 07:36 | PN- Resident CRCU ---
Subjective HPI/CRCU Issues: - Alcohol withdrawal - Acute kidney injury - Alcoholic Hepatitis/Hyperbilirubinemia/Transaminitis - Hypotension - now resolved - Pancreatic cyst/mass - Leukocytosis with fever concern for cholecystitis - Gram positive rods - bacteremia - New findings of pulmonary nodule on CAT scan(7mm ) 24 Hour Events: Patient seen and examined at bedside. He denies any chest pain, SOB, nausea, vomiting, abdominal pain. He is NPO for a HIDA scan today. Vitals Tmax: 99.4F, SB-SR; HR: 63-104; RR: 20-26; BP: 119-149/67-76; I: 3917; O: 1350. Objective Vital Signs & I&O Last 8 Hrs of Vitals and I&O: Intake & Output 11/24 0800 Intake Total 1310 Output Total 400 Balance 910 Intake, IV 1300 Intake, Oral 10 Number 1 Bowel Movements Output, Urine 400 Exam General Appearance: alert, comfortable, icteric Head: atraumatic Neck: normal inspection, supple Respiratory: normal breath sounds, chest non-tender, no respiratory distress, quiet respiration Cardiovascular: regular rate/rhythm Gastrointestinal: normal bowel sounds, soft, non-tender Extremities: no edema Cranial Nerves: PERRL Skin: jaundice Nutrition Nutrition: NPO Current Medications: Current Medications Sig/Wagner Start time Last Medication Dose Route Stop Time Status Admin Albumin Human 12.5 GM Q8H 11/15 2100 AC 11/24 IV 0436 Ampicillin Sodium/ 3,000 MG Q6H 11/23 1900 AC 11/24 Sulbactam Sodium IV 0607 Sodium Chloride 100 ML Ampicillin Sodium/ 3,000 MG Q6H 11/21 1600 DC 11/23 Sulbactam Sodium IV 1306 Sodium Chloride 100 ML Benzocaine/Menthol 1 SUKHI Q2P PRN 11/16 1200 AC 11/16 PO 195 Bisacodyl 5 MG DAILY 11/17 1000 DC PO Calcium Carbonate 500 MG BID 11/20 2200 AC 11/23 PO 194 Cholecalciferol 2,000 IU DAILY 11/20 1004 AC 11/23 PO 1305 Dextrose/Sodium 1,000 ML Q6H 11/23 1015 AC 11/24 Chloride IV 0324 Folic Acid 1 MG DAILY 11/22 1000 AC 11/23 PO 1305 Heparin Sodium 5,000 UNIT Q8 11/15 2200 AC 02/06 (Porcine) SC 0606 Lorazepam 1.5 MG Q6 11/23 1200 AC 11/24 PO 0607 Lorazepam 2 MG Q6 11/22 1200 DC 11/23 PO 0826 Lorazepam 50 MG Q16H 11/21 1900 DC 11/21 Dextrose/Water 500 ML IV 2138 Lorazepam 2 MG Q2P PRN 11/20 1845 AC IV Lorazepam 1 MG Q2P PRN 11/20 1845 AC IV Magnesium Oxide 400 MG ONE ONE 11/23 1045 DC 11/23 PO 11/23 1046 1307 Multivitamins 1 TAB DAILY 11/22 1000 AC 11/23 PO 1305 Ondansetron HCl 4 MG Q6P PRN 11/15 1800 AC IV Phenol 2 SPRAY Q2P PRN 11/15 2030 AC 11/16 EXT 0822 Phosphate 250 MG PC AND AT BEDTIME 11/17 0900 AC 11/23 PO 1947 Potassium Chloride 20 MEQ Q10H 11/17 1700 DC 11/22 Sodium Chloride 1,000 ML IV 2209 Senna 187 MG AT BEDTIME 11/17 2200 AC 11/20 PO 2115 Thiamine HCl 100 MG DAILY 11/22 1000 AC 11/23 PO 1305 Antibiotics Antibiotic: Unasyn Day #: 7 IV/PO? IV If IV, Change to PO? Yes Radiology Findings: SERVICE DATE: 11/23/17-1099 EXAM TYPE: MRI - MRI-ABD W/O-W JAZLNY FINDINGS: Evaluation is limited due to difficulties with patient motion and respiratory suspension. LIVER, GALLBLADDER, BILIARY TREE: Liver is enlarged, measuring 20.8 cm longitudinally. Again seen is elevation of the right hemidiaphragm, unchanged. There is diffuse loss in signal on opposed phase sequences, consistent with hepatic steatosis. No focal cystic or solid mass or intrahepatic or extrahepatic ductal dilatation. Hepatic and portal veins patent. The gallbladder is well distended and internal layering debris, consistent with thickened bile/sludge and layering small gallstones. No definite gallbladder wall thickening or pericholecystic edema is seen. PANCREAS: Corresponding to the CT scan findings, in the pancreatic tail, there is a well-defined 3.3 x 4.2 x 3.6 cm T2 bright thin-walled mass, which demonstrates mild peripheral rim enhancement but no definite central enhancement, though evaluation is limited by motion artifact. The remainder of the pancreas is unremarkable with no additional mass seen. The pancreatic duct is normal, measuring 0.2 cm in diameter. SPLEEN: Normal size and appearance. Splenic vein patent. ADRENAL GLANDS AND KIDNEYS: Adrenal glands normal. Kidneys bilaterally symmetric in size and function. There are a few scattered bilateral T2 bright masses in the kidneys, measuring up to 2.2 x 1.3 cm in the mid right kidney and 1.0 cm in the upper to mid left kidney, demonstrating no enhancement postcontrast, consistent with benign cysts. No suspicious focal mass, hydronephrosis, or perinephric stranding. BOWEL LOOPS: Scattered colonic diverticulosis is seen with no evidence of acute diverticulitis. No significant free fluid. LYMPHOVASCULAR STRUCTURES: Abdominal aorta normal in caliber. No periaortic collections. No abdominal adenopathy or free fluid collection. BONES: Grossly unremarkable. IMPRESSION: 1. Again seen is a mass in the pancreatic tail, which appears cystic without suspicious solid nodular component. Finding is most consistent with a benign finding such as a pancreatic pseudocyst or pancreatic cyst. Less likely etiology could include a intraductal papillary mucinous neoplasm. Depending on clinical circumstances, further assessment with endoscopic ultrasound could be attempted. Otherwise, continued serial follow-up imaging is recommended in 6 months. 2. Mild hepatomegaly with diffuse hepatic steatosis. Impression/Plan Impression/Problem List Impression: 52-year-old man with a past medical history of hypertension, hyperlipidemia and alcohol use (reported to Martini intake per day ) who presented to the ER with with complaints of fevers since early October, episodes of bloody bowel movements, diarrhea, status post fall associated with blurry vision, headache and tremor-like activity as well as increased confusion. He was found to have severe dehydration with acute kidney injury as well as elevated total bilirubin and transaminases. In addition he had a CT Abdomen/ Pelvis w/o IV contrast that showed enlarged fatty liver and a 3.8 x 4.8 cm cyst or cystic lesion in the tail of the pancreas which was new from 2007. It was difficult to exclude mild diverticulitis of the sigmoid colon. He developed chills, rigors and hallucinations likely from alcohol withdrawal while on admission and he was started on IV unasyn for possibility of cholangitis, with blood cultures dated 11/18/17 showing growth of anaerobic mixed daxa. He continues to be on an ativan drip now down to 1mg/hr. He also probably has undiagnosed obstructive sleep apnea as he was having tachypnea with episodes of apnea and snoring with associated desaturation. Plan: 1. Alcohol withdrawal * Switch to PO Ativan 1.0mg Q6 PO and Ativan IV PRN as per [facility] protocol. * Psych on board. Appreciate recs. F/U. * Continue PO thiamine, folic acid, and MV. 2. Acute kidney injury 2/2 dehydration * Resolved with hydration * Nephrology input appreciated * Avoid nephrotoxic agents. 3. Chills and rigors with concerns for cholangitis * BC x2 from 11/17/17 showing growth of anaerobic mixed daxa - ? possibly contamination. F/U repeat BC x2 (11/21/17). * Continue IV Unasyn for now - day 7 today. ID on board. Appreciate recs. * CT scan dated 11/21/17 shows cholecystitis, no biliary obstruction. * MRCP showed mass in the pancreatic tail, appearing cystic, most consistent with a pancreatic pseudocyst or pancreatic cyst; gallbladder is well distended, with thickened bile/sludge and layering small gallstones, with no definite gallbladder wall thickening or pericholecystic edema; hepatomegaly with hepatic steatosis * Will pursue HIDA scan today, and F/U results. * He had a recent history of myalgia, mailase with low grade fevers, sore throat and his Rapid flu and strep throat were all negtaive. Tick borne panel, and babesiosis also negative * His CT scan of his abdomen on admission had suggested diverticulitis although he did not have leukocytosis at the time of admission. 3. Hyperbilirubinemia/Transaminitis * His hyperbilirubinemia is likely 2/2 alcoholic hepatitis vs ? pancreatic mass casuing obstructive jaundice. Other etiology could be hemophagocytic lymphohistiocytosis ?- transminitis, gait instabilty (which the patient c/o on admission), eleavted ferritin. * Hepatitis serology negative and HIV panel was neagtive * US Abdomen showed heaptomegaly, hepatic steatosis, a 2.8 x 2.1 x 2.5 cm cyst within the pancreatic tail, no cholilithiasis, or cholecystitis. Ammonia level was WNL * A pancreatic mass casuing obstructive jaundice could also be contributory * His total Bilirubin remains elevated at 3.7 today but on a downward trend * Transaminases trended down to decline with AST 90 and ALT 77 this morning. His GGT yesterday 1754. * His INR is normal today at 1.08 * Patient scheduled for an MRI of Abd with and w/o contrast after dw Nephro as there was concern for MARY BETH previously. Recs to hydrate aggresively with IVF and obtain MRI 4. Pancreatic cyst/mass * His renal function is not yet normalized so we will hold off on MRI with pancreatic protocol for now * Follow-up CA-19 for concerns of pancreatic malignancy * Follow up IGG4 panel for possible autoimmune pancreatitis * MRI Pancreatic Protocol today. F/U results * Follow-up with gastroenterology for further recommendations 5. Hypernatremia * Likely secondary to decreased PO intake of fluids. Will switch to D5W @75mls/ hr * Repat ICU bundle @ 6:00pm - adjust rate fo IVF accordingly. 6. Hypophosphatemia and hypocalcemia * Replete phosphorus with neutraphos and continue Tums for hypocalcemia with vitamin D 7. Anemia and thrombocytopenia * Likely secondary to hepatic failure * Hemoglobin is 8.9 and Platelet this morning is 401 which is stable * Continue to monitor CBC * iron studies indicates anemia of chronic disease and liver disease - ?? HLH. 8. Hematuria * Resolved * Patient had hematuria probably from tugging at his Myers catheter while he was agitated during his delirium tremens. Urology consultation appreciated. * Continue to monitor CBC DVT prophylaxis-subcutaneous heparin 5000 IU TID Diet- Chopped and regular CODE STATUS- Full code Problem List: 1. Pancreatic mass 2. Alcohol withdrawal 3. Liver failure Pain Ratin Tomorrow's Labs & Rationales: CBC- H&H; ICU- Cr; Na Plan DVT/Prophylaxis: mechanical, pharmacological
[2017-11-24 08:59] LABS: PT 11.3 SEC (9.4-12.5)
--- NOTE | 2017-11-24 12:39 | PN- Infect Dx ---
Subjective Subjective: Afebrile without complaints Objective Last 24 Hrs of Vital Signs/I&O Vital Signs Date Time Temp Pulse Resp B/P B/P Pulse O2 O2 Flow FiO2 Mean Ox Delivery Rate 11/24 799 Room Air 11/24 799 98.2 84 18 122/70 95 Room Air 11/24 0500 97.8 82 20 139/76 02/ 0400 98.4 68 20 118/58 / 0400 97 Room Air 11/24 0200 98.7 69 20 107/59 / 0200 98.4 63 20 141/82 02/ 0000 98.4 70 24 122/70 02/ 0000 96 Room Air / 0000 98.4 70 24 122/70 96 Room Air / 2200 84 22 125/80 11/23 2000 Room Air 11/23 1999 98.1 68 22 124/68 11/23 1999 98.1 68 22 124/68 96 Room Air / 1600 Room Air 11/23 1600 99.4 69 24 122/68 11/23 1600 99.4 69 24 122/68 97 Room Air / 1400 78 24 125/74 Intake & Output 11/24 1600 / 0800 / 0000 Intake Total 1310 1785 Output Total 400 600 Balance 910 1185 Intake, IV 1300 1065 Intake, Oral 10 720 Number 1 1 Bowel Movements Output, Urine 400 600 Physical Exam Other Physical Findings: He appears comfortable in no acute distress Lungs decreased breath sounds at the right base Heart regular rhythm with no murmur Abdomen is soft, nontender with positive bowel sounds Extremities no cyanosis, clubbing or edema Results Last 24 Hours of Lab Results: Laboratory Tests 11/24 11/24 02/05 0648 0440 1600 Chemistry Sodium (137 - 145 mmol/L) 148 H 147 H Potassium (3.5 - 5.1 mmol/L) 3.5 4.0 Chloride (98 - 107 mmol/L) 114 H 113 H Carbon Dioxide (22 - 30 mmol/L) 17 L 18 L Anion Gap (5 - 16) 18 H 16 BUN (9 - 20 mg/dL) 5 L 7 L Creatinine (0.7 - 1.2 mg/dL) 1.0 1.1 Estimated GFR (>60 ml/min) > 60 > 60 Glucose (65 - 99 mg/dL) 99 115 H Calcium (8.4 - 10.2 mg/dL) 8.8 9.1 Phosphorus (2.5 - 4.5 mg/dL) 3.8 3.5 Magnesium (1.6 - 2.3 mg/dL) 1.4 L 1.6 Total Bilirubin (0.2 - 1.3 mg/dL) 2.4 H 3.1 H AST (17 - 59 U/L) 90 H 102 H ALT (21 - 72 U/L) 77 H 84 H Albumin (3.5 - 5.0 g/dL) 3.6 3.7 Coagulation PT (9.4 - 12.5 SEC) 11.3 INR (0.90 - 1.17) 1.08 Hematology CBC w Diff NO MAN DIFF REQ WBC (4.8 - 10.8 /CUMM) 14.8 H RBC (4.70 - 6.10 /CUMM) 2.82 L Hgb (14.0 - 18.0 G/DL) 8.9 L Hct (42 - 52 %) 26.3 L MCV (80.0 - 94.0 FL) 93.4 MCH (27.0 - 31.0 PG) 31.4 H MCHC (33.0 - 37.0 G/DL) 33.7 RDW (11.5 - 14.5 %) 17.9 H Plt Count (130 - 400 /CUMM) 401 H MPV (7.4 - 10.4 FL) 8.6 Gran % (42.2 - 75.2 %) 73.6 Lymphocytes % (20.5 - 51.1 %) 22.4 Monocytes % (1.7 - 9.3 %) 2.8 Eosinophils % (0 - 5 %) 0.7 Basophils % (0.0 - 2.0 %) 0.5 Absolute Granulocytes (1.4 - 6.5 /CUMM) 10.9 H Absolute Lymphocytes (1.2 - 3.4 /CUMM) 3.3 Absolute Monocytes (0.10 - 0.60 /CUMM) 0.4 Absolute Eosinophils (0.0 - 0.7 /CUMM) 0.1 Absolute Basophils (0.0 - 0.2 /CUMM) 0.1 Last 24 Hours of Jean-Pierre Results: Blood cultures November 21 negative Recent Imaging Studies: MRI of the abdomen November 23 revealed a mass in the pancreatic tail, appearing cystic, most consistent with a pancreatic pseudocyst or pancreatic cyst; gallbladder is well distended, with thickened bile/sludge and layering small gallstones, with no definite gallbladder wall thickening or pericholecystic edema; hepatomegaly with hepatic steatosis Assessment/Plan Impression: Stable, with temperatures remaining normal but with his white blood cell count continuing to increase, of unclear etiology, on Unasyn now Day 7 of treatment for mixed anaerobic sepsis, possibly secondary to aspiration pneumonia versus an intra-abdominal process, for example sigmoid diverticulitis, with his recent MRI of the abdomen negative for any obvious intra-abdominal infection. The MRI did reveal the pancreatic mass, which is felt to represent a cyst and unlikely to explain his leukocytosis. His liver enzymes continue to decrease, with no GI symptoms or abdominal tenderness, making an acute cholecystitis less likely. Suggestion: 1. Await HIDA scan 2. Follow-up final blood cultures 3. Continue Unasyn
--- NOTE | 2017-11-24 14:57 | NUCLEAR MEDICINE REPORT ---
EXAMINATION: BILIARY TRACT IMAGING STUDY CLINICAL INFORMATION: Hyperbilirubinemia, elevated WBC.. COMPARISON: No previous biliary scan is available for comparison. The diagnostic CT scan of the chest, abdomen, and pelvis, dated 11/21/2017, is available for comparison.. TECHNIQUE: Serial gamma scintillation camera images were obtained over the abdomen for a total observation period 4 hours following the intravenous administration of 5.2 mCi Tc-99m Choletec. FINDINGS: There is good concentration of activity in the liver by 5 minutes post injection. Biliary activity is visualized by 7 minutes. Small bowel is well visualized by 10 minutes. The gallbladder is not visualized at any time during the study up to 4 hours post injection. There is no abnormal retention in the liver. IMPRESSION: Nonvisualization the gallbladder is evidence of an obstructed cystic duct and strong evidence to suggest the diagnosis of acute cholecystitis. The common bile duct is patent. Liver function appears normal.
--- NOTE | 2017-11-24 18:20 | PN- Gastroenterology ---
Assessment/Plan Assessment/Recommendations: ASSESSMENT: 1. Abnormal Liver-Associated Enzymes -- acute alcoholic hepatitis. Patient remains jaundiced 2. Acute Kidney Injury -- creatinine now down to 1.5 3. Acute alcohol withdrawal 4. Cystic Lesion Tail of Pancreas -- ? malignant vs benign. CA 19-9 pending. 5. Anemia without overt signs of GI blood loss, macrocytosis 6. Abnormal HIDA Scan, Fevers -- c/w acute cholecystitis RECOMMENDATIONS: 1. Cholecystectomy per surgery 2. CA 19-9 3. Patient will likely need EUS for further evaluation of lesion of pancreas 4. Continue treatment for acute alcohol withdrawal. 5. Discussed with patient's that he will need to follow up with me as an outpatient for treatment of alcoholic liver disease. Subjective Subjective: Patient more alert but still remains confused and is unable to remember my name rock kind of Dr. I am. Has had fevers. Patient had a positive HIDA Scan the results of which are as follows: FINDINGS: There is good concentration of activity in the liver by 5 minutes post injection. Biliary activity is visualized by 7 minutes. Small bowel is well visualized by 10 minutes. The gallbladder is not visualized at any time during the study up to 4 hours post injection. There is no abnormal retention in the liver. IMPRESSION: Nonvisualization the gallbladder is evidence of an obstructed cystic duct and strong evidence to suggest the diagnosis of acute cholecystitis. The common bile duct is patent. Liver function appears normal. Objective Vital Signs and I&Os Vital Signs Date Time Temp Pulse Resp B/P B/P Pulse O2 O2 Flow FiO2 Mean Ox Delivery Rate 11/24 1600 99.4 80 18 13/70 97 Room Air 11/24 1600 97 Room Air 11/24 1200 Room Air 11/24 0800 Room Air 11/24 0800 98.2 84 18 122/70 95 Room Air 02/ 0600 97.8 82 20 139/76 02/06 0400 98.4 68 20 118/58 02/06 0400 97 Room Air / 0200 98.7 69 20 107/59 02/ 0200 98.4 63 20 141/82 02/06 0000 98.4 70 24 122/70 02/06 0000 96 Room Air 02/06 0000 98.4 70 24 122/70 96 Room Air / 2200 84 22 125/80 11/23 1999 Room Air 11/23 1999 98.1 68 22 124/68 02/05 2000 98.1 68 22 124/68 96 Room Air Intake & Output 11/24 1600 11/24 0400 11/23 1600 11/23 0400 11/22 1600 11/22 0400 Intake Total 2325 1785 6381 174 6317 1620 Output Total 1200 234 875 9735 1300 Balance 1125 1185 3900 453 6502 320 Intake, IV 2075 1065 6913 830 1525 1020 Intake, Oral 250 720 300 240 960 600 Number 1 1 3 2 1 Bowel Movements Output, Stool 150 Output, Urine 1200 028 423 9955 1300 Physical Exam General Appearance: alert, awake, comfortable Head: atraumatic Neck: supple Respiratory: lungs clear Cardiovascular: regular rate/rhythm Abdomen: normal bowel sounds, soft, non-tender Extremities: normal inspection Neurologic/Psychiatric: Remains Confused Skin: jaundice Current Medications: Current Medications Sig/Wagner Start time Last Medication Dose Route Stop Time Status Admin Albumin Human 12.5 GM Q8H 11/15 2100 AC 11/24 IV 1256 Ampicillin Sodium/ 3,000 MG Q6H 11/23 1900 AC 11/24 Sulbactam Sodium IV 1307 Sodium Chloride 100 ML Benzocaine/Menthol 1 SUKHI Q2P PRN 11/16 1200 AC 11/16 PO 1951 Calcium Carbonate 500 MG BID 11/20 2200 AC 11/24 PO 1144 Cholecalciferol 2,000 IU DAILY 11/20 1004 AC 11/24 PO 1144 Dextrose/Sodium 1,000 ML Q6H 11/23 1015 DC 11/24 Chloride IV 0324 Dextrose/Water 1,000 ML Q13H 11/24 0800 AC 11/24 IV 0847 Folic Acid 1 MG DAILY 11/22 1000 AC 11/24 PO 1144 Heparin Sodium 5,000 UNIT Q8 11/15 2200 AC 11/24 (Porcine) SC 1421 Lorazepam 1 MG Q6 11/24 1800 AC 11/24 PO 1755 Lorazepam 0.5 MG .STK-MED ONE 11/24 0603 DC PO 11/24 0604 Lorazepam 0.5 MG .STK-MED ONE 11/24 0003 DC PO 11/24 0004 Lorazepam 1.5 MG Q6 11/23 1200 DC 11/24 PO 1159 Lorazepam 2 MG Q2P PRN 11/20 1845 AC IV Lorazepam 1 MG Q2P PRN 11/20 1845 AC IV Magnesium Sulfate 1 GM Q2H 11/24 0800 DC 11/24 Dextrose/Water 100 ML IV 11/24 1159 1310 Multivitamins 1 TAB DAILY 11/22 1000 AC 11/24 PO 1144 Ondansetron HCl 4 MG Q6P PRN 11/15 1800 AC IV Phenol 2 SPRAY Q2P PRN 11/15 2030 AC 11/16 EXT 0822 Phosphate 250 MG PC AND AT BEDTIME 11/17 0900 AC 11/24 PO 1755 Potassium Chloride 10 MEQ Q1H 11/24 0800 DC 11/24 IV 11/24 0901 1421 Senna 187 MG AT BEDTIME 11/17 2200 AC 11/20 PO 2115 Thiamine HCl 100 MG DAILY 11/22 1000 AC 11/24 PO 1144 Results Pertinent Lab Results: Laboratory Tests 11/24 11/24 11/24 1400 0648 0440 Chemistry Sodium (137 - 145 mmol/L) Cancelled 148 H Potassium (3.5 - 5.1 mmol/L) Cancelled 3.5 Chloride (98 - 107 mmol/L) Cancelled 114 H Carbon Dioxide (22 - 30 mmol/L) Cancelled 17 L Anion Gap (5 - 16) Cancelled 18 H BUN (9 - 20 mg/dL) Cancelled 5 L Creatinine (0.7 - 1.2 mg/dL) Cancelled 1.0 Estimated GFR (>60 ml/min) > 60 Glucose (65 - 99 mg/dL) Cancelled 99 Calcium (8.4 - 10.2 mg/dL) Cancelled 8.8 Phosphorus (2.5 - 4.5 mg/dL) Cancelled 3.8 Magnesium (1.6 - 2.3 mg/dL) Cancelled 1.4 L Total Bilirubin (0.2 - 1.3 mg/dL) Cancelled 2.4 H AST (17 - 59 U/L) Cancelled 90 H ALT (21 - 72 U/L) Cancelled 77 H Albumin (3.5 - 5.0 g/dL) Cancelled 3.6 Coagulation PT (9.4 - 12.5 SEC) 11.3 INR (0.90 - 1.17) 1.08 Hematology CBC w Diff NO MAN DIFF REQ WBC (4.8 - 10.8 /CUMM) 14.8 H RBC (4.70 - 6.10 /CUMM) 2.82 L Hgb (14.0 - 18.0 G/DL) 8.9 L Hct (42 - 52 %) 26.3 L MCV (80.0 - 94.0 FL) 93.4 MCH (27.0 - 31.0 PG) 31.4 H MCHC (33.0 - 37.0 G/DL) 33.7 RDW (11.5 - 14.5 %) 17.9 H Plt Count (130 - 400 /CUMM) 401 H MPV (7.4 - 10.4 FL) 8.6 Gran % (42.2 - 75.2 %) 73.6 Lymphocytes % (20.5 - 51.1 %) 22.4 Monocytes % (1.7 - 9.3 %) 2.8 Eosinophils % (0 - 5 %) 0.7 Basophils % (0.0 - 2.0 %) 0.5 Absolute Granulocytes (1.4 - 6.5 /CUMM) 10.9 H Absolute Lymphocytes (1.2 - 3.4 /CUMM) 3.3 Absolute Monocytes (0.10 - 0.60 /CUMM) 0.4 Absolute Eosinophils (0.0 - 0.7 /CUMM) 0.1 Absolute Basophils (0.0 - 0.2 /CUMM) 0.1 02/05 02/05 02/05 1600 0600 0535 Chemistry Sodium (137 - 145 mmol/L) 147 H 150 H Potassium (3.5 - 5.1 mmol/L) 4.0 4.4 Chloride (98 - 107 mmol/L) 113 H 114 H Carbon Dioxide (22 - 30 mmol/L) 18 L 16 L Anion Gap (5 - 16) 16 19 H BUN (9 - 20 mg/dL) 7 L 7 L Creatinine (0.7 - 1.2 mg/dL) 1.1 1.2 Estimated GFR (>60 ml/min) > 60 > 60 Glucose (65 - 99 mg/dL) 115 H 95 Calcium (8.4 - 10.2 mg/dL) 9.1 9.3 Phosphorus (2.5 - 4.5 mg/dL) 3.5 3.2 Magnesium (1.6 - 2.3 mg/dL) 1.6 1.7 Total Bilirubin (0.2 - 1.3 mg/dL) 3.1 H 3.7 H GGT (15 - 73 U/L) 1754 H AST (17 - 59 U/L) 102 H 123 H ALT (21 - 72 U/L) 84 H 90 H Albumin (3.5 - 5.0 g/dL) 3.7 3.9 CA 19-9 Antigen Pending Coagulation PT (9.4 - 12.5 SEC) 10.5 INR (0.90 - 1.17) 1.00 Hematology CBC w Diff MAN DIFF ORDERED WBC (4.8 - 10.8 /CUMM) 13.1 H RBC (4.70 - 6.10 /CUMM) 3.14 L Hgb (14.0 - 18.0 G/DL) 9.8 L Hct (42 - 52 %) 29.4 L MCV (80.0 - 94.0 FL) 93.5 MCH (27.0 - 31.0 PG) 31.2 H MCHC (33.0 - 37.0 G/DL) 33.3 RDW (11.5 - 14.5 %) 18.4 H Plt Count (130 - 400 /CUMM) 346 MPV (7.4 - 10.4 FL) 9.1 Segmented Neutrophils (42.2 - 75.2 %) 51 Band Neutrophils (0.0 - 5.0 %) 4 Lymphocytes (20.5 - 51.1 %) 35 Monocytes (1.7 - 9.3 %) 8 Metamyelocytes (0.0 - 1.0 %) 2 H Platelet Estimate (ADEQUATE) ADEQUATE Polychromasia 1+ Anisocytosis 1+ Stomatocytes 2+ Haptoglobin Pending 11/22 11/22 UNK 0518 Chemistry Sodium (137 - 145 mmol/L) 147 H Potassium (3.5 - 5.1 mmol/L) 4.0 Chloride (98 - 107 mmol/L) 114 H Carbon Dioxide (22 - 30 mmol/L) 15 L Anion Gap (5 - 16) 17 H BUN (9 - 20 mg/dL) 6 L Creatinine (0.7 - 1.2 mg/dL) 1.1 Estimated GFR (>60 ml/min) > 60 Glucose (65 - 99 mg/dL) 94 Calcium (8.4 - 10.2 mg/dL) 8.6 Phosphorus (2.5 - 4.5 mg/dL) 2.7 Magnesium (1.6 - 2.3 mg/dL) 1.3 L Total Bilirubin (0.2 - 1.3 mg/dL) 4.3 H GGT (15 - 73 U/L) 1920 H AST (17 - 59 U/L) 129 H ALT (21 - 72 U/L) 94 H Alkaline Phosphatase (< 127 U/L) Cancelled 828 H Albumin (3.5 - 5.0 g/dL) 3.4 L Triglycerides (<150 mg/dL) 387 H Cholesterol (< 200 MG/DL) 346 H LDL Cholesterol, Calc (65 - 129 mg/dL) 196 H HDL Cholesterol (40 - 60 mg/dL) 52 Cholesterol/HDL Ratio (0.00 - 4.88 %) 6.7 H Coagulation PT (9.4 - 12.5 SEC) 12.0 INR (0.90 - 1.17) 1.14 Hematology CBC w Diff MAN DIFF ORDERED WBC (4.8 - 10.8 /CUMM) 12.4 H RBC (4.70 - 6.10 /CUMM) 3.07 L Hgb (14.0 - 18.0 G/DL) 9.3 L Hct (42 - 52 %) 28.6 L MCV (80.0 - 94.0 FL) 93.4 MCH (27.0 - 31.0 PG) 30.2 MCHC (33.0 - 37.0 G/DL) 32.3 L RDW (11.5 - 14.5 %) 18.5 H Plt Count (130 - 400 /CUMM) 243 MPV (7.4 - 10.4 FL) 9.0 Segmented Neutrophils (42.2 - 75.2 %) 58 Band Neutrophils (0.0 - 5.0 %) 14 H Lymphocytes (20.5 - 51.1 %) 24 Monocytes (1.7 - 9.3 %) 1 L Basophils (0.0 - 2.0 %) 2 Metamyelocytes (0.0 - 1.0 %) 1 Platelet Estimate (ADEQUATE) ADEQUATE Polychromasia 1+ Hypochromic-Microcytic 2+ Poikilocytosis 3+ Anisocytosis 1+ Microcytic Cells 1+ Macrocytic Cells 1+ Stomatocytes 3+ Imaging/Other Studies: MRI/MRCP IMPRESSION: 1. Again seen is a mass in the pancreatic tail, which appears cystic without suspicious solid nodular component. Finding is most consistent with a benign finding such as a pancreatic pseudocyst or pancreatic cyst. Less likely etiology could include a intraductal papillary mucinous neoplasm. Depending on clinical circumstances, further assessment with endoscopic ultrasound could be attempted. Otherwise, continued serial follow-up imaging is recommended in 6 months. 2. Mild hepatomegaly with diffuse hepatic steatosis.
[2017-11-25 05:51] LABS: ABSOLUTE BASOPHIL COUNT 0 /CUMM (0.0-0.2); ABSOLUTE EOSINOPHIL COUNT 0.1 /CUMM (0.0-0.7); ABSOLUTE GRANULOCYTE CT 6.9 /CUMM (1.4-6.5); ABSOLUTE LYMPH COUNT 2.5 /CUMM (1.2-3.4); ABSOLUTE MONOCYTE COUNT 0.8 /CUMM (0.10-0.60); BASOPHIL % 0.3 % (0.0-2.0); EOSINOPHIL % 0.6 % (0-5); GRANULOCYTE % 67.1 % (42.2-75.2); HEMATOCRIT 24.9 % (42-52); MEAN CORPUSCULAR HGB 31.2 PG (27.0-31.0); MEAN CORPUSCULAR HGB CONC 33.6 G/DL (33.0-37.0); MEAN CORPUSCULAR VOLUME 92.9 FL (80.0-94.0); MEAN PLATELET VOLUME 8.4 FL (7.4-10.4); PLATELET COUNT 415 /CUMM (130-400); RBC DISTRIBUTION WIDTH 18.2 % (11.5-14.5); RED BLOOD CELL CT 2.68 /CUMM (4.70-6.10); WHITE BLOOD CELL COUNT 10.3 /CUMM (4.8-10.8)
[2017-11-25 05:56] LABS: PT 11.6 SEC (9.4-12.5)
--- NOTE | 2017-11-25 07:45 | PN- Resident CRCU ---
Subjective HPI/CRCU Issues: - Alcohol withdrawal - Acute kidney injury - Alcoholic Hepatitis/Hyperbilirubinemia/Transaminitis - Hypotension - now resolved - Pancreatic cyst/mass - Leukocytosis with fever concern for cholecystitis - Gram positive rods - bacteremia - New findings of pulmonary nodule on CAT scan(7mm) 24 Hour Events: Patient seen and examined at bedside. He looks and feels well. Denies any CP, SOB, abdominal pain, N/V/ fever. Vitals BP: 130/70; Pulse: 26, RR: 26; A/F. Labs reviewed. His leukocytosis has resolved. H&H and stable, Cr: 1.2, totla bili down to 1.9, with trasnaminitis resolving Objective Vital Signs & I&O Last 8 Hrs of Vitals and I&O: Intake & Output 11/25 0800 Intake Total 750 Output Total 800 Balance -50 Intake, IV 650 Intake, Oral 100 Output, Urine 800 Exam General Appearance: well developed/nourished, no apparent distress, alert, awake , comfortable Head: atraumatic, normal appearance Neck: normal inspection Respiratory: normal breath sounds, chest non-tender, no respiratory distress, quiet respiration, lungs clear Cardiovascular: regular rate/rhythm Gastrointestinal: normal bowel sounds, soft, non-tender Extremities: no edema Cranial Nerves: normal hearing, normal speech, PERRL Skin: icteric but improved Skin Temp/Moisture Exam: Warm/Dry Nutrition Nutrition: P.O. diet Current Medications: Current Medications Sig/Wagner Start time Last Medication Dose Route Stop Time Status Admin Albumin Human 12.5 GM Q8H 11/15 2100 AC 11/25 IV 0521 Ampicillin Sodium/ 3,000 MG Q6H 11/23 1900 AC 11/25 Sulbactam Sodium IV 0609 Sodium Chloride 100 ML Benzocaine/Menthol 1 SUKHI Q2P PRN 11/16 1200 AC 11/16 PO 1951 Calcium Carbonate 500 MG BID 11/20 2200 AC 11/24 PO 2226 Cholecalciferol 2,000 IU DAILY 11/20 1004 AC 11/24 PO 1144 Dextrose/Sodium 1,000 ML Q6H 11/23 1015 DC 11/24 Chloride IV 0324 Dextrose/Water 1,000 ML Q13H 11/24 0800 AC 11/24 IV 2230 Folic Acid 1 MG DAILY 11/22 1000 AC 11/24 PO 1144 Heparin Sodium 5,000 UNIT Q8 11/15 2200 AC 11/25 (Porcine) SC 0521 Lorazepam 1 MG Q6 11/24 1800 AC 11/25 PO 0521 Lorazepam 1.5 MG Q6 11/23 1200 DC 11/24 PO 1159 Lorazepam 2 MG Q2P PRN 11/20 1845 AC IV Lorazepam 1 MG Q2P PRN 11/20 1845 AC IV Magnesium Sulfate 1 GM Q2H 11/24 0800 DC 11/24 Dextrose/Water 100 ML IV 11/24 1159 1310 Multivitamins 1 TAB DAILY 11/22 1000 AC 11/24 PO 1144 Ondansetron HCl 4 MG Q6P PRN 11/15 1800 AC IV Phenol 2 SPRAY Q2P PRN 11/15 2030 AC 11/16 EXT 0822 Phosphate 250 MG PC AND AT BEDTIME 11/17 0900 AC 11/24 PO 2227 Potassium Chloride 10 MEQ Q1H 11/24 0800 DC 11/24 IV 11/24 0901 1421 Senna 187 MG AT BEDTIME 11/17 2200 AC 11/20 PO 2115 Thiamine HCl 100 MG DAILY 11/22 1000 AC 11/24 PO 1144 Antibiotics Antibiotics? none Radiology Findings: SERVICE DATE: 11/23/17-899 EXAM TYPE: NUC - HIDA SCAN FINDINGS: There is good concentration of activity in the liver by 5 minutes post injection. Biliary activity is visualized by 7 minutes. Small bowel is well visualized by 10 minutes. The gallbladder is not visualized at any time during the study up to 4 hours post injection. There is no abnormal retention in the liver. IMPRESSION: Nonvisualization the gallbladder is evidence of an obstructed cystic duct and strong evidence to suggest the diagnosis of acute cholecystitis. The common bile duct is patent. Liver function appears normal. Impression/Plan Impression/Problem List Impression: 52-year-old man with a past medical history of hypertension, hyperlipidemia and alcohol use (reported to Martini intake per day ) who presented to the ER with with complaints of fevers since early October, episodes of bloody bowel movements, diarrhea, status post fall associated with blurry vision, headache and tremor-like activity as well as increased confusion. He was found to have severe dehydration with acute kidney injury as well as elevated total bilirubin and transaminases. In addition he had a CT Abdomen/ Pelvis w/o IV contrast that showed enlarged fatty liver and a 3.8 x 4.8 cm cyst or cystic lesion in the tail of the pancreas which was new from 2007. It was difficult to exclude mild diverticulitis of the sigmoid colon. He developed chills, rigors and hallucinations likely from alcohol withdrawal while on admission and he was started on IV unasyn for possibility of cholangitis, with blood cultures dated 11/18/17 showing growth of anaerobic mixed daxa. He continues to be on an ativan drip now down to 1mg/hr. He also probably has undiagnosed obstructive sleep apnea as he was having tachypnea with episodes of apnea and snoring with associated desaturation. Plan: 1. Alcohol withdrawal * Switch to PO Ativan 0.5mg Q6 PO and Ativan IV PRN as per [facility] protocol. * Psych on board. Appreciate recs. F/U. * Continue PO thiamine, folic acid, and MV. 2. Acute kidney injury 2/2 dehydration * Resolved with hydration * Nephrology input appreciated * Avoid nephrotoxic agents. 3. Chills and rigors with concerns for cholangitis * BC x2 from 11/17/17 showing growth of anaerobic mixed daxa - ? possibly contamination. * F/U identifictio and sensitivities and repeat BC x2 (11/21/17). * Continue IV Unasyn for now - day 8 today. ID on board. Appreciate recs. * CT scan dated 11/21/17 shows cholecystitis, no biliary obstruction. * MRCP showed mass in the pancreatic tail, appearing cystic, most consistent with a pancreatic pseudocyst or pancreatic cyst; gallbladder is well distended, with thickened bile/sludge and layering small gallstones, with no definite gallbladder wall thickening or pericholecystic edema; hepatomegaly with hepatic steatosis * HIDA scan yesterday cw cholecystitis, however, patient doesnt have any symptoms, and so will hold off surgery * He had a recent history of myalgia, mailase with low grade fevers, sore throat and his Rapid flu and strep throat were all negtaive. Tick borne panel, and babesiosis also negative * His CT scan of his abdomen on admission had suggested diverticulitis although he did not have leukocytosis at the time of admission. 3. Hyperbilirubinemia/Transaminitis * Resolving * His hyperbilirubinemia is likely 2/2 alcoholic hepatitis vs ? pancreatic mass casuing obstructive jaundice. * Hepatitis serology negative and HIV panel was neagtive * US Abdomen showed heaptomegaly, hepatic steatosis, a 2.8 x 2.1 x 2.5 cm cyst within the pancreatic tail, no cholilithiasis, or cholecystitis. Ammonia level was WNL * His total Bilirubin trending down * Transaminases trended down to decline with AST 65 and ALT 67 this morning. His GGT is 1000. * His INR is normal today at 1.11 4. Pancreatic cyst/mass * MRI with pancreatic protocol * CA-19 - elevated 36 * IGG4 panel for possible autoimmune pancreatitis is WNL * MRI Pancreatic protocol revealed findings most consistent with pancreatic pseudocyst or pancreatic cyst. Less likely etiology could include a intraductal papillary mucinous neoplasm * Patient will likely need EUS for further evaluation of lesion of pancreas * Follow-up with gastroenterology for further recommendations 5. Hypernatremia * Likely secondary to decreased PO intake of fluids. * Resolved * D/C IVF. Encourage oral intake. 6. Hypophosphatemia and hypocalcemia * Replete phosphorus with neutraphos and continue Tums for hypocalcemia with vitamin D 7. Anemia and thrombocytopenia * Likely secondary to hepatic failure * H&H stable * Continue to monitor CBC * iron studies indicates anemia of chronic disease and liver disease DVT prophylaxis-subcutaneous heparin 5000 IU TID Diet- Advanced to normal diet CODE STATUS- Full code Problem List: 1. Pancreatic mass 2. Alcohol withdrawal 3. Renal failure 4. Liver failure Pain Ratin Tomorrow's Labs & Rationales: cbc- wbc; h&h icu: cr; na Plan DVT/Prophylaxis: mechanical, pharmacological
[2017-11-25 08:00] VITALS: BP 130/70
--- NOTE | 2017-11-25 09:15 | PN- Gastroenterology ---
Assessment/Plan Assessment/Recommendations: ASSESSMENT: 1. Abnormal Liver-Associated Enzymes -- acute alcoholic hepatitis. Patient no longer jaundiced 2. Acute Kidney Injury -- resolved 3. Acute alcohol withdrawal -- patient now oriented 4. Cystic Lesion Tail of Pancreas -- ? malignant vs benign. CA 19-9 normal. 5. Anemia without overt signs of GI blood loss, macrocytosis, likely multifactorial. Will need EGD and Colonoscopy which can be done as outpatient. 6. Abnormal HIDA Scan, Fevers -- c/w acute cholecystitis. No RUQ pain now, WBC decreased. RECOMMENDATIONS: 1. Cholecystectomy per surgery 2. CA 19-9 within normal limits at 38 3. Patient will likely need EUS for further evaluation of lesion of pancreas 4. Discussed with patient's that he will need to follow up with me as an outpatient for treatment of alcoholic liver disease. 5. GI will see again in 48 hours, do not hesitate to contact us if the need arises. Subjective Subjective: Patient alert and oriented X 3. No complaints of nausea, vomiting or abdominal pain. Afebrile. Objective Vital Signs and I&Os Vital Signs Date Time Temp Pulse Resp B/P B/P Pulse O2 O2 Flow FiO2 Mean Ox Delivery Rate 11/24 2244 98.4 95 26 132/64 92 Room Air Room Air 11/24 1600 99.4 80 18 13/70 97 Room Air 11/24 1600 97 Room Air 11/24 1200 Room Air Intake & Output 11/25 1600 11/25 0400 11/24 1600 11/24 0400 11/23 1600 11/23 0400 Intake Total 595 002 3374 1785 1862 680 Output Total 633 061 6732 600 650 Balance -50 360 1125 1185 1212 680 Intake, IV 028 191 7843 1065 1562 440 Intake, Oral 100 60 250 720 300 240 Number 1 1 3 Bowel Movements Output, Urine 013 196 5379 600 650 Physical Exam General Appearance: alert, awake, comfortable Neck: supple, full range of motion Respiratory: normal breath sounds, no respiratory distress, lungs clear Cardiovascular: regular rate/rhythm, Normal S1 and S2 without rub, murmur or gallop Abdomen: normal bowel sounds, soft, non-tender, no organomegaly Neurologic/Psychiatric: oriented x 3 Skin: intact, normal color, warm/dry Current Medications: Current Medications Sig/Wagner Start time Last Medication Dose Route Stop Time Status Admin Albumin Human 12.5 GM Q8H 11/15 2100 AC 11/25 IV 0521 Ampicillin Sodium/ 3,000 MG Q6H 11/23 1900 AC 11/25 Sulbactam Sodium IV 0609 Sodium Chloride 100 ML Benzocaine/Menthol 1 SUKHI Q2P PRN 11/16 1200 AC 11/16 PO 1951 Calcium Carbonate 500 MG BID 11/20 2200 AC 11/24 PO 2226 Cholecalciferol 2,000 IU DAILY 11/20 1004 AC 11/24 PO 1144 Dextrose/Water 1,000 ML Q13H 11/24 0800 AC 11/24 IV 2230 Folic Acid 1 MG DAILY 11/22 1000 AC 11/24 PO 1144 Heparin Sodium 5,000 UNIT Q8 11/15 2200 AC 11/25 (Porcine) SC 0521 Lorazepam 1 MG Q6 11/24 1800 AC 11/25 PO 0521 Lorazepam 1.5 MG Q6 11/23 1200 DC 11/24 PO 1159 Lorazepam 2 MG Q2P PRN 11/20 1845 AC IV Lorazepam 1 MG Q2P PRN 11/20 1845 AC IV Magnesium Oxide 400 MG ONE ONE 11/25 0800 DC PO 11/25 0801 Magnesium Sulfate 1 GM Q2H 11/24 0800 DC 11/24 Dextrose/Water 100 ML IV 11/24 1159 1310 Multivitamins 1 TAB DAILY 11/22 1000 AC 11/24 PO 1144 Ondansetron HCl 4 MG Q6P PRN 11/15 1800 AC IV Phenol 2 SPRAY Q2P PRN 11/15 2030 AC 11/16 EXT 0822 Phosphate 250 MG PC AND AT BEDTIME 11/17 0900 AC 11/24 PO 2227 Potassium Chloride 60 MEQ ONCE ONE 11/25 0800 DC PO 11/25 0801 Senna 187 MG AT BEDTIME 11/17 2200 AC 11/20 PO 2115 Thiamine HCl 100 MG DAILY 11/22 1000 AC 11/24 PO 1144 Results Pertinent Lab Results: Laboratory Tests 11/25 11/24 11/24 0520 1830 1400 Chemistry Sodium (137 - 145 mmol/L) 142 144 Cancelled Potassium (3.5 - 5.1 mmol/L) 3.6 3.8 Cancelled Chloride (98 - 107 mmol/L) 110 H 111 H Cancelled Carbon Dioxide (22 - 30 mmol/L) 20 L 19 L Cancelled Anion Gap (5 - 16) 12 14 Cancelled BUN (9 - 20 mg/dL) 5 L 5 L Cancelled Creatinine (0.7 - 1.2 mg/dL) 1.2 1.1 Cancelled Estimated GFR (>60 ml/min) > 60 > 60 Glucose (65 - 99 mg/dL) 91 108 H Cancelled Calcium (8.4 - 10.2 mg/dL) 9.2 9.2 Cancelled Phosphorus (2.5 - 4.5 mg/dL) 4.0 4.1 Cancelled Magnesium (1.6 - 2.3 mg/dL) 1.7 1.9 Cancelled Total Bilirubin (0.2 - 1.3 mg/dL) 1.9 H 2.1 H Cancelled GGT (15 - 73 U/L) 1000 H AST (17 - 59 U/L) 65 H 81 H Cancelled ALT (21 - 72 U/L) 67 72 Cancelled Albumin (3.5 - 5.0 g/dL) 3.6 3.7 Cancelled Coagulation PT (9.4 - 12.5 SEC) 11.6 INR (0.90 - 1.17) 1.11 Hematology CBC w Diff NO MAN DIFF REQ WBC (4.8 - 10.8 /CUMM) 10.3 RBC (4.70 - 6.10 /CUMM) 2.68 L Hgb (14.0 - 18.0 G/DL) 8.4 L Hct (42 - 52 %) 24.9 L MCV (80.0 - 94.0 FL) 92.9 MCH (27.0 - 31.0 PG) 31.2 H MCHC (33.0 - 37.0 G/DL) 33.6 RDW (11.5 - 14.5 %) 18.2 H Plt Count (130 - 400 /CUMM) 415 H MPV (7.4 - 10.4 FL) 8.4 Gran % (42.2 - 75.2 %) 67.1 Lymphocytes % (20.5 - 51.1 %) 24.5 Monocytes % (1.7 - 9.3 %) 7.5 Eosinophils % (0 - 5 %) 0.6 Basophils % (0.0 - 2.0 %) 0.3 Absolute Granulocytes (1.4 - 6.5 /CUMM) 6.9 H Absolute Lymphocytes (1.2 - 3.4 /CUMM) 2.5 Absolute Monocytes (0.10 - 0.60 /CUMM) 0.8 H Absolute Eosinophils (0.0 - 0.7 /CUMM) 0.1 Absolute Basophils (0.0 - 0.2 /CUMM) 0 11/24 11/24 11/23 11/23 0648 0440 1600 0600 Chemistry Sodium (137 - 145 mmol/L) 148 H 147 H Potassium (3.5 - 5.1 mmol/L) 3.5 4.0 Chloride (98 - 107 mmol/L) 114 H 113 H Carbon Dioxide (22 - 30 mmol/L) 17 L 18 L Anion Gap (5 - 16) 18 H 16 BUN (9 - 20 mg/dL) 5 L 7 L Creatinine (0.7 - 1.2 mg/dL) 1.0 1.1 Estimated GFR (>60 ml/min) > 60 > 60 Glucose (65 - 99 mg/dL) 99 115 H Calcium (8.4 - 10.2 mg/dL) 8.8 9.1 Phosphorus (2.5 - 4.5 mg/dL) 3.8 3.5 Magnesium (1.6 - 2.3 mg/dL) 1.4 L 1.6 Total Bilirubin (0.2 - 1.3 mg/dL) 2.4 H 3.1 H AST (17 - 59 U/L) 90 H 102 H ALT (21 - 72 U/L) 77 H 84 H Albumin (3.5 - 5.0 g/dL) 3.6 3.7 CA 19-9 Antigen (<34 U/mL) 36 H Coagulation PT (9.4 - 12.5 SEC) 11.3 INR (0.90 - 1.17) 1.08 Hematology CBC w Diff NO MAN DIFF REQ WBC (4.8 - 10.8 /CUMM) 14.8 H RBC (4.70 - 6.10 /CUMM) 2.82 L Hgb (14.0 - 18.0 G/DL) 8.9 L Hct (42 - 52 %) 26.3 L MCV (80.0 - 94.0 FL) 93.4 MCH (27.0 - 31.0 PG) 31.4 H MCHC (33.0 - 37.0 G/DL) 33.7 RDW (11.5 - 14.5 %) 17.9 H Plt Count (130 - 400 /CUMM) 401 H MPV (7.4 - 10.4 FL) 8.6 Gran % (42.2 - 75.2 %) 73.6 Lymphocytes % (20.5 - 51.1 %) 22.4 Monocytes % (1.7 - 9.3 %) 2.8 Eosinophils % (0 - 5 %) 0.7 Basophils % (0.0 - 2.0 %) 0.5 Absolute Granulocytes (1.4 - 6.5 /CUMM) 10.9 H Absolute Lymphocytes (1.2 - 3.4 /CUMM) 3.3 Absolute Monocytes (0.10 - 0.60 /CUMM) 0.4 Absolute Eosinophils (0.0 - 0.7 /CUMM) 0.1 Absolute Basophils (0.0 - 0.2 /CUMM) 0.1 Haptoglobin (43 - 212 mg/dL) 216 H 11/23 02/ 0535 UNK Chemistry Sodium (137 - 145 mmol/L) 150 H Potassium (3.5 - 5.1 mmol/L) 4.4 Chloride (98 - 107 mmol/L) 114 H Carbon Dioxide (22 - 30 mmol/L) 16 L Anion Gap (5 - 16) 19 H BUN (9 - 20 mg/dL) 7 L Creatinine (0.7 - 1.2 mg/dL) 1.2 Estimated GFR (>60 ml/min) > 60 Glucose (65 - 99 mg/dL) 95 Calcium (8.4 - 10.2 mg/dL) 9.3 Phosphorus (2.5 - 4.5 mg/dL) 3.2 Magnesium (1.6 - 2.3 mg/dL) 1.7 Total Bilirubin (0.2 - 1.3 mg/dL) 3.7 H GGT (15 - 73 U/L) 1754 H AST (17 - 59 U/L) 123 H ALT (21 - 72 U/L) 90 H Alkaline Phosphatase Cancelled Albumin (3.5 - 5.0 g/dL) 3.9 Coagulation PT (9.4 - 12.5 SEC) 10.5 INR (0.90 - 1.17) 1.00 Hematology CBC w Diff MAN DIFF ORDERED WBC (4.8 - 10.8 /CUMM) 13.1 H RBC (4.70 - 6.10 /CUMM) 3.14 L Hgb (14.0 - 18.0 G/DL) 9.8 L Hct (42 - 52 %) 29.4 L MCV (80.0 - 94.0 FL) 93.5 MCH (27.0 - 31.0 PG) 31.2 H MCHC (33.0 - 37.0 G/DL) 33.3 RDW (11.5 - 14.5 %) 18.4 H Plt Count (130 - 400 /CUMM) 346 MPV (7.4 - 10.4 FL) 9.1 Segmented Neutrophils (42.2 - 75.2 %) 51 Band Neutrophils (0.0 - 5.0 %) 4 Lymphocytes (20.5 - 51.1 %) 35 Monocytes (1.7 - 9.3 %) 8 Metamyelocytes (0.0 - 1.0 %) 2 H Platelet Estimate (ADEQUATE) ADEQUATE Polychromasia 1+ Anisocytosis 1+ Stomatocytes 2+
--- NOTE | 2017-11-25 09:58 | PN- Pulmonary ---
Subjective HPI/Critical Care Issues: The patient is awake and alert. He is feeling better. He offers no new complaints. His vital signs are stable and he is currently afebrile. There were no overnight events reported. Objective Current Medications: Current Medications Sig/Wagner Start time Last Medication Dose Route Stop Time Status Admin Albumin Human 12.5 GM Q8H 11/15 2100 AC 11/25 IV 0521 Ampicillin Sodium/ 3,000 MG Q6H 11/23 1900 AC 11/25 Sulbactam Sodium IV 0609 Sodium Chloride 100 ML Benzocaine/Menthol 1 SUKHI Q2P PRN 11/16 1200 AC 11/16 PO 1951 Calcium Carbonate 500 MG BID 11/20 2200 AC 11/25 PO 0911 Cholecalciferol 2,000 IU DAILY 11/20 1004 AC 11/25 PO 0911 Dextrose/Water 1,000 ML Q13H 11/24 0800 AC 11/25 IV 0933 Folic Acid 1 MG DAILY 11/22 1000 AC 11/25 PO 0911 Heparin Sodium 5,000 UNIT Q8 11/15 2200 AC 11/25 (Porcine) SC 0521 Lorazepam 1 MG Q6 11/24 1800 AC 11/25 PO 0521 Lorazepam 1.5 MG Q6 11/23 1200 DC 11/24 PO 1159 Lorazepam 2 MG Q2P PRN 11/20 1845 AC IV Lorazepam 1 MG Q2P PRN 11/20 1845 AC IV Magnesium Oxide 400 MG ONE ONE 11/25 0800 DC 11/25 PO 11/25 0801 0911 Magnesium Sulfate 1 GM Q2H 11/24 0800 DC 11/24 Dextrose/Water 100 ML IV 11/24 1159 1310 Multivitamins 1 TAB DAILY 11/22 1000 AC 11/25 PO 0911 Ondansetron HCl 4 MG Q6P PRN 11/15 1800 AC IV Phenol 2 SPRAY Q2P PRN 11/15 2030 AC 11/16 EXT 0822 Phosphate 250 MG PC AND AT BEDTIME 11/17 0900 AC 11/25 PO 0911 Potassium Chloride 60 MEQ ONCE ONE 11/25 0800 DC 11/25 PO 11/25 0801 0911 Senna 187 MG AT BEDTIME 11/17 2200 AC 11/20 PO 2115 Thiamine HCl 100 MG DAILY 11/22 1000 AC 11/25 PO 0911 Vital Signs & I&O Last 24 Hrs of Vitals and I&O: Vital Signs Date Time Temp Pulse Resp B/P B/P Pulse O2 O2 Flow FiO2 Mean Ox Delivery Rate 11/24 2244 98.4 95 26 132/64 92 Room Air Room Air 11/24 1600 99.4 80 18 13/70 97 Room Air 11/24 1600 97 Room Air 11/24 1200 Room Air Intake & Output 11/25 1600 11/25 0800 11/25 0000 Intake Total 750 710 Output Total 800 350 Balance -50 360 Intake, IV 650 650 Intake, Oral 100 60 Output, Urine 800 350 Exam General Appearance: well developed/nourished, no apparent distress, alert, awake , comfortable Head: atraumatic, normal appearance Neck: normal inspection, supple Respiratory: normal breath sounds, chest non-tender, no respiratory distress, quiet respiration, lungs clear Cardiovascular: regular rate/rhythm Gastrointestinal: normal bowel sounds, soft, mild tenderness in RUQ, decreased than yesterday Extremities: no edema Cranial Nerves: normal speech, PERRL Results Last 24 Hrs of Lab Results: Laboratory Tests 11/25/17 0520: Anion Gap 12, Estimated GFR > 60, Glucose 91, Calcium 9.2, Phosphorus 4.0, Magnesium 1.7, Total Bilirubin 1.9 H, GGT 1000 H, AST 65 H, ALT 67, Albumin 3.6, PT 11.6, INR 1.11, CBC w Diff NO MAN DIFF REQ, RBC 2.68 L, MCV 92.9, MCH 31.2 H, MCHC 33.6, RDW 18.2 H, MPV 8.4, Gran % 67.1, Lymphocytes % 24.5, Monocytes % 7.5, Eosinophils % 0.6, Basophils % 0.3, Absolute Granulocytes 6.9 H, Absolute Lymphocytes 2.5, Absolute Monocytes 0.8 H, Absolute Eosinophils 0.1 , Absolute Basophils 0 11/24/17 1830: Anion Gap 14, Estimated GFR > 60, Glucose 108 H, Calcium 9.2, Phosphorus 4.1, Magnesium 1.9, Total Bilirubin 2.1 H, AST 81 H, ALT 72, Albumin 3.7 11/24/17 1400: Sodium Cancelled, Potassium Cancelled, Chloride Cancelled, Carbon Dioxide Cancelled, Anion Gap Cancelled, BUN Cancelled, Creatinine Cancelled, Glucose Cancelled, Calcium Cancelled, Phosphorus Cancelled, Magnesium Cancelled, Total Bilirubin Cancelled, AST Cancelled, ALT Cancelled, Albumin Cancelled Impression/Plan Impression/Plan Impression/Plan: 1. Acute respiratory failure secondary to aspiration pneumonia/pneumonitis. 2. AMBAR -resolved. 3. Tranaminitis - 2/2 alcoholic hepatitis, patient no longer jandiced. 4. Pancreatic cyst/ mass - will need follow up. 5. ALcohol dependence, withdrawl improved. 6. Anemia and thrombocytopenia, no evidence of active bleeding. 7. Hyponatremia - resolved. 8. Abnormal HIDA scan with fevers consistent with acute cholecystitis. Recommendations: * BIPAP for respiratory distress to continue as needed. Give breaks off therapy if able. * Will have a low threshold for intubation. * ETOH witdrawal - continue ativan drip for controll of CIWA scores. * Avoid oversedation. * Multivitamin, thiamine and folate to continue. * Await surgical input. * Continue empiric IV Unasyn - complete 5 days and reassess. * DVT prophylaxis at all times. * Continue to monitor in the critical care unit. * Discussed plan of care with housestaff and patient's at bedside. * Patient downgraded to [facility].
--- NOTE | 2017-11-25 11:52 | PN- General Surgery ---
Subjective Subjective: Denies pain. tolerating diet. feels well. no f/c/s Objective Vital Signs and I&Os Vital Signs Date Time Temp Pulse Resp B/P B/P Pulse O2 O2 Flow FiO2 Mean Ox Delivery Rate 11/25 0800 99.0 120 26 130/70 11/25 0800 93 Room Air 11/25 0800 98.0 92 26 130/70 93 Room Air 11/24 2244 98.4 95 26 132/64 92 Room Air Room Air 11/24 1600 99.4 80 18 13/70 97 Room Air 11/24 1600 97 Room Air 11/24 1200 Room Air Intake & Output 11/25 1600 11/25 0800 11/25 0000 11/24 1600 11/24 0800 11/24 0000 Intake Total 011 288 4252 1310 1785 Output Total 800 350 800 400 600 Balance -50 360 145 646 5560 Intake, IV 650 628 951 6456 1065 Intake, Oral 100 60 240 10 720 Number 1 1 Bowel Movements Output, Urine 800 350 800 400 600 Physical Exam: gen; looks well, alert/oriented. heent; anicteric, perrl, eomi abd; soft, nt, nd neg rudolph Current Medications: Current Medications Sig/Wagner Start time Last Medication Dose Route Stop Time Status Admin Albumin Human 12.5 GM Q8H 11/15 2100 AC 11/25 IV 0521 Ampicillin Sodium/ 3,000 MG Q6H 11/23 1900 AC 11/25 Sulbactam Sodium IV 0609 Sodium Chloride 100 ML Benzocaine/Menthol 1 SUKHI Q2P PRN 11/16 1200 AC 11/16 PO 1951 Calcium Carbonate 500 MG BID 11/20 2200 AC 11/25 PO 0911 Cholecalciferol 2,000 IU DAILY 11/20 1004 AC 11/25 PO 0911 Dextrose/Water 1,000 ML Q13H 11/24 0800 AC 11/25 IV 0933 Folic Acid 1 MG DAILY 11/22 1000 AC 11/25 PO 0911 Heparin Sodium 5,000 UNIT Q8 11/15 2200 AC 11/25 (Porcine) SC 0521 Lorazepam 1 MG Q6 11/24 1800 AC 11/25 PO 0521 Lorazepam 1.5 MG Q6 11/23 1200 DC 11/24 PO 1159 Lorazepam 2 MG Q2P PRN 11/20 1845 AC IV Lorazepam 1 MG Q2P PRN 11/20 1845 AC IV Magnesium Oxide 400 MG ONE ONE 11/25 08 DC 11/25 PO 11/25 08 09 Magnesium Sulfate 1 GM Q2H 11/24 08 DC 11/24 Dextrose/Water 100 ML IV 11/24 1159 1310 Multivitamins 1 TAB DAILY 11/22 1000 AC 11/25 PO 0911 Ondansetron HCl 4 MG Q6P PRN 11/15 1800 AC IV Phenol 2 SPRAY Q2P PRN 11/15 2030 AC 11/16 EXT 0822 Phosphate 250 MG PC AND AT BEDTIME 11/17 0900 AC 11/25 PO 0911 Potassium Chloride 60 MEQ ONCE ONE 11/25 08 DC 11/25 PO 11/25 08 09 Senna 187 MG AT BEDTIME 11/17 2200 AC 11/20 PO 211 Thiamine HCl 100 MG DAILY 11/22 1000 AC 11/25 PO 0911 Results Last 48 Hours of Labs: Laboratory Tests 11/25 11/24 11/24 0520 1830 1400 Chemistry Sodium (137 - 145 mmol/L) 142 144 Cancelled Potassium (3.5 - 5.1 mmol/L) 3.6 3.8 Cancelled Chloride (98 - 107 mmol/L) 110 H 111 H Cancelled Carbon Dioxide (22 - 30 mmol/L) 20 L 19 L Cancelled Anion Gap (5 - 16) 12 14 Cancelled BUN (9 - 20 mg/dL) 5 L 5 L Cancelled Creatinine (0.7 - 1.2 mg/dL) 1.2 1.1 Cancelled Estimated GFR (>60 ml/min) > 60 > 60 Glucose (65 - 99 mg/dL) 91 108 H Cancelled Calcium (8.4 - 10.2 mg/dL) 9.2 9.2 Cancelled Phosphorus (2.5 - 4.5 mg/dL) 4.0 4.1 Cancelled Magnesium (1.6 - 2.3 mg/dL) 1.7 1.9 Cancelled Total Bilirubin (0.2 - 1.3 mg/dL) 1.9 H 2.1 H Cancelled GGT (15 - 73 U/L) 1000 H AST (17 - 59 U/L) 65 H 81 H Cancelled ALT (21 - 72 U/L) 67 72 Cancelled Albumin (3.5 - 5.0 g/dL) 3.6 3.7 Cancelled Coagulation PT (9.4 - 12.5 SEC) 11.6 INR (0.90 - 1.17) 1.11 Hematology CBC w Diff NO MAN DIFF REQ WBC (4.8 - 10.8 /CUMM) 10.3 RBC (4.70 - 6.10 /CUMM) 2.68 L Hgb (14.0 - 18.0 G/DL) 8.4 L Hct (42 - 52 %) 24.9 L MCV (80.0 - 94.0 FL) 92.9 MCH (27.0 - 31.0 PG) 31.2 H MCHC (33.0 - 37.0 G/DL) 33.6 RDW (11.5 - 14.5 %) 18.2 H Plt Count (130 - 400 /CUMM) 415 H MPV (7.4 - 10.4 FL) 8.4 Gran % (42.2 - 75.2 %) 67.1 Lymphocytes % (20.5 - 51.1 %) 24.5 Monocytes % (1.7 - 9.3 %) 7.5 Eosinophils % (0 - 5 %) 0.6 Basophils % (0.0 - 2.0 %) 0.3 Absolute Granulocytes (1.4 - 6.5 /CUMM) 6.9 H Absolute Lymphocytes (1.2 - 3.4 /CUMM) 2.5 Absolute Monocytes (0.10 - 0.60 /CUMM) 0.8 H Absolute Eosinophils (0.0 - 0.7 /CUMM) 0.1 Absolute Basophils (0.0 - 0.2 /CUMM) 0 11/24 11/24 11/23 0648 0440 1600 Chemistry Sodium (137 - 145 mmol/L) 148 H 147 H Potassium (3.5 - 5.1 mmol/L) 3.5 4.0 Chloride (98 - 107 mmol/L) 114 H 113 H Carbon Dioxide (22 - 30 mmol/L) 17 L 18 L Anion Gap (5 - 16) 18 H 16 BUN (9 - 20 mg/dL) 5 L 7 L Creatinine (0.7 - 1.2 mg/dL) 1.0 1.1 Estimated GFR (>60 ml/min) > 60 > 60 Glucose (65 - 99 mg/dL) 99 115 H Calcium (8.4 - 10.2 mg/dL) 8.8 9.1 Phosphorus (2.5 - 4.5 mg/dL) 3.8 3.5 Magnesium (1.6 - 2.3 mg/dL) 1.4 L 1.6 Total Bilirubin (0.2 - 1.3 mg/dL) 2.4 H 3.1 H AST (17 - 59 U/L) 90 H 102 H ALT (21 - 72 U/L) 77 H 84 H Albumin (3.5 - 5.0 g/dL) 3.6 3.7 Coagulation PT (9.4 - 12.5 SEC) 11.3 INR (0.90 - 1.17) 1.08 Hematology CBC w Diff NO MAN DIFF REQ WBC (4.8 - 10.8 /CUMM) 14.8 H RBC (4.70 - 6.10 /CUMM) 2.82 L Hgb (14.0 - 18.0 G/DL) 8.9 L Hct (42 - 52 %) 26.3 L MCV (80.0 - 94.0 FL) 93.4 MCH (27.0 - 31.0 PG) 31.4 H MCHC (33.0 - 37.0 G/DL) 33.7 RDW (11.5 - 14.5 %) 17.9 H Plt Count (130 - 400 /CUMM) 401 H MPV (7.4 - 10.4 FL) 8.6 Gran % (42.2 - 75.2 %) 73.6 Lymphocytes % (20.5 - 51.1 %) 22.4 Monocytes % (1.7 - 9.3 %) 2.8 Eosinophils % (0 - 5 %) 0.7 Basophils % (0.0 - 2.0 %) 0.5 Absolute Granulocytes (1.4 - 6.5 /CUMM) 10.9 H Absolute Lymphocytes (1.2 - 3.4 /CUMM) 3.3 Absolute Monocytes (0.10 - 0.60 /CUMM) 0.4 Absolute Eosinophils (0.0 - 0.7 /CUMM) 0.1 Absolute Basophils (0.0 - 0.2 /CUMM) 0.1 Assessment/Plan Assessment/Plan No clinical evidence for acute cholecystitis. Tolerating diet without pain, no fever, nontender and leukocytosis resolved. Although there is nonfilling of gallbladder on HIDA, his clinical status does not support acute cholecystitis. Therefore it will be regarded as a false positive and ignored. Discussed with patient typical symptoms of gallstone disease. He will notify if they develop.
[2017-11-25 16:00] VITALS: BP 124/82
[2017-11-25 22:00] VITALS: BP 120/70
[2017-11-26] VITALS: BP 124/60
[2017-11-26 06:59] LABS: ABSOLUTE BASOPHIL COUNT 0.1 /CUMM (0.0-0.2); ABSOLUTE EOSINOPHIL COUNT 0 /CUMM (0.0-0.7); ABSOLUTE GRANULOCYTE CT 5.8 /CUMM (1.4-6.5); ABSOLUTE LYMPH COUNT 2.1 /CUMM (1.2-3.4); ABSOLUTE MONOCYTE COUNT 0.8 /CUMM (0.10-0.60); BASOPHIL % 0.9 % (0.0-2.0); EOSINOPHIL % 0.3 % (0-5); MEAN CORPUSCULAR HGB 30.8 PG (27.0-31.0); MEAN CORPUSCULAR HGB CONC 33.1 G/DL (33.0-37.0); MEAN CORPUSCULAR VOLUME 93.1 FL (80.0-94.0); MEAN PLATELET VOLUME 8.5 FL (7.4-10.4); PLATELET COUNT 483 /CUMM (130-400); RBC DISTRIBUTION WIDTH 18.7 % (11.5-14.5); RED BLOOD CELL CT 2.47 /CUMM (4.70-6.10); WHITE BLOOD CELL COUNT 8.8 /CUMM (4.8-10.8)
--- NOTE | 2017-11-26 07:23 | PN- Housestaff ---
Subjective Follow-up For: - Alcohol withdrawal - Acute kidney injury - Alcoholic Hepatitis/Hyperbilirubinemia/Transaminitis - Hypotension - now resolved - Pancreatic cyst/mass - Leukocytosis with fever concern for cholecystitis - Gram positive rods - bacteremia - New findings of pulmonary nodule on CAT scan(7mm) Complaints: no complaints Tele-Events Since Last Visit: Not on monitor Subjective: Patient seen and examined at bedside. He offers no complaints and is eager on going home. Review of Systems Constitutional: Denies: chills, fever. EENTM: Denies: icterus. Cardiovascular: Denies: chest pain, orthopena, palpitations. Respiratory: Denies: cough, hemoptysis, short of breath. Gastrointestinal: Denies: abdominal pain, nausea, changes in stool, vomiting. Genitourinary: Reports: no symptoms. Neurological/Psychological: Denies: headache, numbness. Objective Last 24 Hrs of Vital Signs/I&O Vital Signs Date Time Temp Pulse Resp B/P B/P Pulse O2 O2 Flow FiO2 Mean Ox Delivery Rate 11/26 0000 99.5 90 24 124/60 02/08 0000 92 Room Air 02/08 0000 99.5 90 24 124/60 92 Room Air / 2200 97.7 72 18 120/70 02/07 1600 99.8 98 24 124/82 92 Room Air 02/ 1600 92 Room Air / 0800 99.0 120 26 130/70 02/07 0800 93 Room Air 02/ 0800 98.0 92 26 130/70 93 Room Air Intake & Output / 0800 02/08 0000 / 1600 Intake Total 1170 Output Total 500 Balance 670 Intake, IV 450 Intake, Oral 720 Output, Urine 500 Physical Exam General Appearance: Alert, Oriented X3, Cooperative, No Acute Distress HEENT: Atraumatic, PERRLA, EOMI, Mucous Membr. moist/pink Neck: Supple, No JVD, No LAD Cardiovascular: Regular Rate, Normal S1, Normal S2 Lungs: Clear to Auscultation, Normal Air Movement Abdomen: Normal Bowel Sounds, Soft, No Tenderness Neurological: Normal Speech, Normal Tone Extremities: No Edema, Normal Pulses Current Medications: Current Medications Sig/Wagner Start time Last Medication Dose Route Stop Time Status Admin Albumin Human 12.5 GM Q8H 11/15 2100 AC 11/26 IV 0556 Ampicillin Sodium/ 3,000 MG Q6H 11/23 1900 AC 11/26 Sulbactam Sodium IV 0609 Sodium Chloride 100 ML Benzocaine/Menthol 1 SUKHI Q2P PRN 11/16 1200 AC 11/16 PO 1951 Calcium Carbonate 500 MG BID 11/20 2200 AC 11/25 PO 2152 Cholecalciferol 2,000 IU DAILY 11/20 1004 AC 11/25 PO 0911 Dextrose/Water 1,000 ML Q13H 11/24 0800 DC 11/25 IV 0933 Folic Acid 1 MG DAILY 11/22 1000 AC 11/25 PO 0911 Heparin Sodium 5,000 UNIT Q8 11/15 2200 AC 11/26 (Porcine) SC 0602 Lorazepam 0.5 MG Q6 11/25 1800 AC 11/26 PO 12/01 1759 0603 Lorazepam 1 MG Q6 11/24 1800 DC 11/25 PO 1224 Lorazepam 2 MG Q2P PRN 11/20 1845 AC IV Lorazepam 1 MG Q2P PRN 11/20 1845 AC IV Magnesium Oxide 400 MG ONE ONE 11/25 08 DC 11/25 PO 11/25 0801 0911 Multivitamins 1 TAB DAILY 11/22 1000 AC 11/25 PO 0911 Ondansetron HCl 4 MG Q6P PRN 11/15 1800 AC IV Phenol 2 SPRAY Q2P PRN 11/15 2030 AC 11/16 EXT 0822 Phosphate 250 MG PC AND AT BEDTIME 11/17 0900 AC 11/25 PO 2049 Potassium Chloride 60 MEQ ONCE ONE 11/25 0800 DC 11/25 PO 11/25 0801 0911 Senna 187 MG AT BEDTIME 11/17 2200 AC 11/20 PO 2115 Thiamine HCl 100 MG DAILY 11/22 1000 AC 11/25 PO 0911 Last 24 Hrs of Lab/Jean-Pierre Results Last 24 Hrs of Labs/Mics: Laboratory Tests 11/26/17 0600: Sodium Pending, Potassium Pending, Chloride Pending, Carbon Dioxide Pending, Anion Gap Pending, BUN Pending, Creatinine Pending, BUN/Creatinine Ratio Pending , Total Bilirubin Pending, Direct Bilirubin Pending, AST Pending, ALT Pending, Alkaline Phosphatase Pending, Total Protein Pending, Albumin Pending, CBC w Diff NO MAN DIFF REQ, RBC 2.47 L, MCV 93.1, MCH 30.8, MCHC 33.1, RDW 18.7 H, MPV 8.5, Gran % 66.0, Lymphocytes % 23.9, Monocytes % 8.9, Eosinophils % 0.3, Basophils % 0.9, Absolute Granulocytes 5.8, Absolute Lymphocytes 2.1, Absolute Monocytes 0.8 H, Absolute Eosinophils 0, Absolute Basophils 0.1 Assessment/Plan Assessment: 52-year-old man with a past medical history of hypertension, hyperlipidemia and alcohol use (reported to Martini intake per day ) who presented to the ER with with complaints of fevers since early October, episodes of bloody bowel movements, diarrhea, status post fall associated with blurry vision, headache and tremor-like activity as well as increased confusion. He was found to have severe dehydration with acute kidney injury as well as elevated total bilirubin and transaminases. In addition he had a CT Abdomen/ Pelvis w/o IV contrast that showed enlarged fatty liver and a 3.8 x 4.8 cm cyst or cystic lesion in the tail of the pancreas which was new from 2007. It was difficult to exclude mild diverticulitis of the sigmoid colon. He developed chills, rigors and hallucinations likely from alcohol withdrawal while on admission and he was started on IV unasyn for possibility of cholangitis, with blood cultures dated 11/18/17 showing growth of anaerobic mixed daxa. He continues to be on an ativan drip now down to 1mg/hr. He also probably has undiagnosed obstructive sleep apnea as he was having tachypnea with episodes of apnea and snoring with associated desaturation. Plan: 1. Alcohol withdrawal * Will receive and complete taper of Ativan today 0.5mg Q6 PO * Psych on board. Appreciate recs. F/U IOP appointment on Thursday @ 12:30, * Continue PO thiamine, folic acid, and MV. 2. Acute kidney injury 2/2 dehydration * Resolved with hydration * Avoid nephrotoxic agents. 3. Chills and rigors with concerns for cholangitis * BC x2 from 11/17/17 showing growth of anaerobic mixed daxa - ? possibly contamination. * F/U identifiction and sensitivities and repeat BC x2 (11/21/17). * Switch to PO AUgmentiin 875mg BID PO for a total of 2 weeks. ID on board. Appreciate recs. * CT scan dated 11/21/17 shows cholecystitis, no biliary obstruction. * MRCP showed mass in the pancreatic tail, appearing cystic, most consistent with a pancreatic pseudocyst or pancreatic cyst; gallbladder is well distended, with thickened bile/sludge and layering small gallstones, with no definite gallbladder wall thickening or pericholecystic edema; hepatomegaly with hepatic steatosis * HIDA scan cw cholecystitis, however, patient doesnt have any symptoms, and so will hold off surgery * He had a recent history of myalgia, mailase with low grade fevers, sore throat and his Rapid flu and strep throat were all negtaive. Tick borne panel, and babesiosis also negative * His CT scan of his abdomen on admission had suggested diverticulitis although he did not have leukocytosis at the time of admission. 3. Hyperbilirubinemia/Transaminitis * Resolving * His hyperbilirubinemia is likely 2/2 alcoholic hepatitis vs ? pancreatic mass casuing obstructive jaundice. * Hepatitis serology negative and HIV panel was neagtive * US Abdomen showed heaptomegaly, hepatic steatosis, a 2.8 x 2.1 x 2.5 cm cyst within the pancreatic tail, no cholilithiasis, or cholecystitis. Ammonia level was WNL * His total Bilirubin trending down * Transaminases trended down to decline with AST 51 and ALT 58 this morning. His GGT is 1000. * His INR is normal 4. Pancreatic cyst/mass * MRI with pancreatic protocol * CA-19 - elevated 36 * IGG4 panel for possible autoimmune pancreatitis is WNL * MRI Pancreatic protocol revealed findings most consistent with pancreatic pseudocyst or pancreatic cyst. Less likely etiology could include a intraductal papillary mucinous neoplasm * Patient will likely need EUS for further evaluation of lesion of pancreas * Follow-up with gastroenterology for further recommendations 5. Hypernatremia * Likely secondary to decreased PO intake of fluids. * Resolved 6. Hypophosphatemia and hypocalcemia * Replete phosphorus with neutraphos and continue Tums for hypocalcemia with vitamin D 7. Anemia and thrombocytopenia * Likely secondary to hepatic failure * H&H stable * Continue to monitor CBC * iron studies indicates anemia of chronic disease and liver disease DVT prophylaxis-subcutaneous heparin 5000 IU TID Diet- Advanced to normal diet CODE STATUS- Full code Problem List: 1. Alcohol withdrawal 2. Pancreatic mass 3. Hyponatremia 4. Renal failure Pain Ratin Pain Location: na Pain Goal: Remain pain free Pain Plan: tylenol Tomorrow's Labs & Rationales: na Discharge Plan Discharge Disposition: home Stable for Discharge? Yes Anticipated Discharge (Day): today
--- NOTE | 2017-11-26 07:52 | PN- Pulmonary ---
Objective Current Medications: Current Medications Sig/Wagner Start time Last Medication Dose Route Stop Time Status Admin Albumin Human 12.5 GM Q8H 11/15 2100 AC 11/26 IV 0556 Ampicillin Sodium/ 3,000 MG Q6H 11/23 1900 AC 11/26 Sulbactam Sodium IV 0609 Sodium Chloride 100 ML Benzocaine/Menthol 1 SUKHI Q2P PRN 11/16 1200 AC 11/16 PO 1951 Calcium Carbonate 500 MG BID 11/20 2200 AC 11/25 PO 2152 Cholecalciferol 2,000 IU DAILY 11/20 1004 AC 11/25 PO 0911 Dextrose/Water 1,000 ML Q13H 11/24 0800 DC 11/25 IV 0933 Folic Acid 1 MG DAILY 11/22 1000 AC 11/25 PO 0911 Heparin Sodium 5,000 UNIT Q8 11/15 2200 AC 11/26 (Porcine) SC 0602 Lorazepam 0.5 MG Q6 11/25 1800 AC 11/26 PO 12/01 1759 0603 Lorazepam 1 MG Q6 11/24 1800 DC 11/25 PO 1224 Lorazepam 2 MG Q2P PRN 11/20 1845 AC IV Lorazepam 1 MG Q2P PRN 11/20 1845 AC IV Magnesium Oxide 400 MG ONE ONE 11/25 799 DC 11/25 PO 11/25 0801 0911 Multivitamins 1 TAB DAILY 11/22 1000 AC 11/25 PO 0911 Ondansetron HCl 4 MG Q6P PRN 11/15 1800 AC IV Phenol 2 SPRAY Q2P PRN 11/15 2030 AC 11/16 EXT 0822 Phosphate 250 MG PC AND AT BEDTIME 11/17 0900 AC 11/25 PO 2049 Potassium Chloride 60 MEQ ONCE ONE 11/25 799 DC 11/25 PO 11/25 0801 0911 Senna 187 MG AT BEDTIME 11/17 2200 AC 11/20 PO 2115 Thiamine HCl 100 MG DAILY 11/22 1000 AC 11/25 PO 0911 Vital Signs & I&O Last 24 Hrs of Vitals and I&O: Vital Signs Date Time Temp Pulse Resp B/P B/P Pulse O2 O2 Flow FiO2 Mean Ox Delivery Rate 11/26 0000 99.5 90 24 124/60 11/26 0000 92 Room Air 11/26 0000 99.5 90 24 124/60 92 Room Air 11/25 2200 97.7 72 18 120/70 11/25 1600 99.8 98 24 124/82 92 Room Air 11/25 1600 92 Room Air 11/25 0800 99.0 120 26 130/70 11/25 0800 93 Room Air 11/25 0800 98.0 92 26 130/70 93 Room Air Intake & Output 11/26 0800 02 0000 11/25 1600 Intake Total 1170 Output Total 500 Balance 670 Intake, IV 450 Intake, Oral 720 Output, Urine 500 Impression/Plan Impression/Plan Impression/Plan: 1. Acute respiratory failure secondary to aspiration pneumonia/pneumonitis. 2. AMBAR -resolved. 3. Tranaminitis - 2/2 alcoholic hepatitis, patient no longer jandiced. 4. Pancreatic cyst/ mass - will need follow up. 5. ALcohol dependence, withdrawl improved. 6. Anemia and thrombocytopenia, no evidence of active bleeding. H & H trended down this am. 7. Hyponatremia - resolved. 8. No evidende of acute cholecystitis per surgery. Recommendations: * Multivitamin, thiamine and folate to continue. * Await surgical input. * Continue empiric IV Unasyn - complete 5 days and reassess. * DVT prophylaxis at all times. * PT/increase activity. * Discussed plan of care with housestaff and patient's at bedside. * Patient downgraded to gen med.
[2017-11-26 08:00] VITALS: BP 122/60
--- NOTE | 2017-11-26 10:34 | PN- Infect Dx ---
Subjective Subjective: Afebrile without complaints Objective Last 24 Hrs of Vital Signs/I&O Vital Signs Date Time Temp Pulse Resp B/P B/P Pulse O2 O2 Flow FiO2 Mean Ox Delivery Rate 11/26 799 Room Air 11/26 799 98.2 102 22 122/60 95 Room Air 11/26 0000 99.5 90 24 124/60 11/26 0000 92 Room Air 11/26 0000 99.5 90 24 124/60 92 Room Air 11/25 2200 97.7 72 18 120/70 11/25 1600 99.8 98 24 124/82 92 Room Air 11/25 1600 92 Room Air Intake & Output 11/26 1600 11/26 0000 Intake Total 350 Output Total 1800 Balance -1450 Intake, Blood 50 Product Intake, IV 200 Intake, Oral 100 Output, Urine 1800 Physical Exam Other Physical Findings: He appears comfortable in no acute distress Lungs are clear Heart regular rhythm with no murmur Abdomen is soft, nontender with positive bowel sounds Extremities no cyanosis, clubbing or edema Results Last 24 Hours of Lab Results: Laboratory Tests 11/26 599 Chemistry Sodium (137 - 145 mmol/L) 142 Potassium (3.5 - 5.1 mmol/L) 4.2 Chloride (98 - 107 mmol/L) 110 H Carbon Dioxide (22 - 30 mmol/L) 20 L Anion Gap (5 - 16) 12 BUN (9 - 20 mg/dL) 12 Creatinine (0.7 - 1.2 mg/dL) 1.2 Estimated GFR (>60 ml/min) > 60 BUN/Creatinine Ratio (7 - 25 %) 10.0 Total Bilirubin (0.2 - 1.3 mg/dL) 1.7 H Direct Bilirubin (< 0.4 mg/dL) 1.2 H AST (17 - 59 U/L) 51 ALT (21 - 72 U/L) 58 Alkaline Phosphatase (< 127 U/L) 249 H Total Protein (6.3 - 8.2 g/dL) 6.2 L Albumin (3.5 - 5.0 g/dL) 3.8 Hematology CBC w Diff NO MAN DIFF REQ WBC (4.8 - 10.8 /CUMM) 8.8 RBC (4.70 - 6.10 /CUMM) 2.47 L Hgb (14.0 - 18.0 G/DL) 7.6 L Hct (42 - 52 %) 23.0 L MCV (80.0 - 94.0 FL) 93.1 MCH (27.0 - 31.0 PG) 30.8 MCHC (33.0 - 37.0 G/DL) 33.1 RDW (11.5 - 14.5 %) 18.7 H Plt Count (130 - 400 /CUMM) 483 H MPV (7.4 - 10.4 FL) 8.5 Gran % (42.2 - 75.2 %) 66.0 Lymphocytes % (20.5 - 51.1 %) 23.9 Monocytes % (1.7 - 9.3 %) 8.9 Eosinophils % (0 - 5 %) 0.3 Basophils % (0.0 - 2.0 %) 0.9 Absolute Granulocytes (1.4 - 6.5 /CUMM) 5.8 Absolute Lymphocytes (1.2 - 3.4 /CUMM) 2.1 Absolute Monocytes (0.10 - 0.60 /CUMM) 0.8 H Absolute Eosinophils (0.0 - 0.7 /CUMM) 0 Absolute Basophils (0.0 - 0.2 /CUMM) 0.1 Last 24 Hours of Jean-Pierer Results: No new cultures Recent Imaging Studies: HIDA scan November 24 nonvisualization of the gallbladder Assessment/Plan Impression: Stable, with temperatures and white blood cell count now normal, on Unasyn Day 9 of treatment for mixed anaerobic sepsis, possibly secondary to aspiration pneumonia versus an intra-abdominal process, for example cholecystitis, with a positive HIDA scan, though this was felt by Surgery to represent a false positive study, or sigmoid diverticulitis, with his initial CT scan suggestive of this but with his MRI of the abdomen negative for any obvious intra-abdominal infection. Suggestion: 1. Discontinue Unasyn and begin Augmentin 875 po every 12 hours for 5 days
[2017-11-26] MEDS ORDERED: ONE DAILY MULT1 EAC2 PO ×2 (11:19→13:04)
[2017-11-26] MEDS ORDERED: FOLIC ACID1 M1 PO ×2 (11:19→13:04)
[2017-11-26] MEDS ORDERED: VITAMIN B-1100 MG PO ×2 (11:19→13:04)
[2017-11-26] MEDS ORDERED: VITAMIN D31000 UNI2 PO ×2 (11:19→13:04)
[2017-11-26] MEDS ORDERED: AUGMENTIN 875-1 EACH PO ×2 (11:21→13:04)
--- NOTE | 2017-11-26 11:45 | Patient Discharge Instructions ---
Discharge Instructions General Discharge Information You were seen/treated for: - Alcoholic hepatitis - Pancreatic cyst - Acuite kidney injury - Anaerobic bacteremia - New findings of pulmonary nodule on CAT scan(7mm) Special Instructions: - Please follow up with your primary care phyiscian in one week. - Please follow up with your admissions dean in one week for follow up of your hypertension. - Please follow up with your GI doctor regarding an endoscopic ultrasound. You have an appointment with the [facility] on 11/30/17 @ 9:30 AM with Shaina Betancourt ([phone]) Diet Recommended Diet: Heart Healthy Activity Activity Self Limited: Yes Acute Coronary Syndrome Inclusion Criteria At DC or during hospital stay patient has or had the following: ACS DIAGNOSIS No Discharge Core Measures Meds if any: Prescribed or Continued at Discharge Meds if any: NOT Prescribed or Continued at Discharge Congestive Heart Failure Inclusion Criteria At DC or during hospital stay patient has or had the following: CHF DIAGNOSIS No Discharge Core Measures Meds if any: Prescribed or Continued at Discharge Meds if any: NOT Prescribed or Continued at Discharge Cerebrovascular accident Inclusion Criteria At DC or during hospital stay patient has or had the following: CVA/TIA Diagnosis No Discharge Core Measures Meds if any: Prescribed or Continued at Discharge Meds if any: NOT Prescribed or Continued at Discharge Venous thromboembolism Inclusion Criteria VTE Diagnosis No VTE Type NONE VTE Confirmed by (Test) NONE Discharge Core Measures - Per Current guidelines, there needs to be overlap - treatment for the first 5 days of Warfarin therapy. - If discharged on Warfarin prior to 5 days of - overlap therapy, the patient will need to be - assessed for post discharge needs including - *Post discharge parental anticoagulation - *Warfarin and/or parental anticoagulation education - *Follow up date to check INR post discharge At least 5 days overlap therapy as Inpatient No Meds if any: Prescribed or Continued at Discharge Note: Overlap Therapy is Warfarin and Anticoagulant Meds if any: NOT Prescribed or Continued at Discharge
[2017-11-26] MEDS ORDERED: ATIVAN0.5 M1 PO ×2 (11:49→13:04)
--- NOTE | 2017-11-26 13:37 | Discharge Summary ---
Visit Information Visit Dates Admission Date: 11/15/17 Discharge Date: 11/26/17 Hospital Course Course Attending Physician: Cecilio Valverde MD Primary Care Physician: Maureen Farr MD Consulting Request: 1 Consulting Specialty: Critical Care Consulting Request: 2 Consulting Specialty: Gastroenterology Consulting Request: 3 Consulting Specialty: Nephrology Consulting Request: 4 Consulting Specialty: Infectious Disease Hospital Course: 52-year-old male with a past medical history of hypertension, hyperlipidemia who presented to ER complains of fevers since early October, episodes of bloody bowel movements, diarrhea, status post fall associated with blurry vision, headache and tremor-like activity as well as increased confusion. Vitals at the time of admission blood pressure 130/90, respiratory rate of 16, pulse 87, afebrile saturating 96% on room air. Labs pertinent for normal white blood cell count of 9100, H&H of 13.6/39.1 and MCV of 9144 with platelet count of 1 20,000. Serum creatinine revealed a sodium of 122, potassium of 3.7, bicarbonate of 16, anion gap 24, BUN 50 with a creatinine of 6.7. Lactic acid was 2.3. LFTs pertinent for elevated total bili of 12.1, direct bilirubinemia of 11.4, transaminitis with an AST/ALT of 696/266, alkaline phosphatase of 750. Serum ammonia was 16. CK was 707 with the first set of troponin 0.04. Amylase was 73 with lipase of 67. INR was 1.34. Tox screen pertinent for serum alcohol was less than 10. UTox: negative And a Tylenol level of less than 10. CXR showed no focal consolidation or overt edema, or pleural effusion. There is elevation of right hemidiaphragm. CT head and cervical spine showed no acute intracranial pathology. No CT evidence of acute cervical spine fracture or traumatic subluxation. CT Abdomen/Pelvis w/o IV contrast showed enlarged fatty liver. 3.8 x 4.8 cm cyst or cystic lesion in the tail of the pancreas is new from 2007. There is an adjacent small focal calcification in the pancreas and some stranding of the surrounding peripancreatic fat. Diverticulosis. It is difficult to exclude mild diverticulitis of the sigmoid colon. In the ER he received NS 1000ml x2, and started on NAC for concern for tylenol toxicity in the setting of ? underlying alcoholic hepatitis which was later dscontinued after he was found to have not consumed tylenol. He was admitted to ICU for closer monitoring with the clincial syndrome that the patient had flu which resulted in cholestasis, decreased PO intake, in the setting of being on diuretics and ACEI which subsequently led to deydration and renal failure. His hospital course was complicated by alcohol withdrawl, with possibly aspiration PNA and gram negative bacteremia. The following problems were adressed: # Acute kidney injury 2/2 dehydration This was attributed to dehydration in the setting of decreased PO intake and being on diuretics. Nephrology was consulted, who agreed with hydration. His Cr subsequently improved to normal (1.2) upon discharge with aggresive fluid hydration. His antihypertensive medications were held given AMBAR. # Hyperbilirubinemia/Transaminitis in setting of fevers - His hyperbilirubinemia was likely 2/2 alcoholic hepatitis. GI was consulted. Steroids were with held given low Maddrey's score. Of note, patient had a recent history of myalgia, mailase with low grade fevers, sore throat and his rapid flu and strep throat were all negative. Hepatitis serology negative and HIV panel was also negative. CT scan of his abdomen on admission had suggested diverticulitis although he did not have leukocytosis at the time of admission, however, given hyperbilirubinemia, elevated alk phosp,and GGT, US abdomen was done which showed heaptomegaly, hepatic steatosis, a 2.8 x 2.1 x 2.5 cm cyst within the pancreatic tail, no cholilithiasis, or cholecystitis. MRCP was not pursued until after his AMBAR resolved for further evaluation of the pancreatic lesion. His liver enzymes continued to trend down and were WNLupon discharge. #Fevers, leukocytosis 2/2 aspiration PNA with anaerobic bacteremia - Patient spiked a temp on his 3rd post-admission day, he was also altered in his mentation at that time 2/2 acohol withdrawl. He was pancultured and treated for possible aspiration PNA with Unasyn. BC from 11/17/17 showed growth of anaerobic mixed daxa - ? possibly contamination. ID was consulted given persistent leukocytosis s/p treatment for aspiration PNA and a CT scan of abdomen was repeated on 11/21/17 which showed cholecystitis, no biliary obstruction. MRCP was eventually pursued after his renal function was back to baseline. It showed gallbladder that was well distended, with thickened bile/ sludge and layering small gallstones, with no definite gallbladder wall thickening or pericholecystic edema; hepatomegaly with hepatic steatosis. As it was unrevealing, a HIDA scan was pursued as per ID recs which was cw cholecystitis, however, patient didn't have any symptoms and GS was consulted and surgery was witheld. He was continued on Unsayn and subsequently transitioned to Augmentin 875mg BID for a total of 14 days for anaerobic bacteremia. # Pancreatic cyst/mass: Abdominal US had revelaed a cyst in his pancreas. An MRCP was eventually pursued after his renal function was back to baseline which showed mass in the pancreatic tail, appearing cystic, most consistent with a pancreatic pseudocyst or pancreatic cyst. Meanwhil,e CA-19 was sent which was elevated 36. IGG4 panel was also sent for possible autoimmune pancreatitis which was negative. Patient will likely need EUS for further evaluation of lesion of pancreas. He is to F/U with gastroenterology as an OP. #Alcohol withdrawal -Patient consumed 2 martini's kiera daily basis.While in the hsoital, he underwent alchol withdrawl, and had to be placed on an Ativan drip with subsequent transition to PO Ativan 0.5mg Q6 PO and Ativan IV PRN as per CIWA protocol. Psych and social work were consulted. Patient has an IOP appointment on Thursday11/30/17 at 9:30am as per Psych. He is to continue on PO thiamine, folic acid, and MV. #HTN - He was on a combination pill of HCTZ/Lisinopril which was held in the hospital given AKIand soft BP. His BP in the hospital remained stable. He should follow up with his PCP for further management of his HTN, and possibly be placed on Ca channel soham if remains hypertensive. # Anemia and thrombocytopenia - This was atributed to hepatic failure/ alcoholism. His H&H remained stable. Iron studies c/w anemia of chronic disease. - DVT prophylaxis - He was on subcutaneous heparin 5000 IU TID Allergies: Coded Allergies: acetaminophen (From PERCOCET) (Severe, ITCH 02/05/16) hydrocodone (Severe, ITCH 02/05/16) oxycodone (Severe, ITCH 02/05/16) Significant Procedures: SERVICE DATE: 11/15/17 EXAM TYPE: CAT - CT ABD & PELVIS W/O IV CONTRAS FINDINGS: LUNG BASES: There is subsegmental atelectasis at the lung bases. LIVER, GALLBLADDER, AND BILIARY TREE: The liver is low in attenuation suggestive of fatty infiltration. The liver appears slightly enlarged, right lobe measuring 20 cm in length. No focal liver lesion is seen. The gallbladder is high in attenuation related to the liver, possibly related to bile sludge. No gallstones are seen. No intra or extrahepatic biliary duct dilatation is seen. PANCREAS: There is a cystic lesion in the tail of the pancreas. This measures 4.8 x 3.8 cm axial image 32 series 2 and is new from 2008 exam. There may be an adjacent focal calcification in the pancreas. There is minimal adjacent fat stranding. Differential would include a benign pseudocyst related to previous pancreatitis and cystic pancreatic neoplasm. The pancreas is otherwise unremarkable. SPLEEN: Unremarkable. ADRENAL GLANDS: Unremarkable. KIDNEYS AND URETERS: The kidneys are normal in size, shape, and attenuation. No hydronephrosis, hydroureter, or calculi seen. No perinephric stranding. BLADDER: Not distended and not well evaluated. GASTROINTESTINAL TRACT: There is evidence of diverticulosis of the colon. There is minimal fat stranding seen adjacent to the sigmoid colon and it is difficult to exclude mild diverticulitis. No evidence of obstruction, perforation or abscess is seen. Small and large bowel is otherwise unremarkable. The appendix is unremarkable. ABDOMINAL WALL: There is a small umbilical hernia containing fat. LYMPH NODES: There are no enlarged lymph nodes. There is no ascites. VASCULAR: Unremarkable. PELVIC VISCERA: The prostate gland does not appear enlarged. OSSEOUS STRUCTURES: There is a small sclerotic lesion in the left iliac bone measuring 6 mm axial image 82 series 2. This is not seen on 2008 exam. Bony structures are otherwise unremarkable. IMPRESSION: Enlarged fatty liver. 3.8 x 4.8 cm cyst or cystic lesion in the tail of the pancreas is new from 2008 exam. There is an adjacent small focal calcification in the pancreas and some stranding of the surrounding peripancreatic fat. Differential would include pseudocyst related to previous pancreatitis and cystic pancreatic neoplasm. Diverticulosis. It is difficult to exclude mild diverticulitis of the sigmoid colon. SERVICE DATE: 11/15/17 EXAM TYPE: CAT - CT CERV SPINE WO IV CONTRAST; CT HEAD WO IV CONTRAST FINDINGS: HEAD: No intracranial mass, hemorrhage, or midline shift is visualized. The ventricles and sulci are age-appropriate. No extra-axial collections are identified. The paranasal sinuses and mastoid air cells are well aerated. CERVICAL SPINE: There is no evidence of acute cervical spine fracture. Vertebral bodies remain normal in height. There is straightening of the normal cervical lordosis. Degenerative endplate remodeling with anterior marginal osteophyte formation and mild loss of normal disc space is noted at C5-C6 and C6-C7. No pre- or paravertebral soft tissue abnormality is identified. Limited assessment of the lung apices is unremarkable. IMPRESSION: 1. No acute intracranial pathology. 2. No CT evidence of acute cervical spine fracture or traumatic subluxation. SERVICE DATE: 11/15/17 EXAM TYPE: RAD - XRY-PORTABLE CHEST XRAY FINDINGS: Lung volumes are somewhat low. No focal consolidation or overt edema is appreciated. Heart size is within the range of normal. There are no pleural effusions. There is elevation of the right hemidiaphragm. IMPRESSION: No radiographic evidence of an acute cardiopulmonary process. SERVICE DATE: 11/16/17 EXAM TYPE: US - US-LIMITED ABDOMEN FINDINGS: PANCREAS: As described on yesterday's abdominal CT there is a 2.8 x 2.1 x 2.5 cm cyst within the pancreatic tail with differential considerations discussed previously. Differences in measurements between the 2 examinations are likely technical. LIVER: Hepatomegaly. Increased liver echogenicity compatible with hepatic steatosis seen on the prior CT. GALLBLADDER: Normal. The gallbladder is physiologically distended without evidence of stones, sludge, polyps, wall thickening or pericholecystic fluid. There are multiple gallbladder folds. COMMON BILE DUCT: Normal in caliber measuring 0.38 cm in diameter. RIGHT KIDNEY: Normal. No hydronephrosis. No renal calculi. The kidney measures 11.7 cm in maximum dimension. There is a 1.2 x 1.3 x 1.3 cm cyst within the midpole of the right kidney. There is a small amount of nonspecific perinephric fluid on the right side. FREE FLUID: None. IMPRESSION: - As described on yesterday's abdominal CT there is a 2.8 x 2.1 x 2.5 cm cyst within the pancreatic tail with differential considerations discussed previously. Differences in measurements between the 2 examinations are likely technical. - Hepatomegaly and hepatic steatosis. - No cholelithiasis nor sonographic evidence of acute cholecystitis. - Right renal cyst and a small amount of nonspecific right perinephric fluid. SERVICE DATE: 11/18/17 EXAM TYPE: RAD - XRY-PORTABLE CHEST XRAY FINDINGS: Lung volume low with bibasilar airspace opacity of infiltrate or atelectasis. The airspace disease is new since the chest x-ray of 11/15/2017. Airspace opacities are worse on the left compared to the right. Airspace opacities are new since prior chest x-ray. No large pleural effusion. IMPRESSION: Low lung volume with bibasilar opacities left worse than right. Infiltrate/atelectasis. SERVICE DATE: 11/18/17 EXAM TYPE: RAD - XRY-PORTABLE CHEST XRAY FINDINGS: Lung volume low with bibasilar airspace opacity of infiltrate or atelectasis. The airspace disease is new since the chest x-ray of 11/15/2017. Airspace opacities are worse on the left compared to the right. Airspace opacities are new since prior chest x-ray. No large pleural effusion. IMPRESSION: Low lung volume with bibasilar opacities left worse than right. Infiltrate/atelectasis. SERVICE DATE: 11/20/17150 EXAM TYPE: RAD - XRY-PORTABLE CHEST XRAY FINDINGS: Asymmetric elevation of right diaphragm compared to left. No acute abnormality. No infiltrate or pleural effusion. No pulmonary vascular congestion. The basilar atelectasis seen on prior chest x-ray has improved in aeration and the overall volume of inspiration is slightly improved. IMPRESSION: No acute abnormality of chest. SERVICE DATE: 11/21/17- EXAM TYPE: CAT - CT ABD & PELVIS W/O IV CONTRAS; CT CHEST WO IV CONTRAST FINDINGS: CT SCAN OF THE CHEST: LUNGS: In the right upper lobe, a 7 mm solid noncalcified pulmonary nodule is seen with linear bandlike densities extending to the posterior pleural surface with associated mild focal thickening of the pleura (series 4, image 134). Small calcified granuloma seen in the right upper lobe (series 4, image 189). In the left lower lobe, there is a lobulated 8 mm calcification with coarse calcification and with associated retractile change of the left major fissure (series 4, image 221), also consistent with a granuloma. No suspicious pulmonary nodule or mass is seen. There is volume loss and atelectasis/consolidation seen in the right lower lobe and lateral segment of the right middle lobe with elevation of the right hemidiaphragm associated air bronchograms are seen. No central obstructing mass or filling defect within the airways is seen. There is also some linear segmental atelectatic change in the left lower lobe. No effusion or pneumothorax. Central airways patent. LYMPHOVASCULAR STRUCTURES: Aortic and heart size normal. No pericardial effusion. Small calcified right lower paratracheal lymph node is seen. No mediastinal, hilar or axillary adenopathy or free fluid collection. THYROID GLAND: Unremarkable to the extent included. BONES: Unremarkable. CT SCAN OF THE ABDOMEN AND PELVIS: LIVER, GALLBLADDER, AND BILIARY TREE: The liver is enlarged, measuring 20.4 cm longitudinally. Diffuse hepatic steatosis is noted. No focal hepatic lesion on noncontrast imaging. No biliary ductal dilatation is present. Gallbladder is dilated and demonstrates several faintly calcified gallstones. Subtle thickening of the gallbladder wall and pericholecystic edema is seen. No intra or extrahepatic biliary ductal dilatation is seen. PANCREAS: Again seen is mild stranding around the pancreatic tail. There is also a 4.4 x 3.1 cm thin-walled cystic mass in the pancreatic tail, slightly smaller compared to 4.8 x 3.7 cm on 11/15/2017. Findings are most likely due to chronic pancreatitis and a slightly involuting pancreatic pseudocyst. Adjacent punctate calcification is unchanged. Remainder of pancreas is unremarkable on noncontrast study. No pancreatic ductal dilatation is seen. SPLEEN, ADRENAL GLANDS: Unremarkable on noncontrast imaging. KIDNEYS AND URETERS: There is a 1.4 x 1.1 cm mid right renal cortical cyst, unchanged. The kidneys are otherwise unremarkable. No nephrolithiasis or hydroureteronephrosis seen. No ureteral calculi noted. BLADDER: And air-fluid level is seen within a decompressed bladder, likely related to Myers catheter placement. PELVIC VISCERA: Unremarkable. GASTROINTESTINAL TRACT: Chronic sigmoid colonic diverticulosis is seen with diffuse circumferential wall thickening and mild surrounding hyperemia. Other scattered colonic diverticula are also seen without evidence of acute diverticulitis. Small and large bowel loops are otherwise unremarkable. The appendix is unremarkable. ABDOMINAL WALL: There is a tiny fat-containing umbilical hernia. LYMPH NODES, VASCULAR: No abdominal or pelvic adenopathy is seen. No free fluid. Abdominal aorta normal in caliber. Incidental note is made of a retroaortic left renal vein. OSSEOUS STRUCTURES: Small sclerotic bone island in the left iliac bone again noted, unchanged. No significant focal abnormality seen. IMPRESSION: 1. Dilated gallbladder with subtle wall thickening and mild surrounding edema seen. Findings raise the suspicion of cholelithiasis and acute cholecystitis. Close clinical correlation is requested. No biliary obstruction noted. 2. Chronic pancreatitis around the pancreatic tail again seen with redemonstration of presumed pancreatic pseudocyst in the pancreatic tail. Compared to the prior exam, there may be a slight decrease in size of this pseudocyst. 3. Volume loss with atelectasis and consolidation in the right lower lobe and segmental atelectasis in the lateral segment of the right middle lobe. No central obstructing lesion seen. 4. 7 mm solid noncalcified pulmonary nodule in the right upper lobe. Findings are nonspecific but will require follow-up to exclude malignancy. In a low-risk and in a high risk population, per the Fleischner criteria, initial follow-up CT scan in 6-12 months is recommended. 5. Hepatomegaly with diffuse hepatic steatosis. 6. Chronic colonic diverticulosis. 7. Small right renal cyst. 8. Evidence of old granulomatous lung disease. SERVICE DATE: 11/23/17 EXAM TYPE: NUC - HIDA SCAN FINDINGS: There is good concentration of activity in the liver by 5 minutes post injection. Biliary activity is visualized by 7 minutes. Small bowel is well visualized by 10 minutes. The gallbladder is not visualized at any time during the study up to 4 hours post injection. There is no abnormal retention in the liver. IMPRESSION: Nonvisualization the gallbladder is evidence of an obstructed cystic duct and strong evidence to suggest the diagnosis of acute cholecystitis. The common bile duct is patent. Liver function appears normal. SERVICE DATE: 11/23/17 EXAM TYPE: MRI - MRI-ABD W/O-W JAZLYN FINDINGS: Evaluation is limited due to difficulties with patient motion and respiratory suspension. LIVER, GALLBLADDER, BILIARY TREE: Liver is enlarged, measuring 20.8 cm longitudinally. Again seen is elevation of the right hemidiaphragm, unchanged. There is diffuse loss in signal on opposed phase sequences, consistent with hepatic steatosis. No focal cystic or solid mass or intrahepatic or extrahepatic ductal dilatation. Hepatic and portal veins patent. The gallbladder is well distended and internal layering debris, consistent with thickened bile/sludge and layering small gallstones. No definite gallbladder wall thickening or pericholecystic edema is seen. PANCREAS: Corresponding to the CT scan findings, in the pancreatic tail, there is a well-defined 3.3 x 4.2 x 3.6 cm T2 bright thin-walled mass, which demonstrates mild peripheral rim enhancement but no definite central enhancement, though evaluation is limited by motion artifact. The remainder of the pancreas is unremarkable with no additional mass seen. The pancreatic duct is normal, measuring 0.2 cm in diameter. SPLEEN: Normal size and appearance. Splenic vein patent. ADRENAL GLANDS AND KIDNEYS: Adrenal glands normal. Kidneys bilaterally symmetric in size and function. There are a few scattered bilateral T2 bright masses in the kidneys, measuring up to 2.2 x 1.3 cm in the mid right kidney and 1.0 cm in the upper to mid left kidney, demonstrating no enhancement postcontrast, consistent with benign cysts. No suspicious focal mass, hydronephrosis, or perinephric stranding. BOWEL LOOPS: Scattered colonic diverticulosis is seen with no evidence of acute diverticulitis. No significant free fluid. LYMPHOVASCULAR STRUCTURES: Abdominal aorta normal in caliber. No periaortic collections. No abdominal adenopathy or free fluid collection. BONES: Grossly unremarkable. IMPRESSION: 1. Again seen is a mass in the pancreatic tail, which appears cystic without suspicious solid nodular component. Finding is most consistent with a benign finding such as a pancreatic pseudocyst or pancreatic cyst. Less likely etiology could include a intraductal papillary mucinous neoplasm. Depending on clinical circumstances, further assessment with endoscopic ultrasound could be attempted. Otherwise, continued serial follow-up imaging is recommended in 6 months. 2. Mild hepatomegaly with diffuse hepatic steatosis. Disposition Summary Disposition Principal Diagnosis: Alcoholic hepatitis AMBAR 2/2 dehydration Pancreatic lesion- ? cyst Additional Diagnosis: HTN Depression Discharge Disposition: home health services Discharge Instructions General Discharge Information Code Status: Full Code Patient's Diet: Regular Patient's Activity: As tolerated Follow-Up Instructions/Appts: - Please follow up with your primary care phyiscian in one week. - Please follow up with your air traffic coordinator in one week for follow up of your hypertension. - Please follow up with your GI doctor regarding an endoscopic ultrasound. You have an appointment with the [facility] on 11/30/17 @ 9:30 AM with Shaina Betancourt ([phone]) Medications at Discharge Discharge Medications: Stop taking the following medications: Lisinopril/Hydrochlorothiazide (Lisinopril-Hctz 20-12.5 MG Tab) 20 MG-12.5 MG TABLET ORAL DAILY Continue taking these medications: Atorvastatin Calcium (Atorvastatin Calcium) 40 MG TABLET 1 Tablet ORAL DAILY Comments: NOT GIVEN WHILE IN HOSPITAL Escitalopram Oxalate (Escitalopram Oxalate) 10 MG TABLET 1 Tablet ORAL DAILY Comments: NOT GIVEN WHILE IN HOSPITAL Start taking the following new medications: Amoxicillin/Potassium Clav (Augmentin 875-125 Tablet) 875 MG-125 MG TABLET 1 Tablet ORAL TWICE DAILY Qty = 9 No Refills Instructions: . Lorazepam (Ativan) 0.5 MG TABLET 1 Tablet ORAL AAC Qty = 2 No Refills Instructions: Take 1 tablet @ 6:00pm and midnight.. Comments: Last Taken:11/26/17 Time: 12:00 PM Take 1 tablet @ 6:00pm and 1 tablet at midnight tonight. Folic Acid (Folic Acid) 1 MG TABLET 1 Milligram ORAL DAILY Qty = 30 No Refills Instructions: . Comments: Last Taken:11/26/17 Time: 9:00 AM Thiamine HCl (Vitamin B-1) 100 MG TABLET 100 Milligram ORAL DAILY Qty = 90 No Refills Instructions: . Comments: Last Taken:11/26/17 Time: 9:00 AM Cholecalciferol (Vitamin D3) 1,000 UNIT TABLET 2,000 International Unit ORAL DAILY Qty = 120 No Refills Instructions: . Comments: Last Taken:11/26/17 Time: 9:00 AM Multivitamin (One Daily Multivitamin) 1 EACH TABLET 1 Tablet ORAL DAILY Qty = 90 No Refills Instructions: . Comments: Last Taken:11/26/17 Time: 9:00 AM Copies To: Cecilio Valverde MD; Richa OCONNOR,Jolly; Chika OCONNOR,Maureen; Murtaza Turner APRN Attending MD Review Statement Documenting Attending: Cecilio Valverde MD
--- NOTE | 2017-11-26 21:44 | PN- Psychiatry ---
Assessment/Plan Impression: Late entry. The patient was seen at 1215 today. He will finish his alcohol withdrawal detox taper today. He has two more doses of lorazepam 0.5 mg PO every 6 hours left, at 1800 and 2355 today. His supportive and the paient verbalize understanding that he is not to drive, operate heavy machinery, nor drink alcohol while taking this medication. He has been encouraged to abstain from alcohol, to attend the Intensive Outpatient program, and to attend , with a goal to find a sponsor. He is not suicidal, not psychotic, nor delirious, and is clear for discharge form psychiatry's viewpoint. Suggestion: 1. The patient may discharge with his last two doses of scheduled lorazepam 0.5 mg PO every 6 hours. 2. [facility] admission interview will be on Thursday, 10/05 at 0930, at [address] [place] [address], . He is to bring his photo ID and insurance card. He has been given a card with this information, however, the date and time of the appt was changed, and the spouse was notified by phone of the new time, above. Thanks you for this consult. Subjective Subjective: Alert, calm, pleasant, sitting in his chair. Denies AH, VH, no hannah delusions. Denies SI, HI. Forward thinking, motivated for aftercare treatment for alcohol use disorder. Normal psychiatric presentation. Review of Systems Constitutional: Reports: no symptoms. Objective Last 24 Hrs of Vital Signs/I&O Vital Signs Date Time Temp Pulse Resp B/P B/P Pulse O2 O2 Flow FiO2 Mean Ox Delivery Rate 11/26 799 Room Air 11/26 0700 98.2 102 22 122/60 95 Room Air / 0000 99.5 90 24 124/60 02/08 0000 92 Room Air / 0000 99.5 90 24 124/60 92 Room Air 11/25 2200 97.7 72 18 120/70 Intake & Output 11/26 1600 11/26 0800 11/26 0000 Intake Total 800 350 Output Total 1800 Balance 800 -1450 Intake, Blood 50 Product Intake, IV 200 Intake, Oral 800 100 Output, Urine 1800 Physical Exam: Not performed. Physical Exam General Appearance: no apparent distress, alert, awake, comfortable Neurologic/Psychiatric: awake, alert, oriented x 3 Current Medications: Current Medications Sig/Wagner Start time Last Medication Dose Route Stop Time Status Admin Albumin Human 12.5 GM Q8H 11/15 2100 DC 11/26 IV 0556 Amoxicillin/ 875 MG Q12 11/26 1200 DCD 11/26 Clavulanate Potassium PO 1413 Ampicillin Sodium/ 3,000 MG Q6H 11/23 1900 DC 11/26 Sulbactam Sodium IV 0609 Sodium Chloride 100 ML Benzocaine/Menthol 1 SUKHI Q2P PRN 11/16 1200 DCD 11/16 PO 1951 Calcium Carbonate 500 MG BID 11/20 2200 DCD 11/26 PO 0901 Cholecalciferol 2,000 IU DAILY 11/20 1004 DCD 11/26 PO 0901 Folic Acid 1 MG DAILY 11/22 1000 DCD 11/26 PO 0901 Heparin Sodium 5,000 UNIT Q8 11/15 2200 DCD 11/26 (Porcine) SC 0602 Lorazepam 0.5 MG Q6 11/25 1800 DCD 11/26 PO 12/01 1759 1218 Lorazepam 2 MG Q2P PRN 11/20 1845 DCD IV Lorazepam 1 MG Q2P PRN 11/20 1845 DCD IV Multivitamins 1 TAB DAILY 11/22 1000 DCD 11/26 PO 0901 Ondansetron HCl 4 MG Q6P PRN 11/15 1800 DCD IV Phenol 2 SPRAY Q2P PRN 11/15 2030 DCD 11/16 EXT 0822 Phosphate 250 MG PC AND AT BEDTIME 11/17 0900 DC 11/26 PO 0901 Senna 187 MG AT BEDTIME 11/17 220 DCD 11/20 PO 2115 Thiamine HCl 100 MG DAILY 11/22 1000 DCD 11/26 PO 0901 Results Last 24 Hrs of Labs/Mics: Laboratory Tests 11/26 0600 Chemistry Sodium (137 - 145 mmol/L) 142 Potassium (3.5 - 5.1 mmol/L) 4.2 Chloride (98 - 107 mmol/L) 110 H Carbon Dioxide (22 - 30 mmol/L) 20 L Anion Gap (5 - 16) 12 BUN (9 - 20 mg/dL) 12 Creatinine (0.7 - 1.2 mg/dL) 1.2 Estimated GFR (>60 ml/min) > 60 BUN/Creatinine Ratio (7 - 25 %) 10.0 Total Bilirubin (0.2 - 1.3 mg/dL) 1.7 H Direct Bilirubin (< 0.4 mg/dL) 1.2 H AST (17 - 59 U/L) 51 ALT (21 - 72 U/L) 58 Alkaline Phosphatase (< 127 U/L) 249 H Total Protein (6.3 - 8.2 g/dL) 6.2 L Albumin (3.5 - 5.0 g/dL) 3.8 Hematology CBC w Diff NO MAN DIFF REQ WBC (4.8 - 10.8 /CUMM) 8.8 RBC (4.70 - 6.10 /CUMM) 2.47 L Hgb (14.0 - 18.0 G/DL) 7.6 L Hct (42 - 52 %) 23.0 L MCV (80.0 - 94.0 FL) 93.1 MCH (27.0 - 31.0 PG) 30.8 MCHC (33.0 - 37.0 G/DL) 33.1 RDW (11.5 - 14.5 %) 18.7 H Plt Count (130 - 400 /CUMM) 483 H MPV (7.4 - 10.4 FL) 8.5 Gran % (42.2 - 75.2 %) 66.0 Lymphocytes % (20.5 - 51.1 %) 23.9 Monocytes % (1.7 - 9.3 %) 8.9 Eosinophils % (0 - 5 %) 0.3 Basophils % (0.0 - 2.0 %) 0.9 Absolute Granulocytes (1.4 - 6.5 /CUMM) 5.8 Absolute Lymphocytes (1.2 - 3.4 /CUMM) 2.1 Absolute Monocytes (0.10 - 0.60 /CUMM) 0.8 H Absolute Eosinophils (0.0 - 0.7 /CUMM) 0 Absolute Basophils (0.0 - 0.2 /CUMM) 0.1
== END 2017-11-26 15:00 | disposition home health service (06) | DRG 280 ==
LOC: ERH 13:04 → ERHI 16:32 → CRI 16:32 → ENRESERV 18:12 → ENTRNSPT 19:39 → EDTRNSPTSTS 19:54 → CRI 20:01 → CMPTRNSPT 20:10 → CRI 11-17 13:33 → ENTRNSPT 11-26 14:18 → EDTRNSPT 11-26 14:48 → EDTRNSPTSTS 11-26 14:48 → CMPTRNSPT 11-26 14:54 → CRI 11-26 15:00
PROVIDERS: Internal Medicine; Internal Medicine Infectious Disease; Physician Assistant; Student in an Organized Health Care Education/Training Program
PROC: 5A09357 Assistance with Respiratory Ventilation, Less than 24 Consecutive Hours, Continuous Positive Airway Pressure (ICD-10-PCS; principal; 2017-11-19)
DX: K70.10 Alcoholic hepatitis without ascites (principal); N17.0 Acute kidney failure with tubular necrosis; J96.00 Acute respiratory failure, unspecified whether with hypoxia or hypercapnia; J69.0 Pneumonitis due to inhalation of food and vomit; E87.4 Mixed disorder of acid-base balance; I95.9 Hypotension, unspecified; D69.6 Thrombocytopenia, unspecified; D68.9 Coagulation defect, unspecified; K86.89 Other specified diseases of pancreas; E87.0 Hyperosmolality and hypernatremia; E83.51 Hypocalcemia; E83.39 Other disorders of phosphorus metabolism; E87.1 Hypo-osmolality and hyponatremia; R31.9 Hematuria, unspecified; F10.239 Alcohol dependence with withdrawal, unspecified; R91.1 Solitary pulmonary nodule; E78.5 Hyperlipidemia, unspecified; E86.0 Dehydration; K76.0 Fatty (change of) liver, not elsewhere classified; I10 Essential (primary) hypertension
CPT/HCPCS: 75661; 84133; 84300; CCU; 36415; 71045; 74176; 74183; 78226; 80307; 81001; 82436; 82570; 83010; 87040; 87070; 87071; 87086; 87389; 87804; 87804-59; 93005; 93010; 96361; 96365; 97110-GO; 97112-GO; 97116-GO; 97161-GP; 97165-GO; 99291; A9537; A9579; G0480; J0132; J0696; J1644; J2060; J2405; J3490; J7040; J7042; J7060; P9047

== ENCOUNTER 2017-12-13 09:13 | Inpatient (IN) | payer OTHER ==
[~2017-12-13] VITALS: Ht 172.7 cm; Wt 81.6 kg
[~2017-12-13 09:13] MED LIST: ATIVAN0.5 M1 PO; ATORVASTATIN CA40 M1 PO; AUGMENTIN 875-1 EACH PO; ESCITALOPRAM OX10 MG PO; FOLIC ACID1 M1 PO; LISINOPRIL-HCT1 EACH PO; ONE DAILY MULT1 EAC2 PO; VITAMIN B-1100 MG PO; VITAMIN D31000 UNI2 PO
--- NOTE | 2017-12-13 09:40 | ED UPPER/LOWER EXTREMITY COMPL ---
History of Present Illness General Chief Complaint: Lower Extremity Injury Stated Complaint: KNEE SWELLING/PAIN Source: patient, family, old records Exam Limitations: no limitations Vital Signs & Intake/Output Vital Signs & Intake/Output Vital Signs Date Time Temp Pulse Resp B/P B/P Pulse O2 O2 Flow FiO2 Mean Ox Delivery Rate 12/13 1453 98.3 12/13 1449 98.3 82 15 123/60 96 Room Air Room Air 12/13 1136 100.2 88 18 126/63 93 Room Air 12/13 0923 99 Room Air 12/13 0922 100.2 74 18 143/67 97 Room Air Allergies Coded Allergies: acetaminophen (From PERCOCET) (Severe, ITCH 02/05/16) hydrocodone (Severe, ITCH 02/05/16) oxycodone (Severe, ITCH 02/05/16) Triage Note: PT BIBA FROM HOME FOR L KNEE PAIN THAT BEGAN SUDDENLY LAST NIGHT, NO REDNESS, WARMTH OR S/S OF INFECTION NOTED, PAIN ON WEIGHT BEARING, REPORTING "CHRONIC LOW GRADE FEVER". Triage Nurses Notes Reviewed? 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 Chika MD was concerned with anemia fevers and chills persisted however patient continued to receive PT care at home then Thursday 3 days ago patient developed vaginal onset of left foot and ankle swelling and pain and physical therapist saw the patient had fever at the time discontinued PT at this time and which in the past 24 hours patient developed a gradual onset of sharp stabbing severe left knee pain and swelling and left ankle and foot pain still continues. Patient does state that yesterday the shortness of breath occurred due to severe pain that has resolved today Patient denies any mechanism injury denies any cough hemoptysis chest pain arm pain jaw pain nausea vomiting (Efren Hardin) Reconcile Medications Atorvastatin Calcium 40 MG TABLET 1 TAB PO DAILY choolestrol (Reported) Escitalopram Oxalate 10 MG TABLET 1 TAB PO DAILY insomnia (Reported) (Lavon Correa DO) Past History Travel History Traveled to [place] past 21 day No Medical History Any Pertinent Medical History? 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 No (Efren Hardin) Review of Systems Review of Systems Constitutional: Reports: see HPI, chills, fever. EENTM: Reports: no symptoms. Respiratory: Reports: see HPI. Cardiovascular: Reports: no symptoms. Gastrointestinal/Abdominal: Reports: no symptoms. Genitourinary: Reports: no symptoms. Musculoskeletal: Reports: see HPI, joint pain, joint swelling. Skin: Reports: see HPI. Neurological/Psychological: Reports: no symptoms. Hematologic/Endocrine: Reports: no symptoms. Immunological: Reports: no symptoms. All Other Systems: Reviewed and Negative (Efren Hardin) Physical Exam Physical Exam General Appearance: no apparent distress, alert, comfortable Head: atraumatic Eyes: Bilateral: normal appearance. Ears, Nose, Throat: hearing grossly normal Neck: normal inspection Cardiovascular/Respiratory: normal breath sounds, normal peripheral pulses, regular rate/rhythm, no respiratory distress Peripheral Pulses: 2+ dorsalis pedis (L) Back: normal inspection Neurologic/Tendon: normal sensation, normal motor functions, normal tendon functions, responds to pain, no evidence tendon injury, no pulse deficit Skin: intact, normal color, warm/dry Comments: Left knee noted generalized point tenderness warmth and swelling no erythema decreased active range of motion noted Left lower leg nontender gastrocnemius Left foot and ankle generalized point tenderness and mild swelling noted Pedal pulses +2 (Zabrina GARCIA,Efren) Progress Differential Diagnosis: arterial insufficiency, cellulitis, CHF, compartment syndrome, contusion, dislocation, DVT, fracture, gout, septic arthritis, sprain, tendon injury Plan of Care: Orders Procedure Date/time Status CBC WITHOUT DIFFERENTIAL 12/14 0600 Active BASIC ELECTROLYTES PLUS BUN&CR 12/14 0600 Active Heart Healthy Diet 12/13 D Active Teach/Educate 12/13 1531 Active Pain Treatment and Response 12/13 1531 Active Nutritional Intake, Monitor 12/13 1531 Active Isolation 12/13 1531 Active Patient Care Conference 12/13 1531 Active Activity/Ambulation 12/13 1531 Active Pathway - chart 12/13 1429 Active House Staff 12/13 1429 Active Code Status 12/13 1429 Active Add-on Test (ER Only) 12/13 1425 Active Patient Data 12/13 1348 Active ED Holding Orders 12/13 1325 Active Admit to inpatient 12/13 1325 Active Vital Signs 12/13 1325 Active Code Status 12/13 1325 Complete LACTIC ACID 12/13 1255 Complete Add-on Test (ER Only) 12/13 1249 Active TROPONIN LEVEL 12/13 1107 Complete LYME TITRE 12/13 1107 Active ETHANOL 12/13 1107 Complete EKG 12/13 1013 Active CULTURE,BODY FLUID 12/13 0956 Active SYNOVIAL FLUID CELL COUNT 12/13 0956 Complete CRYSTAL ANALYSIS 12/13 0956 Complete BODY FLUID TOTAL PROTEIN 12/13 0956 Complete BODY FLUID GLUCOSE 12/13 0956 Complete BLOOD CULTURE 12/13 0955 Active LACTIC ACID 12/13 0955 Complete WESTERGREN SED RATE 12/13 0955 Complete C-REACTIVE PROTEIN 12/13 0955 Complete COMPREHENSIVE METABOLIC PANEL 12/13 0955 Complete CBC WITHOUT DIFFERENTIAL 12/13 0955 Complete Intake & Output 12/13 0923 Active VTE Mechanical Prophylaxis 12/13 UNK Active Current Medications Sig/Wagner Start time Last Medication Dose Stop Time Status Admin Atorvastatin Calcium 40 MG DAILY 12/14 1000 AC (Lipitor) Escitalopram Oxalate 10 MG DAILY 12/14 1000 AC (Lexapro) Sodium Chloride 1,000 ML Q13H 12/14 0600 AC (Normal Saline 0.9%) 12/14 1859 Heparin Sodium 5,000 UNIT Q8 12/13 2200 AC (Porcine) Acetaminophen 650 MG Q6P PRN 12/13 1430 AC (Tylenol) Morphine Sulfate 2 MG Q6PRN PRN 12/13 1430 AC (Morphine) Laboratory Tests 12/13/17 1403: Lactic Acid 0.7 12/13/17 1211: Fluid WBC 69582 H, Fld Mesothelial Cells 10, Fld Total RBCs Counted 907 H 12/13/17 1211: % Normal PMNs 90, Fluid Glucose , Fluid Total Protein 12/13/17 1107: Anion Gap 14, Estimated GFR > 60, BUN/Creatinine Ratio 11.0, Glucose 103 H, Lactic Acid 1.5, Calcium 9.3, Total Bilirubin 1.0, AST 36, ALT 77 H, Alkaline Phosphatase 90, Troponin I < 0.01, C-Reactive Prot, Quant 7.8 H, Total Protein 6.7, Albumin 3.8, Globulin 2.9, Albumin/Globulin Ratio 1.3, CBC w Diff MAN DIFF ORDERED, RBC 3.00 L, MCV 90.5, MCH 29.4, MCHC 32.5 L, RDW 17.6 H, MPV 7.1 L, Gran % 83.7 H, Lymphocytes % 9.2 L, Monocytes % 6.4, Eosinophils % 0.3, Basophils % 0.4, Absolute Granulocytes 13.5 H, Absolute Lymphocytes 1.5, Absolute Monocytes 1.0 H, Absolute Eosinophils 0, Absolute Basophils 0.1, Polychromasia 1+, Hypochromic-Microcytic 1+, Poikilocytosis 2+, Anisocytosis 2+, ESR Westergren > 130 H, Lyme Disease Antibody Pending, Serum Alcohol < 10.0 12/13/17 1013: Troponin I Cancelled 12/13/17 1002: Serum Alcohol Cancelled Microbiology 12/13 1211 BODY FLUID: Body Fluid Culture - RES 12/13 1211 BODY FLUID: Gram Stain - RES 12/13 1107 BLOOD: Blood Culture - RECD 12/13 0955 BLOOD: Blood Culture - ORD Patient on initial examination was in no apparent distress however there is concerns of fever elevated white blood cell count and patient's only source of infection at this time is his left knee Patient does have concerns of effusion especially to the suprapatellar region in which a joint arthrocentesis will be performed discussed procedure with patient who is aware of risks and benefits who agrees Patient was placed in a 30 of flexion position of the left knee sterile technique was used with chlorhexidine using approximately 10 mL of 1% lidocaine local anesthesia was successful to the left lateral aspect of patient's suprapatellar region using a 16-gauge needle approximately 60 mL of straw cloudy fluid was aspirated culture sent Bandage was applied patient tolerated procedure well Discussed patient with Dr. Winkler who was aware of patient's concerns of left knee septic arthritis HE Advised patient to be placed nothing by mouth Discussed admission with patient family, hospitalist and DR CORREA Diagnostic Imaging: Viewed by Me: Ultrasound. Radiology Impression: no fracture Initial ED EKG: normal p-waves, normal QRS complex, normal sinus rhythm, NSR 95 BPM Comments: PATIENT: JULIO CESAR ABDALLA PRESENT AGE: 52 PATIENT ACCOUNT NO: [id number] : 67 LOCATION: [facility] ORDERING PHYSICIAN: Efren GARCIA SERVICE DATE: 12/13/17 EXAM TYPE: RAD - XRY-ANKLE 3 OR MORE VIEWS L; XRY-FOOT COMPLETE, LEFT; XRY-KNEE COMPLETE LEFT EXAMINATION: XR KNEE, LEFT XR ANKLE, LEFT XR FOOT, LEFT CLINICAL INFORMATION: Left knee, foot, and ankle pain and swelling COMPARISON: Left foot radiographs from 02/05/2016 TECHNIQUE: Four views of the left knee, 5 images total. 3 views of the left ankle. 3 views of the left foot. FINDINGS: Knee: No evidence of acute fracture or malalignment. Joint spaces are preserved. Small to moderate suprapatellar effusion. Ankle: No evidence of acute fracture or malalignment. Joint spaces are preserved. No joint effusion. Soft tissues are unremarkable. Foot: No evidence of acute fracture or malalignment. Joint spaces are preserved. Soft tissues are unremarkable. IMPRESSION: Small to moderate left knee effusion. No evidence of acute fracture or malalignment of the knee. Normal radiographs of the left ankle and foot. DICTATED BY: Roxana Vu MD DATE/TIME DICTATED:12/13/171100 OCCUP THERAPIST:ALAN DATE/TIME TRANSCRIBED:12/13/171100 PATIENT: JULIO CESAR ABDALLA PRESENT AGE: 52 PATIENT ACCOUNT NO: [id number] : 67 LOCATION: [facility] ORDERING PHYSICIAN: Efren GARCIA SERVICE DATE: 12/13/17 EXAM TYPE: US - US-UNILATERAL VENOUS DOPPLER EXAMINATION: US TRIPLEX LOWER EXTREMITY, LEFT CLINICAL INFORMATION: Left leg swelling COMPARISON: None TECHNIQUE: Color-flow triplex imaging with spectral analysis and compression Doppler were performed on the lower extremity. FINDINGS: Respiratory variation, normal compression and augmented flow are noted throughout the lower extremity. The visualized common femoral vein, femoral vein, profunda femoral vein, popliteal vein and midcalf peroneal and posterior tibial venous segments show no evidence of deep venous thrombosis. There is a 3.4 x 1.3 x 1.5 cm cystic lesion in the popliteal fossa without internal vascularity, compatible with White's cyst. IMPRESSION: No evidence of deep venous thrombosis involving the left lower extremity. 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 DICTATED BY: Roxana Vu MD DATE/TIME DICTATED:12/13/171053 OCCUP THERAPIST:ALAN DATE/TIME TRANSCRIBED:12/13/171053 (Efren Hardin) ED Sepsis Exam Date of Focused Sepsis Exam: 12/13/17 Time of Focused Sepsis Exam: 1200 Sepsis Cardiac Exam: Regular Rate/Rhythm Sepsis Resp Exam: CTA Sepsis Cap Refill Exam: <2 Sec Sepsis Peripheral Pulse Exam: Normal Sepsis Peripheral Pulse Location: Dorsalis Pedis Sepsis Skin Color Exam: Normal for Ethnicity Skin Temp/Moisture Exam: Warm/Dry (Efren Hardin) Departure Departure Disposition: STILL A PATIENT Condition: Stable Clinical Impression Primary Impression: Septic arthritis of knee, left Secondary Impressions: Fever, Leukocytosis, Sepsis Referrals: Maureen Farr MD (PCP/Family) Departure Forms: Customer Survey General Discharge Information Admission Note Spoke With: Jin Chang MD Documentation of Exam: Documentation of any treatments & extenuating circumstances including Concerns Regarding Discharge (functional status, medication knowledge or non-compliance, living conditions, etc.) that warrant an admission rather than observation: [ Discussed patient with hospitalist who agreed with general medicine admission for concerns of admission of septic arthritis, patient requires IV antibiotics surgery orthopedic consultation repeat labs and IV pain management.] (Efren Hardin) PA/DAY CARE TEACHER Co-Sign Statement Statement: ED Attending supervision documentation- [X] I saw and evaluated the patient. I have also reviewed all the pertinent lab results and diagnostic results. I agree with the findings and the plan of care as documented in the PA's/DAY CARE TEACHER's documentation. [] I have reviewed the ED Record and agree with the PA's/DAY CARE TEACHER's documentation. [] Additions or exceptions (if any) to the PAs/DAY CARE TEACHER's note and plan are summarized below: [] 12/13/17 1:26 PM I've seen and personally examined the patient and I agree with the PAs evaluation. Left knee pain. It is warm. There is decreased range of motion. Aspiration done by the PA reveals significant leukocytosis consistent with septic arthritis. The patient was given antibiotics and orthopedics has been consulted. (Jadiel BROOKS,Lavon Jason) Critical Care Note Critical Care Note Critical Care Time: 30-74 min (Zabrina GARCIA,Efren)
--- NOTE | 2017-12-13 11:03 | ULTRASOUND REPORT ---
EXAMINATION: US TRIPLEX LOWER EXTREMITY, LEFT CLINICAL INFORMATION: Left leg swelling COMPARISON: None TECHNIQUE: Color-flow triplex imaging with spectral analysis and compression Doppler were performed on the lower extremity. FINDINGS: Respiratory variation, normal compression and augmented flow are noted throughout the lower extremity. The visualized common femoral vein, femoral vein, profunda femoral vein, popliteal vein and midcalf peroneal and posterior tibial venous segments show no evidence of deep venous thrombosis. There is a 3.4 x 1.3 x 1.5 cm cystic lesion in the popliteal fossa without internal vascularity, compatible with White's cyst. IMPRESSION: No evidence of deep venous thrombosis involving the left lower extremity. 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
--- NOTE | 2017-12-13 11:12 | RADIOLOGY REPORT ---
EXAMINATION: XR KNEE, LEFT XR ANKLE, LEFT XR FOOT, LEFT CLINICAL INFORMATION: Left knee, foot, and ankle pain and swelling COMPARISON: Left foot radiographs from 02/05/2016 TECHNIQUE: Four views of the left knee, 5 images total. 3 views of the left ankle. 3 views of the left foot. FINDINGS: Knee: No evidence of acute fracture or malalignment. Joint spaces are preserved. Small to moderate suprapatellar effusion. Ankle: No evidence of acute fracture or malalignment. Joint spaces are preserved. No joint effusion. Soft tissues are unremarkable. Foot: No evidence of acute fracture or malalignment. Joint spaces are preserved. Soft tissues are unremarkable. IMPRESSION: Small to moderate left knee effusion. No evidence of acute fracture or malalignment of the knee. Normal radiographs of the left ankle and foot.
[2017-12-13 11:22] LABS: ABSOLUTE BASOPHIL COUNT 0.1 /CUMM (0.0-0.2); ABSOLUTE EOSINOPHIL COUNT 0 /CUMM (0.0-0.7); ABSOLUTE GRANULOCYTE CT 13.5 /CUMM (1.4-6.5); ABSOLUTE LYMPH COUNT 1.5 /CUMM (1.2-3.4); BASOPHIL % 0.4 % (0.0-2.0); EOSINOPHIL % 0.3 % (0-5); GRANULOCYTE % 83.7 % (42.2-75.2); HEMATOCRIT 27.2 % (42-52); MEAN CORPUSCULAR HGB 29.4 PG (27.0-31.0); MEAN CORPUSCULAR HGB CONC 32.5 G/DL (33.0-37.0); MEAN CORPUSCULAR VOLUME 90.5 FL (80.0-94.0); MEAN PLATELET VOLUME 7.1 FL (7.4-10.4); PLATELET COUNT 473 /CUMM (130-400); RBC DISTRIBUTION WIDTH 17.6 % (11.5-14.5); WHITE BLOOD CELL COUNT 16.1 /CUMM (4.8-10.8)
--- NOTE | 2017-12-13 13:52 | History & Physical ---
Erin Hendricks 12/13/17 1351: General Information and HPI MD Statement: I have seen and personally examined JULIO CESAR ABDALLA and documented this H&P. The patient is a 52 year old M who presented with a patient stated chief complaint of [knee pain]. Source of Information: patient Exam Limitations: no limitations History of Present Illness: 52-year-old gentleman with past medical history of recent hospitalization due to possible aspiration pneumonia alcoholic hepatitis with elevated LFTs with positive blood culture proventella species and anaerobic gram-positive rods, anemia was discharged about 3 weeks ago from the [facility] came back to the hospital with chief complaint of knee pain and inability to walk. he reports that his been having low-grade fever less than 101 and chills for a couple of days since Thursday. He saw his PCP last week which attributed low- grade fevers and chills 2 anemia. Patient also has physical therapist at home and reported mild ankle pain on thursday. However over the night of yesterday patient developed severe stabbing left with inability to walk and fevers. denies any recent trauma, nausea, vomiting, abdominal pain, chest pain, coughing, recent travel. Patient has been outside in the [place] due to his work but he does not remember any tick bite. vitals in ED were stable except mild fever 100.2 labs WBC 16.1 hg 8.8 ( stable) plt 460, esr more than 130 crp 7.5 left knee, ankle, foot x ray IMPRESSION: Small to moderate left knee effusion. No evidence of acute fracture or malalignment of the knee. Normal radiographs of the left ankle and foot. doppler of left LE There is a 3.4 x 1.3 x 1.5 cm cystic lesion in the popliteal fossa without internal vascularity, compatible with White's cyst. IMPRESSION: No evidence of deep venous thrombosis involving the left lower extremity. Allergies/Medications Allergies: Coded Allergies: acetaminophen (From PERCOCET) (Severe, ITCH 02/05/16) hydrocodone (Severe, ITCH 02/05/16) oxycodone (Severe, ITCH 02/05/16) Home Med list Atorvastatin Calcium 40 MG TABLET 1 TAB PO DAILY choolestrol (Reported) Escitalopram Oxalate 10 MG TABLET 1 TAB PO DAILY insomnia (Reported) Past History Travel History Traveled to [place] past 21 day No Medical History Neurological: NONE EENT: NONE Cardiovascular: hypertension, hyperlipidemia Respiratory: NONE Gastrointestinal: diverticulitis Hepatic: alcoholic hepatitis Renal: NONE Musculoskeletal: NONE Psychiatric: alcohol dependence Endocrine: NONE Blood Disorders: NONE Cancer(s): NONE 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 spouse Primary Language: Japanese ETOH Use: alcoholic Illicit Drug Use: denies illicit drug use Functional Ability ADLs Independent: dressing, eating, toileting, bathing. Ambulation: independent Review of Systems Review of Systems Constitutional: Reports: see HPI. Exam & Diagnostic Data Last 24 Hrs of Vital Signs/I&O Vital Signs Date Time Temp Pulse Resp B/P B/P Pulse O2 O2 Flow FiO2 Mean Ox Delivery Rate 12/13 1136 100.2 88 18 126/63 93 Room Air 12/13 0923 99 Room Air 12/13 0922 100.2 74 18 143/67 97 Room Air Intake & Output 12/13 1600 12/13 0800 12/13 0000 Intake Total 0 Output Total Balance 0 Intake, Oral 0 Patient 81.647 kg Weight Weight Reported by Patient Measurement Method Physical Exam General Appearance Alert, Oriented X3, Cooperative, No Acute Distress Cardiovascular Regular Rate, Normal S1, Normal S2 Lungs Clear to Auscultation, Normal Air Movement Abdomen Normal Bowel Sounds, Soft, No Tenderness Extremities No Edema, increased weeling of the left knee and unbale to bend due to pain, sensation pulses were WNL in both feet Assessment/Plan Assessment: 52-year-old gentleman with past medical history of recent hospitalization due to possible aspiration pneumonia alcoholic hepatitis with elevated LFTs with positive blood culture proventella species and anaerobic gram-positive rods, anemia was discharged about 3 weeks ago from the [facility] came back to the hospital with chief complaint of knee pain and inability to walk. vitals in ED were stable except mild fever 100.2 labs WBC 16.1 hg 8.8 ( stable) plt 460, esr more than 130 crp 7.5 left knee, ankle, foot x ray knee tap : wbc [id number] no crystals IMPRESSION: Small to moderate left knee effusion. No evidence of acute fracture or malalignment of the knee. Normal radiographs of the left ankle and foot. doppler of left LE There is a 3.4 x 1.3 x 1.5 cm cystic lesion in the popliteal fossa without internal vascularity, compatible with White's cyst. IMPRESSION: No evidence of deep venous thrombosis involving the left lower extremity. assessment left knee joint Pain and elevated WBC most likely septic joint History of hyperlipidemia History of alcohol abuse History of recent bacteremia History of anxiety/depression plan Admit to general medicine floor Start the patient on IV Unasyn and IV vancomycin per ID recommendation NPO for possible joint washout tomorrow Orthopedic consultation appreciated Blood cultures 2 , check lyme titres IV morphine for pain Tylenol by mouth for fever Continue statin Continue SSRI Full code, DVT prophylaxis mechanical and subcutaneous heparin, IV morphine for pain , NPO after midnight As Ranked By This Provider Problem List: 1. Sepsis 2. Leukocytosis 3. Septic arthritis of knee, left Core Measures/Misc (07/05) Acute Coronary Syndrome ACS Diagnosis: No Congestive Heart Failure Congestive Heart Failure Diagnosis No Cerebrovascular Accident CVA/TIA Diagnosis: No VTE (View Protocol) VTE Risk Factors Acute Medical Illness No Mechanical VTE Prophylaxis d/t N/A MechProphylax Ordered No VTE Pharm Prophylaxis d/t NA PharmProphylax ordered Sepsis (View protocol) Sepsis Present: Yes [facility]171818: Attending MD Review Statement Attending Statement Attending MD Statement: examined this patient, discuss w/resident/PA/RECORDS AND TAPE RECORDINGS ENGINEER, agreed w/resident/PA/RECORDS AND TAPE RECORDINGS ENGINEER, discussed with nursing Attending Assessment/Plan: Mr. Abdalla is a 52-year-old male who presents with complaints of left knee pain and inability to walk going on since yesterday. He was recently admitted for aspiration pneumonia and alcoholic hepatitis. Discharged about 3 weeks ago. On presentation patient had fever of about 101 and chills going on for the past 2 days with left knee swelling. 1. Left knee septic arthritis - Elevated WBC in the knee aspirate 2. Anemia of chronic disease 3. Leukocytosis 4. Depressive disorder Plan 1. NPO after midnight. Orthopedics planning to do wash out in the AM Cover with broad spectrum antibiotics -IV Vancomycin and Unasyn Infectious diseases on consult Continue with Lexapro Obtain Lyme titres Gentle hydration overnight Heparin Sub Q for DVT prophylaxis
--- NOTE | 2017-12-13 14:12 | Cons- Orthopedic ---
General Information and HPI Consulting Request Date of Consult: 12/13/17 Requested By: Hospitalist Reason for Consult: eval for septic knee, Left Source of Information: patient, old records Exam Limitations: no limitations History of Present Illness: Patient is a 52-year-old male presents with L knee pain, difficluty ambulating that started yesterday without trauma. He has a past medical history of hypertension, hyperlipidemia, anxiety and a recent discharge from [facility] on November 26 for pna, sepsis with gram-positive cocci blood cultures and justin. He states that he is having night sweats and chills, no known fever, no trauma to the left knee or history of injury or left knee problems in the past. He denies any IV drug abuse, denies any recent dental work, there are no rashes to the lower extremities. There are no insect bites or tick bites. No history of Lyme disease. The knee was aspirated by the emergency room provider and 60 mL of yellow mildly turbid fluid was aspirated, cell count shows 16,000 white blood cells, no crystals, Gram stain is negative. Allergies/Medications Allergies: Coded Allergies: acetaminophen (From PERCOCET) (Severe, ITCH 02/05/16) hydrocodone (Severe, ITCH 02/05/16) oxycodone (Severe, ITCH 02/05/16) Home Med List: Atorvastatin Calcium 40 MG TABLET 1 TAB PO DAILY choolestrol (Reported) Escitalopram Oxalate 10 MG TABLET 1 TAB PO DAILY insomnia (Reported) Past History Medical History Neurological: NONE EENT: NONE Cardiovascular: hypertension, hyperlipidemia Respiratory: pneumonia Gastrointestinal: diverticulitis Hepatic: alcoholic hepatitis Renal: NONE Musculoskeletal: NONE Psychiatric: alcohol dependence Endocrine: NONE Blood Disorders: NONE Cancer(s): NONE 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 spouse Primary Language: Lao ETOH Use: alcoholic Illicit Drug Use: denies illicit drug use Functional Ability ADLs Independent: dressing, eating, toileting, bathing. Ambulation: independent Review of Systems Review of Systems: Review of systems: See HPI, all other systems negative. Constitutional: See HPI HEENT: No visual changes no sore throat no congestion Cardiovascular: No chest pain ,palpitation , orthopnea or ankle swelling Skin: No jaundice no rashes Respiratory: Previous cough and pneumonia-type symptoms GI: No nausea no vomiting : No dysuria no hematuria Musclulo skeletal: No back pain no neck pain, see HPI Neurologic: No numbness no confusion Psych: No stress anxiety or depression,. Heme/endocrine: No bruising no bleeding no polyuria or polydipsia Immunology: No splenectomy or history of AIDS Exam & Diagnostic Data Vital Signs and I&O Vital Signs Date Time Temp Pulse Resp B/P B/P Pulse O2 O2 Flow FiO2 Mean Ox Delivery Rate 12/13 1136 100.2 88 18 126/63 93 Room Air 12/13 0923 99 Room Air 12/13 0922 100.2 74 18 143/67 97 Room Air Intake & Output 12/13 0812/13 0000 12/12 0000 Intake Total 0 Output Total Balance 0 Intake, Oral 0 Patient 180 lb Weight Weight Reported by Patient Measurement Method Physical Exam: Well-developed well-nourished no apparent distress. HEENT: Atraumatic, extraocular motion intact Neck: Supple, no lymphadenopathy Respiratory: No respiratory distress Extremities: No edema, no calf pain Left knee examined post-aspiration: Small to moderate effusion remains, mild global tenderness, mild warmth, no erythema. Range of motion 0-60 with pain. Neuro: Alert and oriented x3 Psych: Mood affect normal, normal memory normal judgment. Skin: Warm and dry, no rash on exposed skin Last 24 Hours of Labs: Laboratory Tests 12/13 12/13 12/13 1403 1211 1211 Chemistry Lactic Acid Pending Hematology % Normal PMNs (%) 90 Other Body Source Fluid WBC (0 - 5 /CUMM) 37797 H Fld Mesothelial Cells (%) 10 Fld Total RBCs Counted (0 /CUMM) 907 H Fluid Glucose (mg/dL) Fluid Total Protein (g/dL) 12/13 12/13 1107 1002 Chemistry Sodium (137 - 145 mmol/L) 138 Potassium (3.5 - 5.1 mmol/L) 3.9 Chloride (98 - 107 mmol/L) 104 Carbon Dioxide (22 - 30 mmol/L) 20 L Anion Gap (5 - 16) 14 BUN (9 - 20 mg/dL) 11 Creatinine (0.7 - 1.2 mg/dL) 1.0 Estimated GFR (>60 ml/min) > 60 BUN/Creatinine Ratio (7 - 25 %) 11.0 Glucose (65 - 99 mg/dL) 103 H Lactic Acid (0.7 - 2.1 mmol/L) 1.5 Calcium (8.4 - 10.2 mg/dL) 9.3 Total Bilirubin (0.2 - 1.3 mg/dL) 1.0 AST (17 - 59 U/L) 36 ALT (21 - 72 U/L) 77 H Alkaline Phosphatase (< 127 U/L) 90 Troponin I (<0.11 ng/ml) < 0.01 C-Reactive Prot, Quant (<1.0 mg/dL) 7.8 H Total Protein (6.3 - 8.2 g/dL) 6.7 Albumin (3.5 - 5.0 g/dL) 3.8 Globulin (1.9 - 4.2 gm/dL) 2.9 Albumin/Globulin Ratio (1.1 - 2.2 %) 1.3 Hematology CBC w Diff MAN DIFF ORDERED WBC (4.8 - 10.8 /CUMM) 16.1 H RBC (4.70 - 6.10 /CUMM) 3.00 L Hgb (14.0 - 18.0 G/DL) 8.8 L Hct (42 - 52 %) 27.2 L MCV (80.0 - 94.0 FL) 90.5 MCH (27.0 - 31.0 PG) 29.4 MCHC (33.0 - 37.0 G/DL) 32.5 L RDW (11.5 - 14.5 %) 17.6 H Plt Count (130 - 400 /CUMM) 473 H MPV (7.4 - 10.4 FL) 7.1 L Gran % (42.2 - 75.2 %) 83.7 H Lymphocytes % (20.5 - 51.1 %) 9.2 L Monocytes % (1.7 - 9.3 %) 6.4 Eosinophils % (0 - 5 %) 0.3 Basophils % (0.0 - 2.0 %) 0.4 Absolute Granulocytes (1.4 - 6.5 /CUMM) 13.5 H Absolute Lymphocytes (1.2 - 3.4 /CUMM) 1.5 Absolute Monocytes (0.10 - 0.60 /CUMM) 1.0 H Absolute Eosinophils (0.0 - 0.7 /CUMM) 0 Absolute Basophils (0.0 - 0.2 /CUMM) 0.1 Polychromasia 1+ Hypochromic-Microcytic 1+ Poikilocytosis 2+ Anisocytosis 2+ ESR Westergren (0 - 10 MM) > 130 H Toxicology Serum Alcohol (<10 MG/DL) < 10.0 Cancelled Imaging Results: PATIENT: JULIO CESAR ABDALLA PRESENT AGE: 52 PATIENT ACCOUNT NO: [id number] : 67 LOCATION: [facility] ORDERING PHYSICIAN: Efren GARCIA SERVICE DATE: 12/13/17 EXAM TYPE: RAD - XRY-ANKLE 3 OR MORE VIEWS L; XRY-FOOT COMPLETE, LEFT; XRY-KNEE COMPLETE LEFT EXAMINATION: XR KNEE, LEFT XR ANKLE, LEFT XR FOOT, LEFT CLINICAL INFORMATION: Left knee, foot, and ankle pain and swelling COMPARISON: Left foot radiographs from 02/05/2016 TECHNIQUE: Four views of the left knee, 5 images total. 3 views of the left ankle. 3 views of the left foot. FINDINGS: Knee: No evidence of acute fracture or malalignment. Joint spaces are preserved. Small to moderate suprapatellar effusion. Ankle: No evidence of acute fracture or malalignment. Joint spaces are preserved. No joint effusion. Soft tissues are unremarkable. Foot: No evidence of acute fracture or malalignment. Joint spaces are preserved. Soft tissues are unremarkable. IMPRESSION: Small to moderate left knee effusion. No evidence of acute fracture or malalignment of the knee. Normal radiographs of the left ankle and foot. DICTATED BY: Roxana Vu MD DATE/TIME DICTATED:12/13/171100 RESOURCE EFFICIENCY MANAGER:ALAN DATE/TIME TRANSCRIBED:12/13/171100 PATIENT: JULIO CESAR ABDALLA PRESENT AGE: 52 PATIENT ACCOUNT NO: [id number] : [birth year] LOCATION: [facility] ORDERING PHYSICIAN: Efren GARCIA SERVICE DATE: 12/13/17 EXAM TYPE: US - US-UNILATERAL VENOUS DOPPLER EXAMINATION: US TRIPLEX LOWER EXTREMITY, LEFT CLINICAL INFORMATION: Left leg swelling COMPARISON: None TECHNIQUE: Color-flow triplex imaging with spectral analysis and compression Doppler were performed on the lower extremity. FINDINGS: Respiratory variation, normal compression and augmented flow are noted throughout the lower extremity. The visualized common femoral vein, femoral vein, profunda femoral vein, popliteal vein and midcalf peroneal and posterior tibial venous segments show no evidence of deep venous thrombosis. There is a 3.4 x 1.3 x 1.5 cm cystic lesion in the popliteal fossa without internal vascularity, compatible with White's cyst. IMPRESSION: No evidence of deep venous thrombosis involving the left lower extremity. 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 DICTATED BY: Roxana Vu MD DATE/TIME DICTATED:12/13/171053 RESOURCE EFFICIENCY MANAGER:ALAN DATE/TIME TRANSCRIBED:12/13/171053 Assessment/Plan Assessment/Plan 52-year-old male with previous sepsis from pneumonia origin 2 weeks ago now presents with atraumatic left knee pain and effusion, concerning for possible septic joint Case discussed with Marcus Gacria MD, await cultures of the knee which were drawn by the emergency room staff, serial examinations monitoring for worsening signs of septic arthritis such as worsening effusion, inability to range the knee, warmth, spiking fevers, increasing white blood cell count etc. Currently has only 16,000 white cells on the cell count aspirate and a negative Gram stain which does not meet criteria for an urgent irrigation and debridement however this could represent an early septic arthritis and will need to keep a close eye on him. Would also obtain a Lyme titer. Recommend nothing by mouth after midnight nightly for possible OR in the morning on each day of his stay here. We will defer antibiotics to medicine/ID, he is already received Unasyn in the emergency department prior to our evaluation. He can weight-bear as tolerated and ambulate as tolerated. Pain medication as needed. We will follow along with you. Problem List: 1. Septic arthritis of knee, left Consult Acknowledgment - Thank you for your consult request.
[2017-12-13 15:15] VITALS: BP 134/70
[2017-12-13 22:30] VITALS: BP 126/60
--- NOTE | 2017-12-14 06:38 | PN- Housestaff ---
Deysi James MD,[facility] 12/14/17 0638: Subjective Follow-up For: Arthritis-septic Subjective: Patient visited today, was lying in bed comfortably in no acute distress, was alert and oriented. Was complaining of 10/10 pain when moved leg. No fever or chills, no shortness of breathing, no chest pain, no other events. Planned for -reaspiration of the knee tonight by Dr Garcia, will be NPO tonight for aspiration tomorrow. Review of Systems Constitutional: Reports: see HPI. Objective Last 24 Hrs of Vital Signs/I&O Vital Signs Date Time Temp Pulse Resp B/P B/P Pulse O2 O2 Flow FiO2 Mean Ox Delivery Rate 12/14 1426 20 90 Room Air 12/14 1422 100.4 100 120/60 12/14 0703 100.3 94 20 123/64 95 12/14 0100 99.1 12/13 2235 100.8 12/13 2229 102.8 92 20 126/60 96 Room Air 12/13 2141 101.6 12/13 2140 101.6 12/13 204 102.8 Intake & Output 12/14 1600 12/14 0800 12/14 0000 Intake Total 720 400 320 Output Total 828 397 7761 Balance 445 -150 -1360 Intake, IV 600 400 180 Intake, Oral 120 0 140 Number 0 0 Bowel Movements Output, Urine [phone] Physical Exam General Appearance: Alert, Oriented X3, Cooperative, No Acute Distress Skin Temp/Moisture Exam: Warm/Dry Sepsis Skin Exam (color): Normal for Ethnicity HEENT: Atraumatic, EOMI, Mucous Membr. moist/pink Cardiovascular: Normal S1, Normal S2 Lungs: Clear to Auscultation, Normal Air Movement Abdomen: Soft, No Tenderness Neurological: Normal Speech, Strength at 5/5 X4 Ext, RIght knee no motion due to pain, swelling, no redness Current Medications: Current Medications Sig/Wagner Start time Last Medication Dose Route Stop Time Status Admin Acetaminophen 650 MG Q6P PRN 12/13 1430 AC 12/13 PO 2042 Ampicillin Sodium/ 3,000 MG Q6H 12/14 0200 AC 12/14 Sulbactam Sodium IV 1403 Sodium Chloride 100 ML Ampicillin Sodium/ 3,000 MG Q6 12/13 1800 CAN Sulbactam Sodium IV Sodium Chloride 100 ML Ampicillin Sodium/ 3,000 MG Q6 12/13 1800 DC 12/13 Sulbactam Sodium IV 2021 Sodium Chloride 100 ML Atorvastatin Calcium 40 MG DAILY 12/14 1000 AC 12/14 PO 0935 Ceftriaxone Sodium 2,000 MG DAILY@1700 12/13 1700 CAN IV Escitalopram Oxalate 10 MG DAILY 12/14 1000 AC 12/14 PO 0935 Heparin Sodium 5,000 UNIT Q8 12/13 2200 AC 12/14 (Porcine) SC 1403 Ketorolac 15 MG ONCE ONE 12/14 1400 DC 12/14 Tromethamine IV 12/14 1401 1404 Morphine Sulfate 2 MG Q6P PRN 12/14 0145 AC 12/14 IV 1128 Morphine Sulfate 2 MG Q6PRN PRN 12/13 1430 DC 12/13 IV 2027 Sodium Chloride 1,000 ML Q13H 12/14 0600 AC 12/14 IV 12/14 1859 0547 Vancomycin HCl 1,000 MG Q12H 12/14 0500 AC 12/14 Dextrose/Water 250 ML IV 0539 Vancomycin HCl 1,000 MG ONCE ONE 12/13 1615 DC 12/13 Dextrose/Water 250 ML IV 12/13 1714 1812 Last 24 Hrs of Lab/Jean-Pierre Results Last 24 Hrs of Labs/Mics: Laboratory Tests 12/14/17 0954: Anion Gap 15, Estimated GFR > 60, BUN/Creatinine Ratio 13.8, CBC w Diff NO MAN DIFF REQ, RBC 2.55 L, MCV 88.9, MCH 30.1, MCHC 33.8, RDW 17.5 H, MPV 6.8 L, Gran % 83.0 H, Lymphocytes % 9.7 L, Monocytes % 6.6, Eosinophils % 0.3, Basophils % 0.4, Absolute Granulocytes 10.8 H, Absolute Lymphocytes 1.3, Absolute Monocytes 0.9 H, Absolute Eosinophils 0, Absolute Basophils 0.1, Lyme Disease Antibody Pending Microbiology 12/13 2240 BLOOD: Blood Culture - RES Assessment/Plan Assessment: 52-year-old gentleman with past medical history of recent hospitalization due to possible aspiration pneumonia alcoholic hepatitis with elevated LFTs with positive blood culture proventella species and anaerobic gram-positive rods, anemia was discharged about 3 weeks ago from the [facility] came back to the hospital with chief complaint of knee pain and inability to walk. vitals in ED were stable except mild fever 100.2 labs WBC 16.1 hg 8.8 ( stable) plt 460, esr more than 130 crp 7.5 left knee, ankle, foot x ray knee tap : wbc [id number] no crystals IMPRESSION: Small to moderate left knee effusion. No evidence of acute fracture or malalignment of the knee. Normal radiographs of the left ankle and foot. doppler of left LE There is a 3.4 x 1.3 x 1.5 cm cystic lesion in the popliteal fossa without internal vascularity, compatible with White's cyst. IMPRESSION: No evidence of deep venous thrombosis involving the left lower extremity. assessment left knee joint Pain and elevated WBC most likely septic joint History of hyperlipidemia History of alcohol abuse History of recent bacteremia History of anxiety/depression plan - Admit to general medicine floor - Continue IV Unasyn and IV vancomycin per ID recommendation - repeat knee aspiration tonight - NPO for possible joint washout tomorrow - Orthopedic consultation appreciated - Follow Blood cultures 2 , check lyme titres - IV morphine for pain, Tylenol by mouth for fever, consider Dilaudid or motrin - Continue statin - Continue SSRI - Full code, DVT prophylaxis mechanical and subcutaneous heparin, IV morphine for pain , NPO after midnight Problem List: 1. Fever 2. Septic arthritis of knee, left Pain Ratin Pain Location: Left knee Pain Goal: Pain 4 or less Pain Plan: Continue current plan add dilaudid PRN Tomorrow's Labs & Rationales: CBC BEP Javier Holland 12/14/17 1233: Attending MD Review Statement Attending Statement Attending MD Statement: examined this patient, discuss w/resident/PA/CIVIL ENGINEERING TECHNICIAN, agreed w/resident/PA/CIVIL ENGINEERING TECHNICIAN, discussed with family, reviewed EMR data (avail), discussed with nursing, discussed with case mgmt, reviewed images, amended to note Attending Assessment/Plan: 52-year-old male who presents with complaints of left knee pain and inability to walk going on since yesterday. He was recently admitted for aspiration pneumonia and alcoholic hepatitis. Patient seen/exmained bedside. Patient has decreased range of motion. Febrile overnight. 1. Possible Left knee septic arthritis - Elevated WBC in the knee aspirate 2. Anemia of chronic disease 3. Leukocytosis 4. Depressive disorder Plan Diet as per Orthopedics, OR planning as per ortho. Infectious diseases on consult, c/w broad spectrum, Abx as per ID. Continue with Lexapro. Gentle hydration overnight. Heparin Sub Q for DVT prophylaxis.
[2017-12-14 07:03] VITALS: BP 123/64
[2017-12-14 10:08] LABS: ABSOLUTE BASOPHIL COUNT 0.1 /CUMM (0.0-0.2); ABSOLUTE EOSINOPHIL COUNT 0 /CUMM (0.0-0.7); ABSOLUTE GRANULOCYTE CT 10.8 /CUMM (1.4-6.5); ABSOLUTE LYMPH COUNT 1.3 /CUMM (1.2-3.4); ABSOLUTE MONOCYTE COUNT 0.9 /CUMM (0.10-0.60); BASOPHIL % 0.4 % (0.0-2.0); EOSINOPHIL % 0.3 % (0-5); HEMATOCRIT 22.7 % (42-52); MEAN CORPUSCULAR HGB 30.1 PG (27.0-31.0); MEAN CORPUSCULAR HGB CONC 33.8 G/DL (33.0-37.0); MEAN CORPUSCULAR VOLUME 88.9 FL (80.0-94.0); MEAN PLATELET VOLUME 6.8 FL (7.4-10.4); PLATELET COUNT 434 /CUMM (130-400); RBC DISTRIBUTION WIDTH 17.5 % (11.5-14.5); RED BLOOD CELL CT 2.55 /CUMM (4.70-6.10)
--- NOTE | 2017-12-14 10:33 | PN- Orthopedic ---
See Addendum Subjective Subjective: significant pain in left knee, can not actively move joint. fever late last night to 102.8. denies chills/sweats now. no cp/sob/n/v. hungry- wants to know surgical plan Objective Vital Signs and I&Os Vital Signs Date Time Temp Pulse Resp B/P B/P Pulse O2 O2 Flow FiO2 Mean Ox Delivery Rate 12/14 0703 100.3 94 20 123/64 95 12/14 0100 99.1 12/13 223 100.8 12/13 223 102.8 92 20 126/60 96 Room Air 12/13 2142 101.6 12/13 2141 101.6 12/13 204 102.8 12/13 1515 98.7 85 18 134/70 96 Room Air 12/13 1453 98.3 12/13 1449 98.3 82 15 123/60 96 Room Air Room Air 12/13 1136 100.2 88 18 126/63 93 Room Air Intake & Output 12/14 1600 12/14 0800 12/14 0000 12/13 1600 12/13 0800 12/13 0000 Intake Total 400 320 0 Output Total 550 1680 Balance -150 -1360 0 Intake, IV 400 180 Intake, Oral 0 140 0 Number 0 Bowel Movements Output, Urine 550 1680 Patient 180 lb Weight Weight Reported by Patient Measurement Method Physical Exam: gen- nad card-rrr pulm- no audible wheeze abd- soft nt ext- lle: knee hot to touch, +edema, very ttp, no drainage, no erythema. rle: nt no edema. calves soft nt bl. Current Medications: Current Medications Sig/Wagner Start time Last Medication Dose Route Stop Time Status Admin Acetaminophen 650 MG Q6P PRN 12/13 1430 AC 12/13 PO 2042 Acetaminophen 0 .STK-MED ONE 12/13 1120 DC IV Ampicillin Sodium/ 3,000 MG Q6H 12/14 0200 AC 12/14 Sulbactam Sodium IV 0935 Sodium Chloride 100 ML Ampicillin Sodium/ 3,000 MG Q6 12/13 1800 CAN Sulbactam Sodium IV Sodium Chloride 100 ML Ampicillin Sodium/ 3,000 MG Q6 12/13 1800 DC 12/13 Sulbactam Sodium IV 2022 Sodium Chloride 100 ML Ampicillin Sodium/ 0 .STK-MED ONE 12/13 1309 DC Sulbactam Sodium .ROUTE Ampicillin Sodium/ 1,500 MG ONCE ONE 12/13 1230 DC 12/13 Sulbactam Sodium IV 12/13 1259 1309 Sodium Chloride 100 ML Atorvastatin Calcium 40 MG DAILY 12/14 1000 AC 12/14 PO 0935 Ceftriaxone Sodium 2,000 MG DAILY@1700 12/13 1700 CAN IV Escitalopram Oxalate 10 MG DAILY 12/14 1000 AC 12/14 PO 0935 Heparin Sodium 5,000 UNIT Q8 12/13 2200 AC 12/14 (Porcine) SC 0543 Lidocaine 0 .STK-MED ONE 12/13 1150 DC .ROUTE Morphine Sulfate 2 MG Q6P PRN 12/14 0145 AC IV Morphine Sulfate 2 MG Q6PRN PRN 12/13 1430 DC 12/13 IV 2027 Morphine Sulfate 0 .STK-MED ONE 12/13 1122 DC .ROUTE Sodium Chloride 1,000 ML Q13H 12/14 0600 AC 12/14 IV 12/14 1859 0547 Sodium Chloride 500 ML BOLUS ONE 12/13 1000 DC 12/13 IV 12/13 1059 1127 Vancomycin HCl 1,000 MG Q12H 12/14 0500 AC 12/14 Dextrose/Water 250 ML IV 0539 Vancomycin HCl 1,000 MG ONCE ONE 12/13 1615 DC 12/13 Dextrose/Water 250 ML IV 12/13 1714 1812 Results Last 48 Hours of Labs: Laboratory Tests 12/14 12/13 12/13 12/13 0954 1403 1211 1211 Chemistry Sodium Pending Potassium Pending Chloride Pending Carbon Dioxide Pending Anion Gap Pending BUN Pending Creatinine Pending BUN/Creatinine Ratio Pending Lactic Acid (0.7 - 2.1 mmol/L) 0.7 Hematology CBC w Diff NO MAN DIFF REQ WBC (4.8 - 10.8 /CUMM) 13.0 H RBC (4.70 - 6.10 /CUMM) 2.55 L Hgb (14.0 - 18.0 G/DL) 7.7 L Hct (42 - 52 %) 22.7 L MCV (80.0 - 94.0 FL) 88.9 MCH (27.0 - 31.0 PG) 30.1 MCHC (33.0 - 37.0 G/DL) 33.8 RDW (11.5 - 14.5 %) 17.5 H Plt Count (130 - 400 /CUMM) 434 H MPV (7.4 - 10.4 FL) 6.8 L Gran % (42.2 - 75.2 %) 83.0 H Lymphocytes % (20.5 - 51.1 %) 9.7 L Monocytes % (1.7 - 9.3 %) 6.6 Eosinophils % (0 - 5 %) 0.3 Basophils % (0.0 - 2.0 %) 0.4 Absolute Granulocytes (1.4 - 6.5 /CUMM) 10.8 H Absolute Lymphocytes (1.2 - 3.4 /CUMM) 1.3 Absolute Monocytes (0.10 - 0.60 /CUMM) 0.9 H Absolute Eosinophils (0.0 - 0.7 /CUMM) 0 Absolute Basophils (0.0 - 0.2 /CUMM) 0.1 % Normal PMNs (%) 90 Other Body Source Fluid WBC (0 - 5 /CUMM) 33692 H Fld Mesothelial Cells (%) 10 Fld Total RBCs Counted (0 /CUMM) 907 H Fluid Glucose (mg/dL) Fluid Total Protein (g/dL) Serology Lyme Disease Antibody Pending 12/13 12/13 1107 1013 Chemistry Sodium (137 - 145 mmol/L) 138 Potassium (3.5 - 5.1 mmol/L) 3.9 Chloride (98 - 107 mmol/L) 104 Carbon Dioxide (22 - 30 mmol/L) 20 L Anion Gap (5 - 16) 14 BUN (9 - 20 mg/dL) 11 Creatinine (0.7 - 1.2 mg/dL) 1.0 Estimated GFR (>60 ml/min) > 60 BUN/Creatinine Ratio (7 - 25 %) 11.0 Glucose (65 - 99 mg/dL) 103 H Lactic Acid (0.7 - 2.1 mmol/L) 1.5 Calcium (8.4 - 10.2 mg/dL) 9.3 Total Bilirubin (0.2 - 1.3 mg/dL) 1.0 AST (17 - 59 U/L) 36 ALT (21 - 72 U/L) 77 H Alkaline Phosphatase (< 127 U/L) 90 Troponin I (<0.11 ng/ml) < 0.01 Cancelled C-Reactive Prot, Quant (<1.0 mg/dL) 7.8 H Total Protein (6.3 - 8.2 g/dL) 6.7 Albumin (3.5 - 5.0 g/dL) 3.8 Globulin (1.9 - 4.2 gm/dL) 2.9 Albumin/Globulin Ratio (1.1 - 2.2 %) 1.3 Hematology CBC w Diff MAN DIFF ORDERED WBC (4.8 - 10.8 /CUMM) 16.1 H RBC (4.70 - 6.10 /CUMM) 3.00 L Hgb (14.0 - 18.0 G/DL) 8.8 L Hct (42 - 52 %) 27.2 L MCV (80.0 - 94.0 FL) 90.5 MCH (27.0 - 31.0 PG) 29.4 MCHC (33.0 - 37.0 G/DL) 32.5 L RDW (11.5 - 14.5 %) 17.6 H Plt Count (130 - 400 /CUMM) 473 H MPV (7.4 - 10.4 FL) 7.1 L Gran % (42.2 - 75.2 %) 83.7 H Lymphocytes % (20.5 - 51.1 %) 9.2 L Monocytes % (1.7 - 9.3 %) 6.4 Eosinophils % (0 - 5 %) 0.3 Basophils % (0.0 - 2.0 %) 0.4 Absolute Granulocytes (1.4 - 6.5 /CUMM) 13.5 H Absolute Lymphocytes (1.2 - 3.4 /CUMM) 1.5 Absolute Monocytes (0.10 - 0.60 /CUMM) 1.0 H Absolute Eosinophils (0.0 - 0.7 /CUMM) 0 Absolute Basophils (0.0 - 0.2 /CUMM) 0.1 Polychromasia 1+ Hypochromic-Microcytic 1+ Poikilocytosis 2+ Anisocytosis 2+ ESR Westergren (0 - 10 MM) > 130 H Serology Lyme Disease Antibody (RATIO) 0.19 Toxicology Serum Alcohol (<10 MG/DL) < 10.0 12/13 [facility] Toxicology Serum Alcohol Cancelled Assessment/Plan Assessment/Plan A- 52yoM with unclear recent hx bacteremia due to pna, now with left knee effusion causing fever, significant pain and limited motor fxn, with leukocytosis, on broad spectrum abx, with negative (prelim) joint aspiration cx. P- cont abx trend labs d/w dr. Garcia- keep NPO with IVF until evaluated this pm. ?possible OR
--- NOTE | 2017-12-14 13:01 | Cons- Infect Disease ---
General Information and HPI Consulting Request Date of Consult: 12/14/17 Requested By: Jin Chang MD Reason for Consult: FEVER/EVAL SEPTIC ARTHRITIS Source of Information: patient, primary team Exam Limitations: clinical condition History of Present Illness: 52-year-old WM loenwxavier with HTN, HLD, ETOH abuse, hepatic steatosis, pancreatic pseudocyst, and recent admission for sepsis, aspiration pneumonia, alcoholic hepatitis, AMBAR and bacteremia (positive blood culture Prevotella species and anaerobic gram-positive rods) presented on 12/13 to [facility] with L knee non traumatic pain, swelling and inability to walk. He reports low-grade fever ever since discharged from the hospital, as well as chills for a couple of days prior to admission. He had back pain 2 days ago. T max while in the hospital 102.8 F. He underwent L knee arthrocentesis and was evaluated by ortho. Currently comfortable; describes severe pain involving L knee with minimal movements. No urinary sx. Denies diarrhea. No productive cough, SOB or abd pain. Allergies/Medications Allergies: Coded Allergies: acetaminophen (From PERCOCET) (Severe, ITCH 02/05/16) hydrocodone (Severe, ITCH 02/05/16) oxycodone (Severe, ITCH 02/05/16) Home Med List: Atorvastatin Calcium 40 MG TABLET 1 TAB PO DAILY choolestrol (Reported) Escitalopram Oxalate 10 MG TABLET 1 TAB PO DAILY insomnia (Reported) Current Medications: Current Medications Sig/Wagner Start time Last Medication Dose Route Stop Time Status Admin Acetaminophen 650 MG Q6P PRN 12/13 1430 AC 12/13 PO 204 Ampicillin Sodium/ 3,000 MG Q6H 12/14 0200 AC 12/14 Sulbactam Sodium IV 0935 Sodium Chloride 100 ML Ampicillin Sodium/ 3,000 MG Q6 12/13 1800 CAN Sulbactam Sodium IV Sodium Chloride 100 ML Ampicillin Sodium/ 3,000 MG Q6 12/13 1800 DC 12/13 Sulbactam Sodium IV 2021 Sodium Chloride 100 ML Ampicillin Sodium/ 0 .STK-MED ONE 12/13 1309 DC Sulbactam Sodium .ROUTE Ampicillin Sodium/ 1,500 MG ONCE ONE 12/13 1230 DC 12/13 Sulbactam Sodium IV 12/13 1259 1309 Sodium Chloride 100 ML Atorvastatin Calcium 40 MG DAILY 12/14 1000 AC 12/14 PO 0935 Ceftriaxone Sodium 2,000 MG DAILY@1700 12/13 1700 CAN IV Escitalopram Oxalate 10 MG DAILY 12/14 1000 AC 12/14 PO 0935 Heparin Sodium 5,000 UNIT Q8 12/13 2200 AC 12/14 (Porcine) SC 0543 Morphine Sulfate 2 MG Q6P PRN 12/14 0145 AC 12/14 IV 1128 Morphine Sulfate 2 MG Q6PRN PRN 12/13 1430 DC 12/13 IV 2027 Sodium Chloride 1,000 ML Q13H 12/14 0600 AC 12/14 IV 12/14 1859 0547 Vancomycin HCl 1,000 MG Q12H 12/14 0500 AC 12/14 Dextrose/Water 250 ML IV 0539 Vancomycin HCl 1,000 MG ONCE ONE 12/13 1615 DC 12/13 Dextrose/Water 250 ML IV 12/13 1714 1812 Past History Travel History Traveled to [place] past 21 day No Medical History Blood Transfusion Hx: No Neurological: NONE EENT: NONE Cardiovascular: hypertension, hyperlipidemia Respiratory: pneumonia Gastrointestinal: diverticulitis Hepatic: alcoholic hepatitis Renal: NONE Musculoskeletal: NONE Psychiatric: alcohol dependence Endocrine: NONE Blood Disorders: NONE Cancer(s): NONE 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 spouse Primary Language: Bulgarian Smoking Status: Never Smoked ETOH Use: alcoholic Illicit Drug Use: denies illicit drug use Functional Ability ADLs Independent: dressing, eating, toileting, bathing. Ambulation: independent Review of Systems Comments 12 points reviewed as noted, otherwise negative. No rash, no nausea, vomiting, abdominal pain, chest pain, or coughing; No recent travel. Patient has spent time outdoors; no tick bite reported. Exam & Diagnostic Data Last 24 Hrs of Vital Signs/I&O Vital Signs Date Time Temp Pulse Resp B/P B/P Pulse O2 O2 Flow FiO2 Mean Ox Delivery Rate 12/14 0703 100.3 94 20 123/64 95 12/14 0100 99.1 12/13 2235 100.8 12/13 2229 102.8 92 20 126/60 96 Room Air 12/13 2141 101.6 12/131 101.6 12/13 2041 102.8 12/13 1515 98.7 85 18 134/70 96 Room Air 12/13 1453 98.3 12/13 1449 98.3 82 15 123/60 96 Room Air Room Air Intake & Output 12/14 1600 12/14 0800 12/14 0000 Intake Total 400 320 Output Total 550 1680 Balance -150 -1360 Intake, IV 400 180 Intake, Oral 0 140 Number 0 Bowel Movements Output, Urine 550 1680 Physical Exam Other Physical Findings: Well-developed well-nourished no apparent distress. HEENT: Atraumatic, sclera anicteric Neck: Supple, no LABn/JVD Respiratory: BS present, no rales Heart S11 S2 present Abd BS present, NT Extremities: No edema, no calf pain Left knee: Moderate effusion remains, severe local tenderness, increased warmth, no erythema of the skin overlying the L knee. Neuro: Alert and oriented x3 Psych: Mood affect normal, normal memory normal judgment. Skin: Warm and dry, no rash Last 24 Hours of Lab Results: Laboratory Tests 12/14 12/13 0954 1403 Chemistry Sodium (137 - 145 mmol/L) 140 Potassium (3.5 - 5.1 mmol/L) 3.5 Chloride (98 - 107 mmol/L) 106 Carbon Dioxide (22 - 30 mmol/L) 19 L Anion Gap (5 - 16) 15 BUN (9 - 20 mg/dL) 11 Creatinine (0.7 - 1.2 mg/dL) 0.8 Estimated GFR (>60 ml/min) > 60 BUN/Creatinine Ratio (7 - 25 %) 13.8 Lactic Acid (0.7 - 2.1 mmol/L) 0.7 Hematology CBC w Diff NO MAN DIFF REQ WBC (4.8 - 10.8 /CUMM) 13.0 H RBC (4.70 - 6.10 /CUMM) 2.55 L Hgb (14.0 - 18.0 G/DL) 7.7 L Hct (42 - 52 %) 22.7 L MCV (80.0 - 94.0 FL) 88.9 MCH (27.0 - 31.0 PG) 30.1 MCHC (33.0 - 37.0 G/DL) 33.8 RDW (11.5 - 14.5 %) 17.5 H Plt Count (130 - 400 /CUMM) 434 H MPV (7.4 - 10.4 FL) 6.8 L Gran % (42.2 - 75.2 %) 83.0 H Lymphocytes % (20.5 - 51.1 %) 9.7 L Monocytes % (1.7 - 9.3 %) 6.6 Eosinophils % (0 - 5 %) 0.3 Basophils % (0.0 - 2.0 %) 0.4 Absolute Granulocytes (1.4 - 6.5 /CUMM) 10.8 H Absolute Lymphocytes (1.2 - 3.4 /CUMM) 1.3 Absolute Monocytes (0.10 - 0.60 /CUMM) 0.9 H Absolute Eosinophils (0.0 - 0.7 /CUMM) 0 Absolute Basophils (0.0 - 0.2 /CUMM) 0.1 Serology Lyme Disease Antibody Pending Last 24 Hours of Jean-Pierre Results: SPEC #: [id number] PATRICIA: 12/13/17 STATUS: RES RECD: 12/13/[address]: Efren Hardin SOURCE: BLOOD ENTR: 12/13/[address]: Chika OCONNOR, Maureen SPDESC: 1ST/VENOUS ORDERED: BLOOD CULTURE COMMENT: BLUE TOP AEROBIC ONLY Procedure Result > BLOOD CULTURE REPORT Preliminary 12/14/17 No growth after 1 day incubation. Specimen is examined continuously for 5 days before final report unless culture becomes positive. SPEC #: [id number] PATRICIA: 12/13/17 STATUS: RES RECD: 12/13/[address]: Efren Hardin SOURCE: BODY FLUID ENTR: 12/13/[address] [facility] DR: Maureen Farr MD SPDLUDYC: KNEE L SYN ORDERED: BODY FLD CULTUR COMMENT: RECEIVED ~ 30CC OF VISCOUS CLOUDY YELLOW FLUID IN STERILE CUP Procedure Result > GRAM STAIN Final 12/13/17 WHITE BLOOD CELLS MANY OTHER NO ORGANISMS SEEN > BODY FLUID CULTURE Preliminary 12/14/17 NO GROWTH AFTER 1 DAY Diagnostic Data Recent Imaging Findings: TECHNIQUE: Four views of the left knee, 5 images total. 3 views of the left ankle. 3 views of the left foot. FINDINGS: Knee: No evidence of acute fracture or malalignment. Joint spaces are preserved. Small to moderate suprapatellar effusion. Ankle: No evidence of acute fracture or malalignment. Joint spaces are preserved. No joint effusion. Soft tissues are unremarkable. Foot: No evidence of acute fracture or malalignment. Joint spaces are preserved. Soft tissues are unremarkable. IMPRESSION: Small to moderate left knee effusion. No evidence of acute fracture or malalignment of the knee. Normal radiographs of the left ankle and foot. DICTATED BY: Roxana Vu MD DATE/TIME DICTATED:12/13/171100 FINANCIAL QUANTITATIVE ANALYST:ALAN DATE/TIME TRANSCRIBED:12/13/171100 CONFIDENTIAL, DO NOT COPY WITHOUT APPROPRIATE AUTHORIZATION. Assessment/Plan Assessment/Plan Impression: 52-year-old M knwon with HTN, HLD, ETOH abuse, hepatic steatosis, pancreatic pseudocyst, and recent admission for sepsis, aspiration pneumonia, alcoholic hepatitis, AMBAR and bacteremia (positive blood culture Prevotella species and anaerobic gram-positive rods) admitted on 12/13. L knee effusion; arthrocentesis revealing 16K WBC, gm stain negative; no growth to date; evaluated by ortho for possible early septic arthritis (most likely pathogen S. aureus); r/o Lyme infection. Planned repeat arthrocentesis this afternoon. Currently treated w/ iv vancomycin and added ampicillin/sulbactam as recent BC grew Prevotella. Fever Leukocytosis Suggestion: 1. F/U synovial fluid and blood cultures results; Lyme test is negative. 2. Trend CBC/BMP. LFT's, including GGTP, ESR/CRP/uric acid/LDH in am. 3. 2 D Echo evaluate valves. 4. Would favor observing off antibiotics if synovial fluid cx negative at 48 h. 5. If abnormal LFT's GB US eval cholecystitis (of note on physical exam Terrazas sign neg) Consult Acknowledgment - Thank you for your consult request.
--- NOTE | 2017-12-14 14:11 | PN- Orthopedic ---
Subjective Subjective: xx Objective Vital Signs and I&Os xx Assessment/Plan Assessment/Plan Patient ate lunch as was told was not going to or, though NPO in computer. Therefore- will not have surgery today, and will have bedside aspiration by this pm. Please ensure pt is NPO p MN for possible intervention tomorrow.
[2017-12-14 14:22] VITALS: BP 120/60
[2017-12-14 22:21] VITALS: BP 122/60
[2017-12-15] VITALS (7 sets, daily range): BP systolic 104–170; BP diastolic 50–82
--- NOTE | 2017-12-15 08:02 | PN- Housestaff ---
Deysi James MD,[facility] 12/15/17 0802: Subjective Follow-up For: Knee joint redness and swelling Possible septic arthritis Subjective: Patient visited today, was lying in bed comfortably in no acute distress, was alert and oriented. at the bedside, had repeated aspiration last night, reported improved sweling and pain of the knee. Patient was stable for possible washout by ortho today. had fever of 100.1 chills overnight, no shortness of breathing, no chest pain, no other events. Review of Systems Constitutional: Reports: see HPI. Objective Last 24 Hrs of Vital Signs/I&O Vital Signs Date Time Temp Pulse Resp B/P B/P Pulse O2 O2 Flow FiO2 Mean Ox Delivery Rate 12/15 1328 97.8 75 20 132/60 95 Room Air 12/15 0715 98.4 80 18 124/66 95 Room Air 12/15 0043 98.7 12/14 2221 100.1 92 18 122/60 93 Room Air 12/14 2111 101.4 12/14 202 101.5 12/14 1426 20 90 Room Air 12/14 1422 100.4 100 120/60 Intake & Output 12/15 1600 12/15 0800 12/15 0000 Intake Total 600 400 Output Total 600 400 Balance -600 200 400 Intake, IV 600 300 Intake, Oral 100 Output, Urine 600 400 Physical Exam General Appearance: Alert, Oriented X3, Cooperative, No Acute Distress Skin Temp/Moisture Exam: Warm/Dry Sepsis Skin Exam (color): Normal for Ethnicity HEENT: Atraumatic, EOMI, Mucous Membr. moist/pink Cardiovascular: Normal S1, Normal S2 Lungs: Normal Air Movement Abdomen: No Tenderness Extremities: Right knee decreased motion due to pain. swelling, no erythema, improved pain and motion Current Medications: Current Medications Sig/Wagner Start time Last Medication Dose Route Stop Time Status Admin Acetaminophen 650 MG .STK-MED ONE 12/14 2017 DC PO 12/14 2018 Acetaminophen 650 MG Q6P PRN 12/13 1430 AC 12/14 PO 2020 Ampicillin Sodium/ 3,000 MG Q6H 12/14 0200 AC 12/15 Sulbactam Sodium IV 0830 Sodium Chloride 100 ML Atorvastatin Calcium 40 MG DAILY 12/14 1000 AC 12/15 PO 818 Escitalopram Oxalate 10 MG DAILY 12/14 1000 AC 12/15 PO 818 Heparin Sodium 5,000 UNIT Q8 12/13 2200 AC 12/15 (Porcine) SC 0517 Morphine Sulfate 2 MG Q2 HRS NEEDED PRN 12/14 1645 AC 12/14 IV 1656 Morphine Sulfate 2 MG Q6P PRN 12/14 0145 DC 12/14 IV 1128 Sodium Chloride 1,000 ML Q13H 12/14 0600 DC 12/14 IV 12/14 1859 0547 Vancomycin HCl 1,000 MG Q12H 12/14 0500 AC 12/15 Dextrose/Water 250 ML IV 0510 Last 24 Hrs of Lab/Jean-Pierre Results Last 24 Hrs of Labs/Mics: Laboratory Tests 12/15/17 0810: Anion Gap 12, Estimated GFR > 60, BUN/Creatinine Ratio 13.8, C-Reactive Prot, Quant > 9.0 H, CBC w Diff NO MAN DIFF REQ, RBC 2.74 L, MCV 89.3, MCH 30.0, MCHC 33.6, RDW 17.5 H, MPV 7.1 L, Gran % 80.1 H, Lymphocytes % 14.5 L, Monocytes % 4.4, Eosinophils % 0.6, Basophils % 0.4, Absolute Granulocytes 10.1 H, Absolute Lymphocytes 1.8, Absolute Monocytes 0.5, Absolute Eosinophils 0.1, Absolute Basophils 0.1, ESR Westergren > 130 H 12/14/17 1745: Fluid WBC 92296 H, Fld Mesothelial Cells 6, Fld Total RBCs Counted 990 H 12/14/17 1745: Lymphocytes 2, % Normal PMNs 92, Fluid Glucose 90, Fluid Total Protein , Sodium Urate Crystals Microbiology 12/15 1348 EXTREMITIE: Gross Specimen Examination - COLB 12/15 1348 EXTREMITIE: Gram Stain - COLB 12/14 1745 BODY FLUID: Body Fluid Culture - RES 12/14 174 BODY FLUID: Gram Stain - RES 12/14 174 BODY FLUID: Body Fluid Culture - RES 12/14 1744 BODY FLUID: Gram Stain - RES Assessment/Plan Assessment: 52-year-old gentleman with past medical history of recent hospitalization due to possible aspiration pneumonia alcoholic hepatitis with elevated LFTs with positive blood culture proventella species and anaerobic gram-positive rods, anemia was discharged about 3 weeks ago from the [facility] came back to the hospital with chief complaint of knee pain and inability to walk. vitals in ED were stable except mild fever 100.2 labs WBC 16.1 hg 8.8 ( stable) plt 460, esr more than 130 crp 7.5 left knee, ankle, foot x ray knee tap : wbc [id number] no crystals IMPRESSION: Small to moderate left knee effusion. No evidence of acute fracture or malalignment of the knee. Normal radiographs of the left ankle and foot. doppler of left LE There is a 3.4 x 1.3 x 1.5 cm cystic lesion in the popliteal fossa without internal vascularity, compatible with White's cyst. IMPRESSION: No evidence of deep venous thrombosis involving the left lower extremity. assessment left knee joint Pain and elevated WBC most likely septic joint History of hyperlipidemia History of alcohol abuse History of recent bacteremia History of anxiety/depression plan - Admit to general medicine floor - Continue IV Unasyn and IV vancomycin per ID recommendation - would had ID today - Orthopedic consultation appreciated - Follow Blood cultures 2 , check lyme titres - IV morphine for pain, Tylenol by mouth for fever, consider Dilaudid or motrin - Continue statin - Continue SSRI - Full code, DVT prophylaxis Problem List: 1. Fever 2. Septic arthritis of knee, left Pain Ratin Pain Location: left knee with motion Pain Goal: Pain 4 or less Pain Plan: Continue current plan Tomorrow's Labs & Rationales: CBC MATTHEWP AmaliaManoj landerskaley 12/15/17 1125: Attending MD Review Statement Attending Statement Attending MD Statement: examined this patient, discuss w/resident/PA/[employer], agreed w/resident/PA/[employer], discussed with family, reviewed EMR data (avail), discussed with nursing, discussed with case mgmt, reviewed images, amended to note Attending Assessment/Plan: 52-year-old male who presents with complaints of left knee pain and inability to walk going on since yesterday admitted for sepsis and left knee effusion. Patient seen/exmained bedside. Patient has decreased range of motion with mild improvement. Febrile overnight. 1. Inflammatory arthritis r/o Possible Left knee septic arthritis - Elevated WBC in the knee aspirate 2. Anemia of chronic disease 3. Leukocytosis 4. Depressive disorder 5. H/o [place] bacteremia repeat blood cultures negative. Plan Diet as per Orthopedics, OR planning as per ortho. Infectious diseases appreciated, c/w broad spectrum, Abx as per ID. Source of infection ?knee. Continue with Lexapro. Gentle hydration overnight. Heparin Sub Q for DVT prophylaxis.
[2017-12-15 08:57] LABS: ABSOLUTE BASOPHIL COUNT 0.1 /CUMM (0.0-0.2); ABSOLUTE EOSINOPHIL COUNT 0.1 /CUMM (0.0-0.7); ABSOLUTE GRANULOCYTE CT 10.1 /CUMM (1.4-6.5); ABSOLUTE LYMPH COUNT 1.8 /CUMM (1.2-3.4); ABSOLUTE MONOCYTE COUNT 0.5 /CUMM (0.10-0.60); BASOPHIL % 0.4 % (0.0-2.0); EOSINOPHIL % 0.6 % (0-5); GRANULOCYTE % 80.1 % (42.2-75.2); HEMATOCRIT 24.5 % (42-52); MEAN CORPUSCULAR HGB CONC 33.6 G/DL (33.0-37.0); MEAN CORPUSCULAR VOLUME 89.3 FL (80.0-94.0); MEAN PLATELET VOLUME 7.1 FL (7.4-10.4); PLATELET COUNT 495 /CUMM (130-400); RBC DISTRIBUTION WIDTH 17.5 % (11.5-14.5); RED BLOOD CELL CT 2.74 /CUMM (4.70-6.10); WHITE BLOOD CELL COUNT 12.6 /CUMM (4.8-10.8)
--- NOTE | 2017-12-15 09:32 | PN- Orthopedic ---
See Addendum Subjective Subjective: Still with complaints of knee pain and intermittent fever He does not feel he is any better Objective Vital Signs and I&Os Vital Signs Date Time Temp Pulse Resp B/P B/P Pulse O2 O2 Flow FiO2 Mean Ox Delivery Rate 12/15 0715 98.4 80 18 124/66 95 Room Air 12/15 0043 98.7 12/14 2221 100.1 92 18 122/60 93 Room Air 12/14 2111 101.4 12/14 202 101.5 12/14 1426 20 90 Room Air 12/14 1422 100.4 100 120/60 Intake & Output 12/15 1600 12/15 0800 12/15 0000 12/14 1600 12/14 0800 12/14 0000 Intake Total 600 400 720 400 320 Output Total 400 644 175 2321 Balance 200 400 445 -150 -1360 Intake, IV 600 300 600 400 180 Intake, Oral 100 120 0 140 Number 0 0 Bowel Movements Output, Urine 400 727 341 8810 Physical Exam: Well-developed well-nourished no apparent distress. Mildly pale appearing HEENT: Atraumatic, extraocular motion intact Respiratory: No respiratory distress Extremities: No edema, no calf pain Left knee with moderate joint effusion, warmth, no erythema, mild global tenderness which is improved, range of motion 0-90, also improved Neuro: Alert and oriented x3 Psych: Mood affect normal, normal memory normal judgment. Skin: Warm and dry, no rash on exposed skin Results Last 48 Hours of Labs: Laboratory Tests 12/15 12/14 12/14 0810 1745 1745 Chemistry Sodium Pending Potassium Pending Chloride Pending Carbon Dioxide Pending Anion Gap Pending BUN Pending Creatinine Pending BUN/Creatinine Ratio Pending C-Reactive Prot, Quant Pending Hematology CBC w Diff NO MAN DIFF REQ WBC (4.8 - 10.8 /CUMM) 12.6 H RBC (4.70 - 6.10 /CUMM) 2.74 L Hgb (14.0 - 18.0 G/DL) 8.2 L Hct (42 - 52 %) 24.5 L MCV (80.0 - 94.0 FL) 89.3 MCH (27.0 - 31.0 PG) 30.0 MCHC (33.0 - 37.0 G/DL) 33.6 RDW (11.5 - 14.5 %) 17.5 H Plt Count (130 - 400 /CUMM) 495 H MPV (7.4 - 10.4 FL) 7.1 L Gran % (42.2 - 75.2 %) 80.1 H Lymphocytes % (20.5 - 51.1 %) 14.5 L Monocytes % (1.7 - 9.3 %) 4.4 Eosinophils % (0 - 5 %) 0.6 Basophils % (0.0 - 2.0 %) 0.4 Absolute Granulocytes (1.4 - 6.5 /CUMM) 10.1 H Absolute Lymphocytes (1.2 - 3.4 /CUMM) 1.8 Lymphocytes (%) 2 Absolute Monocytes (0.10 - 0.60 /CUMM) 0.5 Absolute Eosinophils (0.0 - 0.7 /CUMM) 0.1 Absolute Basophils (0.0 - 0.2 /CUMM) 0.1 % Normal PMNs (%) 92 ESR Westergren (0 - 10 MM) Pending Other Body Source Fluid WBC (0 - 5 /CUMM) 08633 H Fld Mesothelial Cells (%) 6 Fld Total RBCs Counted (0 /CUMM) 990 H Fluid Glucose (mg/dL) 90 Fluid Total Protein (g/dL) Urines Sodium Urate Crystals (NONE) 12/14 12/13 12/13 12/13 0954 1403 1211 1211 Chemistry Sodium (137 - 145 mmol/L) 140 Potassium (3.5 - 5.1 mmol/L) 3.5 Chloride (98 - 107 mmol/L) 106 Carbon Dioxide (22 - 30 mmol/L) 19 L Anion Gap (5 - 16) 15 BUN (9 - 20 mg/dL) 11 Creatinine (0.7 - 1.2 mg/dL) 0.8 Estimated GFR (>60 ml/min) > 60 BUN/Creatinine Ratio (7 - 25 %) 13.8 Lactic Acid (0.7 - 2.1 mmol/L) 0.7 Hematology CBC w Diff NO MAN DIFF REQ WBC (4.8 - 10.8 /CUMM) 13.0 H RBC (4.70 - 6.10 /CUMM) 2.55 L Hgb (14.0 - 18.0 G/DL) 7.7 L Hct (42 - 52 %) 22.7 L MCV (80.0 - 94.0 FL) 88.9 MCH (27.0 - 31.0 PG) 30.1 MCHC (33.0 - 37.0 G/DL) 33.8 RDW (11.5 - 14.5 %) 17.5 H Plt Count (130 - 400 /CUMM) 434 H MPV (7.4 - 10.4 FL) 6.8 L Gran % (42.2 - 75.2 %) 83.0 H Lymphocytes % (20.5 - 51.1 %) 9.7 L Monocytes % (1.7 - 9.3 %) 6.6 Eosinophils % (0 - 5 %) 0.3 Basophils % (0.0 - 2.0 %) 0.4 Absolute Granulocytes (1.4 - 6.5 /CUMM) 10.8 H Absolute Lymphocytes (1.2 - 3.4 /CUMM) 1.3 Absolute Monocytes (0.10 - 0.60 /CUMM) 0.9 H Absolute Eosinophils (0.0 - 0.7 /CUMM) 0 Absolute Basophils (0.0 - 0.2 /CUMM) 0.1 % Normal PMNs (%) 90 Other Body Source Fluid WBC (0 - 5 /CUMM) 15782 H Fld Mesothelial Cells (%) 10 Fld Total RBCs Counted (0 /CUMM) 907 H Fluid Glucose (mg/dL) Fluid Total Protein (g/dL) Serology Lyme Disease Antibody Pending 12/13 12/13 1107 1013 Chemistry Sodium (137 - 145 mmol/L) 138 Potassium (3.5 - 5.1 mmol/L) 3.9 Chloride (98 - 107 mmol/L) 104 Carbon Dioxide (22 - 30 mmol/L) 20 L Anion Gap (5 - 16) 14 BUN (9 - 20 mg/dL) 11 Creatinine (0.7 - 1.2 mg/dL) 1.0 Estimated GFR (>60 ml/min) > 60 BUN/Creatinine Ratio (7 - 25 %) 11.0 Glucose (65 - 99 mg/dL) 103 H Lactic Acid (0.7 - 2.1 mmol/L) 1.5 Calcium (8.4 - 10.2 mg/dL) 9.3 Total Bilirubin (0.2 - 1.3 mg/dL) 1.0 AST (17 - 59 U/L) 36 ALT (21 - 72 U/L) 77 H Alkaline Phosphatase (< 127 U/L) 90 Troponin I (<0.11 ng/ml) < 0.01 Cancelled C-Reactive Prot, Quant (<1.0 mg/dL) 7.8 H Total Protein (6.3 - 8.2 g/dL) 6.7 Albumin (3.5 - 5.0 g/dL) 3.8 Globulin (1.9 - 4.2 gm/dL) 2.9 Albumin/Globulin Ratio (1.1 - 2.2 %) 1.3 Hematology CBC w Diff MAN DIFF ORDERED WBC (4.8 - 10.8 /CUMM) 16.1 H RBC (4.70 - 6.10 /CUMM) 3.00 L Hgb (14.0 - 18.0 G/DL) 8.8 L Hct (42 - 52 %) 27.2 L MCV (80.0 - 94.0 FL) 90.5 MCH (27.0 - 31.0 PG) 29.4 MCHC (33.0 - 37.0 G/DL) 32.5 L RDW (11.5 - 14.5 %) 17.6 H Plt Count (130 - 400 /CUMM) 473 H MPV (7.4 - 10.4 FL) 7.1 L Gran % (42.2 - 75.2 %) 83.7 H Lymphocytes % (20.5 - 51.1 %) 9.2 L Monocytes % (1.7 - 9.3 %) 6.4 Eosinophils % (0 - 5 %) 0.3 Basophils % (0.0 - 2.0 %) 0.4 Absolute Granulocytes (1.4 - 6.5 /CUMM) 13.5 H Absolute Lymphocytes (1.2 - 3.4 /CUMM) 1.5 Absolute Monocytes (0.10 - 0.60 /CUMM) 1.0 H Absolute Eosinophils (0.0 - 0.7 /CUMM) 0 Absolute Basophils (0.0 - 0.2 /CUMM) 0.1 Polychromasia 1+ Hypochromic-Microcytic 1+ Poikilocytosis 2+ Anisocytosis 2+ ESR Westergren (0 - 10 MM) > 130 H Serology Lyme Disease Antibody (RATIO) 0.19 Toxicology Serum Alcohol (<10 MG/DL) < 10.0 12/13 1002 Toxicology Serum Alcohol Cancelled Assessment/Plan Assessment/Plan Left knee effusion, possible septic knee Repeat aspirated shows 12,000 white blood cell count, so far no growth on either aspirate Lyme titers pending White blood cell count trending down Patient to be seen by orthopedic surgeon this morning to determine whether or not he will have irrigation and debridement today. Please keep nothing by mouth
--- NOTE | 2017-12-15 13:30 | PN- Infect Dx ---
Subjective Subjective: Low grade fever. s/p L knee washout. Review of Systems Comments: 12 points reviewed as noted, otherwise negative. Objective Last 24 Hrs of Vital Signs/I&O Vital Signs Date Time Temp Pulse Resp B/P B/P Pulse O2 O2 Flow FiO2 Mean Ox Delivery Rate 12/15 0715 98.4 80 18 124/66 95 Room Air 12/15 0043 98.7 12/14 2221 100.1 92 18 122/60 93 Room Air 12/14 2111 101.4 12/14 2021 101.5 12/14 1426 20 90 Room Air 12/14 1422 100.4 100 120/60 Intake & Output 12/15 1600 12/15 0800 12/15 0000 Intake Total 600 400 Output Total 400 Balance 200 400 Intake, IV 600 300 Intake, Oral 100 Output, Urine 400 Physical Exam Other Physical Findings: Well-developed well-nourished no apparent distress. HEENT: Atraumatic, sclera anicteric Neck: Supple, no LABn/JVD Respiratory: BS present, no rales Heart S11 S2 present Abd BS present, NT Extremities: No edema, no calf pain Left knee: Moderate effusion remains, severe local tenderness, increased warmth, no erythema of the skin overlying the L knee. Neuro: Alert and oriented x3 Psych: Mood affect normal, normal memory normal judgment. Skin: Warm and dry, no rash Results Last 24 Hours of Lab Results: Laboratory Tests 12/15 12/14 12/14 0810 1745 1745 Chemistry Sodium (137 - 145 mmol/L) 141 Potassium (3.5 - 5.1 mmol/L) 3.9 Chloride (98 - 107 mmol/L) 107 Carbon Dioxide (22 - 30 mmol/L) 22 Anion Gap (5 - 16) 12 BUN (9 - 20 mg/dL) 11 Creatinine (0.7 - 1.2 mg/dL) 0.8 Estimated GFR (>60 ml/min) > 60 BUN/Creatinine Ratio (7 - 25 %) 13.8 C-Reactive Prot, Quant (<1.0 mg/dL) > 9.0 H Hematology CBC w Diff NO MAN DIFF REQ WBC (4.8 - 10.8 /CUMM) 12.6 H RBC (4.70 - 6.10 /CUMM) 2.74 L Hgb (14.0 - 18.0 G/DL) 8.2 L Hct (42 - 52 %) 24.5 L MCV (80.0 - 94.0 FL) 89.3 MCH (27.0 - 31.0 PG) 30.0 MCHC (33.0 - 37.0 G/DL) 33.6 RDW (11.5 - 14.5 %) 17.5 H Plt Count (130 - 400 /CUMM) 495 H MPV (7.4 - 10.4 FL) 7.1 L Gran % (42.2 - 75.2 %) 80.1 H Lymphocytes % (20.5 - 51.1 %) 14.5 L Monocytes % (1.7 - 9.3 %) 4.4 Eosinophils % (0 - 5 %) 0.6 Basophils % (0.0 - 2.0 %) 0.4 Absolute Granulocytes (1.4 - 6.5 /CUMM) 10.1 H Absolute Lymphocytes (1.2 - 3.4 /CUMM) 1.8 Lymphocytes (%) 2 Absolute Monocytes (0.10 - 0.60 /CUMM) 0.5 Absolute Eosinophils (0.0 - 0.7 /CUMM) 0.1 Absolute Basophils (0.0 - 0.2 /CUMM) 0.1 % Normal PMNs (%) 92 ESR Westergren (0 - 10 MM) > 130 H Other Body Source Fluid WBC (0 - 5 /CUMM) 51718 H Fld Mesothelial Cells (%) 6 Fld Total RBCs Counted (0 /CUMM) 990 H Fluid Glucose (mg/dL) 90 Fluid Total Protein (g/dL) Urines Sodium Urate Crystals (NONE) Last 24 Hours of Jean-Pierre Results: SPEC #: [id number] PATRICIA: 12/13/17 STATUS: RES RECD: 12/13/[address]: Efren Hardin SOURCE: BODY FLUID ENTR: 12/13/[address]: Chika OCONNOR, Maureen SPDESC: KNEE L SYN ORDERED: BODY FLD CULTUR COMMENT: RECEIVED ~ 30CC OF VISCOUS CLOUDY YELLOW FLUID IN STERILE CUP Procedure Result > GRAM STAIN Final 12/13/17 WHITE BLOOD CELLS MANY OTHER NO ORGANISMS SEEN > BODY FLUID CULTURE Preliminary 12/15/17 NO GROWTH AFTER 2 DAYS 2/26 synovial fluid cx neg at 1 days. Lyme titer 12/13 0.19 (neg) Recent Imaging Studies: DUS L LE IMPRESSION: No evidence of deep venous thrombosis involving the left lower extremity. 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 DICTATED BY: Roxana Vu MD DATE/TIME DICTATED:12/13/171053 BATCH AND FURNACE MANAGER:ALAN DATE/TIME TRANSCRIBED:12/13/171053 Assessment/Plan ID Impression: 52-year-old WM knwon with HTN, HLD, ETOH abuse, hepatic steatosis, pancreatic pseudocyst, and recent admission for sepsis, aspiration pneumonia, alcoholic hepatitis, AMBAR and bacteremia (positive blood culture Prevotella species and anaerobic gram-positive rods) admitted on 12/13. L knee effusion; arthrocentesis revealing 16K WBC (repeat synovial fluid analysis 12K WBC, no ureate crystals), gm stain negative; no growth to date; evaluated by ortho for possible early septic arthritis (most likely pathogen S. aureus) As WBC in synovial fluid below 50k and culture negative to date alternative diagnosis to be considered (? reactive arthritis reported w/ IE, non GC urethritis, etc). Lyme arthritis not likely as screening WU titer negative. Fever curve trending down Mild leukocytosis Suggestion: 2. Trend CBC/BMP. LFT's, including GGTP, ESR/CRP/uric acid/LDH in am. vanco trough 30 min before next dose on 12/16 in am. 3. FANNY evaluate valves. 4. Would favor observing off antibiotics if synovial fluid cx no growth at 5 d and FANNY negative vegetations. Currently treated D #3 w/ iv vancomycin and ampicillin/sulbactam as recent BC's grew Prevotella (question true pathogen vs contamination).
--- NOTE | 2017-12-15 14:07 | Operative Report ---
Operative/Inv Procedure Report Surgery Date: 12/15/17 Name of Procedure: #1 arthroscopic irrigation debridement and synovectomy left knee #2 partial lateral meniscectomy Pre-Operative Diagnosis: #1 septic arthritis left knee Post-Operative Diagnosis: #1 septic arthritis left knee #2 lateral meniscal tear posterior horn Estimated Blood Loss: less than 50ml Surgeon/Lens Cementer: MINI Anesthesia: laryngeal mask airway IV Fluids: See anesthesia record Drains: None Specimens: Synovium to pathology Microbiology: Synovium left knee Complications: None Condition: Stable Operative Indication: Patient's 52-year-old male with recurrent effusions of the left knee. Despite having the knee aspirated several times with effusions recurred. He is indicated for surgical arthroscopy and irrigation debridement. Operative/Procedure Note Note: Once informed consent was obtained and the correct limb was identified patient brought Room placed on table supine position. After administration of general endotracheal anesthesia patient's left leg was placed in a leg landin and the foot of table was dropped for arthroscopy. The left lower shoulder was prepped and draped in usual sterile fashion. To begin the procedure standard anterolateral arthroscopic portal was made and scope was introduced. Diagnostic arthroscopy was carried out. The synovium of the suprapatellar pouch was mildly inflamed and injected. There were no loose bodies in the suprapatellar pouch. Thebodies in lateral or medial gutters. The scope was placed into the lateral compartment of the knee by placing leg in a figure 4 position. There was mild irritation of the tibial plateau cartilage with what looked to be some calcium deposits within the meniscus. There was a flap tear of the root of the lateral meniscus. The ACL was intact. The medial compartment knee was entered by placing a valgus stress the knee. The medial meniscus was completely intact and the articular surfaces of the femoral condyle plateau were intact. Under direct visualization a medial portal was made. Shaving device was introduced into the knee. A partial lateral meniscectomies per performed with a 4.5 full-radius shaver at the root of lateral meniscus to remove that flap of meniscal material. The shaver was left in place and the lateral compartment and the lateral compartment knee was thoroughly irrigated with saline solution. There was no work done in the medial compartment. The shaving device and scope were brought into the tunnel femoral joint and a limited synovectomy was performed. Specimen was removed and sent for pathology and microbiology culture and sensitivity. Approximately 15 L of saline solution were washed through the knee. The R scopic instruments removed and the portals were closed with 3-0 nylon interrupted sutures. Sterile dressing was applied and the patient was taken recovery room in stable condition1
--- NOTE | 2017-12-15 17:22 | PN- Orthopedic ---
Subjective Subjective: post op check comfortable, no complaints. Objective Vital Signs and I&Os Vital Signs Date Time Temp Pulse Resp B/P B/P Pulse O2 O2 Flow FiO2 Mean Ox Delivery Rate 12/15 1600 Nasal 2.0L Cannula 12/15 1600 97.9 84 16 142/72 96 Nasal 2.0L Cannula 12/15 1416 97.9 79 20 170/82 96 12/15 1328 97.8 75 20 132/60 95 Room Air 12/15 0715 98.4 80 18 124/66 95 Room Air 12/15 0043 98.7 12/14 2221 100.1 92 18 122/60 93 Room Air 12/14 2111 101.4 12/14 2020 101.5 Intake & Output 12/15 1600 12/15 0800 12/15 0000 12/14 1600 12/14 0800 12/14 0000 Intake Total 600 600 400 720 400 320 Output Total 1400 400 081 980 5705 Balance -800 200 400 445 -150 -1360 Intake, IV 600 600 300 600 400 180 Intake, Oral 100 120 0 140 Number 0 0 Bowel Movements Output, Urine 1400 400 953 307 9969 Physical Exam: wdwn, aox3, nad no resp distress LLE- ernie applied, nvi Assessment/Plan Assessment/Plan pod#0 sp L knee DSA, irrigation, debridement, partial meniscectomy ID consult appreciated follow cultures PT, oob, wbat place on nsaids, start with standing toradol for pain and inflammation, switch to po nsaids upon dc home try dilaudid po for pain control (rash with vicodin and percocet) will follow, no further plans for repeat surgery
[2017-12-16 02:24] VITALS: BP 100/62
[2017-12-16 05:39] LABS: ABSOLUTE BASOPHIL COUNT 0 /CUMM (0.0-0.2); ABSOLUTE EOSINOPHIL COUNT 0 /CUMM (0.0-0.7); ABSOLUTE GRANULOCYTE CT 9.3 /CUMM (1.4-6.5); ABSOLUTE LYMPH COUNT 0.8 /CUMM (1.2-3.4); ABSOLUTE MONOCYTE COUNT 0.5 /CUMM (0.10-0.60); BASOPHIL % 0.1 % (0.0-2.0); EOSINOPHIL % 0 % (0-5); GRANULOCYTE % 87.8 % (42.2-75.2); HEMATOCRIT 24.7 % (42-52); MEAN CORPUSCULAR HGB CONC 31.6 G/DL (33.0-37.0); MEAN CORPUSCULAR VOLUME 91.6 FL (80.0-94.0); MEAN PLATELET VOLUME 6.7 FL (7.4-10.4); PLATELET COUNT 606 /CUMM (130-400); RBC DISTRIBUTION WIDTH 18.1 % (11.5-14.5); WHITE BLOOD CELL COUNT 10.5 /CUMM (4.8-10.8)
[2017-12-16 06:00] VITALS: BP 104/60
--- NOTE | 2017-12-16 08:02 | PN- Housestaff ---
Deysi James MD,[facility] 12/16/17 0801: Subjective Follow-up For: Knee joint redness and swelling Possible septic arthritis Subjective: Patient visited today, was lying in bed comfortably in no acute distress, was alert and oriented. No fever or chills, no shortness of breathing, no chest pain, no other events. Had arthroscopic wash out yesterday, improvement in pain, swelling. In examination no drian from scope site. Review of Systems Constitutional: Reports: see HPI. Objective Last 24 Hrs of Vital Signs/I&O Vital Signs Date Time Temp Pulse Resp B/P B/P Pulse O2 O2 Flow FiO2 Mean Ox Delivery Rate 12/16 1518 97.4 71 18 114/62 96 12/16 0600 98.5 67 18 104/60 96 Room Air 12/16 0224 98.7 67 18 100/62 97 Room Air 12/15 2200 98.2 73 18 104/50 93 Room Air 12/15 2000 97.9 80 18 108/60 92 Room Air 12/15 1757 98.8 85 20 108/58 91 Intake & Output 12/16 1600 12/16 0800 12/16 0000 Intake Total 560 600 990 Output Total 700 350 Balance 560 -100 640 Intake, IV 200 500 390 Intake, Oral 360 100 600 Number 1 Bowel Movements Output, Urine 700 350 Patient 180 lb Weight Physical Exam General Appearance: Alert, Oriented X3, Cooperative, No Acute Distress Skin Temp/Moisture Exam: Warm/Dry Sepsis Skin Exam (color): Normal for Ethnicity HEENT: Atraumatic, EOMI, Mucous Membr. moist/pink Cardiovascular: Normal S1, Normal S2 Lungs: Normal Air Movement Abdomen: Soft, No Tenderness Extremities: dressing in place, left knee, scope site no drain Current Medications: Current Medications Sig/Wagner Start time Last Medication Dose Route Stop Time Status Admin Acetaminophen 650 MG Q6P PRN 12/13 1430 AC 12/14 PO 2020 Ampicillin Sodium/ 3,000 MG Q6H 12/14 0200 AC 12/16 Sulbactam Sodium IV 1321 Sodium Chloride 100 ML Atorvastatin Calcium 40 MG DAILY 12/14 1000 AC 12/16 PO 0842 Celecoxib 200 MG BID 12/15 2200 CAN PO Escitalopram Oxalate 10 MG DAILY 12/14 1000 AC 12/16 PO 0842 Heparin Sodium 5,000 UNIT Q8 12/13 220 AC 12/16 (Porcine) SC 1320 Hydromorphone HCl 2 MG Q4P PRN 12/15 1730 AC PO Ketorolac 15 MG BID PRN 12/15 1930 AC Tromethamine IV Ketorolac 30 MG Q6 12/15 1800 AC 12/16 Tromethamine IV 12/17 0000 1212 Morphine Sulfate 2 MG Q2 HRS NEEDED PRN 12/14 1645 AC 12/14 IV 1656 Patient Medication 1 ED ONE ONE 12/16 1145 MN 12/16 Teaching ED 12/16 1146 1321 Patient Medication 1 ED ONE ONE 12/15 1645 MN Teaching ED 12/15 1646 Patient Medication 1 ED ONE ONE 12/15 1645 MN Teaching ED 12/15 1646 Vancomycin HCl 1,000 MG Q12H 12/14 0500 AC 12/16 Dextrose/Water 250 ML IV 0528 Last 24 Hrs of Lab/Jean-Pierre Results Last 24 Hrs of Labs/Mics: Laboratory Tests 12/16/17 0505: Anion Gap 12, Estimated GFR > 60, BUN/Creatinine Ratio 18.8, Uric Acid 5.3, Total Bilirubin 0.4, Direct Bilirubin 0.4, GGT 44, AST 44, ALT 82 H, Alkaline Phosphatase 74, Lactate Dehydrogenase 486, C-Reactive Prot, Quant > 9.0 H, C- React Prot High Sens > 15.0 H, Total Protein 5.4 L, Albumin 2.7 L, CBC w Diff NO MAN DIFF REQ, RBC 2.70 L, MCV 91.6, MCH 29.0, MCHC 31.6 L, RDW 18.1 H, MPV 6.7 L, Gran % 87.8 H, Lymphocytes % 7.3 L, Monocytes % 4.8, Eosinophils % 0, Basophils % 0.1, Absolute Granulocytes 9.3 H, Absolute Lymphocytes 0.8 L, Absolute Monocytes 0.5, Absolute Eosinophils 0, Absolute Basophils 0, ESR Westergren > 130 H, Vancomycin Trough 11.3 Assessment/Plan Assessment: 52-year-old gentleman with past medical history of recent hospitalization due to possible aspiration pneumonia alcoholic hepatitis with elevated LFTs with positive blood culture proventella species and anaerobic gram-positive rods, anemia was discharged about 3 weeks ago from the [facility] came back to the hospital with chief complaint of knee pain and inability to walk. vitals in ED were stable except mild fever 100.2 labs WBC 16.1 hg 8.8 ( stable) plt 460, esr more than 130 crp 7.5 left knee, ankle, foot x ray knee tap : wbc [id number] no crystals IMPRESSION: Small to moderate left knee effusion. No evidence of acute fracture or malalignment of the knee. Normal radiographs of the left ankle and foot. doppler of left LE There is a 3.4 x 1.3 x 1.5 cm cystic lesion in the popliteal fossa without internal vascularity, compatible with White's cyst. IMPRESSION: No evidence of deep venous thrombosis involving the left lower extremity. assessment left knee joint Pain and elevated WBC most likely septic joint History of hyperlipidemia History of alcohol abuse History of recent bacteremia History of anxiety/depression plan - Admit to general medicine floor - Continue IV Unasyn and IV vancomycin per ID recommendation - s/p on 12/15/17 #1 arthroscopic irrigation debridement and synovectomy left knee #2 partial lateral meniscectomy -follow Orthopedic - Follow Blood cultures 2 , check lyme titres. currently negative, would wait for 5 days - IV morphine for pain, Tylenol by mouth for fever, consider Dilaudid or motrin - Continue statin - Continue SSRI - Full code, DVT prophylaxis Problem List: 1. Septic arthritis of knee, left Pain Ratin Pain Location: Left knee s/p surgery Pain Goal: Pain 4 or less Pain Plan: continue current plan Tomorrow's Labs & Rationales: CBC BEP Javier Holland 12/16/17 1153: Attending MD Review Statement Attending Statement Attending MD Statement: examined this patient, discuss w/resident/PA/EXHIBITS COORDINATOR, agreed w/resident/PA/EXHIBITS COORDINATOR, discussed with family, reviewed EMR data (avail), discussed with nursing, discussed with case mgmt, reviewed images, amended to note Attending Assessment/Plan: 52-year-old male who presents with complaints of left knee pain and inability to walk going on since yesterday admitted for sepsis and left knee effusion. Patient seen/exmained bedside. Patient has better range of motion s/p partial meniscectomy. AFebrile overnight. Patient feeling better overall. 1. Inflammatory arthritis r/o Possible Left knee septic arthritis - Elevated WBC in the knee aspirate 2. Anemia of chronic disease 3. Leukocytosis 4. Depressive disorder 5. H/o [place] bacteremia repeat blood cultures negative. Plan Diet as per Orthopedics, OR planning as per ortho. Infectious diseases appreciated, c/w broad spectrum, Abx as per ID. Cultures remain negative so far. Source of infection ?knee. Continue with Lexapro. Gentle hydration overnight. ALPs for DVT prophylaxis.
--- NOTE | 2017-12-16 09:11 | PN- Orthopedic ---
See Addendum Subjective Subjective: Patient reports pain is well controlled. Denies ambulating with PT yet. Denies numbness, tingling. Reports swelling in his left foot. Offer no complaints. Objective Vital Signs and I&Os Vital Signs Date Time Temp Pulse Resp B/P B/P Pulse O2 O2 Flow FiO2 Mean Ox Delivery Rate 12/16 0600 98.5 67 18 104/60 96 Room Air 12/16 0224 98.7 67 18 100/62 97 Room Air 12/15 2200 98.2 73 18 104/50 93 Room Air 12/15 2000 97.9 80 18 108/60 92 Room Air 12/15 1757 98.8 85 20 108/58 91 12/15 1600 Nasal 2.0L Cannula 12/15 1600 97.9 84 16 142/72 96 Nasal 2.0L Cannula 12/15 1416 97.9 79 20 170/82 96 12/15 1328 97.8 75 20 132/60 95 Room Air Intake & Output 12/16 1600 12/16 0800 12/16 0000 12/15 1600 12/15 0800 12/15 0000 Intake Total 600 990 600 600 400 Output Total 200 454 0430 400 Balance -100 640 -800 200 400 Intake, IV 500 390 600 600 300 Intake, Oral 100 600 100 Output, Urine 463 160 9691 400 Physical Exam: Gen - resting comfortably in bed awake an alert in NAD Cardiac - S1S2 noted Lungs - CTAB Ext - LLE dressing c/d/i, compartment soft, motor and sensory intact, edema noted in left foot, pulses present, alps in place Current Medications: Current Medications Sig/Wagner Start time Last Medication Dose Route Stop Time Status Admin Acetaminophen 650 MG Q6P PRN 12/13 1430 AC 12/14 PO 2020 Ampicillin Sodium/ 3,000 MG Q6H 12/14 0200 AC 12/16 Sulbactam Sodium IV 0843 Sodium Chloride 100 ML Atorvastatin Calcium 40 MG DAILY 12/14 1000 AC 12/16 PO 841 Celecoxib 200 MG BID 12/15 2199 CAN PO Escitalopram Oxalate 10 MG DAILY 12/14 1000 AC 12/16 PO 0842 Fentanyl Citrate 250 MCG .STK-MED ONE 12/15 1340 DC IM 12/15 1341 Fentanyl Citrate 250 MCG .STK-MED ONE 12/15 1154 DC IM 12/15 1155 Heparin Sodium 5,000 UNIT Q8 12/13 2199 AC 12/16 (Porcine) SC 0529 Hydromorphone HCl 2 MG Q4P PRN 12/15 1730 AC PO Ketorolac 15 MG BID PRN 12/15 1930 AC Tromethamine IV Ketorolac 30 MG Q6 12/15 1800 AC 12/16 Tromethamine IV 12/17 0000 0529 Midazolam HCl 2 MG .STK-MED ONE 12/15 1154 DC IM 12/15 1155 Morphine Sulfate 2 MG Q2 HRS NEEDED PRN 12/14 1645 AC 12/14 IV 1656 Patient Medication 1 ED ONE ONE 12/15 1645 DC Teaching ED 12/15 1646 Patient Medication 1 ED ONE ONE 12/15 1645 HI Teaching ED 12/15 1646 Vancomycin HCl 1,000 MG Q12H 12/14 0500 AC 12/16 Dextrose/Water 250 ML IV 0528 Results Last 48 Hours of Labs: Laboratory Tests 12/16 12/15 0505 0810 Chemistry Sodium (137 - 145 mmol/L) Pending 141 Potassium (3.5 - 5.1 mmol/L) Pending 3.9 Chloride (98 - 107 mmol/L) Pending 107 Carbon Dioxide (22 - 30 mmol/L) Pending 22 Anion Gap (5 - 16) Pending 12 BUN (9 - 20 mg/dL) Pending 11 Creatinine (0.7 - 1.2 mg/dL) Pending 0.8 Estimated GFR (>60 ml/min) > 60 BUN/Creatinine Ratio (7 - 25 %) Pending 13.8 Uric Acid Pending Lactate Dehydrogenase Pending C-Reactive Prot, Quant (<1.0 mg/dL) > 9.0 H C-React Prot High Sens Pending Hematology CBC w Diff NO MAN DIFF REQ NO MAN DIFF REQ WBC (4.8 - 10.8 /CUMM) 10.5 12.6 H RBC (4.70 - 6.10 /CUMM) 2.70 L 2.74 L Hgb (14.0 - 18.0 G/DL) 7.8 L 8.2 L Hct (42 - 52 %) 24.7 L 24.5 L MCV (80.0 - 94.0 FL) 91.6 89.3 MCH (27.0 - 31.0 PG) 29.0 30.0 MCHC (33.0 - 37.0 G/DL) 31.6 L 33.6 RDW (11.5 - 14.5 %) 18.1 H 17.5 H Plt Count (130 - 400 /CUMM) 606 H 495 H MPV (7.4 - 10.4 FL) 6.7 L 7.1 L Gran % (42.2 - 75.2 %) 87.8 H 80.1 H Lymphocytes % (20.5 - 51.1 %) 7.3 L 14.5 L Monocytes % (1.7 - 9.3 %) 4.8 4.4 Eosinophils % (0 - 5 %) 0 0.6 Basophils % (0.0 - 2.0 %) 0.1 0.4 Absolute Granulocytes (1.4 - 6.5 /CUMM) 9.3 H 10.1 H Absolute Lymphocytes (1.2 - 3.4 /CUMM) 0.8 L 1.8 Absolute Monocytes (0.10 - 0.60 /CUMM) 0.5 0.5 Absolute Eosinophils (0.0 - 0.7 /CUMM) 0 0.1 Absolute Basophils (0.0 - 0.2 /CUMM) 0 0.1 ESR Westergren (0 - 10 MM) > 130 H > 130 H Toxicology Vancomycin Trough Pending 12/14 12/14 12/14 1745 1745 0955 Chemistry Sodium (137 - 145 mmol/L) 140 Potassium (3.5 - 5.1 mmol/L) 3.5 Chloride (98 - 107 mmol/L) 106 Carbon Dioxide (22 - 30 mmol/L) 19 L Anion Gap (5 - 16) 15 BUN (9 - 20 mg/dL) 11 Creatinine (0.7 - 1.2 mg/dL) 0.8 Estimated GFR (>60 ml/min) > 60 BUN/Creatinine Ratio (7 - 25 %) 13.8 Hematology CBC w Diff NO MAN DIFF REQ WBC (4.8 - 10.8 /CUMM) 13.0 H RBC (4.70 - 6.10 /CUMM) 2.55 L Hgb (14.0 - 18.0 G/DL) 7.7 L Hct (42 - 52 %) 22.7 L MCV (80.0 - 94.0 FL) 88.9 MCH (27.0 - 31.0 PG) 30.1 MCHC (33.0 - 37.0 G/DL) 33.8 RDW (11.5 - 14.5 %) 17.5 H Plt Count (130 - 400 /CUMM) 434 H MPV (7.4 - 10.4 FL) 6.8 L Gran % (42.2 - 75.2 %) 83.0 H Lymphocytes % (20.5 - 51.1 %) 9.7 L Monocytes % (1.7 - 9.3 %) 6.6 Eosinophils % (0 - 5 %) 0.3 Basophils % (0.0 - 2.0 %) 0.4 Absolute Granulocytes (1.4 - 6.5 /CUMM) 10.8 H Absolute Lymphocytes (1.2 - 3.4 /CUMM) 1.3 Lymphocytes (%) 2 Absolute Monocytes (0.10 - 0.60 /CUMM) 0.9 H Absolute Eosinophils (0.0 - 0.7 /CUMM) 0 Absolute Basophils (0.0 - 0.2 /CUMM) 0.1 % Normal PMNs (%) 92 Other Body Source Fluid WBC (0 - 5 /CUMM) 16284 H Fld Mesothelial Cells (%) 6 Fld Total RBCs Counted (0 /CUMM) 990 H Fluid Glucose (mg/dL) 90 Fluid Total Protein (g/dL) Serology Lyme Disease Antibody Pending Urines Sodium Urate Crystals (NONE) Assessment/Plan Assessment/Plan 52 M s/p left knee arthroscopic irrigation debridement and synovectomy and partial lateral meniscectomy secondary to left knee septic arthritis and lateral meniscal tear posterior horn who is recovering well. Preliminary OR cultures are pending and previous preliminary cultures reveal no growth, currently on vanco and unasyn PT eval, WBAT Monitor swelling, elevate foot of bed Follow up cultures Toradol for pain/inflammation, transition to oral nsaids prior to d/c Oral Dilaudid po for pain prn IV Moprhine for breakthrough DVT ppx - hsq, alps, ambulate Encourage IS Will continue to follow All other medical management per primary Will d/w Dr. Edwards
--- NOTE | 2017-12-16 14:53 | PN- Infect Dx ---
Subjective Subjective: Feeling much better; no fever; able to ambulate with the walker. Review of Systems Comments: 12 points reviewed as noted, otherwise negative. Objective Last 24 Hrs of Vital Signs/I&O Vital Signs Date Time Temp Pulse Resp B/P B/P Pulse O2 O2 Flow FiO2 Mean Ox Delivery Rate 12/16 0600 98.5 67 18 104/60 96 Room Air 12/16 0224 98.7 67 18 100/62 97 Room Air 12/15 2200 98.2 73 18 104/50 93 Room Air 12/15 2000 97.9 80 18 108/60 92 Room Air 12/15 1757 98.8 85 20 108/58 91 12/15 1600 Nasal 2.0L Cannula 12/15 1600 97.9 84 16 142/72 96 Nasal 2.0L Cannula Intake & Output 12/16 1600 12/16 0800 12/16 0000 Intake Total 560 600 990 Output Total 700 350 Balance 560 -100 640 Intake, IV 200 500 390 Intake, Oral 360 100 600 Number 1 Bowel Movements Output, Urine 700 350 Patient 180 lb Weight Physical Exam Other Physical Findings: Well-developed well-nourished no apparent distress. HEENT: Atraumatic, sclera anicteric Neck: Supple, no LAB/JVD Respiratory: BS present, no rales Heart S1 S2 present Abd BS present, NT Extremities: No edema, no calf pain Left knee: decreased local tenderness/pain/swelling, no erythema of the skin overlying the L knee. Neuro: Alert and oriented x3 Psych: Mood affect normal, normal memory normal judgment. Skin: Warm and dry, no rash Results Last 24 Hours of Lab Results: Laboratory Tests 12/16 0505 Chemistry Sodium (137 - 145 mmol/L) 142 Potassium (3.5 - 5.1 mmol/L) 4.0 Chloride (98 - 107 mmol/L) 107 Carbon Dioxide (22 - 30 mmol/L) 24 Anion Gap (5 - 16) 12 BUN (9 - 20 mg/dL) 15 Creatinine (0.7 - 1.2 mg/dL) 0.8 Estimated GFR (>60 ml/min) > 60 BUN/Creatinine Ratio (7 - 25 %) 18.8 Uric Acid (3.5 - 8.5 mg/dL) 5.3 Total Bilirubin (0.2 - 1.3 mg/dL) 0.4 Direct Bilirubin (< 0.4 mg/dL) 0.4 GGT (15 - 73 U/L) 44 AST (17 - 59 U/L) 44 ALT (21 - 72 U/L) 82 H Alkaline Phosphatase (< 127 U/L) 74 Lactate Dehydrogenase (313 - 618 U/L) 486 C-Reactive Prot, Quant (<1.0 mg/dL) > 9.0 H C-React Prot High Sens (1.0 - 3.0 mg/L) > 15.0 H Total Protein (6.3 - 8.2 g/dL) 5.4 L Albumin (3.5 - 5.0 g/dL) 2.7 L Hematology CBC w Diff NO MAN DIFF REQ WBC (4.8 - 10.8 /CUMM) 10.5 RBC (4.70 - 6.10 /CUMM) 2.70 L Hgb (14.0 - 18.0 G/DL) 7.8 L Hct (42 - 52 %) 24.7 L MCV (80.0 - 94.0 FL) 91.6 MCH (27.0 - 31.0 PG) 29.0 MCHC (33.0 - 37.0 G/DL) 31.6 L RDW (11.5 - 14.5 %) 18.1 H Plt Count (130 - 400 /CUMM) 606 H MPV (7.4 - 10.4 FL) 6.7 L Gran % (42.2 - 75.2 %) 87.8 H Lymphocytes % (20.5 - 51.1 %) 7.3 L Monocytes % (1.7 - 9.3 %) 4.8 Eosinophils % (0 - 5 %) 0 Basophils % (0.0 - 2.0 %) 0.1 Absolute Granulocytes (1.4 - 6.5 /CUMM) 9.3 H Absolute Lymphocytes (1.2 - 3.4 /CUMM) 0.8 L Absolute Monocytes (0.10 - 0.60 /CUMM) 0.5 Absolute Eosinophils (0.0 - 0.7 /CUMM) 0 Absolute Basophils (0.0 - 0.2 /CUMM) 0 ESR Westergren (0 - 10 MM) > 130 H Toxicology Vancomycin Trough (10.0 - 20.0 ug/mL) 11.3 Last 24 Hours of Jean-Pierre Results: Jin Chang MD ORDERED: XTRMOR COMMENT: ADDITIONAL INFORMATION: SYNOVIUM REC'D 3 SMALL PIECES OF TISSUE IN STERILE CONTAINER Procedure Result > GRAM STAIN Preliminary 12/16/17-1134 WHITE BLOOD CELLS RARE OTHER NO ORGANISMS SEEN > EXTREMITIES OR SPECIMEN Preliminary 12/16/17-0959 NO GROWTH AFTER 1 DAY Recent Imaging Studies: reviewed Assessment/Plan ID Impression: 52-year-old WM knwon with HTN, HLD, ETOH abuse, hepatic steatosis, pancreatic pseudocyst, and recent admission for sepsis, aspiration pneumonia, alcoholic hepatitis, AMBAR and bacteremia (positive blood culture Prevotella species and anaerobic gram-positive rods) admitted on 12/13. L knee effusion; arthrocentesis revealing 16K WBC (repeat synovial fluid analysis 12K WBC, no ureate crystals), gm stain negative; no growth to date. As WBC in synovial fluid below 50k and culture negative to date alternative diagnosis to be considered (? reactive arthritis reported w/ IE, non GC urethritis, etc). Lyme arthritis not likely as screening WU titer negative. Fever/resolved Mild leukocytosis/resolved; of note PLT CT is trending up Elevated ESR >130 Suggestion: 1. If infectious work up negative would consider rheumatology eval. 2. Trend CBC/BMP. 3. FANNY evaluate valves. 4. D #4 w/ iv vancomycin and ampicillin/sulbactam as recent BC's grew Prevotella.
[2017-12-16 15:18] VITALS: BP 114/62
[2017-12-16 21:48] VITALS: BP 120/70
[2017-12-17 06:30] VITALS: BP 116/62
--- NOTE | 2017-12-17 07:51 | PN- Housestaff ---
Deysi James MD,[facility] 12/17/17 0751: Subjective Follow-up For: septic VS reactive arthritis Subjective: Patient visited today, was lying in bed comfortably in no acute distress, was alert and oriented. No fever or chills, no shortness of breathing, no chest pain, no other events. Reported improved leg swelling and pain. PT working. Is POD 2 arthroscopic wash out yesterday, improvement in pain, swelling. Culture still negative. We are considering reactive arthritis at this point. Review of Systems Constitutional: Reports: see HPI. Objective Last 24 Hrs of Vital Signs/I&O Vital Signs Date Time Temp Pulse Resp B/P B/P Pulse O2 O2 Flow FiO2 Mean Ox Delivery Rate 12/17 0630 97.7 63 18 116/62 98 Room Air 12/16 2148 98.2 66 18 120/70 96 12/16 1518 97.4 71 18 114/62 96 Intake & Output 12/17 1600 12/17 0800 12/17 0000 Intake Total 510 710 Output Total 300 Balance 210 710 Intake, IV 150 430 Intake, Oral 360 280 Output, Urine 300 Physical Exam General Appearance: Alert, Oriented X3, Cooperative, No Acute Distress Skin Temp/Moisture Exam: Warm/Dry Sepsis Skin Exam (color): Normal for Ethnicity HEENT: Atraumatic, EOMI, Mucous Membr. moist/pink Cardiovascular: Regular Rate, Normal S1, Normal S2 Lungs: Clear to Auscultation Abdomen: Soft, No Tenderness Extremities: Right knee s/p surgery. limited ROM due to surgery, improved leg swelling and pain Current Medications: Current Medications Sig/Wagner Start time Last Medication Dose Route Stop Time Status Admin Acetaminophen 650 MG .STK-MED ONE 12/16 1999 DC PO 12/16 2000 Acetaminophen 650 MG Q6P PRN 12/13 1430 AC 12/16 PO 2004 Ampicillin Sodium/ 3,000 MG Q6H 12/14 0200 AC 12/17 Sulbactam Sodium IV 0914 Sodium Chloride 100 ML Atorvastatin Calcium 40 MG DAILY 12/14 1000 AC 12/17 PO 09 Escitalopram Oxalate 10 MG DAILY 12/14 1000 AC 12/17 PO 09 Heparin Sodium 5,000 UNIT Q8 12/13 2200 AC 12/17 (Porcine) SC 0620 Hydromorphone HCl 2 MG Q4P PRN 12/15 1730 AC 12/16 PO 2124 Ketorolac 15 MG BID PRN 12/15 1930 AC Tromethamine IV Ketorolac 30 MG Q6 12/15 1800 DC 12/17 Tromethamine IV 12/17 0000 0055 Morphine Sulfate 2 MG Q2 HRS NEEDED PRN 12/14 1645 AC 12/14 IV 1656 Patient Medication 1 ED ONE ONE 12/16 1145 DC 12/16 Teaching ED 12/16 1146 1321 Vancomycin HCl 1,000 MG Q12H 12/14 0500 AC 12/17 Dextrose/Water 250 ML IV 0620 Last 24 Hrs of Lab/Jean-Pierre Results Last 24 Hrs of Labs/Mics: Laboratory Tests 12/17/17 0740: Anion Gap 12, Estimated GFR > 60, BUN/Creatinine Ratio 17.5 Assessment/Plan Problem List: 1. Septic arthritis of knee, left Pain Ratin Pain Location: Left knee Pain Goal: Pain 4 or less Pain Plan: Continue current plan Tomorrow's Labs & Rationales: CBC BEP Javier Holland 12/17/17 1115: Attending MD Review Statement Attending Statement Attending MD Statement: examined this patient, discuss w/resident/PA/GLASS CUTTER HELPER, agreed w/resident/PA/GLASS CUTTER HELPER, discussed with family, reviewed EMR data (avail), discussed with nursing, discussed with case mgmt, reviewed images, amended to note Attending Assessment/Plan: 52-year-old male who presents with complaints of left knee pain and inability to walk going on since yesterday admitted for sepsis and left knee effusion. Patient seen/exmained bedside. Patient has better range of motion s/p partial meniscectomy. AFebrile overnight. Patient feeling better overall. 1. Inflammatory arthritis r/o Possible Left knee septic arthritis - Elevated WBC in the knee aspirate 2. Anemia of chronic disease 3. Leukocytosis 4. Depressive disorder 5. H/o [place] bacteremia repeat blood cultures negative. Plan s/p partial meniscectomy, post op course uneventful. Synovial cultures remain negative. Infectious diseases appreciated, c/w broad spectrum, Abx as per ID. Cultures remain negative so far. Source of infection ?knee. Await TTE results , if negative can consider FANNY. cardiology consult. Continue with Lexapro. ALPs for DVT prophylaxis.
--- NOTE | 2017-12-17 09:02 | PN- Orthopedic ---
Subjective Subjective: Awake, alert No specific complaints Feels much better and ambulating without difficulty Hoping to go hoome soon Pain is well controlled - Objective Vital Signs and I&Os Vital Signs Date Time Temp Pulse Resp B/P B/P Pulse O2 O2 Flow FiO2 Mean Ox Delivery Rate 12/17 0630 97.7 63 18 116/62 98 Room Air 12/16 2148 98.2 66 18 120/70 96 12/16 1518 97.4 71 18 114/62 96 Intake & Output 12/17 1600 12/17 0812/17 0000 12/16 1600 12/16 0800 12/16 0000 Intake Total 510 710 560 600 990 Output Total 300 700 350 Balance 210 710 560 -100 640 Intake, IV 150 430 200 500 390 Intake, Oral 360 280 360 100 600 Number 1 Bowel Movements Output, Urine 300 700 350 Patient 180 lb Weight Physical Exam: LLE: compartment soft, motor intact, normosensate, pulses present, alps in place, mild edema of the knee but significantly improved per patient Dressing changed previous dressing is clean and dry Two incisions, the lateral incision has some surrounding medial erythema, no drainage Assessment/Plan Assessment/Plan 52yo male 52 M pod 2 s/p left knee arthroscopic irrigation debridement and synovectomy and partial lateral meniscectomy secondary to left knee septic arthritis and lateral meniscal tear posterior horn who is recovering well. Continue to ambulate -WBAT Follow up cultures Pain management Dressing changes once daily and as needed DVT ppx - hsq, alps, ambulate All other medical management per primary Will d/w Dr. Edwards
--- NOTE | 2017-12-17 12:18 | PN- Infect Dx ---
Subjective Subjective: Feeling better; able to ambulate; no fever Review of Systems Comments: 12 points reviewed as noted, otherwise negative. Objective Last 24 Hrs of Vital Signs/I&O Vital Signs Date Time Temp Pulse Resp B/P B/P Pulse O2 O2 Flow FiO2 Mean Ox Delivery Rate 12/17 0630 97.7 63 18 116/62 98 Room Air 12/16 2148 98.2 66 18 120/70 96 12/16 1518 97.4 71 18 114/62 96 Intake & Output 12/17 1600 12/17 0800 12/17 0000 Intake Total 510 710 Output Total 300 Balance 210 710 Intake, IV 150 430 Intake, Oral 360 280 Output, Urine 300 Physical Exam Other Physical Findings: Well-developed well-nourished no apparent distress. HEENT: Atraumatic, sclera anicteric Neck: Supple, no LAB/JVD Respiratory: BS present, no rales Heart S1 S2 present Abd BS present, NT Extremities: No edema, no calf pain Left knee: decreased local tenderness/pain/swelling, no erythema of the skin overlying the L knee. Neuro: Alert and oriented x3 Psych: Mood affect normal, normal memory normal judgment. Skin: Warm and dry, no rash Results Last 24 Hours of Lab Results: Laboratory Tests 12/17 12/17 1150 0740 Chemistry Sodium (137 - 145 mmol/L) 143 Potassium (3.5 - 5.1 mmol/L) 3.7 Chloride (98 - 107 mmol/L) 111 H Carbon Dioxide (22 - 30 mmol/L) 20 L Anion Gap (5 - 16) 12 BUN (9 - 20 mg/dL) 14 Creatinine (0.7 - 1.2 mg/dL) 0.8 Estimated GFR (>60 ml/min) > 60 BUN/Creatinine Ratio (7 - 25 %) 17.5 Hematology WBC Pending RBC Pending Hgb Pending Hct Pending MCV Pending MCH Pending MCHC Pending RDW Pending Plt Count Pending MPV Pending Last 24 Hours of Jean-Pierre Results: SPEC #: [id number] PATRICIA: 12/15/17 STATUS: RES RECD: 12/15/17-[address]: Jerry OCONNOR,Harley Howard SOURCE: EXTREMITIE ENTR: 12/15/[address]: Javier Holland MD SPDESC: KNEE LEFT Chika OCONNOR, Maureen Chang MD, Jin ORDERED: XTRMOR COMMENT: ADDITIONAL INFORMATION: SYNOVIUM REC'D 3 SMALL PIECES OF TISSUE IN STERILE CONTAINER Procedure Result SPEC #: [id number] PATRICIA: 12/13/17 STATUS: COMP RECD: 12/13/[address]: Efren Hardin SOURCE: BODY FLUID ENTR: 12/13/[address]: Chika OCONNOR, Maureen SPDESC: KNEE L SYN ORDERED: BODY FLD CULTUR COMMENT: RECEIVED ~ 30CC OF VISCOUS CLOUDY YELLOW FLUID IN STERILE CUP Procedure Result > GRAM STAIN Final 12/13/17-1256 WHITE BLOOD CELLS MANY OTHER NO ORGANISMS SEEN > BODY FLUID CULTURE Final 12/16/17-1234 NO GROWTH AFTER 3 DAYS Recent Imaging Studies: reviewed Assessment/Plan ID Impression: 52-year-old WM knwon with HTN, HLD, ETOH abuse, hepatic steatosis, pancreatic pseudocyst, and recent admission for sepsis, aspiration pneumonia, alcoholic hepatitis, AMBAR and bacteremia (positive blood culture Prevotella species and anaerobic gram-positive rods) admitted on 12/13. L knee effusion; arthrocentesis revealing 16K WBC (repeat synovial fluid analysis 12K WBC, no ureate crystals), gm stain negative; no growth to date. As WBC in synovial fluid below 50k and culture negative to date alternative diagnosis to be considered (? reactive arthritis reported w/ IE, non GC urethritis, etc). Lyme arthritis not likely as screening WU titer negative. Fever/resolved Mild leukocytosis Elevated ESR >130 Suggestion: 1. If infectious work up negative would consider rheumatology eval. 2. Trend CBC/BMP. 3. FANNY evaluate valves in am (2 D Echo neg veget). 4. D #5 w/ iv ampicillin/sulbactam as recent BC's grew Prevotella. 5. D/c iv vancomycin.
[2017-12-17 12:58] LABS: ABSOLUTE BASOPHIL COUNT 0.1 /CUMM (0.0-0.2); ABSOLUTE EOSINOPHIL COUNT 0.2 /CUMM (0.0-0.7); ABSOLUTE GRANULOCYTE CT 11.1 /CUMM (1.4-6.5); ABSOLUTE LYMPH COUNT 2.6 /CUMM (1.2-3.4); ABSOLUTE MONOCYTE COUNT 0.6 /CUMM (0.10-0.60); BASOPHIL % 0.5 % (0.0-2.0); EOSINOPHIL % 1.1 % (0-5); GRANULOCYTE % 76.7 % (42.2-75.2); HEMATOCRIT 27.5 % (42-52); MEAN CORPUSCULAR HGB 28.9 PG (27.0-31.0); MEAN CORPUSCULAR HGB CONC 31.9 G/DL (33.0-37.0); MEAN CORPUSCULAR VOLUME 90.6 FL (80.0-94.0); MEAN PLATELET VOLUME 6.8 FL (7.4-10.4); PLATELET COUNT 774 /CUMM (130-400); RBC DISTRIBUTION WIDTH 18.3 % (11.5-14.5); RED BLOOD CELL CT 3.04 /CUMM (4.70-6.10); WHITE BLOOD CELL COUNT 14.4 /CUMM (4.8-10.8)
[2017-12-17 13:48] VITALS: BP 114/60
--- NOTE | 2017-12-17 19:11 | ECHOCARDIOGRAM REPORT ---
JULIO CESAR ABDALLA Age: 52 : 1965 Gender: M Exam Date: 12/16/2017 19:02 Exam Location: [place] Ht (in): 68 Wt (lb): 180 BSA: 2.00 BP: 124 / 66 Ordering Physician: Mark Parkinson MD Referring Physician: Mark Parkinson MD Technologist: Yoanna Fairchild [facility] Room Number: 223-01 Indications: INFECTIVE ENDOCARDITIS Rhythm: Sinus Technical Quality: Technically difficult study FINDINGS Left Ventricle Normal size left ventricle. Normal left ventricular wall thickness. Normal left ventricular ejection fraction visually estimated at > 60%. Normal left ventricular wall motion. Right Ventricle Normal right ventricular size and function. Right Atrium Normal right atrial size. Left Atrium Normal left atrial size. Mitral Valve Mild mitral annular calcification. Mild mitral regurgitation. Aortic Valve Aortic valve mildly thickened. No aortic stenosis. No aortic regurgitation. Tricuspid Valve Tricuspid valve not well visualized, grossly normal. Trace tricuspid regurgitation. Right ventricular systolic pressure estimated to be elevated at 40 mmHg. Pulmonic Valve Pulmonic valve not well visualized, grossly normal. Trace pulmonic regurgitation. Pericardium No pericardial effusion. Great Vessels Normal size aortic root. CONCLUSIONS Normal size left ventricle. Normal left ventricular ejection fraction visually estimated at > 60%. Mild mitral regurgitation. Trace tricuspid regurgitation. Trace pulmonic regurgitation. Right ventricular systolic pressure estimated to be elevated at 40 mmHg. No vegetations seen. Would consider FANNY if clinical suspicion for endocarditis. Murtaza Roa M.D. (Electronically Signed) Final Date: 17 December 2017 19:11 MEASUREMENTS (Male / Female) Normal Values 2D ECHO LV Diastolic Diameter PLAX 4.3 cm 4.2 - 5.9 / 3.9 - 5.3 cm LV Systolic Diameter PLAX 2.4 cm 2.1 - 4.0 cm LV Fractional Shortening PLAX 44.2 % 25 - 46 % LV Ejection Fraction 2D Teich 75.7 % IVS Diastolic Thickness 1.1 cm LVPW Diastolic Thickness 1.1 cm LV Relative Wall Thickness 0.5 RV Internal Dim ED PLAX 3.8 cm 1.9 - 3.8 cm LVOT Diameter 2.0 cm Aortic Root Diameter 2.6 cm LA Systolic Diameter LX 3.8 cm 3.0 - 4.0 / 2.7 - 3.8 cm LA Volume 37.0 cm 18 - 58 / 22 - 52 cm Ascending Aorta Diameter 2.7 cm DOPPLER AV Peak Velocity 106.0 cm/s AV Peak Gradient 4.5 mmHg AV Mean Velocity 71.6 cm/s AV Mean Gradient 2.0 mmHg AV Velocity Time Integral 22.3 cm LVOT Peak Velocity 102.0 cm/s LVOT Peak Gradient 4.2 mmHg LVOT Mean Velocity 75.6 cm/s LVOT Mean Gradient 3.0 mmHg LVOT Velocity Time Integral 24.1 cm LVOT Stroke Volume 75.7 cm AV Area Cont Eq vti 3.4 cm AV Area Cont Eq pk 3.0 cm MV Peak Velocity 129.0 cm/s MV Peak Gradient 6.7 mmHg MV Mean Velocity 58.3 cm/s MV Mean Gradient 2.0 mmHg Mitral E Point Velocity 118.0 cm/s Mitral A Point Velocity 49.4 cm/s Mitral E to A Ratio 2.4 MV PHT Velocity 136.0 cm/s MV Deceleration [place] 825.0 cm/s MV Pressure Half Time 49.5 ms MV Area PHT 4.4 cm MV Deceleration Time 169.0 ms TR Peak Velocity 299.0 cm/s TR Peak Gradient 35.8 mmHg Right Atrial Pressure 5.0 mmHg Pulmonary Artery Systolic Pressu 40.8 mmHg Right Ventricular Systolic Press 40.8 mmHg PV Peak Velocity 97.9 cm/s PV Peak Gradient 3.8 mmHg PV Mean Velocity 66.0 cm/s PV Mean Gradient 2.0 mmHg PV Velocity Time Integral 23.6 cm LV E' Lateral Velocity 16.4 cm/s Mitral E to LV E' Lateral Ratio 7.2 LV E' Septal Velocity 14.7 cm/s Mitral E to LV E' Septal Ratio 8.0
[2017-12-17 22:33] VITALS: BP 102/54
[2017-12-18 06:20] VITALS: BP 126/60
--- NOTE | 2017-12-18 08:39 | PN- Orthopedic ---
Subjective Subjective: POD #3 s/p arthroscopic knee washout with partial meniscectomy for recurrent effusions. Cultures finalized as negative. Resting comfortably in bed. Scheduled for FANNY today, remains NPO. Objective Vital Signs and I&Os Vital Signs Date Time Temp Pulse Resp B/P B/P Pulse O2 O2 Flow FiO2 Mean Ox Delivery Rate 12/18 0620 99.0 73 18 126/60 94 Room Air 12/17 2233 98.9 84 18 102/54 92 Room Air 12/17 1348 98.4 100 20 114/60 98 Room Air Intake & Output / 1600 12/18 0800 12/18 0000 12/17 1600 12/17 0800 12/17 0000 Intake Total 150 720 480 510 710 Output Total 300 Balance 150 720 480 210 710 Intake, IV 150 120 150 430 Intake, Oral 600 480 360 280 Number 0 Bowel Movements Output, Urine 300 Physical Exam: Gen: AAOx3 in NAD Cor: S1+S2+ Lungs: CTA elizabeth Abd: soft, NT Ext: left knee dressing removed, replaced. Edema from digits to proximal calf, just under where ernie wrap located. Interrupted sutures with surrounding blanchable erythema, non tender to palpation. NO drainage noted. Palpable DP pulse. Foot warm. Dorsiflexion/plantar flexion intact. Current Medications: Current Medications Sig/Wagner Start time Last Medication Dose Route Stop Time Status Admin Acetaminophen 650 MG Q6P PRN 12/13 1430 AC 12/16 PO 2004 Ampicillin Sodium/ 3,000 MG Q6H 12/14 0200 AC 12/18 Sulbactam Sodium IV 0135 Sodium Chloride 100 ML Atorvastatin Calcium 40 MG DAILY 12/14 1000 AC 12/17 PO 09 Escitalopram Oxalate 10 MG DAILY 12/14 1000 AC 12/17 PO 09 Heparin Sodium 5,000 UNIT Q8 12/13 2200 AC 12/18 (Porcine) SC 0630 Hydromorphone HCl 2 MG Q4P PRN 12/15 1730 AC 12/17 PO 195 Ketorolac 15 MG BID PRN 12/15 1930 AC Tromethamine IV Morphine Sulfate 2 MG Q2 HRS NEEDED PRN 12/14 1645 AC 12/14 IV 1656 Patient Medication 1 ED ONE ONE 12/17 1600 DC Teaching ED 12/17 1601 Vancomycin HCl 1,000 MG Q12H 12/14 0500 MA 12/17 Dextrose/Water 250 ML IV 0620 Results Last 48 Hours of Labs: Laboratory Tests 12/18 12/17 12/17 0734 1150 0740 Chemistry Sodium (137 - 145 mmol/L) 143 Potassium (3.5 - 5.1 mmol/L) 3.7 Chloride (98 - 107 mmol/L) 111 H Carbon Dioxide (22 - 30 mmol/L) 20 L Anion Gap (5 - 16) 12 BUN (9 - 20 mg/dL) 14 Creatinine (0.7 - 1.2 mg/dL) 0.8 Estimated GFR (>60 ml/min) > 60 BUN/Creatinine Ratio (7 - 25 %) 17.5 Hematology CBC w Diff Pending WBC (4.8 - 10.8 /CUMM) Pending 14.4 H RBC (4.70 - 6.10 /CUMM) Pending 3.04 L Hgb (14.0 - 18.0 G/DL) Pending 8.8 L Hct (42 - 52 %) Pending 27.5 L MCV (80.0 - 94.0 FL) Pending 90.6 MCH (27.0 - 31.0 PG) Pending 28.9 MCHC (33.0 - 37.0 G/DL) Pending 31.9 L RDW (11.5 - 14.5 %) Pending 18.3 H Plt Count (130 - 400 /CUMM) Pending 774 H MPV (7.4 - 10.4 FL) Pending 6.8 L Gran % (42.2 - 75.2 %) 76.7 H Lymphocytes % (20.5 - 51.1 %) 17.8 L Monocytes % (1.7 - 9.3 %) 3.9 Eosinophils % (0 - 5 %) 1.1 Basophils % (0.0 - 2.0 %) 0.5 Absolute Granulocytes (1.4 - 6.5 /CUMM) 11.1 H Absolute Lymphocytes (1.2 - 3.4 /CUMM) 2.6 Absolute Monocytes (0.10 - 0.60 /CUMM) 0.6 Absolute Eosinophils (0.0 - 0.7 /CUMM) 0.2 Absolute Basophils (0.0 - 0.2 /CUMM) 0.1 Assessment/Plan Assessment/Plan A: POD #3 s/p washout/I&D/partial meniscectomy left knee; AVSS Plan FANNY today. Would attempt to minimize narcotics. Please give oral NSAIDS to help with inflammation. Care per primary team. Cultures negative. Core Measures Venous Thromboembolism VTE Risk Factors Acute Medical Illness No Mechanical VTE Prophylaxis d/t N/A MechProphylax Ordered No VTE Pharm Prophylaxis d/t NA PharmProphylax ordered
--- NOTE | 2017-12-18 08:46 | PN- Housestaff ---
Deysi James MD,Ami 12/18/17 0846: Subjective Follow-up For: rule out sepctic arthritis Subjective: Patient visited today, was walking in the hallway in no acute distress, was alert and oriented. No fever or chills, no shortness of breathing, no chest pain, no other events. TTE negative, cultures already negative, FANNY was negative. We will follow ID regarding discharge plan. Review of Systems Constitutional: Reports: see HPI. Objective Last 24 Hrs of Vital Signs/I&O Vital Signs Date Time Temp Pulse Resp B/P B/P Pulse O2 O2 Flow FiO2 Mean Ox Delivery Rate 12/18 1346 97.6 60 20 118/80 97 Room Air 12/18 0620 99.0 73 18 126/60 94 Room Air 12/17 2233 98.9 84 18 102/54 92 Room Air Intake & Output 12/18 1600 12/18 0800 12/18 0000 Intake Total 320 150 720 Output Total Balance 320 150 720 Intake, IV 200 150 120 Intake, Oral 120 600 Number 1 Bowel Movements Physical Exam General Appearance: Alert, Oriented X3, Cooperative, No Acute Distress Skin Temp/Moisture Exam: Warm/Dry Sepsis Skin Exam (color): Normal for Ethnicity HEENT: Atraumatic, EOMI, Mucous Membr. moist/pink Cardiovascular: Normal S1, Normal S2 Lungs: Clear to Auscultation, Normal Air Movement Abdomen: Soft, No Tenderness Neurological: Normal Speech Extremities: Improved ROM and pain Current Medications: Current Medications Sig/Wagner Start time Last Medication Dose Route Stop Time Status Admin Acetaminophen 650 MG Q6P PRN 12/13 1430 AC 12/16 PO 2004 Ampicillin Sodium/ 3,000 MG Q6H 12/14 0200 AC 12/18 Sulbactam Sodium IV 1337 Sodium Chloride 100 ML Atorvastatin Calcium 40 MG DAILY 12/14 1000 AC 12/18 PO 921 Escitalopram Oxalate 10 MG DAILY 12/14 1000 AC 12/18 PO 09 Fentanyl Citrate 0 .STK-MED ONE 12/18 1032 DC .ROUTE Heparin Sodium 5,000 UNIT Q8 12/13 2200 AC 12/18 (Porcine) SC 0630 Hydromorphone HCl 2 MG Q4P PRN 12/15 1730 AC 12/17 PO 195 Ketorolac 15 MG BID PRN 12/15 1930 AC Tromethamine IV Lidocaine 0 .STK-MED ONE 12/18 1022 DC TOP Morphine Sulfate 2 MG Q2 HRS NEEDED PRN 12/14 1645 AC 12/14 IV 1656 Patient Medication 1 ED ONE ONE 12/17 1600 DC Teaching ED 12/17 1601 Last 24 Hrs of Lab/Jean-Pierre Results Last 24 Hrs of Labs/Mics: Laboratory Tests 12/18/17 0734: CBC w Diff NO MAN DIFF REQ, RBC 2.53 L, MCV 89.5, MCH 29.2, MCHC 32.6 L, RDW 18.2 H, MPV 6.8 L, Gran % 74.6, Lymphocytes % 18.3 L, Monocytes % 5.3, Eosinophils % 1.5, Basophils % 0.3, Absolute Granulocytes 8.1 H, Absolute Lymphocytes 2.0, Absolute Monocytes 0.6, Absolute Eosinophils 0.2, Absolute Basophils 0 Assessment/Plan Assessment: 52-year-old gentleman with past medical history of recent hospitalization due to possible aspiration pneumonia alcoholic hepatitis with elevated LFTs with positive blood culture proventella species and anaerobic gram-positive rods, anemia was discharged about 3 weeks ago from the came back to the hospital with chief complaint of knee pain and inability to walk. vitals in ED were stable except mild fever 100.2 labs WBC 16.1 hg 8.8 ( stable) plt 460, esr more than 130 crp 7.5 left knee, ankle, foot x ray knee tap : wbc 59090 no crystals IMPRESSION: Small to moderate left knee effusion. No evidence of acute fracture or malalignment of the knee. Normal radiographs of the left ankle and foot. doppler of left LE There is a 3.4 x 1.3 x 1.5 cm cystic lesion in the popliteal fossa without internal vascularity, compatible with White's cyst. IMPRESSION: No evidence of deep venous thrombosis involving the left lower extremity. assessment left knee joint Pain and elevated WBC most likely septic joint History of hyperlipidemia History of alcohol abuse History of recent bacteremia History of anxiety/depression TTE and FANNY were negative for any sign vegetation. plan - Admit to general medicine floor - Continue IV Unasyn and DC IV vancomycin per ID recommendation - s/p arthroscopic I and D on 12/15/17 #1 arthroscopic irrigation debridement and synovectomy left knee #2 partial lateral meniscectomy -follow Orthopedic - Follow Blood cultures 2 , check lyme titres. currently negative. - IV morphine for pain, Tylenol by mouth for fever, consider Dilaudid or motrin - Continue statin - Continue SSRI - Full code, DVT prophylaxis Problem List: 1. Arthritis of right leg 2. Reactive arthritis 3. Septic arthritis Pain Ratin Pain Location: left knee Pain Goal: Pain 4 or less Pain Plan: Continue current plan Tomorrow's Labs & Rationales: CBC Javier Holland 12/18/17 1213: Attending MD Review Statement Attending Statement Attending MD Statement: examined this patient, discuss w/resident/PA/POOL NURSE, agreed w/resident/PA/POOL NURSE, discussed with family, reviewed EMR data (avail), discussed with nursing, discussed with case mgmt, reviewed images, amended to note Attending Assessment/Plan: 52-year-old male who presents with complaints of left knee pain and inability to walk going on since yesterday admitted for sepsis and left knee effusion. Patient seen/exmained bedside. Patient has better range of motion s/p partial meniscectomy. AFebrile overnight. Patient feeling better overall. 1. Inflammatory arthritis r/o Possible Left knee septic arthritis - Elevated WBC in the knee aspirate 2. Anemia of chronic disease 3. Leukocytosis 4. Depressive disorder 5. H/o [place] bacteremia repeat blood cultures negative. Plan s/p partial meniscectomy, post op course uneventful. Synovial cultures remain negative. Infectious diseases appreciated, c/w broad spectrum, Abx as per ID. Cultures remain negative so far. Source of infection ?knee. TTE negative for major vegetations, awaited FANNY. f/u ID. Consider rhuematology i/p vs o/p. Continue with Lexapro. ALPs for DVT prophylaxis. dc planning as per ID and ortho. FOLLOW UP PCP in 1 week of discharge Orthopedics in 1-2 weeks of discharge
[2017-12-18 09:19] LABS: ABSOLUTE BASOPHIL COUNT 0 /CUMM (0.0-0.2); ABSOLUTE EOSINOPHIL COUNT 0.2 /CUMM (0.0-0.7); ABSOLUTE GRANULOCYTE CT 8.1 /CUMM (1.4-6.5); ABSOLUTE MONOCYTE COUNT 0.6 /CUMM (0.10-0.60); BASOPHIL % 0.3 % (0.0-2.0); EOSINOPHIL % 1.5 % (0-5); GRANULOCYTE % 74.6 % (42.2-75.2); HEMATOCRIT 22.6 % (42-52); MEAN CORPUSCULAR HGB 29.2 PG (27.0-31.0); MEAN CORPUSCULAR HGB CONC 32.6 G/DL (33.0-37.0); MEAN CORPUSCULAR VOLUME 89.5 FL (80.0-94.0); MEAN PLATELET VOLUME 6.8 FL (7.4-10.4); PLATELET COUNT 685 /CUMM (130-400); RBC DISTRIBUTION WIDTH 18.2 % (11.5-14.5); RED BLOOD CELL CT 2.53 /CUMM (4.70-6.10); WHITE BLOOD CELL COUNT 10.9 /CUMM (4.8-10.8)
--- NOTE | 2017-12-18 12:40 | Cons- Cardiology ---
General Information and HPI Consulting Request Date of Consult: 12/18/17 Requested By: Javier Holland MD Reason for Consult: Performance of FANNY to rule out vegetative lesions Source of Information: patient, old records Exam Limitations: no limitations History of Present Illness: Chart reviewed and patient seen. 52-year-old male here with noncardiac issues noted to be bacteremic. Transthoracic echo did not disclose any evidence of vegetations. FANNY to be performed today to better exclude vegetative lesions. The situation was discussed in detail with the patient and his and they agree to proceed with a FANNY. Allergies/Medications Allergies: Coded Allergies: acetaminophen (From PERCOCET) (Severe, ITCH 02/05/16) hydrocodone (Severe, ITCH 02/05/16) oxycodone (Severe, ITCH 02/05/16) Home Med List: Atorvastatin Calcium 40 MG TABLET 1 TAB PO DAILY choolestrol (Reported) Escitalopram Oxalate 10 MG TABLET 1 TAB PO DAILY insomnia (Reported) Current Medications: Current Medications Sig/Wagner Start time Last Medication Dose Route Stop Time Status Admin Acetaminophen 650 MG Q6P PRN 12/13 1430 AC 12/16 PO 2004 Ampicillin Sodium/ 3,000 MG Q6H 12/14 0200 AC 12/18 Sulbactam Sodium IV 0923 Sodium Chloride 100 ML Atorvastatin Calcium 40 MG DAILY 12/14 1000 AC 12/18 PO 0922 Escitalopram Oxalate 10 MG DAILY 12/14 1000 AC 12/18 PO 0922 Fentanyl Citrate 0 .STK-MED ONE 12/18 1032 DC .ROUTE Heparin Sodium 5,000 UNIT Q8 12/13 2200 AC 12/18 (Porcine) SC 0630 Hydromorphone HCl 2 MG Q4P PRN 12/15 1730 AC 12/17 PO 1954 Ketorolac 15 MG BID PRN 12/15 1930 AC Tromethamine IV Lidocaine 0 .STK-MED ONE 12/18 1022 DC TOP Morphine Sulfate 2 MG Q2 HRS NEEDED PRN 12/14 1645 AC 12/14 IV 1656 Patient Medication 1 ED ONE ONE 12/17 1600 DC Teaching ED 12/17 1601 Vancomycin HCl 1,000 MG Q12H 12/14 0500 DC 12/17 Dextrose/Water 250 ML IV 0620 Past History Travel History Traveled to [place] past 21 day No Medical History Blood Transfusion Hx: No Neurological: NONE EENT: NONE Cardiovascular: hypertension, hyperlipidemia Respiratory: pneumonia Gastrointestinal: diverticulitis Hepatic: alcoholic hepatitis Renal: NONE Musculoskeletal: NONE Psychiatric: alcohol dependence Endocrine: NONE Blood Disorders: NONE Cancer(s): NONE COAT FINISHER/Reproductive: NONE Other Medical Hx: Sepsis Surgical History Surgical History: non-contributory Family History Relations & Conditions If Any: FATHER FH: diabetes mellitus MOTHER FH: diabetes mellitus FH: HTN (hypertension) Psychosocial History Who Do You Live With? spouse Primary Language: Mongolian Smoking Status: Never Smoked ETOH Use: alcoholic Illicit Drug Use: denies illicit drug use Functional Ability ADLs Independent: dressing, eating, toileting, bathing. Ambulation: independent Exam & Diagnostic Data Vital Signs and I&O Vital Signs Date Time Temp Pulse Resp B/P B/P Pulse O2 O2 Flow FiO2 Mean Ox Delivery Rate 12/18 0620 99.0 73 18 126/60 94 Room Air 12/17 2233 98.9 84 18 102/54 92 Room Air 12/17 1348 98.4 100 20 114/60 98 Room Air Intake & Output 12/18 1600 12/18 0800 12/18 0000 12/17 1600 12/17 0800 12/17 0000 Intake Total 150 720 480 510 710 Output Total 300 Balance 150 720 480 210 710 Intake, IV 150 120 150 430 Intake, Oral 600 480 360 280 Number 0 Bowel Movements Output, Urine 300 Labs/Jean-Pierre Results: Laboratory Tests 12/18 12/17 12/17 0734 1150 0740 Chemistry Sodium (137 - 145 mmol/L) 143 Potassium (3.5 - 5.1 mmol/L) 3.7 Chloride (98 - 107 mmol/L) 111 H Carbon Dioxide (22 - 30 mmol/L) 20 L Anion Gap (5 - 16) 12 BUN (9 - 20 mg/dL) 14 Creatinine (0.7 - 1.2 mg/dL) 0.8 Estimated GFR (>60 ml/min) > 60 BUN/Creatinine Ratio (7 - 25 %) 17.5 Hematology CBC w Diff NO MAN DIFF REQ WBC (4.8 - 10.8 /CUMM) 10.9 H 14.4 H RBC (4.70 - 6.10 /CUMM) 2.53 L 3.04 L Hgb (14.0 - 18.0 G/DL) 7.4 *L 8.8 L Hct (42 - 52 %) 22.6 L 27.5 L MCV (80.0 - 94.0 FL) 89.5 90.6 MCH (27.0 - 31.0 PG) 29.2 28.9 MCHC (33.0 - 37.0 G/DL) 32.6 L 31.9 L RDW (11.5 - 14.5 %) 18.2 H 18.3 H Plt Count (130 - 400 /CUMM) 685 H 774 H MPV (7.4 - 10.4 FL) 6.8 L 6.8 L Gran % (42.2 - 75.2 %) 74.6 76.7 H Lymphocytes % (20.5 - 51.1 %) 18.3 L 17.8 L Monocytes % (1.7 - 9.3 %) 5.3 3.9 Eosinophils % (0 - 5 %) 1.5 1.1 Basophils % (0.0 - 2.0 %) 0.3 0.5 Absolute Granulocytes (1.4 - 6.5 /CUMM) 8.1 H 11.1 H Absolute Lymphocytes (1.2 - 3.4 /CUMM) 2.0 2.6 Absolute Monocytes (0.10 - 0.60 /CUMM) 0.6 0.6 Absolute Eosinophils (0.0 - 0.7 /CUMM) 0.2 0.2 Absolute Basophils (0.0 - 0.2 /CUMM) 0 0.1 Assessment/Plan Assessment/Plan Assessment: 1. Left knee septic arthritis 2. Bacteremia 3. Leukocytosis 4. History of depression Recommendations: -The patient is nothing by mouth for FANNY today. -Further recreations after FANNY performed. Consult Acknowledgment - Thank you for your consult request.
[2017-12-18 13:46] VITALS: BP 118/80
--- NOTE | 2017-12-18 13:59 | PN- Infect Dx ---
Subjective Subjective: No fever; improved L knee pain. Review of Systems Comments: 12 points reviewed as noted, otherwise neg. Objective Last 24 Hrs of Vital Signs/I&O Vital Signs Date Time Temp Pulse Resp B/P B/P Pulse O2 O2 Flow FiO2 Mean Ox Delivery Rate 12/18 1346 97.6 60 20 118/80 97 Room Air 12/18 0620 99.0 73 18 126/60 94 Room Air 12/17 2233 98.9 84 18 102/54 92 Room Air Intake & Output 12/18 1600 12/18 0800 12/18 0000 Intake Total 150 720 Output Total Balance 150 720 Intake, IV 150 120 Intake, Oral 600 Physical Exam Other Physical Findings: Well-developed well-nourished no apparent distress. HEENT: Atraumatic, sclera anicteric Neck: Supple, no LAB/JVD Respiratory: BS present, no rales Heart S1 S2 present Abd BS present, NT Extremities: No edema, no calf pain Left knee: decreased local tenderness/pain/swelling, no erythema of the skin overlying the L knee. Neuro: Alert and oriented x3 Psych: Mood affect normal, normal memory normal judgment. Skin: Warm and dry, no rash Results Last 24 Hours of Lab Results: Laboratory Tests 12/18 0734 Hematology CBC w Diff NO MAN DIFF REQ WBC (4.8 - 10.8 /CUMM) 10.9 H RBC (4.70 - 6.10 /CUMM) 2.53 L Hgb (14.0 - 18.0 G/DL) 7.4 *L Hct (42 - 52 %) 22.6 L MCV (80.0 - 94.0 FL) 89.5 MCH (27.0 - 31.0 PG) 29.2 MCHC (33.0 - 37.0 G/DL) 32.6 L RDW (11.5 - 14.5 %) 18.2 H Plt Count (130 - 400 /CUMM) 685 H MPV (7.4 - 10.4 FL) 6.8 L Gran % (42.2 - 75.2 %) 74.6 Lymphocytes % (20.5 - 51.1 %) 18.3 L Monocytes % (1.7 - 9.3 %) 5.3 Eosinophils % (0 - 5 %) 1.5 Basophils % (0.0 - 2.0 %) 0.3 Absolute Granulocytes (1.4 - 6.5 /CUMM) 8.1 H Absolute Lymphocytes (1.2 - 3.4 /CUMM) 2.0 Absolute Monocytes (0.10 - 0.60 /CUMM) 0.6 Absolute Eosinophils (0.0 - 0.7 /CUMM) 0.2 Absolute Basophils (0.0 - 0.2 /CUMM) 0 Last 24 Hours of Jean-Pierre Results: SPEC #: [id number] PATRICIA: 12/15/17 STATUS: COMP RECD: 12/15/[address]: Jerry OCONNOR,Harley Howard SOURCE: EXTREMITIE ENTR: 12/15/[address]: Amalia OCONNOR,Javier SPDESC: KNEE LEFT Chika OCONNOR, Maureen Chang MD, Jin ORDERED: XTRMOR COMMENT: ADDITIONAL INFORMATION: SYNOVIUM REC'D 3 SMALL PIECES OF TISSUE IN STERILE CONTAINER Procedure Result > GRAM STAIN Final 12/18/17 WHITE BLOOD CELLS RARE OTHER NO ORGANISMS SEEN > EXTREMITIES OR SPECIMEN Final 12/18/17 NO GROWTH AFTER 3 DAYS Recent Imaging Studies: reviewed Assessment/Plan ID Impression: 52-year-old WM knwon with HTN, HLD, ETOH abuse, hepatic steatosis, pancreatic pseudocyst, and recent admission for sepsis, aspiration pneumonia, alcoholic hepatitis, AMBAR and bacteremia (positive blood culture Prevotella species and anaerobic gram-positive rods) admitted on 12/13. L knee effusion; arthrocentesis revealing 16K WBC (repeat synovial fluid analysis 12K WBC, no ureate crystals), gm stain negative; no growth to date. As WBC in synovial fluid below 50k and culture negative to date alternative diagnosis to be considered (? reactive arthritis reported w/ IE, non GC urethritis, etc). Lyme arthritis not likely as screening WU titer negative. clinically high suspicion for septic arthritis; as purulent fluyid aspirated (?! ). Fever/resolved Leukocytosis; WBC trending down Thrombocytosis/reactive Elevated ESR >130 Suggestion: 1. Rheumatology eval as OP. 2. Trend CBC. ASO titer in am. 3. FANNY evaluate valves neg (2 D Echo neg veget). 4. D #6/7 w/ iv ampicillin/sulbactam; until valuated by rheumatology Augmentin 875 mg po bid x 21 d as OP. 5. F/U Dr. Malave in 2 weeks from discharge.
--- NOTE | 2017-12-18 14:55 | ECHOCARDIOGRAM REPORT ---
JULIO CESAR ABDALLA Age: 52 : Gender: M Exam Date: 12/18/2017 10:46 Exam Location: [place] Ht (in): 68 Wt (lb): 180 BSA: 2.00 BP: 116 / 62 Ordering Physician: Mark Parkinson MD Referring Physician: Mark Parkinson MD Technologist: Eyad Hayes [facility] Room Number: 223-1 Indications: INFECTIVE ENDOCARDITIS Rhythm: Sinus Technical Quality: Good Medications Propofol administered by Anesthesiology. Ease of Transducer Insertion No Difficulty Complications None. Technical Difficulty FINDINGS Left Ventricle Normal global left ventricular size, wall thickness, systolic function with no obvious regional wall motion abnormalities. Right Ventricle Normal right ventricular size and function. Right Atrium Normal right atrial size. Left Atrium Left atrial size at the upper limits of normal. LA Appendage Normal left atrial appendage. IA Septum Normal interatrial septum. Mitral Valve Mitral valve thickened. Mild mitral regurgitation. Aortic Valve Trileaflet aortic valve. Focal thickening of the aortic valve cusps. No aortic stenosis. No aortic regurgitation. Tricuspid Valve Structurally normal tricuspid valve. Trace to mild tricuspid regurgitation. Pulmonic Valve Structurally normal pulmonic valve. Trace pulmonic regurgitation. Pericardium No pericardial effusion. Great Vessels Normal size aortic root and proximal ascending aorta. Grade I plaque seen in the descending aorta. CONCLUSIONS 1. There are no vegetative lesions detected on this examination. 2. Minimal aortic sclerosis is present with no valvular stenosis or insufficiency. 3. Mitral leaflet thickening is present with mild mitral insufficiency. 4. The left atrium and left atrial appendage are normal with no evidence of mass or thrombus 5. The left ventricular chamber size and systolic function are normal. 6. The right heart structures appear normal. Minimal to mild tricuspid and pulmonic insufficiency are present with no evidence of pulmonary hypertension. 7. The atrial septum is normal with no evidene of atrial level shunt by color flow imaging or agitated contrast saline injection. 8. The thoracic aorta appear noraml. Grade I plaque is present in the mid descending thoracic aorta. Cheng Baxter M.D. (Electronically Signed) Final Date: 18 December 2017 14:54 MEASUREMENTS (Male / Female) Normal Values
[2017-12-18] MEDS ORDERED: AUGMENTIN 875-1 EACH PO (17:30)
--- NOTE | 2017-12-18 17:33 | Patient Discharge Instructions ---
Discharge Instructions General Discharge Information You were seen/treated for: Septic arthritis Reactive arthritis You had these procedures: Arthroscopic I and D of right knee Partial meniscectomy Watch for these problems: Severe pain, fever, dizziness, chills, chest pain, shortness of breathing or worsening of any other symptoms Special Instructions: Please follow with your PCP within one week of discharge. Please follow with your command and control within 1 week of discharge. Please follow with your infectious disease specialist within 1 week of discharge. Please take your medications as ordered. Please come back to hospital if symptoms worsen Diet Continue normal diet: No Recommended Diet: Heart Healthy Acute Coronary Syndrome Inclusion Criteria At DC or during hospital stay patient has or had the following: ACS DIAGNOSIS No Discharge Core Measures Meds if any: Prescribed or Continued at Discharge Meds if any: NOT Prescribed or Continued at Discharge Congestive Heart Failure Inclusion Criteria At DC or during hospital stay patient has or had the following: CHF DIAGNOSIS No Discharge Core Measures Meds if any: Prescribed or Continued at Discharge Meds if any: NOT Prescribed or Continued at Discharge Cerebrovascular accident Inclusion Criteria At DC or during hospital stay patient has or had the following: CVA/TIA Diagnosis No Discharge Core Measures Meds if any: Prescribed or Continued at Discharge Meds if any: NOT Prescribed or Continued at Discharge Venous thromboembolism Inclusion Criteria VTE Diagnosis No VTE Type NONE VTE Confirmed by (Test) NONE Discharge Core Measures - Per Current guidelines, there needs to be overlap - treatment for the first 5 days of Warfarin therapy. - If discharged on Warfarin prior to 5 days of - overlap therapy, the patient will need to be - assessed for post discharge needs including - *Post discharge parental anticoagulation - *Warfarin and/or parental anticoagulation education - *Follow up date to check INR post discharge At least 5 days overlap therapy as Inpatient No Meds if any: Prescribed or Continued at Discharge Note: Overlap Therapy is Warfarin and Anticoagulant Meds if any: NOT Prescribed or Continued at Discharge
[2017-12-18] MEDS ORDERED: ACIDOPHILUS1 EACH PO (17:34)
[2017-12-18 22:47] VITALS: BP 132/60
[2017-12-19 06:14] VITALS: BP 114/70
[2017-12-19 08:41] LABS: ABSOLUTE BASOPHIL COUNT 0 /CUMM (0.0-0.2); ABSOLUTE EOSINOPHIL COUNT 0.2 /CUMM (0.0-0.7); ABSOLUTE GRANULOCYTE CT 7.2 /CUMM (1.4-6.5); ABSOLUTE LYMPH COUNT 2.1 /CUMM (1.2-3.4); ABSOLUTE MONOCYTE COUNT 0.4 /CUMM (0.10-0.60); BASOPHIL % 0.4 % (0.0-2.0); EOSINOPHIL % 2.4 % (0-5); HEMATOCRIT 23.6 % (42-52); MEAN CORPUSCULAR HGB 29.6 PG (27.0-31.0); MEAN CORPUSCULAR HGB CONC 32.7 G/DL (33.0-37.0); MEAN CORPUSCULAR VOLUME 90.5 FL (80.0-94.0); MEAN PLATELET VOLUME 6.4 FL (7.4-10.4); PLATELET COUNT 719 /CUMM (130-400); RED BLOOD CELL CT 2.61 /CUMM (4.70-6.10)
--- NOTE | 2017-12-19 09:03 | PN- Housestaff ---
See Addendum Subjective Follow-up For: Knee pain Subjective: Patient was seen and examined at bedside. Denies any significant pain in his knee. No acute events overnight or active complaints. Patient eager to go home today. Review of Systems Constitutional: Reports: no symptoms. Objective Last 24 Hrs of Vital Signs/I&O Vital Signs Date Time Temp Pulse Resp B/P B/P Pulse O2 O2 Flow FiO2 Mean Ox Delivery Rate 12/19 613 98.4 75 20 114/70 92 Room Air 12/18 2247 98.9 83 20 132/60 95 Room Air 12/18 1346 97.6 60 20 118/80 97 Room Air Intake & Output 12/19 1600 12/19 0800 12/19 0000 Intake Total 240 480 Output Total Balance 240 480 Intake, IV 120 Intake, Oral 120 480 Number 1 Bowel Movements Physical Exam General Appearance: Alert, Oriented X3, Cooperative, No Acute Distress Skin: No Rashes, No Breakdown Skin Temp/Moisture Exam: Warm/Dry Sepsis Skin Exam (color): Normal for Ethnicity HEENT: Atraumatic Cardiovascular: Normal S1, Normal S2, No Murmurs Lungs: Clear to Auscultation, Normal Air Movement Abdomen: Soft, No Tenderness Neurological: Normal Speech Extremities: sutures on left knee. No inflammation or swelling around site. Assessment/Plan Assessment: 52-year-old gentleman with past medical history of recent hospitalization due to possible aspiration pneumonia alcoholic hepatitis with elevated LFTs with positive blood culture proventella species and anaerobic gram-positive rods, anemia was discharged about 3 weeks ago from the [facility] came back to the hospital with chief complaint of knee pain and inability to walk. Assessment Left Knee Pain History of hyperlipidemia History of alcohol abuse History of recent bacteremia History of anxiety/depression Plan * His white count has trended down to normal. * Unasyn has been discontinued. Patient to be discharged on Augmentin for 3 weeks. * His pain has significantly improved. * His blood cultures have been negative. No growth on joint fluid aspiration. * Lyme titres negative. * ASO titres pending * FANNY and TTE showed no acute abnormalities. FANNY was negative for any vegetations. * Continue statin * Continue SSRI * Full code, DVT prophylaxis, regular diet. Problem List: 1. Left foot pain Pain Ratin Pain Location: none Pain Goal: Remain pain free Pain Plan: none Tomorrow's Labs & Rationales: none
[2017-12-19] MEDS ORDERED: ACIDOPHILUS1 EACH PO (10:55)
[2017-12-19] MEDS ORDERED: AUGMENTIN 875-1 EACH PO (10:55)
[2017-12-19] MEDS ORDERED: IBUPROFEN600 M1 PO (10:55)
--- NOTE | 2017-12-21 09:01 | Discharge Summary ---
Visit Information Visit Dates Admission Date: 12/13/17 Discharge Date: 12/19/17 Hospital Course Course Attending Physician: Javier Holland MD Primary Care Physician: Chika OCONNOR,[facility] Course: 52-year-old gentleman with past medical history of recent hospitalization due to possible aspiration pneumonia alcoholic hepatitis with elevated LFTs with positive blood culture proventella species and anaerobic gram-positive rods, anemia was discharged about 3 weeks ago from the [facility] came back to the hospital with chief complaint of knee pain and inability to walk. vitals in ED were stable except mild fever 100.2 labs WBC 16.1 hg 8.8 ( stable) plt 460, esr more than 130 crp 7.5 left knee, ankle, foot x ray 1st knee tap was done before administration of antibiotics: wbc 27031 no crystals * xray was done: Normal radiographs of the left ankle and foot. * Doppler of left LE: There is a 3.4 x 1.3 x 1.5 cm cystic lesion in the popliteal fossa without internal vascularity, compatible with White's cyst. IMPRESSION: No evidence of deep venous thrombosis involving the left lower extremity. Patient was admitted to [facility] floor for management of following conditions: Left knee effusion and pain Patient had increased WBC count in joint effusion as well as blood count. Patient also had a recent history of mercury anemia during prior admission in ICU. Antibiotic treatment was initiated. Patient also had a second arthrocentesis which revealed WBC of 11,000. Patient underwent arthroscopic I and D on 12/15/17 #1 arthroscopic irrigation debridement and synovectomy left knee #2 partial lateral meniscectomy Patient received Unasyn, and ceftriaxone considering recent blood culture results. Moreover to rule out bacterial endocarditis TTE and FANNY were done which were negative for any sign of vegetation. Cultures remained negative during the admission. With improvement of the condition patient was discharged with recommendations below. according to Dr Darby patient was discharged on oral augmentin for total of 3 weeks, recommendations to follow with Rheumato and Dr Malave. Allergies: Coded Allergies: acetaminophen (From PERCOCET) (Severe, ITCH 02/05/16) hydrocodone (Severe, ITCH 02/05/16) oxycodone (Severe, ITCH 02/05/16) Significant Procedures: Arthrocentesis x2 Arthroscopic surgery of the left knee Disposition Summary Disposition Principal Diagnosis: Arthritis of the left knee Septic VS reactive Additional Diagnosis: Chronic medical conditions Discharge Disposition: home health services Discharge Instructions General Discharge Information Code Status: Full Code Patient's Diet: Regular, as patient requested Patient's Activity: As tolerated Follow-Up Instructions/Appts: Please follow with your PCP within one week of discharge. Please follow with your individual small group instructor within 1 week of discharge. Please follow with your infectious disease specialist, Dr Velasquez, your Orthopedic surgeon, Dr Edwards within 1 week of discharge. Please take your medications as ordered. Please come back to hospital if symptoms worsen Medications at Discharge Discharge Medications: Continue taking these medications: Atorvastatin Calcium (Atorvastatin Calcium) 40 MG TABLET 1 Tablet ORAL DAILY Comments: Last Taken:12/19/17 Time: 9:30 AM Escitalopram Oxalate (Escitalopram Oxalate) 10 MG TABLET 1 Tablet ORAL DAILY Comments: Last Taken:12/19/17 Time: 9:30 AM Start taking the following new medications: Lactobacillus Acidophilus (Acidophilus) 1 EACH CAPSULE 1 Capsule ORAL DAILY Qty = 60 No Refills Amoxicillin/Potassium Clav (Augmentin 875-125 Tablet) 875 MG-125 MG TABLET 1 Tablet ORAL TWICE DAILY Qty = 42 No Refills Ibuprofen (Ibuprofen) 600 MG TABLET 1 Tablet ORAL EVERY 8 HOURS NEEDED as needed for Pain Qty = 30 No Refills Instructions: with food Copies To: Chika OCONNOR,Maureen; Francois OCONNOR,Murtaza Estrada; Sahil OCONNOR,Gisell Daley; Ananda OCONNOR,Roberto Jason; Jerry OCONNOR,Harley Howard Attending MD Review Statement Documenting Attending: Javier Holland MD
== END 2017-12-19 12:05 | disposition home health service (06) | DRG 313 ==
LOC: ERH 09:13 → ERHI 13:25 → 2NA 13:25 → ENRESERV 14:22 → ENTRNSPT 14:55 → 2NA 15:07 → CMPTRNSPT 15:19 → 2NA 12-15 07:42 → ENPENDDIS 12-19 11:06 → ENTRNSPT 12-19 11:49 → EDTRNSPTSTS 12-19 12:00 → 2NA 12-19 12:05 → CMPTRNSPT 12-19 12:12
PROVIDERS: Internal Medicine; Physician Assistant; Radiology Vascular & Interventional Radiology
PROC: 0S9D3ZX Drainage of Left Knee Joint, Percutaneous Approach, Diagnostic (ICD-10-PCS; 2017-12-14)
PROC: 0SBD4ZZ Excision of Left Knee Joint, Percutaneous Endoscopic Approach (ICD-10-PCS; principal; 2017-12-15)
PROC: B24BZZ4 Ultrasonography of Heart with Aorta, Transesophageal (ICD-10-PCS; 2017-12-18)
DX: M25.462 Effusion, left knee (principal); K70.10 Alcoholic hepatitis without ascites; F17.200 Nicotine dependence, unspecified, uncomplicated; F10.10 Alcohol abuse, uncomplicated; S83.282A Other tear of lateral meniscus, current injury, left knee, initial encounter; B96.89 Other specified bacterial agents as the cause of diseases classified elsewhere; Z88.6 Allergy status to analgesic agent; Z88.5 Allergy status to narcotic agent; E78.5 Hyperlipidemia, unspecified; I10 Essential (primary) hypertension; K57.92 Diverticulitis of intestine, part unspecified, without perforation or abscess without bleeding; D63.8 Anemia in other chronic diseases classified elsewhere; F32.9 Major depressive disorder, single episode, unspecified; K86.3 Pseudocyst of pancreas; F41.9 Anxiety disorder, unspecified; X58.XXXA Exposure to other specified factors, initial encounter
CPT/HCPCS: 2NASP; 86618; 87070; 87075; 36415; 36592; 73562-LT; 73610-LT; 73630-LT; 82436; 86060; 87040; 89060; 93005; 93010; 93306; 93325; 96374; 96375; 97116-GO; 97161-GP; 97530-GO; 99291; G0480; J0131; J0696; J1644; J1885; J3370; J3490; J7040; J7060